=== PATIENT | female | born 1950 | race Caucasian/White ===

== ENCOUNTER 2017-11-05 09:00 | Outpatient (RCR) | payer OTHER, SELFPAY ==
--- NOTE | 2017-09-23 14:30 | PT.OIE ---
Current Diagnoses Patellofemoral disorders, right knee (09/23/17) Effusion, right knee (09/23/17) Provider Visit Care Team Role Provider Type Brent Blackwell MD Attending Provider Non-Staff Specialty: [facility] Address: [address] [place] [address], [facility] Email: Physical Therapy Initial Evaluation PT-OP-A Visit Information Start: 09/23/17 14:37 Freq: Status: Active Protocol: Document 09/23/17 14:37 MDD (Rec: 09/23/17 14:58 MDD [email or web address]) Out-Patient Physical Therapy Visit Information Visit Information Visit Type Initial Evaluation Visit Start Time 13:45 Visit Stop Time 14:30 Total Visit Minutes 45 Visit Number 1 Number of ORACLE ENDE[employer] CONSULTANT Visits 0 Evaluation Information Evaluation Date 09/23/17 PT-OP-B Current Condition Start: 09/23/17 14:37 Freq: Status: Active Protocol: Document 09/23/17 14:37 MDD (Rec: 09/23/17 14:58 MDD [email or web address]) Current Condition History of Current Condition Onset Date 6 months ago Current Complaints R knee swelling/pain History of Current Condition Incidious onset 6 months ago R knee swelling and pain. Has had x-rays reporting mild OA. Has had two cortisone injections which helped reduce swelling and pain. Last one was 6 weeks ago. Denies locking/popping or clicking. Recently retired and thus more active with gardening and outdoor activities. Also currently building a new house , so very physically active. Symptoms will wake her up at night. Prior Treatments and Tests uses alleve and ice, but not regularly Treatment Goals Patient/Caregiver Goals Be able to sleep through the night without pain. Prior Functional Status Baseline Function- ADL's Independent Baseline Function- Mobility Independent Current Functional Impairments (Reported) Functional Limitations- Other difficulty sleeping through the night. PT-OP-C Subjective Start: 09/23/17 14:37 Freq: Status: Active Protocol: Document 09/23/17 14:37 MDD (Rec: 09/23/17 14:58 MDD [email or web address]) OP-PT Pain Assessment Location Knee Pain Location Details R knee pain Intensity 5 Scale Used Numeric (1 - 10) Description Aching Pressure Frequency Intermittent Pain Aggravating Factors Exercise Sitting Stair Climbing Pain Alleviating Factors Cold Other Pain Alleviating Factors laying down and letting the R knee hang off the table PT-OP-J Posture/Palpation/Skin Start: 09/23/17 14:37 Freq: Status: Active Protocol: Document 09/23/17 14:37 MDD (Rec: 09/23/17 14:58 MDD [email or web address]) Posture Evaluation Position Standing Evaluation View Anterior L-Spine Posture Increased Lordosis Shoulder Posture (L) Rounded (R) Rounded Knee Posture (L) Genu Valgus (R) Genu Valgus Patellar Posture (L) Neutral (R) Neutral Ankle/Foot Posture (L) Neutral (R) Neutral Palpation Assessment Location One Palpation Location R medial knee, superior medial femoral condyle Palpation Findings Edema Tenderness PT-OP-K Range of Motion Start: 09/23/17 14:37 Freq: Status: Active Protocol: Document 09/23/17 14:37 MDD (Rec: 09/23/17 14:58 MDD [email or web address]) Knee Goniometric Range of Motion Knee Measured in Degrees Right Knee ROM WFL No Patient Position Supine Flexion Active (degrees) 136 Extension Active (degrees) 0 Left Knee ROM WFL Yes Patient Position Supine Flexion Active (degrees) 140 Extension Active (degrees) 0 PT-OP-L Special Tests Start: 09/23/17 14:37 Freq: Status: Active Protocol: Document 09/23/17 14:37 MDD (Rec: 09/23/17 14:58 MDD [email or web address]) Special Tests Knee Special Tests Sarthak's Test Test Results positive B Anterior Draw Test Results negative Johnnie's Test Results negative Ponce's Test Results negative Other Special Tests Special Tests straight leg raise indicates B hamstring shortness, Shivani's test demonstrates B quadriceps shortness, imani test positive for hip flexor shortness B. Pt also demonstrates limited hip extension ROM B. PT-OP-M Strength Start: 09/23/17 14:37 Freq: Status: Active Protocol: Document 09/23/17 14:37 MDD (Rec: 09/23/17 14:58 MDD [email or web address]) Hip Strength Hip Manual Muscle Testing Right Flexion (L2) 5 Normal Extension (S1) 4 Good Abduction 4+ Good+ External Rotation 5 Normal Internal Rotation 5 Normal Comments demonstrate medial patellar drift with single leg squat R >L Left Flexion (L2) 5 Normal Extension (S1) 4 Good Abduction 5 Normal External Rotation 5 Normal Internal Rotation 5 Normal PT-OP-T Assessment and Plan Start: 09/23/17 14:37 Freq: Status: Active Protocol: Document 09/23/17 14:37 MDD (Rec: 09/23/17 14:58 MDD [email or web address]) Physical Therapy Assessment Rehab Potential Rehabilitation Potential Excellent Evaluation Complexity Number of Personal Factors/Comorbidities 0 Number of Body Systems Impaired 1-2 Clinical Presentation at Evaluation Stable Impairments Impairments Balance Functional Mobility Pain Posture ROM Soft Tissue Mobility Strength Goals Three Impairment pain Short Term Goal (STG) Pt will be able to ascend/ descend 12 steps without R knee pain in 8 weeks. Two Impairment Strength Short Term Goal (STG) Pt will improve LE strength to 5/5 in major muscle groups in 6-8 weeks to decrease pain. One Impairment Pain Short Term Goal (STG) Pt will report no greater than 2/10 R knee pain during the night in 2-3 weeks. Fci Goal (LTG) Pt will report no knee pain at night in 6-8 weeks. Assessment Summary Assessment Pt is complaining of R knee pain that is currently limiting her ability to ascend /descend stairs and sleep without interruption. On examination she demonstrates impaired LE flexibility, impaired R hip strength and impaired posture that is consistent with mechanical knee pain. She should benefit from a PT plan of care to address the above impairments. Physical Therapy Plan Frequency and Duration Frequency of Treatment 1x/Week Duration of Treatment 8 weeks Plan of Care Start Date 09/23/17 Therapeutic Interventions Therapeutic Interventions Gait Training Manual Therapy Soft Tissue Mobilization Taping Therapeutic Activities Therapeutic Exercises Modalities Cold Pack/Ice Massage Electric Stimulation Hot Packs Next Visit Focus/Plan Next Note Type Treatment Note Next Visit Plan start gluteal strengthening, assess stair climbing. Review HEP.
--- NOTE | 2017-09-23 14:59 | PT.OPPOC ---
Current Diagnoses Patellofemoral disorders, right knee (09/23/17) Effusion, right knee (09/23/17) Provider Visit Care Team Role Provider Type Brent Blackwell MD Attending Provider Non-Staff Specialty: [facility] Address: [address] [place] [address], [facility] Email: Plan Of Care PT-OP-T Assessment and Plan Start: 09/23/17 14:37 Freq: Status: Active Protocol: Document 09/23/17 14:37 MDD (Rec: 09/23/17 14:58 MDD [email or web address]) Physical Therapy Assessment Rehab Potential Rehabilitation Potential Excellent Evaluation Complexity Number of Personal Factors/Comorbidities 0 Number of Body Systems Impaired 1-2 Clinical Presentation at Evaluation Stable Impairments Impairments Balance Functional Mobility Pain Posture ROM Soft Tissue Mobility Strength Goals Three Impairment pain Short Term Goal (STG) Pt will be able to ascend/ descend 12 steps without R knee pain in 8 weeks. Two Impairment Strength Short Term Goal (STG) Pt will improve LE strength to 5/5 in major muscle groups in 6-8 weeks to decrease pain. One Impairment Pain Short Term Goal (STG) Pt will report no greater than 2/10 R knee pain during the night in 2-3 weeks. Livestock Laborer Goal (LTG) Pt will report no knee pain at night in 6-8 weeks. Assessment Summary Assessment Pt is complaining of R knee pain that is currently limiting her ability to ascend /descend stairs and sleep without interruption. On examination she demonstrates impaired LE flexibility, impaired R hip strength and impaired posture that is consistent with mechanical knee pain. She should benefit from a PT plan of care to address the above impairments. Physical Therapy Plan Frequency and Duration Frequency of Treatment 1x/Week Duration of Treatment 8 weeks Plan of Care Start Date 09/23/17 Therapeutic Interventions Therapeutic Interventions Gait Training Manual Therapy Soft Tissue Mobilization Taping Therapeutic Activities Therapeutic Exercises Modalities Cold Pack/Ice Massage Electric Stimulation Hot Packs Next Visit Focus/Plan Next Note Type Treatment Note Next Visit Plan start gluteal strengthening, assess stair climbing. Review HEP. Plan of Care Dates Plan of Care Start Date 09/23/17 Please Sign and Return: I have reviewed this Plan of Care and certify that the skilled therapy services above are required to meet the patient?s needs. Physician Signature Date Printed Name and Credentials Clinical Instructor Signature Printed Name and Credentials
--- NOTE | 2017-10-01 10:31 | PT.OTN ---
Current Diagnoses Patellofemoral disorders, right knee (10/01/17) Effusion, right knee (10/01/17) Physical Therapy Treatment Note PT-OP-A Visit Information Start: 09/23/17 14:37 Freq: Status: Active Protocol: Document 10/01/17 10:31 MDD (Rec: 10/01/17 12:40 MDD [id number]) Out-Patient Physical Therapy Visit Information Visit Information Visit Type Treatment Note Visit Start Time 09:51 Visit Stop Time 10:31 Total Visit Minutes 40 Visit Number 2 Number of GOLF CART MAKER Visits 0 Evaluation Information Evaluation Date 09/23/17 PT-OP-B Current Condition Start: 09/23/17 14:37 Freq: Status: Active Protocol: Document 09/23/17 14:37 MDD (Rec: 09/23/17 14:58 MDD [email or web address]) Current Condition History of Current Condition Onset Date 6 months ago Current Complaints R knee swelling/pain History of Current Condition Incidious onset 6 months ago R knee swelling and pain. Has had x-rays reporting mild OA. Has had two cortisone injections which helped reduce swelling and pain. Last one was 6 weeks ago. Denies locking/popping or clicking. Recently retired and thus more active with gardening and outdoor activities. Also currently building a new house , so very physically active. Symptoms will wake her up at night. Prior Treatments and Tests uses alleve and ice, but not regularly Treatment Goals Patient/Caregiver Goals Be able to sleep through the night without pain. Prior Functional Status Baseline Function- ADL's Independent Baseline Function- Mobility Independent Current Functional Impairments (Reported) Functional Limitations- Other difficulty sleeping through the night. PT-OP-C Subjective Start: 09/23/17 14:37 Freq: Status: Active Protocol: Document 10/01/17 10:31 MDD (Rec: 10/01/17 12:40 MDD [id number]) OP-PT Subjective Patient Comments Patient Comments Pt reports her knee has felt less sore in the last day or two. Does note she has started taking one alleve at night and one in the morning to help with soreness. Has been consistent with her stretches so far. OP-PT Pain Assessment Location Knee Pain Location Details R knee pain Intensity 0 Scale Used Numeric (1 - 10) PT-OP-J Posture/Palpation/Skin Start: 09/23/17 14:37 Freq: Status: Active Protocol: Document 09/23/17 14:37 MDD (Rec: 09/23/17 14:58 MDD [email or web address]) Posture Evaluation Position Standing Evaluation View Anterior L-Spine Posture Increased Lordosis Shoulder Posture (L) Rounded (R) Rounded Knee Posture (L) Genu Valgus (R) Genu Valgus Patellar Posture (L) Neutral (R) Neutral Ankle/Foot Posture (L) Neutral (R) Neutral Palpation Assessment Location One Palpation Location R medial knee, superior medial femoral condyle Palpation Findings Edema Tenderness PT-OP-K Range of Motion Start: 09/23/17 14:37 Freq: Status: Active Protocol: Document 09/23/17 14:37 MDD (Rec: 09/23/17 14:58 MDD [email or web address]) Knee Goniometric Range of Motion Knee Measured in Degrees Right Knee ROM WFL No Patient Position Supine Flexion Active (degrees) 136 Extension Active (degrees) 0 Left Knee ROM WFL Yes Patient Position Supine Flexion Active (degrees) 140 Extension Active (degrees) 0 PT-OP-L Special Tests Start: 09/23/17 14:37 Freq: Status: Active Protocol: Document 09/23/17 14:37 MDD (Rec: 09/23/17 14:58 MDD [email or web address]) Special Tests Knee Special Tests Sarthak's Test Test Results positive B Anterior Draw Test Results negative Johnnie's Test Results negative [facility]'s Test Results negative Other Special Tests Special Tests straight leg raise indicates B hamstring shortness, Shivani's test demonstrates B quadriceps shortness, imani test positive for hip flexor shortness B. Pt also demonstrates limited hip extension ROM B. PT-OP-M Strength Start: 09/23/17 14:37 Freq: Status: Active Protocol: Document 09/23/17 14:37 MDD (Rec: 09/23/17 14:58 MDD [email or web address]) Hip Strength Hip Manual Muscle Testing Right Flexion (L2) 5 Normal Extension (S1) 4 Good Abduction 4+ Good+ External Rotation 5 Normal Internal Rotation 5 Normal Comments demonstrate medial patellar drift with single leg squat R >L Left Flexion (L2) 5 Normal Extension (S1) 4 Good Abduction 5 Normal External Rotation 5 Normal Internal Rotation 5 Normal PT-OP-Q Treatments Start: 09/23/17 14:37 Freq: Status: Active Protocol: Document 10/01/17 10:31 MDD (Rec: 10/01/17 12:40 MDD [id number]) Therapeutic Exercises Supine Exercises 5 Supine Exercise Name Bridges Reps/Minutes 15 with 5 second holds Comments mini bridges - focus on activating gluteals and relaxing lumbar paraspinals 4 Supine Exercise Name posterior pelvic tilts Reps/Minutes 10 3 Supine Exercise Name double knee to chest Reps/Minutes 10 2 Supine Exercise Name standing ITB stretch Reps/Minutes 2 x 30s 1 Supine Exercise Name imani stretch Reps/Minutes 2 x 30 seconds Sitting Exercises 2 Sitting Exercise Name seated piriformis stretch Side right Reps/Minutes 2 x 30s 1 Sitting Exercise Name sitting hamstring stretch Reps/Minutes 2 x 30s Standing Exercises 1 Standing Exercise Name wall squats Resistance Level 1 t-band around distal thighs Reps/Minutes 10 Therapeutic Activity Therapeutic Activity 2 Name Training to avoid straining back with activities of daily living Comments Practice with golfers lift, mini lunge etc for avoiding bending forward to lift items. 1 Name Functional squat training Reps/Minutes 25 reps Comments Pt with difficulty getting weight back into proper functional squat. Tends to let knees drift anteriorly over toes. Has difficulty maintaining her balance. Will need continued practice. PT-OP-T Assessment and Plan Start: 09/23/17 14:37 Freq: Status: Active Protocol: Document 10/01/17 10:31 [facility] (Rec: 10/01/17 12:40 [facility] [id number]) Physical Therapy Assessment Rehab Potential Rehabilitation Potential Excellent Impairments Impairments Balance Functional Mobility Pain Posture ROM Soft Tissue Mobility Strength Progress Towards Goals Progress Towards Goals Progressing Toward Goals Physical Therapy Plan Next Visit Focus/Plan Next Note Type Treatment Note Next Visit Plan Review HEP, trial progression of bridges. Review functional squat training.
--- NOTE | 2017-10-08 09:45 | PT.OTN ---
Current Diagnoses Patellofemoral disorders, right knee (10/08/17) Effusion, right knee (10/08/17) Physical Therapy Treatment Note PT-OP-A Visit Information Start: 09/23/17 14:37 Freq: Status: Active Protocol: Document 10/08/17 09:45 MDD (Rec: 10/08/17 09:58 MDD [email or web address]) Out-Patient Physical Therapy Visit Information Visit Information Visit Type Treatment Note Visit Start Time 09:00 Visit Stop Time 09:45 Total Visit Minutes 45 Visit Number 3 Number of PRESS WASHER Visits 0 Evaluation Information Evaluation Date 09/23/17 PT-OP-B Current Condition Start: 09/23/17 14:37 Freq: Status: Active Protocol: Document 09/23/17 14:37 MDD (Rec: 09/23/17 14:58 MDD [email or web address]) Current Condition History of Current Condition Onset Date 6 months ago Current Complaints R knee swelling/pain History of Current Condition Incidious onset 6 months ago R knee swelling and pain. Has had x-rays reporting mild OA. Has had two cortisone injections which helped reduce swelling and pain. Last one was 6 weeks ago. Denies locking/popping or clicking. Recently retired and thus more active with gardening and outdoor activities. Also currently building a new house , so very physically active. Symptoms will wake her up at night. Prior Treatments and Tests uses alleve and ice, but not regularly Treatment Goals Patient/Caregiver Goals Be able to sleep through the night without pain. Prior Functional Status Baseline Function- ADL's Independent Baseline Function- Mobility Independent Current Functional Impairments (Reported) Functional Limitations- Other difficulty sleeping through the night. PT-OP-C Subjective Start: 09/23/17 14:37 Freq: Status: Active Protocol: Document 10/08/17 09:45 MDD (Rec: 10/08/17 09:58 MDD [email or web address]) OP-PT Subjective Patient Comments Patient Comments Pt reports that her knee has done surprisingly well after pouring her foundation bent over most of the day yesterday . Did feel like she overstretched on saturday and flared up swelling in R lateral knee. PT-OP-J Posture/Palpation/Skin Start: 09/23/17 14:37 Freq: Status: Active Protocol: Document 09/23/17 14:37 MDD (Rec: 09/23/17 14:58 MDD [email or web address]) Posture Evaluation Position Standing Evaluation View Anterior L-Spine Posture Increased Lordosis Shoulder Posture (L) Rounded (R) Rounded Knee Posture (L) Genu Valgus (R) Genu Valgus Patellar Posture (L) Neutral (R) Neutral Ankle/Foot Posture (L) Neutral (R) Neutral Palpation Assessment Location One Palpation Location R medial knee, superior medial femoral condyle Palpation Findings Edema Tenderness PT-OP-K Range of Motion Start: 09/23/17 14:37 Freq: Status: Active Protocol: Document 09/23/17 14:37 MDD (Rec: 09/23/17 14:58 MDD [email or web address]) Knee Goniometric Range of Motion Knee Measured in Degrees Right Knee ROM WFL No Patient Position Supine Flexion Active (degrees) 136 Extension Active (degrees) 0 Left Knee ROM WFL Yes Patient Position Supine Flexion Active (degrees) 140 Extension Active (degrees) 0 PT-OP-L Special Tests Start: 09/23/17 14:37 Freq: Status: Active Protocol: Document 09/23/17 14:37 MDD (Rec: 09/23/17 14:58 [place] [id number]) Special Tests Knee Special Tests Sarthak's Test Test Results positive B Anterior Draw Test Results negative Johnnie's Test Results negative [facility]'s Test Results negative Other Special Tests Special Tests straight leg raise indicates B hamstring shortness, Shivani's test demonstrates B quadriceps shortness, imani test positive for hip flexor shortness B. Pt also demonstrates limited hip extension ROM B. PT-OP-M Strength Start: 09/23/17 14:37 Freq: Status: Active Protocol: Document 09/23/17 14:37 MDD (Rec: 09/23/17 14:58 MDD [email or web address]) Hip Strength Hip Manual Muscle Testing Right Flexion (L2) 5 Normal Extension (S1) 4 Good Abduction 4+ Good+ External Rotation 5 Normal Internal Rotation 5 Normal Comments demonstrate medial patellar drift with single leg squat R >L Left Flexion (L2) 5 Normal Extension (S1) 4 Good Abduction 5 Normal External Rotation 5 Normal Internal Rotation 5 Normal PT-OP-Q Treatments Start: 09/23/17 14:37 Freq: Status: Active Protocol: Document 10/08/17 09:45 MDD (Rec: 10/08/17 09:58 [place] [id number]) Therapeutic Exercises Supine Exercises 5 Supine Exercise Name Bridges Reps/Minutes 15 with 5 second holds Comments mini bridges - focus on activating gluteals and relaxing lumbar paraspinals 4 Supine Exercise Name posterior pelvic tilts Reps/Minutes 10 Comments focus on avoiding activating RA 1 Supine Exercise Name imani stretch Reps/Minutes 2 x 30 seconds Comments modified today to single knee to chest without leg hanging off the table Sidelying Exercises 1 Sidelying Exercise Name clamshell Side bilateral Resistance none Reps/Minutes 10 reps Standing Exercises 1 Standing Exercise Name functional squats Resistance L1 t-band around distal thighs Reps/Minutes 25 reps Comments focus on proper form Other Exercises 1 Other Exercise Name cat and camel - focus on pelvic movement Side bilateral Reps/Minutes 15 Manual Therapy Treatment Soft Tissue Mobilization 2 Body Location hip flexor - right Mobilization Type Sustained Pressure Intensity/Depth Deep Body Position Supine Comments 7 minutes 1 Body Location supine hamstring stretch Mobilization Type Other Intensity/Depth contract-relax Body Position Supine Comments contract 10 seconds, relax 20 seconds x 5 reps B PT-OP-T Assessment and Plan Start: 09/23/17 14:37 Freq: Status: Active Protocol: Document 10/08/17 09:45 MDD (Rec: 10/08/17 09:58 MDD [email or web address]) Physical Therapy Assessment Rehab Potential Rehabilitation Potential Excellent Progress Towards Goals Progress Towards Goals Progressing Toward Goals Assessment Summary Assessment Demonstrates good participation and is compliant with HEP. However, is doing a lot of work building a home and re-flaring symptoms/ creating new ones. Physical Therapy Plan Frequency and Duration Frequency of Treatment 1x/Week Duration of Treatment 8 weeks Plan of Care Start Date 09/23/17 Next Visit Focus/Plan Next Note Type Treatment Note Next Visit Plan review squats, assess response to hip flexor release etc.
--- NOTE | 2017-10-22 09:50 | PT.OTN ---
Current Diagnoses Patellofemoral disorders, right knee (10/22/17) Effusion, right knee (10/22/17) Physical Therapy Treatment Note PT-OP-A Visit Information Start: 09/23/17 14:37 Freq: Status: Active Protocol: Document 10/22/17 09:50 MDD (Rec: 10/22/17 10:18 MDD [email or web address]) Out-Patient Physical Therapy Visit Information Visit Information Visit Type Treatment Note Visit Note mild swelling R knee noted. R joint line: 36.5 cm, L joint line 35 cm Visit Start Time 09:02 Visit Stop Time 09:50 Total Visit Minutes 48 Visit Number 4 Number of OUTSIDE SALES REPRESENTATIVE Visits 0 PT-OP-B Current Condition Start: 09/23/17 14:37 Freq: Status: Active Protocol: Document 09/23/17 14:37 MDD (Rec: 09/23/17 14:58 MDD [email or web address]) Current Condition History of Current Condition Onset Date 6 months ago Current Complaints R knee swelling/pain History of Current Condition Incidious onset 6 months ago R knee swelling and pain. Has had x-rays reporting mild OA. Has had two cortisone injections which helped reduce swelling and pain. Last one was 6 weeks ago. Denies locking/popping or clicking. Recently retired and thus more active with gardening and outdoor activities. Also currently building a new house , so very physically active. Symptoms will wake her up at night. Prior Treatments and Tests uses alleve and ice, but not regularly Treatment Goals Patient/Caregiver Goals Be able to sleep through the night without pain. Prior Functional Status Baseline Function- ADL's Independent Baseline Function- Mobility Independent Current Functional Impairments (Reported) Functional Limitations- Other difficulty sleeping through the night. PT-OP-C Subjective Start: 09/23/17 14:37 Freq: Status: Active Protocol: Document 10/22/17 09:50 MDD (Rec: 10/22/17 10:18 MDD [email or web address]) OP-PT Subjective Patient Comments Patient Comments Pt reports she has had a very busy few weeks with people over for a family reunion. Thus has not been consistent with her exercises. However, she has also not been having much pain in her knee or back because she hasn't been as active with the house remodel. PT-OP-J Posture/Palpation/Skin Start: 09/23/17 14:37 Freq: Status: Active Protocol: Document 09/23/17 14:37 MDD (Rec: 09/23/17 14:58 MDD [email or web address]) Posture Evaluation Position Standing Evaluation View Anterior L-Spine Posture Increased Lordosis Shoulder Posture (L) Rounded (R) Rounded Knee Posture (L) Genu Valgus (R) Genu Valgus Patellar Posture (L) Neutral (R) Neutral Ankle/Foot Posture (L) Neutral (R) Neutral Palpation Assessment Location One Palpation Location R medial knee, superior medial femoral condyle Palpation Findings Edema Tenderness PT-OP-K Range of Motion Start: 09/23/17 14:37 Freq: Status: Active Protocol: Document 09/23/17 14:37 MDD (Rec: 09/23/17 14:58 MDD [email or web address]) Knee Goniometric Range of Motion Knee Measured in Degrees Right Knee ROM WFL No Patient Position Supine Flexion Active (degrees) 136 Extension Active (degrees) 0 Left Knee ROM WFL Yes Patient Position Supine Flexion Active (degrees) 140 Extension Active (degrees) 0 PT-OP-L Special Tests Start: 09/23/17 14:37 Freq: Status: Active Protocol: Document 09/23/17 14:37 MDD (Rec: 09/23/17 14:58 MDD [email or web address]) Special Tests Knee Special Tests Sarthak's Test Test Results positive B Anterior Draw Test Results negative Johnnie's Test Results negative [facility]'s Test Results negative Other Special Tests Special Tests straight leg raise indicates B hamstring shortness, Shivani's test demonstrates B quadriceps shortness, imani test positive for hip flexor shortness B. Pt also demonstrates limited hip extension ROM B. PT-OP-M Strength Start: 09/23/17 14:37 Freq: Status: Active Protocol: Document 09/23/17 14:37 MDD (Rec: 09/23/17 14:58 MDD [email or web address]) Hip Strength Hip Manual Muscle Testing Right Flexion (L2) 5 Normal Extension (S1) 4 Good Abduction 4+ Good+ External Rotation 5 Normal Internal Rotation 5 Normal Comments demonstrate medial patellar drift with single leg squat R >L Left Flexion (L2) 5 Normal Extension (S1) 4 Good Abduction 5 Normal External Rotation 5 Normal Internal Rotation 5 Normal PT-OP-Q Treatments Start: 09/23/17 14:37 Freq: Status: Active Protocol: Document 10/22/17 09:50 MDD (Rec: 10/22/17 10:18 MDD [email or web address]) Cardio Equipment Recumbent Stepper (Sci-Fit) Duration (Minutes) 5 Resistance L4 Seat Position 3 Therapeutic Exercises Supine Exercises 5 Supine Exercise Name Bridges Reps/Minutes 15 with 5 second holds Comments mini bridges - focus on activating gluteals and relaxing lumbar paraspinals 4 Supine Exercise Name posterior pelvic tilts Reps/Minutes 10 Comments focus on avoiding activating RA 1 Supine Exercise Name imani stretch Reps/Minutes 2 x 30 seconds Comments modified today to single knee to chest without leg hanging off the table Sidelying Exercises 1 Sidelying Exercise Name clamshell Side bilateral Resistance added L-1 resistence band Reps/Minutes 15 reps Standing Exercises 1 Standing Exercise Name functional squats Resistance L1 t-band around distal thighs Reps/Minutes 25 reps Comments focus on proper form Manual Therapy Treatment Soft Tissue Mobilization 3 Body Location Manual ITB stretch Mobilization Type Other Intensity/Depth Superficial Body Position Hooklying Comments imani stretch position, therapist providing pressure for ITB stretch 3 x 30 s holds 1 Body Location supine hamstring stretch Mobilization Type Other Intensity/Depth contract-relax Body Position Supine Comments contract 10 seconds, relax 20 seconds x 5 reps B PT-OP-R Modalities Start: 09/23/17 14:37 Freq: Status: Active Protocol: Document 10/22/17 09:50 MDD (Rec: 10/22/17 10:18 MDD [email or web address]) Hot Pack/Cold Pack Treatment Cold Pack Location R knee Patient Position Hooklying Treatment Duration (minutes) 10 Patient Tolerance Good Comments mild decrease in swelling R knee from 36.5 cm to 36 cm following ice today. PT-OP-T Assessment and Plan Start: 09/23/17 14:37 Freq: Status: Active Protocol: Document 10/22/17 09:50 MDD (Rec: 10/22/17 10:18 MDD [email or web address]) Physical Therapy Assessment Progress Towards Goals Progress Towards Goals Progressing Toward Goals Slow Progress due to Noncompliance Progress Comments Pt reports very little pain but has not been consistent with her HEP due to busy schedule. Assessment Summary Assessment Demonstrates improved ability to perform functional squats with very little pain. Physical Therapy Plan Frequency and Duration Frequency of Treatment 1x/Week Duration of Treatment 8 weeks Plan of Care Start Date 09/23/17 Next Visit Focus/Plan Next Note Type Treatment Note Next Visit Plan If still swollen, trial hi- volt therapy. Progress HEP to improved functional positions including standing or kneeling exercises.
--- NOTE | 2017-10-29 13:47 | PT.OTN ---
Current Diagnoses Patellofemoral disorders, right knee (10/29/17) Effusion, right knee (10/29/17) Physical Therapy Treatment Note PT-OP-A Visit Information Start: 09/23/17 14:37 Freq: Status: Active Protocol: Document 10/29/17 13:47 MDD (Rec: 10/29/17 16:34 MDD [email or web address]) Out-Patient Physical Therapy Visit Information Visit Information Visit Type Treatment Note Visit Note moderate R knee swelling noted . R joint line 37 cm, L 35. Visit Start Time 13:02 Visit Stop Time 13:47 Total Visit Minutes 15 Visit Number 5 Number of CARD DECORATOR Visits 0 Evaluation Information Evaluation Date 09/23/17 PT-OP-B Current Condition Start: 09/23/17 14:37 Freq: Status: Active Protocol: Document 09/23/17 14:37 MDD (Rec: 09/23/17 14:58 MDD [email or web address]) Current Condition History of Current Condition Onset Date 6 months ago Current Complaints R knee swelling/pain History of Current Condition Incidious onset 6 months ago R knee swelling and pain. Has had x-rays reporting mild OA. Has had two cortisone injections which helped reduce swelling and pain. Last one was 6 weeks ago. Denies locking/popping or clicking. Recently retired and thus more active with gardening and outdoor activities. Also currently building a new house , so very physically active. Symptoms will wake her up at night. Prior Treatments and Tests uses alleve and ice, but not regularly Treatment Goals Patient/Caregiver Goals Be able to sleep through the night without pain. Prior Functional Status Baseline Function- ADL's Independent Baseline Function- Mobility Independent Current Functional Impairments (Reported) Functional Limitations- Other difficulty sleeping through the night. PT-OP-C Subjective Start: 09/23/17 14:37 Freq: Status: Active Protocol: Document 10/29/17 13:47 MDD (Rec: 10/29/17 16:34 MDD [email or web address]) OP-PT Subjective Patient Comments Patient Comments Pt reports she has felt very little pain during the day. Only feels it now at night when she wakes up with her knee bent. Continues to be concerned about swelling. PT-OP-J Posture/Palpation/Skin Start: 09/23/17 14:37 Freq: Status: Active Protocol: Document 09/23/17 14:37 MDD (Rec: 09/23/17 14:58 MDD [email or web address]) Posture Evaluation Position Standing Evaluation View Anterior L-Spine Posture Increased Lordosis Shoulder Posture (L) Rounded (R) Rounded Knee Posture (L) Genu Valgus (R) Genu Valgus Patellar Posture (L) Neutral (R) Neutral Ankle/Foot Posture (L) Neutral (R) Neutral Palpation Assessment Location One Palpation Location R medial knee, superior medial femoral condyle Palpation Findings Edema Tenderness PT-OP-K Range of Motion Start: 09/23/17 14:37 Freq: Status: Active Protocol: Document 09/23/17 14:37 MDD (Rec: 09/23/17 14:58 MDD [email or web address]) Knee Goniometric Range of Motion Knee Measured in Degrees Right Knee ROM WFL No Patient Position Supine Flexion Active (degrees) 136 Extension Active (degrees) 0 Left Knee ROM WFL Yes Patient Position Supine Flexion Active (degrees) 140 Extension Active (degrees) 0 PT-OP-L Special Tests Start: 09/23/17 14:37 Freq: Status: Active Protocol: Document 09/23/17 14:37 MDD (Rec: 09/23/17 14:58 MDD [email or web address]) Special Tests Knee Special Tests Sarthak's Test Test Results positive B Anterior Draw Test Results negative Johnnie's Test Results negative [facility]'s Test Results negative Other Special Tests Special Tests straight leg raise indicates B hamstring shortness, Shivani's test demonstrates B quadriceps shortness, imani test positive for hip flexor shortness B. Pt also demonstrates limited hip extension ROM B. PT-OP-M Strength Start: 09/23/17 14:37 Freq: Status: Active Protocol: Document 09/23/17 14:37 MDD (Rec: 09/23/17 14:58 MDD [email or web address]) Hip Strength Hip Manual Muscle Testing Right Flexion (L2) 5 Normal Extension (S1) 4 Good Abduction 4+ Good+ External Rotation 5 Normal Internal Rotation 5 Normal Comments demonstrate medial patellar drift with single leg squat R >L Left Flexion (L2) 5 Normal Extension (S1) 4 Good Abduction 5 Normal External Rotation 5 Normal Internal Rotation 5 Normal PT-OP-Q Treatments Start: 09/23/17 14:37 Freq: Status: Active Protocol: Document 10/29/17 13:47 MDD (Rec: 10/29/17 16:34 MDD [email or web address]) Cardio Equipment Recumbent Stepper (Sci-Fit) Duration (Minutes) 5 Resistance L4 Seat Position 3 Therapeutic Exercises Supine Exercises 2 Supine Exercise Name standing ITB stretch Reps/Minutes 2 x 30s 1 Supine Exercise Name imani stretch Reps/Minutes 2 x 30 seconds Comments modified today to single knee to chest without leg hanging off the table Sidelying Exercises 2 Sidelying Exercise Name sidelying quadriceps stretch Side bilateral Reps/Minutes 2 x 30 seconds Sitting Exercises 1 Sitting Exercise Name sitting hamstring stretch Reps/Minutes 2 x 30s Standing Exercises 3 Standing Exercise Name mini lunges Side right Reps/Minutes 10 reps Comments L leg forward irritated R knee . 2 Standing Exercise Name Hip hikes Side bilateral Reps/Minutes 2 x 10 1 Standing Exercise Name functional squats Resistance L1 t-band around distal thighs Reps/Minutes 25 reps Comments focus on proper form Manual Therapy Treatment Soft Tissue Mobilization 3 Body Location Manual ITB stretch Mobilization Type Other Intensity/Depth Superficial Body Position Hooklying Comments imani stretch position, therapist providing pressure for ITB stretch 3 x 30 s holds 1 Body Location supine hamstring stretch Mobilization Type Other Intensity/Depth contract-relax Body Position Supine Comments contract 10 seconds, relax 20 seconds x 5 reps B PT-OP-R Modalities Start: 09/23/17 14:37 Freq: Status: Active Protocol: Document 10/29/17 13:47 MDD (Rec: 10/29/17 16:34 MDD [email or web address]) Electric Stimulation Electric Stimulation Hi-Volt Body Location R knee Duration (Minutes) 10 Intensity 45mV Ramp 0.5 Patient Position Hooklying Combined With Heat/Cold Cold Pack Comments Mild decreased swelling 36.5 cm following e-stim today. PT-OP-T Assessment and Plan Start: 09/23/17 14:37 Freq: Status: Active Protocol: Document 10/29/17 13:47 MDD (Rec: 10/29/17 16:34 MDD [email or web address]) Physical Therapy Assessment Progress Towards Goals Progress Towards Goals Progressing Toward Goals Progress Comments Pt progressing well, no longer feeling pain during her daily activities. Assessment Summary Assessment Demonstrates improved squat position. Physical Therapy Plan Frequency and Duration Frequency of Treatment 1x/Week Duration of Treatment 8 weeks Plan of Care Start Date 09/23/17 Next Visit Focus/Plan Next Note Type Treatment Note Next Visit Plan Continue with functional progression
--- NOTE | 2017-11-05 09:46 | PT.OTN ---
Current Diagnoses Patellofemoral disorders, right knee (11/05/17) Effusion, right knee (11/05/17) Physical Therapy Treatment Note PT-OP-A Visit Information Start: 09/23/17 14:37 Freq: Status: Active Protocol: Document 11/05/17 09:46 MDD (Rec: 11/05/17 14:15 MDD [email or web address]) Out-Patient Physical Therapy Visit Information Visit Information Visit Type Progress Note Visit Note R joint line: 36 cm, L joint line: 35 cm R thigh (6 cm above patella) 39 cm L thigh 36.5 cm Visit Start Time 09:03 Visit Stop Time 09:46 Total Visit Minutes 43 Visit Number 6 Number of STEELWORKER Visits 0 Evaluation Information Evaluation Date 09/23/17 PT-OP-B Current Condition Start: 09/23/17 14:37 Freq: Status: Active Protocol: Document 09/23/17 14:37 MDD (Rec: 09/23/17 14:58 MDD [email or web address]) Current Condition History of Current Condition Onset Date 6 months ago Current Complaints R knee swelling/pain History of Current Condition Incidious onset 6 months ago R knee swelling and pain. Has had x-rays reporting mild OA. Has had two cortisone injections which helped reduce swelling and pain. Last one was 6 weeks ago. Denies locking/popping or clicking. Recently retired and thus more active with gardening and outdoor activities. Also currently building a new house , so very physically active. Symptoms will wake her up at night. Prior Treatments and Tests uses alleve and ice, but not regularly Treatment Goals Patient/Caregiver Goals Be able to sleep through the night without pain. Prior Functional Status Baseline Function- ADL's Independent Baseline Function- Mobility Independent Current Functional Impairments (Reported) Functional Limitations- Other difficulty sleeping through the night. PT-OP-C Subjective Start: 09/23/17 14:37 Freq: Status: Active Protocol: Document 11/05/17 09:46 MDD (Rec: 11/05/17 14:15 MDD [email or web address]) OP-PT Subjective Patient Comments Patient Comments Pt reports continued/worsening swelling in R knee. She no longer feels sharp pain in her knee, but continues to have discomfort and decreased range of motion d/t swelling. Reports she may have twisted it the other day when stepping down her stairs. Patient Reported Progress Same PT-OP-J Posture/Palpation/Skin Start: 09/23/17 14:37 Freq: Status: Active Protocol: Document 09/23/17 14:37 MDD (Rec: 09/23/17 14:58 MDD [email or web address]) Posture Evaluation Position Standing Evaluation View Anterior L-Spine Posture Increased Lordosis Shoulder Posture (L) Rounded (R) Rounded Knee Posture (L) Genu Valgus (R) Genu Valgus Patellar Posture (L) Neutral (R) Neutral Ankle/Foot Posture (L) Neutral (R) Neutral Palpation Assessment Location One Palpation Location R medial knee, superior medial femoral condyle Palpation Findings Edema Tenderness PT-OP-K Range of Motion Start: 09/23/17 14:37 Freq: Status: Active Protocol: Document 09/23/17 14:37 MDD (Rec: 09/23/17 14:58 MDD [email or web address]) Knee Goniometric Range of Motion Knee Measured in Degrees Right Knee ROM WFL No Patient Position Supine Flexion Active (degrees) 136 Extension Active (degrees) 0 Left Knee ROM WFL Yes Patient Position Supine Flexion Active (degrees) 140 Extension Active (degrees) 0 PT-OP-L Special Tests Start: 09/23/17 14:37 Freq: Status: Active Protocol: Document 09/23/17 14:37 MDD (Rec: 09/23/17 14:58 MDD [email or web address]) Special Tests Knee Special Tests Sarthak's Test Test Results positive B Anterior Draw Test Results negative Johnnie's Test Results negative [facility]'s Test Results negative Other Special Tests Special Tests straight leg raise indicates B hamstring shortness, Shivani's test demonstrates B quadriceps shortness, imani test positive for hip flexor shortness B. Pt also demonstrates limited hip extension ROM B. PT-OP-M Strength Start: 09/23/17 14:37 Freq: Status: Active Protocol: Document 09/23/17 14:37 MDD (Rec: 09/23/17 14:58 MDD [email or web address]) Hip Strength Hip Manual Muscle Testing Right Flexion (L2) 5 Normal Extension (S1) 4 Good Abduction 4+ Good+ External Rotation 5 Normal Internal Rotation 5 Normal Comments demonstrate medial patellar drift with single leg squat R >L Left Flexion (L2) 5 Normal Extension (S1) 4 Good Abduction 5 Normal External Rotation 5 Normal Internal Rotation 5 Normal PT-OP-Q Treatments Start: 09/23/17 14:37 Freq: Status: Active Protocol: Document 11/05/17 09:46 MDD (Rec: 11/05/17 14:15 MDD [email or web address]) Cardio Equipment Recumbent Stepper (Sci-Fit) Duration (Minutes) 5 Resistance L5 Seat Position 3 Therapeutic Exercises Supine Exercises 5 Supine Exercise Name Bridges Reps/Minutes 15 with 5 second holds Comments increased range of motion with bridges today Standing Exercises 3 Standing Exercise Name mini lunges Side bilateral Reps/Minutes 10 reps Comments decreased pain in R knee when performing smaller motion 2 Standing Exercise Name Hip hikes Side bilateral Reps/Minutes 2 x 10 Comments focus on ER of R LE during stance 1 Standing Exercise Name functional squats Reps/Minutes 25 reps Comments focus on proper form Manual Therapy Treatment Soft Tissue Mobilization 4 Body Location R knee/thigh Mobilization Type Manual Lymphatic Drainage Intensity/Depth Moderate Body Position Supine Comments gentle milk massage R distal thigh Joint Mobilizations 1 Joint tibiofemoral joint Direction posterior glide - tibia Grade IV Body Position Hooklying Reps/Duration 45-60 second bouts Comments started in open packed position with foam roll under thigh (x 5 reps) progressed to increased knee flexion ~70 degrees ( x 4reps) R knee flexion ROM improved from 125 degrees flexion to 135 degrees flexion following manual therapy today. PT-OP-R Modalities Start: 09/23/17 14:37 Freq: Status: Active Protocol: Document 10/29/17 13:47 MDD (Rec: 10/29/17 16:34 MDD [email or web address]) Electric Stimulation Electric Stimulation Hi-Volt Body Location R knee Duration (Minutes) 10 Intensity 45mV Ramp 0.5 Patient Position Hooklying Combined With Heat/Cold Cold Pack Comments Mild decreased swelling 36.5 cm following e-stim today. PT-OP-T Assessment and Plan Start: 09/23/17 14:37 Freq: Status: Active Protocol: Document 11/05/17 09:46 MDD (Rec: 11/05/17 14:15 MDD [email or web address]) Physical Therapy Assessment Rehab Potential Rehabilitation Potential Fair Goals Three Impairment pain Short Term Goal (STG) Pt will be able to ascend/ descend 12 steps without R knee pain in 8 weeks. [ End ] STG Duration 8 weeks Two Impairment strength Short Term Goal (STG) Pt will improve LE strength to 5/5 in major muscle groups in 6-8 weeks to decrease pain. [ End ] STG Duration 8 weeks One Impairment Pain Short Term Goal (STG) Pt will report no greater than 2/10 R knee pain during the night in 2-3 weeks. [ End ] Progress Towards Goals Progress Towards Goals Slow Progress - Other Progress Comments Pt reports meeting goals of stair climibing without pain and demonstrates improved LE strength, but persistent swelling causes increased pain , especially at night and with end range activities. Assessment Summary Assessment Pt demonstrates improved LE strength and improved posture with functional activities, but continues to have persistent swelling and pain/ discomfort. Physical Therapy Plan Frequency and Duration Duration of Treatment 8 weeks Plan of Care Start Date 09/23/17 Plan of Care End Date 11/18/17 Hold Physical Therapy Reason For Hold Pt demonstrating plateau in progress with worsening persistent swelling. May benefit from f/u with physician and additional imaging to rule out meniscal tear or internal derangement.
--- NOTE | 2017-11-05 09:46 | PT.OPPOC ---
Current Diagnoses Patellofemoral disorders, right knee (11/05/17) Effusion, right knee (11/05/17) Provider Visit Care Team Role Provider Type Brent Blackwell MD Attending Provider Non-Staff Specialty: [facility] Address: [address] [place] [address], [id number] Email: Plan Of Care PT-OP-T Assessment and Plan Start: 09/23/17 14:37 Freq: Status: Active Protocol: Document 11/05/17 09:46 MDD (Rec: 11/05/17 14:15 MDD [email or web address]) Physical Therapy Assessment Rehab Potential Rehabilitation Potential Fair Goals Three Impairment pain Short Term Goal (STG) Pt will be able to ascend/ descend 12 steps without R knee pain in 8 weeks. [ End ] STG Duration 8 weeks Two Impairment strength Short Term Goal (STG) Pt will improve LE strength to 5/5 in major muscle groups in 6-8 weeks to decrease pain. [ End ] STG Duration 8 weeks One Impairment Pain Short Term Goal (STG) Pt will report no greater than 2/10 R knee pain during the night in 2-3 weeks. [ End ] Progress Towards Goals Progress Towards Goals Slow Progress - Other Progress Comments Pt reports meeting goals of stair climibing without pain and demonstrates improved LE strength, but persistent swelling causes increased pain , especially at night and with end range activities. Assessment Summary Assessment Pt demonstrates improved LE strength and improved posture with functional activities, but continues to have persistent swelling and pain/ discomfort. Physical Therapy Plan Frequency and Duration Duration of Treatment 8 weeks Plan of Care Start Date 09/23/17 Plan of Care End Date 11/18/17 Hold Physical Therapy Reason For Hold Pt demonstrating plateau in progress with worsening persistent swelling. May benefit from f/u with physician and additional imaging to rule out meniscal tear or internal derangement. Plan of Care Dates Plan of Care Start Date 09/23/17 Plan of Care End Date 11/18/17 Please Sign and Return: I have reviewed this Plan of Care and certify that the skilled therapy services above are required to meet the patient?s needs. Physician Signature Date Printed Name and Credentials Clinical Instructor Signature Printed Name and Credentials
--- NOTE | 2017-12-18 14:37 | PT.OPDS ---
Current Diagnoses Patellofemoral disorders, right knee (11/05/17) Effusion, right knee (11/05/17) Provider Visit Care Team Role Provider Type Brent Blackwell MD Attending Provider Non-Staff Specialty: [facility] Address: [address] [place] [address], [facility] Email: Visit Number Visit Number 6 Discharge Summary PT-OP-B Current Condition Start: 09/23/17 14:37 Freq: Status: Active Protocol: Document 09/23/17 14:37 MDD (Rec: 09/23/17 14:58 MDD [email or web address]) Current Condition History of Current Condition Onset Date 6 months ago Current Complaints R knee swelling/pain History of Current Condition Incidious onset 6 months ago R knee swelling and pain. Has had x-rays reporting mild OA. Has had two cortisone injections which helped reduce swelling and pain. Last one was 6 weeks ago. Denies locking/popping or clicking. Recently retired and thus more active with gardening and outdoor activities. Also currently building a new house , so very physically active. Symptoms will wake her up at night. Prior Treatments and Tests uses alleve and ice, but not regularly Treatment Goals Patient/Caregiver Goals Be able to sleep through the night without pain. Prior Functional Status Baseline Function- ADL's Independent Baseline Function- Mobility Independent Current Functional Impairments (Reported) Functional Limitations- Other difficulty sleeping through the night. PT-OP-C Subjective Start: 09/23/17 14:37 Freq: Status: Active Protocol: Document 12/18/17 14:35 IJS (Rec: 12/18/17 14:37 IJS [email or web address]) OP-PT Subjective Patient Comments Patient Comments This patient was seen for 6 visits. On her last visit she complained of worsening pain and swelling thinking she may have twisted it on the stairs. Per her therapist last visit note on 11-05-17 it was suggested that she return to her MD for further testing. She has not scheduled any further visits and will be discharged at this time. Patient Reported Progress Worse PT-OP-J Posture/Palpation/Skin Start: 09/23/17 14:37 Freq: Status: Active Protocol: Document 09/23/17 14:37 MDD (Rec: 09/23/17 14:58 MDD [email or web address]) Posture Evaluation Position Standing Evaluation View Anterior L-Spine Posture Increased Lordosis Shoulder Posture (L) Rounded (R) Rounded Knee Posture (L) Genu Valgus (R) Genu Valgus Patellar Posture (L) Neutral (R) Neutral Ankle/Foot Posture (L) Neutral (R) Neutral Palpation Assessment Location One Palpation Location R medial knee, superior medial femoral condyle Palpation Findings Edema Tenderness PT-OP-K Range of Motion Start: 09/23/17 14:37 Freq: Status: Active Protocol: Document 09/23/17 14:37 MDD (Rec: 09/23/17 14:58 MDD [email or web address]) Knee Goniometric Range of Motion Knee Measured in Degrees Right Knee ROM WFL No Patient Position Supine Flexion Active (degrees) 136 Extension Active (degrees) 0 Left Knee ROM WFL Yes Patient Position Supine Flexion Active (degrees) 140 Extension Active (degrees) 0 PT-OP-L Special Tests Start: 09/23/17 14:37 Freq: Status: Active Protocol: Document 09/23/17 14:37 MDD (Rec: 09/23/17 14:58 MDD [email or web address]) Special Tests Knee Special Tests Sarthak's Test Test Results positive B Anterior Draw Test Results negative Johnnie's Test Results negative Ponce's Test Results negative Other Special Tests Special Tests straight leg raise indicates B hamstring shortness, Shivani's test demonstrates B quadriceps shortness, imani test positive for hip flexor shortness B. Pt also demonstrates limited hip extension ROM B. PT-OP-M Strength Start: 09/23/17 14:37 Freq: Status: Active Protocol: Document 09/23/17 14:37 MDD (Rec: 09/23/17 14:58 MDD [email or web address]) Hip Strength Hip Manual Muscle Testing Right Flexion (L2) 5 Normal Extension (S1) 4 Good Abduction 4+ Good+ External Rotation 5 Normal Internal Rotation 5 Normal Comments demonstrate medial patellar drift with single leg squat R >L Left Flexion (L2) 5 Normal Extension (S1) 4 Good Abduction 5 Normal External Rotation 5 Normal Internal Rotation 5 Normal PT-OP-T Assessment and Plan Start: 09/23/17 14:37 Freq: Status: Active Protocol: Document 11/05/17 09:46 MDD (Rec: 11/05/17 14:15 MDD [email or web address]) Physical Therapy Assessment Rehab Potential Rehabilitation Potential Fair Goals Three Impairment pain Short Term Goal (STG) Pt will be able to ascend/ descend 12 steps without R knee pain in 8 weeks. [ End ] STG Duration 8 weeks Two Impairment strength Short Term Goal (STG) Pt will improve LE strength to 5/5 in major muscle groups in 6-8 weeks to decrease pain. [ End ] STG Duration 8 weeks One Impairment Pain Short Term Goal (STG) Pt will report no greater than 2/10 R knee pain during the night in 2-3 weeks. [ End ] Progress Towards Goals Progress Towards Goals Slow Progress - Other Progress Comments Pt reports meeting goals of stair climibing without pain and demonstrates improved LE strength, but persistent swelling causes increased pain , especially at night and with end range activities. Assessment Summary Assessment Pt demonstrates improved LE strength and improved posture with functional activities, but continues to have persistent swelling and pain/ discomfort. Physical Therapy Plan Frequency and Duration Duration of Treatment 8 weeks Plan of Care Start Date 09/23/17 Plan of Care End Date 11/18/17 Hold Physical Therapy Reason For Hold Pt demonstrating plateau in progress with worsening persistent swelling. May benefit from f/u with physician and additional imaging to rule out meniscal tear or internal derangement.
== END 2017-12-31 12:39 ==
LOC: PHYS 09:00
PROVIDERS: Visit Provider Family Medicine
DX: M22.2X1 Patellofemoral disorders, right knee (principal); M25.461 Effusion, right knee
CPT/HCPCS: 97014; 97110; 97140; 97161; 97530; G0283

== ENCOUNTER → 2017-12-19 07:56 | Outpatient (CLI) | payer OTHER, SELFPAY ==
--- NOTE | 2017-12-19 | DI.MRI.S_ITS ---
PROCEDURE: MR KNEE RT WO CON INDICATIONS: EFFUSION OF RIGHT KNEE JOINT TECHNIQUE: Noncontrast sagittal PD fast spin echo and T2 fast spin echo with fat saturation, sagittal 3-D FLASH with fat saturation; coronal T1 spin echo and PD fast spin echo with fat saturation, and axial PD fast spin echo with fat saturation through the knee. COMPARISON: None. FINDINGS: Image quality: Excellent. Menisci: Medial meniscus appears grossly intact. There is some blunting and truncation of the free margin of the body of the lateral meniscus. Cruciate ligaments: The anterior and posterior cruciate ligaments appear intact. Medial structures: The medial collateral ligament appears intact. The posterior oblique ligament, semimembranosus tendon insertions, oblique popliteal ligament, and meniscocapsular junction appear intact. Visualized portions of the pes anserinus tendons appear normal. No abnormal bursal fluid. Lateral structures: The lateral collateral ligament, long and short heads of the biceps femoris tendon appear intact. The popliteus tendon appears normal; the popliteofibular ligament appears intact. The posterosuperior and anteroinferior popliteomeniscal fascicles appear intact. The arcuate and fabellofibular ligaments appear intact, on either side of the lateral inferior geniculate artery. Iliotibial band appears normal. Anterior structures: Superficial infrapatellar subcutaneous edema. The quadriceps and patellar tendons appear intact. Patellar alignment is normal. No femoral trochlear dysplasia or ventral trochlear prominence. No edema in the infrapatellar fat pad. Bones and cartilage: No bone marrow contusions or fractures. Within the medial compartment articular cartilage appears grossly intact. Within the lateral compartment, intrasubstance signal change of the central weightbearing tibial cartilage with mild surface fraying. There is no focal femoral cartilage defect. Within the patellofemoral compartment, mild partial-thickness loss and fissuring of the cartilage overlying the lateral patellar facet. There is prominent subchondral marrow edema. Femoral trochlear cartilage appears grossly intact Joint space: Large joint effusion is present. There is prominence and nodularity of the synovium which could be reactive in nature although please correlate clinically. Differential includes small loose bodies and/or debris. The appearance could reflect rice bodies which are seen in statistically rare tuberculosis infections, or rheumatoid arthritis. Early pigmented villonodular synovitis, or synovial chondromatosis is technically in the differential although statistically much less likely. No Benz's cyst is seen. 6 mm loose body in the posterior joint space IMPRESSION: Large joint effusion. Markedly prominent and diffuse micronodular appearance of the synovium which could be reactive in nature although please correlate clinically, and see discussion above. Consider correlation with knee radiographs. 6 mm loose body in the posterior joint space Lateral meniscal tear involving the free margin of the body Infrapatellar superficial subcutaneous edema. Mild patellofemoral chondromalacia. Prominent marrow edema within the patella which could be reactive in nature although somewhat disproportionate to the cartilage loss and recommend clinical correlation. Acute marrow contusion in the differential. Dictated by: Fredy Harrison M.D. on 12/19/2017 at 11:31 Approved by: Fredy Harrison M.D. on 12/19/2017 at 11:45
== END ==
PROVIDERS: Visit Provider Family Medicine
DX: M25.461 Effusion, right knee (principal)
CPT/HCPCS: 73721

== ENCOUNTER 2018-07-20 14:58 | Emergency (ER) | payer OTHER, SELFPAY ==
[2018-07-20] VITALS (9 sets, daily range): BP systolic 118–144; BP diastolic 65–80; PULSE 94–110; RESP 16–20; TEMP 37.3–37.5; O2SAT 95–98
--- NOTE | 2018-07-20 15:52 | ED.NAVMDI ---
HPI - Nausea/Vomiting/Diarrhea <SANJAY Tamayo - Last Filed: 07/20/18 19:39> General Chief complaint: Nausea/Vomiting/Diarrhea Stated complaint: vomiting since last night Time Seen by Provider: 07/20/18 15:27 Source: patient and family Mode of arrival: ambulatory Limitations: no limitations History of Present Illness HPI Narrative: The patient is a 68-year-old female who presents with a chief complaint of sudden onset of vomiting and watery diarrhea last night. She states she has been vomiting at least once an hour, is unable to keep down fluids. She states she is having very watery diarrhea that started this morning. She denies any abnormal foods yesterday. She denies any overt temperatures or abdominal pain other than cramping. She denies any chest pain or shortness of breath. She denies any blood in her vomit or stool. She states she is mostly concerned about dehydration Related Data Previous Rx's Medication Instructions Recorded ondansetron 4 mg PO TID-QID PRN #30 tab 07/20/18 Allergies Allergy/AdvReac Type Severity Reaction Status Date / Time No Known Drug Allergies Allergy Verified 07/20/18 15:03 Review of Systems <SANJAY Tamayo - Last Filed: 07/20/18 19:39> Review of Systems GENERAL: Denies chills, fatigue, malaise, fever, sweats. HEENT: Denies sinus pain, ear pain, sore throat, difficulty swallowing, dizziness. RESPIRATORY: Denies dyspnea, cough, wheezing, hemoptysis, sputum. CARDIOVASCULAR: Denies chest pain, palpitations, orthopnea, edema, GASTROINTESTINAL: See HPI : Denies dysuria, frequency, incontinence, hematuria, urinary retention. MUSCULOSKELETAL: denies weakness, joint pain, or bony pain SKIN: Denies rash, skin lesions, or other NEUROLOGIC: Denies weakness, headache, numbness, change in speech, confusion, seizures, incoordination. PSYCHIATRIC: No concerning psychosocial issues. 12 point review of systems is negative except for those stated above PFSH <SANJAY Tamayo - Last Filed: 07/20/18 19:39> Social History Smoking Status: Never smoker Social History Smoking Status: Never smoker Exam <SANJAY Tamayo - Last Filed: 07/20/18 19:39> Narrative Exam Narrative: GENERAL: This is a well-nourished, well-developed patient, lying on stretcher in no acute distress HEAD: Atraumatic. Normocephalic. No temporal or scalp tenderness. EYES: Pupils equal round and reactive. Extraocular motions intact. No scleral icterus. No injection or drainage. ENT: Nose without bleeding, purulent drainage or septal hematoma. Throat without erythema, tonsillar hypertrophy or exudate. Uvula midline. Airway patent. NECK: Trachea midline. No JVD or lymphadenopathy. Supple, nontender, no meningeal signs. CARDIOVASCULAR: Regular rate and rhythm without murmurs, gallops, or rubs. RESPIRATORY: Clear to auscultation. Breath sounds equal bilaterally. No wheezes, rales, or rhonchi. No cough. No increased respiratory effort. No accessory muscle use. GASTROINTESTINAL: Abdomen soft, non-tender, nondistended. No hepato-splenomegaly, or palpable masses. No guarding. Active bowel sounds all 4 quadrants. EXTREMITIES: No clubbing, cyanosis, or edema. No joint tenderness, effusion, or edema noted. BACK: Nontender without deformity or crepitance. No flank tenderness. NEURO: AOx3. SKIN: No rash or erythema. Initial Vital Signs Initial Vital Signs: Vital Signs Temperature 99.5 F 07/20/18 15:01 Pulse Rate 110 H 07/20/18 15:01 Respiratory Rate 20 07/20/18 15:01 Blood Pressure 131/80 07/20/18 15:01 Pulse Oximetry 96 07/20/18 15:01 <Rickie Young DO - Last Filed: 07/20/18 20:43> Initial Vital Signs Initial Vital Signs: Vital Signs Temperature 99.5 F 07/20/18 15:01 Pulse Rate 110 H 07/20/18 15:01 Respiratory Rate 20 07/20/18 15:01 Blood Pressure 131/80 07/20/18 15:01 Pulse Oximetry 96 07/20/18 15:01 Course <SANJAY Tamayo - Last Filed: 07/20/18 19:39> Orders Ordered: ED Orders 07/20/18 15:45 UA Complete [Urinalysis and Microscopic] Stat Urine Culture Stat 07/20/18 15:51 Clostridium Difficile Tox PCR Stat 07/20/18 16:03 Amylase Stat Complete Blood Count AUTO DIFF Stat Comprehensive Metabolic Panel Stat Lipase Stat Discontinued Medications Al Hydrox/Mg Hydrox/Simethicone 20 ml/ Lidocaine HCl 15 ml 0 ml PO NOW ONE Stop: 07/20/18 16:43 Last Admin: 07/20/18 17:16 Dose: 35 ml Sodium Chloride (Normal Saline 0.9%) 1,000 mls @ 1,000 mls/hr IV BOLUS ONE Stop: 07/20/18 16:25 Last Infusion: 07/20/18 17:16 Dose: 0 mls/hr Admin: 07/20/18 16:15 Dose: 1,000 mls/hr Sodium Chloride (Normal Saline 0.9%) 1,000 mls @ 1,000 mls/hr IV BOLUS ONE Stop: 07/20/18 16:46 Last Infusion: 07/20/18 19:26 Dose: 0 mls/hr Admin: 07/20/18 18:08 Dose: 1,000 mls/hr Ondansetron HCl (Zofran) 4 mg IV NOW ONE Stop: 07/20/18 15:48 Last Admin: 07/20/18 16:15 Dose: 4 mg Ondansetron HCl (Zofran Odt Prepack) 1 bottle MISC SEEINSTR ONE Stop: 07/20/18 19:19 Last Admin: 07/20/18 19:26 Dose: 1 bottle Pantoprazole Sodium (Protonix) 40 mg IV NOW ONE Stop: 07/20/18 16:43 Last Admin: 07/20/18 17:16 Dose: 40 mg Vital Signs - 8 hr 07/20/18 15:01 07/20/18 15:45 07/20/18 16:00 Temperature 99.5 F 99.1 F Pulse Rate 110 H 104 H 96 H Respiratory Rate 20 16 Blood Pressure 131/80 Blood Pressure [Left Arm] 144/75 H 118/70 Pulse Oximetry 96 95 96 07/20/18 16:30 07/20/18 17:08 07/20/18 17:58 Temperature Pulse Rate 95 H 97 H 98 H Respiratory Rate 16 18 Blood Pressure Blood Pressure [Left Arm] 119/68 129/70 129/76 Pulse Oximetry 97 97 97 07/20/18 18:15 07/20/18 18:30 07/20/18 19:00 Temperature Pulse Rate 94 H 97 H 99 H Respiratory Rate Blood Pressure Blood Pressure [Left Arm] 137/65 138/77 125/71 Pulse Oximetry 95 98 97 <Rickie Young DO - Last Filed: 07/20/18 20:43> Orders Ordered: ED Orders 07/20/18 15:45 UA Complete [Urinalysis and Microscopic] Stat Urine Culture Stat 07/20/18 15:51 Clostridium Difficile Tox PCR Stat 07/20/18 16:03 Amylase Stat Complete Blood Count AUTO DIFF Stat Comprehensive Metabolic Panel Stat Lipase Stat Discontinued Medications Al Hydrox/Mg Hydrox/Simethicone 20 ml/ Lidocaine HCl 15 ml 0 ml PO NOW ONE Stop: 07/20/18 16:43 Last Admin: 07/20/18 17:16 Dose: 35 ml Sodium Chloride (Normal Saline 0.9%) 1,000 mls @ 1,000 mls/hr IV BOLUS ONE Stop: 07/20/18 16:25 Last Infusion: 07/20/18 17:16 Dose: 0 mls/hr Admin: 07/20/18 16:15 Dose: 1,000 mls/hr Sodium Chloride (Normal Saline 0.9%) 1,000 mls @ 1,000 mls/hr IV BOLUS ONE Stop: 07/20/18 16:46 Last Infusion: 07/20/18 19:26 Dose: 0 mls/hr Admin: 07/20/18 18:08 Dose: 1,000 mls/hr Ondansetron HCl (Zofran) 4 mg IV NOW ONE Stop: 07/20/18 15:48 Last Admin: 07/20/18 16:15 Dose: 4 mg Ondansetron HCl (Zofran Odt Prepack) 1 bottle MISC SEEINSTR ONE Stop: 07/20/18 19:19 Last Admin: 07/20/18 19:26 Dose: 1 bottle Pantoprazole Sodium (Protonix) 40 mg IV NOW ONE Stop: 07/20/18 16:43 Last Admin: 07/20/18 17:16 Dose: 40 mg Vital Signs - 8 hr 07/20/18 15:01 07/20/18 15:45 07/20/18 16:00 Temperature 99.5 F 99.1 F Pulse Rate 110 H 104 H 96 H Respiratory Rate 20 16 Blood Pressure 131/80 Blood Pressure [Left Arm] 144/75 H 118/70 Pulse Oximetry 96 95 96 07/20/18 16:30 07/20/18 17:08 07/20/18 17:58 Temperature Pulse Rate 95 H 97 H 98 H Respiratory Rate 16 18 Blood Pressure Blood Pressure [Left Arm] 119/68 129/70 129/76 Pulse Oximetry 97 97 97 07/20/18 18:15 07/20/18 18:30 07/20/18 19:00 Temperature Pulse Rate 94 H 97 H 99 H Respiratory Rate Blood Pressure Blood Pressure [Left Arm] 137/65 138/77 125/71 Pulse Oximetry 95 98 97 MDM - Nausea/Vomiting/Diarrhea <GOVIND Tamayo-BC - Last Filed: 07/20/18 19:39> Lab Data Result diagrams: 07/20/18 16:03 07/20/18 16:03 Lab Results 07/20/18 07/20/18 07/20/18 Range/Units 15:45 16:03 16:03 WBC 8.5 (4.5-11.0) X10^3/uL RBC 4.91 (4.0-5.2) X10^6/uL Hgb 15.1 (12.0-16.0) g/dL Hct 43.4 (36-46) % MCV 88.5 (80-100) fL MCH 30.7 (26-34) PG MCHC 34.7 (30-36) % RDW 13.3 (11.6-14.8) % Plt Count 192 (150-400) X10^3/uL Neut % (Auto) 93.3 H (50-75) % Lymph % (Auto) 1.5 L (25-40) % [place] % (Auto) 5.0 (3-14) % Eos % (Auto) 0.0 L (2-4) % Baso % (Auto) 0.2 (0-2) % Neut # (Auto) 7900 H (7016-0246) /uL Lymph # (Auto) 100 L (0017-2354) /uL [place] # (Auto) 400 (0-900) /uL Eos # (Auto) 0 (0-450) /uL Baso # (Auto) 0 (0-100) /uL Sodium 141 (137-145) mmol/L Potassium 3.7 (3.4-5.1) mmol/L Chloride 102 (98-107) mmol/L Carbon Dioxide 29 (22-32) mmol/L BUN 33 H (7-17) mg/dL Creatinine 0.70 (0.52-1.04) mg/dL Estimated GFR > 60.0 (>60) mL/min BUN/Creatinine Ratio 47.1 H (6-22) Glucose 150 H (80-110) mg/dL Calcium 9.1 (8.4-10.2) mg/dL Total Bilirubin 0.8 (0.2-1.3) mg/dL AST 30 (14-36) IU/L ALT 38 (9-52) IU/L Alkaline Phosphatase 106 (38-126) U/L Total Protein 7.5 (6.3-8.2) g/dL Albumin 4.4 (3.5-5.0) g/dL Globulin 3.1 (1.7-4.1) g/dL Albumin/Globulin Ratio 1.4 (1.0-2.8) Amylase (30-110) U/L Lipase (23-300) U/L Urine Color Yellow Urine Appearance Clear Urine pH 5.5 (4.5-8.0) Ur Specific Steward[place] >=1.030 H (1.000-1.035) Urine Protein 1+ H (Negative) Urine Glucose (UA) Negative (Negative) g/dL Urine Ketones Trace H (NEGATIVE) Urine Occult Blood Negative (Negative) Urine Nitrate Negative (Negative) Urine Bilirubin Negative (NEGATIVE) Urine Urobilinogen 0.2 (0.2) E.U./dL Ur Leukocyte Esterase Negative (NEGATIVE) Urine RBC 0-1/hpf (0-5/HPF) Urine WBC 1-5/hpf (0-5/HPF) Ur Squamous Epith Cells 5-10 /hpf H (0-5/HPF) Urine Bacteria Many (>30) H (None) Urine Mucus 1+ H (Negative) Ur Culture Indicated? Cult not indicated 07/20/18 Range/Units 16:03 WBC (4.5-11.0) X10^3/uL RBC (4.0-5.2) X10^6/uL Hgb (12.0-16.0) g/dL Hct (36-46) % MCV (80-100) fL MCH (26-34) PG MCHC (30-36) % RDW (11.6-14.8) % Plt Count (150-400) X10^3/uL Neut % (Auto) (50-75) % Lymph % (Auto) (25-40) % Dod[place]idge % (Auto) (3-14) % Eos % (Auto) (2-4) % Baso % (Auto) (0-2) % Neut # (Auto) (2907-8165) /uL Lymph # (Auto) (6030-9938) /uL [place]idge # (Auto) (0-900) /uL Eos # (Auto) (0-450) /uL Baso # (Auto) (0-100) /uL Sodium (137-145) mmol/L Potassium (3.4-5.1) mmol/L Chloride (98-107) mmol/L Carbon Dioxide (22-32) mmol/L BUN (7-17) mg/dL Creatinine (0.52-1.04) mg/dL Estimated GFR (>60) mL/min BUN/Creatinine Ratio (6-22) Glucose (80-110) mg/dL Calcium (8.4-10.2) mg/dL Total Bilirubin (0.2-1.3) mg/dL AST (14-36) IU/L ALT (9-52) IU/L Alkaline Phosphatase (38-126) U/L Total Protein (6.3-8.2) g/dL Albumin (3.5-5.0) g/dL Globulin (1.7-4.1) g/dL Albumin/Globulin Ratio (1.0-2.8) Amylase 41 (30-110) U/L Lipase 12 L (23-300) U/L Urine Color Urine Appearance Urine pH (4.5-8.0) Ur Specific Steward[place] (1.000-1.035) Urine Protein (Negative) Urine Glucose (UA) (Negative) g/dL Urine Ketones (NEGATIVE) Urine Occult Blood (Negative) Urine Nitrate (Negative) Urine Bilirubin (NEGATIVE) Urine Urobilinogen (0.2) E.U./dL Ur Leukocyte Esterase (NEGATIVE) Urine RBC (0-5/HPF) Urine WBC (0-5/HPF) Ur Squamous Epith Cells (0-5/HPF) Urine Bacteria (None) Urine Mucus (Negative) Ur Culture Indicated? MDM Narrative Medical decision making narrative: The patient is a 5-year-old female who presents with sudden onset nausea vomiting diarrhea. She did not have any diarrhea during her stay in the emergency department. She also did not vomit during her stay in the emergency department. She was given 2 L of IV fluids and basic labs were drawn. She does not have an elevated white blood cell count and does not have any tenderness to abdominal palpation. Thus we elected to defer imaging at this point time. I discussed at length return precautions including abdominal pain, abdominal pain with fever etc and the patient states she will come back to be re-evaluated if she worsened. She felt much improved after a single dose of Zofran in the emergency department. I did discharge her with Zofran prescription. Discussed at length return precautions of abdominal pain syncope chest pain shortness of breath etc. She did not have an acute abdomen throughout her stay in the emergency department. Patient had no questions or concerns upon discharge. Encouraged her to follow up with her primary care provider. <Rickie Young, DO - Last Filed: 07/20/18 20:43> Lab Data Lab Results 07/20/18 07/20/18 07/20/18 Range/Units 15:45 16:03 16:03 WBC 8.5 (4.5-11.0) X10^3/uL RBC 4.91 (4.0-5.2) X10^6/uL Hgb 15.1 (12.0-16.0) g/dL Hct 43.4 (36-46) % MCV 88.5 (80-100) fL MCH 30.7 (26-34) PG MCHC 34.7 (30-36) % RDW 13.3 (11.6-14.8) % Plt Count 192 (150-400) X10^3/uL Neut % (Auto) 93.3 H (50-75) % Lymph % (Auto) 1.5 L (25-40) % [place] % (Auto) 5.0 (3-14) % Eos % (Auto) 0.0 L (2-4) % Baso % (Auto) 0.2 (0-2) % Neut # (Auto) 7900 H (4273-5958) /uL Lymph # (Auto) 100 L (6004-7606) /uL [place] # (Auto) 400 (0-900) /uL Eos # (Auto) 0 (0-450) /uL Baso # (Auto) 0 (0-100) /uL Sodium 141 (137-145) mmol/L Potassium 3.7 (3.4-5.1) mmol/L Chloride 102 (98-107) mmol/L Carbon Dioxide 29 (22-32) mmol/L BUN 33 H (7-17) mg/dL Creatinine 0.70 (0.52-1.04) mg/dL Estimated GFR > 60.0 (>60) mL/min BUN/Creatinine Ratio 47.1 H (6-22) Glucose 150 H (80-110) mg/dL Calcium 9.1 (8.4-10.2) mg/dL Total Bilirubin 0.8 (0.2-1.3) mg/dL AST 30 (14-36) IU/L ALT 38 (9-52) IU/L Alkaline Phosphatase 106 (38-126) U/L Total Protein 7.5 (6.3-8.2) g/dL Albumin 4.4 (3.5-5.0) g/dL Globulin 3.1 (1.7-4.1) g/dL Albumin/Globulin Ratio 1.4 (1.0-2.8) Amylase (30-110) U/L Lipase (23-300) U/L Urine Color Yellow Urine Appearance Clear Urine pH 5.5 (4.5-8.0) Ur Specific [place]ward[place] >=1.030 H (1.000-1.035) Urine Protein 1+ H (Negative) Urine Glucose (UA) Negative (Negative) g/dL Urine Ketones Trace H (NEGATIVE) Urine Occult Blood Negative (Negative) Urine Nitrate Negative (Negative) Urine Bilirubin Negative (NEGATIVE) Urine Urobilinogen 0.2 (0.2) E.U./dL Ur Leukocyte Esterase Negative (NEGATIVE) Urine RBC 0-1/hpf (0-5/HPF) Urine WBC 1-5/hpf (0-5/HPF) Ur Squamous Epith Cells 5-10 /hpf H (0-5/HPF) Urine Bacteria Many (>30) H (None) Urine Mucus 1+ H (Negative) Ur Culture Indicated? Cult not indicated 07/20/18 Range/Units 16:03 WBC (4.5-11.0) X10^3/uL RBC (4.0-5.2) X10^6/uL Hgb (12.0-16.0) g/dL Hct (36-46) % MCV (80-100) fL MCH (26-34) PG MCHC (30-36) % RDW (11.6-14.8) % Plt Count (150-400) X10^3/uL Neut % (Auto) (50-75) % Lymph % (Auto) (25-40) % [place] % (Auto) (3-14) % Eos % (Auto) (2-4) % Baso % (Auto) (0-2) % Neut # (Auto) (1269-3226) /uL Lymph # (Auto) (2705-0754) /uL [place] # (Auto) (0-900) /uL Eos # (Auto) (0-450) /uL Baso # (Auto) (0-100) /uL Sodium (137-145) mmol/L Potassium (3.4-5.1) mmol/L Chloride (98-107) mmol/L Carbon Dioxide (22-32) mmol/L BUN (7-17) mg/dL Creatinine (0.52-1.04) mg/dL Estimated GFR (>60) mL/min BUN/Creatinine Ratio (6-22) Glucose (80-110) mg/dL Calcium (8.4-10.2) mg/dL Total Bilirubin (0.2-1.3) mg/dL AST (14-36) IU/L ALT (9-52) IU/L Alkaline Phosphatase (38-126) U/L Total Protein (6.3-8.2) g/dL Albumin (3.5-5.0) g/dL Globulin (1.7-4.1) g/dL Albumin/Globulin Ratio (1.0-2.8) Amylase 41 (30-110) U/L Lipase 12 L (23-300) U/L Urine Color Urine Appearance Urine pH (4.5-8.0) Ur Specific [place]ward[place] (1.000-1.035) Urine Protein (Negative) Urine Glucose (UA) (Negative) g/dL Urine Ketones (NEGATIVE) Urine Occult Blood (Negative) Urine Nitrate (Negative) Urine Bilirubin (NEGATIVE) Urine Urobilinogen (0.2) E.U./dL Ur Leukocyte Esterase (NEGATIVE) Urine RBC (0-5/HPF) Urine WBC (0-5/HPF) Ur Squamous Epith Cells (0-5/HPF) Urine Bacteria (None) Urine Mucus (Negative) Ur Culture Indicated? Discharge Plan Departure Patient Disposition: Home Clinical Impression: Nausea & vomiting Qualifiers: Vomiting type: unspecified Vomiting Intractability: non-intractable Qualified Code(s): R11.2 - Nausea with vomiting, unspecified Discharge Date/Time: 07/20/18 19:35 Interventions: ED Discharge Assessment Last Done: 07/20/18 19:33 Instructions: DI for Nausea -- Adult, DI for Vomiting -- Adult Activity Restrictions/Additional Instructions: Thank you for trusting us with your care. We gave you several fluids and checked her electrolytes today. I have given her prescription of nausea medication to use at home. Please take small amounts of fluids frequently. Please come back to emergency department for any acute concerns such as severe abdominal pain, abdominal pain with fever etc. Please see the simple diet without spices, acid caffeine etc. Please come back to the emergency department if you have any acute concerns. Please follow up with primary care provider. Prescriptions: New ondansetron 4 mg tablet,disintegrating 4 mg PO TID-QID PRN (Reason: nausea and vomiting) Qty: 30 RF: 0 Referrals: Brent Blackwell MD [Primary Care Provider] - <Rickie Young DO - Last Filed: 07/20/18 20:43> [facility] Att[facility]: I was available for consultation during this patient's emergency department encounter
[2018-07-20 16:04] LABS: Appearance Urine UA CLEAR; Bilirubin Urine UA NEGATIVE (NEGATIVE); Color Urine UA YELLOW; Glucose Urine UA NEGATIVE (Negative); Ketones Urine UA TRACE (NEGATIVE); Leukocyte Esterase Urine UA NEGATIVE (NEGATIVE); Nitrite Urine UA NEGATIVE (Negative); Occult Blood Urine UA NEGATIVE (Negative); Protein Urine UA 1+ (Negative); Specific Gravity Urine UA >=1.030 (1.000-1.035); Urobilinogen Urine UA 0.2 E.U./dL (0.2); pH Urine UA 5.5 (4.5-8.0)
[2018-07-20 16:09] LABS: Add Manual Diff / Slide Review NO; Basophils Absolute Auto 0 /uL (0-100); Basophils Percent Auto 0.2 % (0-2); Eosinophils Absolute Auto 0 /uL (0-450); Hematocrit 43.4 % (36-46); Hemoglobin 15.1 g/dL (12.0-16.0); Lymphocytes Absolute Auto 100 /uL (1100-4500); Lymphocytes Percent Auto 1.5 % (25-40); Mean Corpuscular HGB Conc 34.7 % (30-36); Mean Corpuscular Hemoglobin 30.7 PG (26-34); Mean Corpuscular Volume 88.5 fL (80-100); Monocytes Absolute Auto 400 /uL (0-900); Neutrophils Absolute Auto 7900 /uL (1500-7000); Neutrophils Percent Auto 93.3 % (50-75); Platelet Count 192 X10^3/uL (150-400); Red Blood Cell Count 4.91 X10^6/uL (4.0-5.2); Red Cell Distribution Width 13.3 % (11.6-14.8); White Blood Cell Count 8.5 X10^3/uL (4.5-11.0)
[2018-07-20 16:15] LABS: Bacteria Urine Many (>30); RBC Urine 0-1/HPF (0-5/HPF); Squamous Epithelial Cell Urine 5-10 /HPF (0-5/HPF); WBC Urine 1-5/HPF (0-5/HPF)
[2018-07-20] MEDS: ONDANSETRON 4 MG/2 ML INJ IV (16:15)
[2018-07-20] MEDS: SODIUM CHLORIDE 0.9% 1,000 ML 1000 ML IV ×2 (16:15→18:08)
[2018-07-20 16:16] LABS: Culture Indicated Urine Cult Not Indicated; Mucus Urine 1+ (Negative)
[2018-07-20 16:21] LABS: Alanine Aminotransferase 38 IU/L (9-52); Albumin 4.4 g/dL (3.5-5.0); Albumin Globulin Ratio 1.4 (1.0-2.8); Alkaline Phosphatase 106 U/L (38-126); Aspartate Aminotransferase 30 IU/L (14-36); BUN Creatinine Ratio 47.1 (6-22); Bilirubin Total 0.8 mg/dL (0.2-1.3); Blood Urea Nitrogen 33 mg/dL (7-17); Calcium 9.1 mg/dL (8.4-10.2); Carbon Dioxide 29 mmol/L (22-32); Chloride 102 mmol/L (98-107); Estimated Glomerular Filt Rate > 60.0 mL/min (>60); Globulin 3.1 g/dL (1.7-4.1); Glucose 150 mg/dL (80-110); HEMOLYSIS < 15 (0-50); Potassium 3.7 mmol/L (3.4-5.1); Sodium 141 mmol/L (137-145); Total Protein 7.5 g/dL (6.3-8.2)
[2018-07-20 16:22] LABS: Amylase 41 U/L (30-110); Lipase 12 U/L (23-300)
--- NOTE | 2018-07-20 16:33 | PC.NURSE ---
Pt presents with nausea, vomiting, diarrhea. pt describes eating shrimp tacos for dinner last night around 1900 made at home with who ate the same and reports no symptoms, about two hours later pt had abrupt onset of symptoms, has not been able to keep anything down and is having bouts of diarrhea about every 30 minutes. Patient denies abdominal pain, has active bowel tones in all four quadrants. currently resting in bed with fluids and zofran. left to let dog out.
[2018-07-20] MEDS: PANTOPRAZOLE 40 MG VIAL IV (17:16)
[2018-07-20] MEDS: MAG HYDROX/ALUMINUM/SIMETH SUS 20 ML, LIDOCAINE VISCOUS 2% 15 ML PO (17:16)
[2018-07-20] MEDS: ONDANSETRON 4 MG ODT PREPACK 1 BOTTLE MISC (19:26)
== END 2018-07-20 19:35 | disposition home or self-care (01) ==
PROVIDERS: Emergency Provider Nurse Practitioner Family; PCP Family Medicine
DX: R11.2 Nausea with vomiting, unspecified (principal); R19.7 Diarrhea, unspecified
CPT/HCPCS: 36591; 80053; 81001; 82150; 83690; 85025; 87077; 87086; 87186; 96361; 96374; 96375; 99284; C9113; J2405

== ENCOUNTER 2018-09-15 10:19 | Emergency (ER) | payer OTHER, SELFPAY ==
[2018-09-15 10:20] VITALS: BP 140/80; PULSE 70; RESP 12; TEMP 36.2; O2SAT 98
--- NOTE | 2018-09-15 10:41 | DI.RAD.S_ITS ---
PROCEDURE: XR HIP W PEL IF DONE RT 2V INDICATIONS: fall 4 weeks ago TECHNIQUE: AP pelvis with lateral view(s) of the right hip. COMPARISON: None. FINDINGS: Bones: No fractures or dislocations. Pelvic ring appears intact. No suspicious bony lesions. Mild bilateral hip degenerative change. Soft tissues: The visualized bowel gas pattern is normal. No suspicious soft tissue calcifications. IMPRESSION: No evidence acute bony abnormality of the pelvis and right hip. Mild bilateral hip degenerative change. Dictated by: Ilya Griffin M.D. on 09/15/2018 at 11:17 Approved by: Ilya Griffin M.D. on 09/15/2018 at 11:18
[2018-09-15 11:10] VITALS: PULSE 77
--- NOTE | 2018-09-15 11:11 | PC.NURSE ---
sensation, mobility fully intact.
--- NOTE | 2018-09-15 11:25 | ED.LOWEXIN ---
HPI - Extremity Injury (Lower) <LORE White - Last Filed: 09/15/18 14:10> General Chief Complaint: Extremity Injury, Lower Stated Complaint: Fell 4 wks ago rt hip pain Time Seen by Provider: 09/15/18 10:58 Source: patient Mode of arrival: ambulatory Limitations: no limitations History of Present Illness HPI Narrative: 68-year-old female with reported history of IT band pain and tightness, presents emergency department complaining of external right hip pain [place]. She states when she fell her hip was externally rotated. She reported a slight pain after the injury but was able to walk for the past 3 weeks. She has been taking Aleve 1 to 2 times a day for the pain, states the pain is a dull ache 2/10 that gets worse at the end of the day after she has been grocery shopping. Pain is also made worse by leg abduction like when she is getting onto the car. Denies difficulty walking, groin pain, knee pain, ankle pain, hitting her head, abdominal pain, or any lacerations. She also denies trauma to any other areas. MD complaint: hip injury Place: home Severity: mild Severity scale (1-10): 2 Relieving factors: NSAID Exacerbating factors: other Context: fall Associated symptoms: ambulatory Other symptoms: none Related Data Previous Rx's Medication Instructions Recorded ondansetron 4 mg PO TID-QID PRN #30 tab 07/20/18 Allergies Allergy/AdvReac Type Severity Reaction Status Date / Time No Known Drug Allergies Allergy Verified 07/20/18 15:03 Review of Systems <LORE White - Last Filed: 09/15/18 14:10> Review of Systems REVIEW OF SYSTEMS: GENERAL: Denies fever or chills. HENT: No head trauma. EYES: No double vision or vision loss. CARDIOVASCULAR: No chest pain or syncope. RESPIRATORY: No shortness of breath or cough. GASTROINTESTINAL: No nausea, vomiting, diarrhea, or constipation. GENITOURINARY: No flank pain or dysuria. MUSCULOSKELETAL: Complains of hip pain, see HPI. INTEGUMENTARY: No rash, lesions, or pruritus. NEURO: No numbness, tingling. PSYCH: No behavior or mood changes. PFSH <LORE White - Last Filed: 09/15/18 14:10> Medical History No significant medical problems (Chronic) Social History Smoking Status: Never smoker Social History Smoking Status: Never smoker Exam <LORE White - Last Filed: 09/15/18 14:10> Initial Vital Signs Initial Vital Signs: Vital Signs Temperature 97.2 F L 09/15/18 10:20 Pulse Rate 70 09/15/18 10:20 Respiratory Rate 12 09/15/18 10:20 Blood Pressure 140/80 09/15/18 10:20 Pulse Oximetry 98 09/15/18 10:20 PHYSICAL EXAMINATION: GENERAL: Well groomed, alert, and cooperative. Answers questions promptly and appropriately. Vital signs noted. HENT: Normocephalic, atraumatic. EYES: Symmetrical, sclera white, no periorbital swelling. CARDIOVASCULAR: S1 and S2 sounds normal. Regular rate and rhythm, no murmurs, clicks, or bruits. No pedal edema. RESPIRATORY: Normal respiratory rate, trachea midline, airway patent. No stridor, nasal flaring or accessory muscle use. Lungs are clear in all [place]. MUSCULOSKELETAL: Normal gait and coordination. Equal tone and mass bilaterally. No spinal tenderness or deformities. No bony tenderness to hip joints. Pain was reproduced with external rotation of right hip and internal rotation of right hip. Slight tenderness along that right IT band with deep palpation. Full symmetrical strength to lower extremities bilaterally. No bruising, increased warmth, swelling or erythema to area. EXTREMITIES: CMS intact. No pedal edema. Pedal pulses intact. SKIN: Warm, dry, soft, appropriate color for ethnicity. No lesions, rashes, or wounds. NEURO: Alert and Oriented X 3. No sensory deficits. PSYCH: Appropriate affect and mood. <Rickie Young DO - Last Filed: 09/15/18 14:36> Initial Vital Signs Initial Vital Signs: Vital Signs Temperature 97.2 F L 09/15/18 10:20 Pulse Rate 70 09/15/18 10:20 Respiratory Rate 12 09/15/18 10:20 Blood Pressure 140/80 09/15/18 10:20 Pulse Oximetry 98 09/15/18 10:20 Course <LORE White - Last Filed: 09/15/18 14:10> Course Narrative: Patient was offered Toradol for pain management, patient states she feels fine with Aleve and would rather not have a shot. She also explains that she has a primary care provider through [facility] who is currently in [place]. Patient was given a printout report of her x-ray that she has a follow-up with her primary care provider in the next few days so she can diffuse records to the provider. Orders Ordered: ED Orders 09/15/18 10:41 XR hip w pel if done RT 2V Stat Consultations Consultation #1: Patient staffed with Dr. Young Vital Signs - 8 hr 09/15/18 10:20 09/15/18 11:10 09/15/18 11:41 Temperature 97.2 F L Pulse Rate 70 86 Pulse Rate [Right Dorsalis Pedis] 77 Respiratory Rate 12 16 Blood Pressure 140/80 Blood Pressure [Left Arm] 156/72 H Pulse Oximetry 98 98 <Rickie Young DO - Last Filed: 09/15/18 14:36> Orders Ordered: ED Orders 09/15/18 10:41 XR hip w pel if done RT 2V Stat Vital Signs - 8 hr 09/15/18 10:20 09/15/18 11:10 09/15/18 11:41 Temperature 97.2 F L Pulse Rate 70 86 Pulse Rate [Right Dorsalis Pedis] 77 Respiratory Rate 12 16 Blood Pressure 140/80 Blood Pressure [Left Arm] 156/72 H Pulse Oximetry 98 98 MDM - Extremity Injury (Lower) <LORE White - Last Filed: 09/15/18 14:10> Medical Records Attestation: I reviewed the patient's medical records. Lab Data Attestation: I reviewed the patient's lab results. Imaging Data R HIp: Radiologist's impression: [address] [place] [id number] XRay Report Signed Patient: NICK JORDAN CMR#: [id number] : 8Acct:[id number] Age/Sex: 68 / FDate of Service: 09/15/18 Loc: ED Accession Number: [id number] Procedure: XR hip w pel if done RT 2V Ordering Provider: Lanker,Rickie D.O. PROCEDURE: XR HIP W PEL IF DONE RT 2V INDICATIONS: fall 4 weeks ago TECHNIQUE: AP pelvis with lateral view(s) of the right hip. COMPARISON: None. FINDINGS: Bones: No fractures or dislocations. Pelvic ring appears intact. No suspicious bony lesions. Mild bilateral hip degenerative change. Soft tissues: The visualized bowel gas pattern is normal. No suspicious soft tissue calcifications. IMPRESSION: No evidence acute bony abnormality of the pelvis and right hip. Mild bilateral hip degenerative change. Dictated by: Ilya Griffin M.D. on 09/15/2018 at 11:17 Approved by: Ilya Griffin M.D. on 09/15/2018 at 11:18 [facility] Narrative Medical decision making narrative: Very low suspicion for fracture due to negative x-rays, exam, and the fact that patient has been walking for the past 3 weeks without significant pain. I suspect a tendon or ligament injury tear, as patient's pain is located on the exterior part of her hip versus the groin, pain is replicated with external rotation of the hip, mechanism of injury reveals a fall with hip externally rotated, pain is worse after extensive use at the end of the day, and patient is able to ambulate without extensive pain. Discussed follow-up for further testing if symptoms continue, strict return precautions given. Discharge Plan Departure Patient Disposition: Home Clinical Impression: Acute hip pain Qualifiers: Laterality: right Qualified Code(s): M25.551 - Pain in right hip Discharge Date/Time: 09/15/18 12:00 Interventions: ED Discharge Assessment Last Done: 09/15/18 12:00 Instructions: DI for Hip Pain Activity Restrictions/Additional Instructions: Thank you for entrusting me with your care today. As discussed, your x-rays are negative for any fractures. Your pain may be caused by soft tissue injury which could be tendons, ligaments, or the cartilage in your hip. I recommend following up with your primary care provider for further testing if needed and or a referral to physical therapy. Please return to the emergency department if the pain increases to the point we cannot walk, he developed fevers or chills, chest pain, or shortness of breath. Prescriptions: No Action ondansetron 4 mg tablet,disintegrating 4 mg PO TID-QID PRN (Reason: nausea and vomiting) Qty: 30 RF: 0 Referrals: Brent Blackwell MD [Primary Care Provider] -
[2018-09-15 11:41] VITALS: BP 156/72; PULSE 86; RESP 16; O2SAT 98
== END 2018-09-15 12:00 | disposition home or self-care (01) ==
PROVIDERS: Emergency Provider Nurse Practitioner; PCP Family Medicine
DX: M25.551 Pain in right hip (principal); W01.0XXA Fall on same level from slipping, tripping and stumbling without subsequent striking against object, initial encounter
CPT/HCPCS: 73502; 99282; 99283

== ENCOUNTER → 2019-01-07 10:55 | Outpatient (CLI) | payer OTHER, SELFPAY ==
--- NOTE | 2019-01-07 | DI.MG.S_ITS ---
BILATERAL DIGITAL SCREENING MAMMOGRAM 3D/2D WITH CAD: 01/07/2019 CLINICAL: Routine screening. Family history of breast cancer. Comparison is made to exams dated: 02/06/2017 mammogram, 02/02/2016 mammogram, and 02/01/2015 mammogram - [facility]- Radiology Consultations. The tissue of both breasts is heterogeneously dense. This may lower the sensitivity of mammography. Current study was also evaluated with a Computer Aided Detection (CAD) system. No significant masses, calcifications, or other findings are seen in either breast. There has been no significant interval change. IMPRESSION: NEGATIVE There is no mammographic evidence of malignancy. A 1 year screening mammogram is recommended. This exam was interpreted at Station ID: [id number]. NOTE: For mammograms, a report in lay terms will be sent to the patient. Approximately 15% of breast malignancies will not be visualized mammographically. In the management of a palpable breast mass, a negative mammogram must not discourage biopsy of a clinically suspicious lesion. Electronically Signed By: Jah sabillon/michael:01/07/2019 14:14:00 letter sent: Normal Exam ACR BI-RADS Category 1: Negative [id number]
== END ==
PROVIDERS: PCP Family Medicine; Visit Provider Family Medicine
DX: Z12.31 Encounter for screening mammogram for malignant neoplasm of breast (principal); Z80.3 Family history of malignant neoplasm of breast
CPT/HCPCS: 77063; 77067

== ENCOUNTER → 2019-01-13 11:24 | Outpatient (CLI) | payer OTHER, SELFPAY ==
--- NOTE | 2019-01-13 | DI.MRI.S_ITS ---
PROCEDURE: MR HIP RT WO CON INDICATIONS: Pain in right hip TECHNIQUE: Noncontrast coronal T1 spin echo and STIR through the bony pelvis. Coronal and axial T2 fast spin echo with fat saturation, sagittal T1 spin echo, and oblique axial T2 fast spin echo with fat saturation through the hip. COMPARISON: None. FINDINGS: Image quality: Diagnostic. Bones and joints: No acute fracture, dislocation, or suspicious osseous lesion is identified involving the right hip. No evidence to suggest avascular necrosis is present. There moderate to severe degenerative changes of the right hip joint with prominent joint space narrowing, and extensive chondromalacia, and areas of degenerative/reactive marrow change involving the acetabulum and the femoral head. There are small developing marginal osteophytes. There is a moderate to large right hip effusion, which demonstrates associated synovial hypertrophy and possible small intra-articular joint bodies. The alpha angle of the right femoral head measures approximately 60?. The other imaged osseous structures of the pelvis are intact without acute fractures or suspicious osseous lesions evident. There are at least moderate degenerative changes of the included lower lumbar spine. Mild degenerative changes of the other pelvic joints appear present. Labrum: Evaluation of the right acetabular labrum is suboptimal without intra-articular contrast. However, there is irregular tearing along the anterosuperior margin of the labrum that extends from at least the 1 o'clock position (postero-superior) through the 12 o'clock position (superior) into approximately the 10 o'clock position (anterosuperior). No large paralabral cysts are evident. Tendons and ligaments: The ligamentum teres appears intact where visualized. The distal right gluteus medius and gluteus minimus tendons demonstrate slight increased signal without significant tearing. There is thickening of the greater trochanteric bursa with increased signal present. No definite fluid is contained within the bursa. The distal iliopsoas tendons on the right and the proximal hamstrings tendons on the right appear to be intact and otherwise unremarkable. Soft tissues: Visualized muscles demonstrate normal bulk and internal signal. Quadratus femoris muscle demonstrates no internal edema to suggest ischiofemoral impingement. The proximal sciatic neurovascular bundle appears normal adjacent to the hamstring tendons. No free pelvic fluid. Bladder wall thickness is normal. No significant thickening of the urinary bladder wall is identified. There is a heterogeneous mass identified within the left adnexa, measuring approximately 4.9 x 4.3 cm, which is not completely evaluated on this examination. This probably is contiguous with the uterus and probably represents a large fibroid. Imaged bowel loops are nondilated. IMPRESSION: 1. Moderate to severe degenerative changes of the right hip. No fractures. 2. Small anterosuperior right acetabular labral tear. 3. Moderate-sized right hip effusion demonstrating synovial hypertrophy. This may be on the basis of degenerative change. However, a superimposed infectious or inflammatory process of the right hip is difficult to exclude and clinical correlation is recommended. 4. Mild distal right gluteus medius and gluteus minimus tendinopathy. 5. Left adnexal mass probably represents a prominent uterine fibroid. Pelvic ultrasound is recommended for further evaluation. Dictated by: Mayank Oconnor M.D. on 01/13/2019 at 13:52 Approved by: Mayank Oconnor M.D. on 01/13/2019 at 13:57
== END ==
PROVIDERS: PCP Family Medicine; Visit Provider Physician Assistant
DX: M25.551 Pain in right hip (principal); S73.191A Other sprain of right hip, initial encounter; M25.451 Effusion, right hip; M67.98 Unspecified disorder of synovium and tendon, other site; R19.09 Other intra-abdominal and pelvic swelling, mass and lump
CPT/HCPCS: 73721

== ENCOUNTER 2019-01-20 16:00 | Outpatient (RCR) | payer OTHER, SELFPAY ==
--- NOTE | 2018-10-21 13:43 | PT.OIE ---
Current Diagnoses Bilateral primary osteoarthritis of hip (10/21/18) Past Medical History (Last Reviewed 09/15/18 @ 13:49 by LORE White) No significant medical problems (Chronic) Provider Visit Care Team Role Provider Type Brent Blackwell MD Attending Provider Non-Staff Primary Care Provider Specialty: Family Practice Address: [address] [place] [address], [id number] Email: Physical Therapy Initial Evaluation PT-OP-A Visit Information Start: 10/21/18 08:10 Freq: Status: Active Protocol: Document 10/21/18 09:50 HH (Rec: 10/21/18 13:41 [email or web address]) Out-Patient Physical Therapy Visit Information Visit Information Visit Type Initial Evaluation Visit Start Time 09:50 Visit Stop Time 10:42 Total Visit Minutes 47 Visit Number / Number of FILTRATION SUPERVISOR Visits 0 PT-OP-B Current Condition Start: 10/21/18 08:10 Freq: Status: Active Protocol: Document 10/21/18 09:50 HH (Rec: 10/21/18 10:05 [id number]) Current Condition History of Current Condition Onset Date 2 months ago Current Complaints R hip pain, Difficulty in walking, decreased muscle strength at R LE History of Current Condition Pt presents to PT with R hip pain. Pt twisted her R hip into external rotation [place] 8 [place] . She is currently experiencing R hip pain with any hip ER movements. Walking straight is fine. Turning out her foot out tends to hurt a lot. Performing Sit to stand after prolonged sitting also aggravates her symptoms. Her hip pain currently affects her sleep that changing position is not that helpful. Climbing stairs and getting in and out of the car are also very painful especially during push off through RLE. She uses step to pattern if it hurts. Keeping her foot straight tends to make it better. sleeping bothers her. Changing position does not help. sit to stand after prolonged sitting aggravates Climbing stairs hurt especially push off through RLE. She uses step to if it hurts. Keeping her foot straight makes it better. She went to ER 3 weeks ago and X-ray was negative for fx, but OA at lumbar and B hip joint. Had PT 10 months ago for R knee pain due to torn meniscus. PT didnt help and she had surgical removal for part of her meniscus. Prior Treatments and Tests X-ray was negative for fx, but OA at lumbar and B hip joint. ad PT 10 months ago for R knee pain due to torn meniscus. PT didnt help and she had surgical removal for part of her meniscus. Treatment Goals Patient/Caregiver Goals 1. To be able to turn her hip while making turns 2. To be pain free during car transfer, long walk and stair climbing. Prior Functional Status Baseline Function- ADL's Independent Baseline Function- Mobility Independent Current Functional Impairments (Reported) Functional Limitations- ADL's increased time for making turns/ bending activities. Functional Limitations- Mobility/Gait pain during car transfer, stair climbing and prolonged walking PT-OP-C Subjective Start: 10/21/18 08:10 Freq: Status: Active Protocol: Document 10/21/18 09:50 HH (Rec: 10/21/18 13:06 [email or web address]) OP-PT Subjective Patient Comments Patient Comments i want to get my hip pain away and walk better. Patient Reported Progress Same Patient Questionnaires Lower Extremity Functional Scale LEFS Score 30 LEFS Impairment 60 to 79% Impaired (Score 17- 31) OP-PT Pain Assessment Location R hip Pain Location Details R hip Intensity 4 Description Aching Pressure Description- Other deep joint pain Frequency Frequent Pain Aggravating Factors Position Activity Exercise Bending Pain Alleviating Factors Inactivity Lying Supine PT-OP-D Balance Start: 10/21/18 08:10 Freq: Status: Active Protocol: Document 10/21/18 09:50 HH (Rec: 10/21/18 13:06 [email or web address]) Balance Tests Single Limb Standing Single Limb- Right 15s Single Limb- Left >1 mins PT-OP-G Mobility & Gait Start: 10/21/18 08:10 Freq: Status: Active Protocol: Document 10/21/18 09:50 HH (Rec: 10/21/18 13:06 [email or web address]) OP Gait Assessment Gait Deviations General Gait Pattern Antalgic Factors Limiting Gait Function Factors Limiting Gait Function Decreased Activity Tolerance Decreased Strength Limited Range of Motion Pain Poor Balance Comments Gait Comments During R stance phase, noticeable R knee valgus thrust with slight L hip drop. Decreased L step length Stair Climbing Evaluation Devices Stair Climbing Assistive Devices Left Railing Right Railing Technique/Endurance Stair Climbing Technique Step Over Step Step to Step Comments Stair Climbing Comments R knee valgust thrust noted during push off and eccentric lowering. PT-OP-J Posture/Palpation/Skin Start: 10/21/18 08:10 Freq: Status: Active Protocol: Document 10/21/18 09:50 HH (Rec: 10/21/18 13:41 [email or web address]) Posture Evaluation Position Standing Evaluation View Lateral Pelvis Posture (R) Rotated Anterior Weight Distribution Weight Shifted Left Decreased Wt.Bear on (R) Hip Posture (R) Internally Rotated Knee Posture (R) Excess Flexion PT-OP-K Range of Motion Start: 10/21/18 08:10 Freq: Status: Active Protocol: Document 10/21/18 09:50 HH (Rec: 10/21/18 13:41 [email or web address]) Hip Goniometric Range of Motion Hip Left Active Hip ROM WFL Yes Testing Position Supine Flexion w/Knee Flexed 120 Extension 5 Abduction 25 Internal Rotation 35 External Rotation 20 Right Active Hip ROM WFL No Testing Position Supine Flexion w/Knee Flexed 105 Extension 0 Abduction 15 Internal Rotation 30 External Rotation 0 Hip ROM Limitations Hip ROM Limitations Soft Tissue Tightness Muscle Tone Pain Comments Pain with R hip ER>IR> flexion Significant muscle guadring from R hip adductors noted during passive R hip ER. PT-OP-L Special Tests Start: 10/21/18 08:10 Freq: Status: Active Protocol: Document 10/21/18 09:50 HH (Rec: 10/21/18 13:41 [email or web address]) Special Tests Hip Special Tests hip distraction Test Results +ve R Comments pain relief with R hip distraction Scour Test Test Results +ve R Comments anterior hip pain at end range KAE Test Results +ve R Comments pain with PROM and over pressure Brandon Test Results +Ve B Comments R hip is higher than L PT-OP-M Strength Start: 10/21/18 08:10 Freq: Status: Active Protocol: Document 10/21/18 09:50 HH (Rec: 10/21/18 13:41 [email or web address]) Hip Strength Hip Manual Muscle Testing Left Flexion (L2) 4+ Good+ Extension (S1) 4+ Good+ Abduction 4+ Good+ Adduction 4+ Good+ External Rotation 4+ Good+ Internal Rotation 4+ Good+ Right Flexion (L2) 4+ Good+ Extension (S1) 4- Good- Abduction 4- Good- Adduction 4+ Good+ External Rotation 3+ Fair+ Internal Rotation 4- Good- Reason Not Measured Muscle Tone Pain PT-OP-Q Treatments Start: 10/21/18 08:10 Freq: Status: Active Protocol: Document 10/21/18 09:50 HH (Rec: 10/21/18 13:41 [email or web address]) Manual Therapy Treatment Joint Mobilizations R hip distraction Joint R hip joint Direction inferior + oscillation Grade II Body Position Supine Reps/Duration 10 mins Comments 30 secs x 10 Manual Techniques contract relax at KAE position Body Position Supine Reps/Duration 10 mins Comments to decrease muscle guarding during PROM of R hip ER PT-OP-T Assessment and Plan Start: 10/21/18 08:10 Freq: Status: Active Protocol: Document 10/21/18 09:50 HH (Rec: 10/21/18 13:41 [email or web address]) Physical Therapy Assessment Rehab Potential Rehabilitation Potential Excellent Evaluation Complexity Number of Personal Factors/Comorbidities 1-2 Number of Body Systems Impaired 1-2 Clinical Presentation at Evaluation Stable Impairments Impairments Balance Functional Activities Functional Mobility Gait Pain Posture ROM Sensation Soft Tissue Mobility Strength Transfers Other Concerns Fall Risk yes Goals HEP Impairment Pt does not have a HEP Proposal Manager Goal (LTG) Pt will comply to HEP independently and safely to improve her overall single leg strength and balance. LTG Duration 8 weeks pain Impairment pain during walking, car transfers and stair climbing Short Term Goal (STG) Pt will have less than 4 in pain scale during walking, car transfers and stair climbing. STG Duration 4 weels Intermediate Goal (LTG) Pt will have less than 2 in pain scale during walking, car transfers and stair climbing. LTG Duration 8 weeks ROM Impairment pt shows significant ROM loss at R hip Short Term Goal (STG) Pt will improve her overall R hip AROM by 5 degrees to optimize her gait efficiency with longer step length. STG Duration 4 weeks Proposal Manager Goal (LTG) Pt will improve her overall R hip AROM by 10 degrees to optimize her gait efficiency with longer step length. LTG Duration 8 weeks LEFS Impairment Pt scores 30 on LEFS (60-79 % impairment) Short Term Goal (STG) Pt will be able to reach lower than 40% impairment to improve her quality of life and functional mobility. STG Duration 4 weeks Proposal Manager Goal (LTG) Pt will be able to reach lower than 20% impairment to improve her quality of life and functional mobility. LTG Duration 8 weeks Assessment Summary Assessment Pt is a mod complexity with her R hip pain s/p fall and previous knee injury. Pt returned to clinic after 10 months with R hip pain, along with significant ROM and strength loss. Upon assessment , her R hip pain reproduced with KAE, FADDIR and scour test which strongly indicate R hip OA pattern. Pt also has significant ROM loss at ER> IR > extension and flexion. Pt's R hip ER can reach neutral position. Her balance is also significantly affected with SLS on R <15s but L> 30s. There is noticeable R knee valgus thrust during walking and stair climbing, along with flexed knee in standing position. Pt also presents a significant anterior pelvic tilt with R>L who c/o back pain at supine position. Hip distraction, R hip flexors stretch and contract relax for R hip ER applied who reports significant pain relief. Pt will benefit from skilled therapy to improve her R hip mobility, strength and R hip stability to improve her functional mobility and strength. Physical Therapy Plan Frequency and Duration Frequency of Treatment 1x/Week Duration of Treatment 8 Plan of Care Start Date 10/21/18 Plan of Care End Date 12/21/18 Therapeutic Interventions Therapeutic Interventions Balance Training Gait Training Home Exercise Program Joint Mobilizations Manual Therapy Neuromuscular Re-education Patient/Caregiver Education Self-Care/Home Management Soft Tissue Mobilization Taping Therapeutic Activities Therapeutic Exercises Modalities Cold Pack/Ice Massage Electric Stimulation Hot Packs Infrared Therapy Traction- Mechanical Next Visit Focus/Plan Next Note Type Treatment Note Next Visit Plan review HEP for hip ER and hip distraction cont manual therapy to improve hip ROM gentle hip strengthening, for HEP as well single leg balance training, for hEP as well and gait training to prevent knee valgus.
--- NOTE | 2018-10-28 11:15 | PT.OTN ---
Current Diagnoses Bilateral primary osteoarthritis of hip (10/28/18) Physical Therapy Treatment Note PT-OP-A Visit Information Start: 10/21/18 08:10 Freq: Status: Active Protocol: Document 10/28/18 09:47 HH (Rec: 10/28/18 11:15 HH [id number]) Out-Patient Physical Therapy Visit Information Visit Information Visit Type Treatment Note Visit Start Time 09:47 Visit Stop Time 10:40 Total Visit Minutes 53 Visit Number 2/6 Number of HARM REDUCTION WORKER Visits 0 PT-OP-B Current Condition Start: 10/21/18 08:10 Freq: Status: Active Protocol: Document 10/21/18 09:50 HH (Rec: 10/21/18 10:05 HH [id number]) Current Condition History of Current Condition Onset Date 2 months ago Current Complaints R hip pain, Difficulty in walking, decreased muscle strength at R LE History of Current Condition Pt presents to PT with R hip pain. Pt twisted her R hip into external rotation [place] . She is currently experiencing R hip pain with any hip ER movements. Walking straight is fine. Turning out her foot out tends to hurt a lot. Performing Sit to stand after prolonged sitting also aggravates her symptoms. Her hip pain currently affects her sleep that changing position is not that helpful. Climbing stairs and getting in and out of the car are also very painful especially during push off through RLE. She uses step to pattern if it hurts. Keeping her foot straight tends to make it better. sleeping bothers her. Changing position does not help. sit to stand after prolonged sitting aggravates Climbing stairs hurt especially push off through RLE. She uses step to if it hurts. Keeping her foot straight makes it better. She went to ER 3 weeks ago and X-ray was negative for fx, but OA at lumbar and B hip joint. Had PT 10 months ago for R knee pain due to torn meniscus. PT didnt help and she had surgical removal for part of her meniscus. Prior Treatments and Tests X-ray was negative for fx, but OA at lumbar and B hip joint. ad PT 10 months ago for R knee pain due to torn meniscus. PT didnt help and she had surgical removal for part of her meniscus. Treatment Goals Patient/Caregiver Goals 1. To be able to turn her hip while making turns 2. To be pain free during car transfer, long walk and stair climbing. Prior Functional Status Baseline Function- ADL's Independent Baseline Function- Mobility Independent Current Functional Impairments (Reported) Functional Limitations- ADL's increased time for making turns/ bending activities. Functional Limitations- Mobility/Gait pain during car transfer, stair climbing and prolonged walking PT-OP-C Subjective Start: 10/21/18 08:10 Freq: Status: Active Protocol: Document 10/28/18 09:47 HH (Rec: 10/28/18 11:15 HH [email or web address]) OP-PT Subjective Patient Comments Patient Comments I already felt better after last visit, distraction and hip ER helped. But i did get sore after last visit. Patient Reported Progress Improving PT-OP-D Balance Start: 10/21/18 08:10 Freq: Status: Active Protocol: Document 10/21/18 09:50 HH (Rec: 10/21/18 13:06 HH [email or web address]) Balance Tests Single Limb Standing Single Limb- Right 15s Single Limb- Left >1 mins PT-OP-G Mobility & Gait Start: 10/21/18 08:10 Freq: Status: Active Protocol: Document 10/21/18 09:50 HH (Rec: 10/21/18 13:06 HH [email or web address]) OP Gait Assessment Gait Deviations General Gait Pattern Antalgic Factors Limiting Gait Function Factors Limiting Gait Function Decreased Activity Tolerance Decreased Strength Limited Range of Motion Pain Poor Balance Comments Gait Comments During R stance phase, noticeable R knee valgus thrust with slight L hip drop. Decreased L step length Stair Climbing Evaluation Devices Stair Climbing Assistive Devices Left Railing Right Railing Technique/Endurance Stair Climbing Technique Step Over Step Step to Step Comments Stair Climbing Comments R knee valgust thrust noted during push off and eccentric lowering. PT-OP-J Posture/Palpation/Skin Start: 10/21/18 08:10 Freq: Status: Active Protocol: Document 10/21/18 09:50 HH (Rec: 10/21/18 13:41 HH [email or web address]) Posture Evaluation Position Standing Evaluation View Lateral Pelvis Posture (R) Rotated Anterior Weight Distribution Weight Shifted Left Decreased Wt.Bear on (R) Hip Posture (R) Internally Rotated Knee Posture (R) Excess Flexion PT-OP-K Range of Motion Start: 10/21/18 08:10 Freq: Status: Active Protocol: Document 10/21/18 09:50 HH (Rec: 10/21/18 13:41 [email or web address]) Hip Goniometric Range of Motion Hip Left Active Hip ROM WFL Yes Testing Position Supine Flexion w/Knee Flexed 120 Extension 5 Abduction 25 Internal Rotation 35 External Rotation 20 Right Active Hip ROM WFL No Testing Position Supine Flexion w/Knee Flexed 105 Extension 0 Abduction 15 Internal Rotation 30 External Rotation 0 Hip ROM Limitations Hip ROM Limitations Soft Tissue Tightness Muscle Tone Pain Comments Pain with R hip ER>IR> flexion Significant muscle guadring from R hip adductors noted during passive R hip ER. PT-OP-L Special Tests Start: 10/21/18 08:10 Freq: Status: Active Protocol: Document 10/21/18 09:50 HH (Rec: 10/21/18 13:41 [email or web address]) Special Tests Hip Special Tests hip distraction Test Results +ve R Comments pain relief with R hip distraction Scour Test Test Results +ve R Comments anterior hip pain at end range KAE Test Results +ve R Comments pain with PROM and over pressure Brandon Test Results +Ve B Comments R hip is higher than L PT-OP-M Strength Start: 10/21/18 08:10 Freq: Status: Active Protocol: Document 10/21/18 09:50 (Rec: 10/21/18 13:41 [email or web address]) Hip Strength Hip Manual Muscle Testing Left Flexion (L2) 4+ Good+ Extension (S1) 4+ Good+ Abduction 4+ Good+ Adduction 4+ Good+ External Rotation 4+ Good+ Internal Rotation 4+ Good+ Right Flexion (L2) 4+ Good+ Extension (S1) 4- Good- Abduction 4- Good- Adduction 4+ Good+ External Rotation 3+ Fair+ Internal Rotation 4- Good- Reason Not Measured Muscle Tone Pain PT-OP-Q Treatments Start: 10/21/18 08:10 Freq: Status: Active Protocol: Document 10/28/18 09:47 (Rec: 10/28/18 11:15 [id number]) Cardio Equipment Recumbent Stepper (Sci-Fit) Duration (Minutes) 5 Resistance 5 Therapeutic Exercises Supine Exercises iso hip ab Side right Resistance isometric at end range ER Reps/Minutes 10 secs x5 hip ER Side right Reps/Minutes 30 secs hold x 5 Comments cues on PPT hip flexor stretch Side right Reps/Minutes 30 secs hold x 5 Comments brandon test position , cues on PPT Sidelying Exercises clamshell Side right Reps/Minutes 8 x 2 Standing Exercises RDL nose to wall Standing Exercise Name hip hinge Side right Reps/Minutes 8 x2 Comments L foot toe on floor R TKE Side right Equipment Used level 2 band Reps/Minutes 10 x 2 Manual Therapy Treatment Joint Mobilizations lateral distraction Grade II Body Position Supine Reps/Duration 8 mins Comments 30 secs x 10 R hip distraction Joint R hip joint Direction inferior + oscillation Grade II Body Position Supine Reps/Duration 10 mins Comments 30 secs x 10 PT-OP-R Modalities Start: 10/21/18 08:10 Freq: Status: Active Protocol: Document 10/28/18 09:47 (Rec: 10/28/18 11:15 [id number]) Hot Pack/Cold Pack Treatment Hot Pack Patient Position Hooklying Treatment Duration (minutes) 13 Patient Tolerance Good Comments at R hip PT-OP-T Assessment and Plan Start: 10/21/18 08:10 Freq: Status: Active Protocol: Document 10/28/18 09:47 (Rec: 10/28/18 11:15 [email or web address]) Physical Therapy Assessment Goals HEP Impairment Pt does not have a HEP Halfway Goal (LTG) Pt will comply to HEP independently and safely to improve her overall single leg strength and balance. LTG Duration 8 weeks pain Impairment pain during walking, car transfers and stair climbing Short Term Goal (STG) Pt will have less than 4 in pain scale during walking, car transfers and stair climbing. STG Duration 4 weels Metal Wire Technician Goal (LTG) Pt will have less than 2 in pain scale during walking, car transfers and stair climbing. LTG Duration 8 weeks ROM Impairment pt shows significant ROM loss at R hip Short Term Goal (STG) Pt will improve her overall R hip AROM by 5 degrees to optimize her gait efficiency with longer step length. STG Duration 4 weeks Halfway Goal (LTG) Pt will improve her overall R hip AROM by 10 degrees to optimize her gait efficiency with longer step length. LTG Duration 8 weeks LEFS Impairment Pt scores 30 on LEFS (60-79 % impairment) Short Term Goal (STG) Pt will be able to reach lower than 40% impairment to improve her quality of life and functional mobility. STG Duration 4 weeks Halfway Goal (LTG) Pt will be able to reach lower than 20% impairment to improve her quality of life and functional mobility. LTG Duration 8 weeks Assessment Summary Assessment Pt cecille tx well. Cont to feel relieved after hip distraction . Educated pt on new HEP, hip flexor stretch, quad stretch, hip ER stretch in supine, clamshell and RDL. Pt did feel sore at the end of visit. Physical Therapy Plan Next Visit Focus/Plan Next Note Type Treatment Note Next Visit Plan review HEP cont manual therapy to improve hip ROM gentle hip strengthening, for HEP as well single leg balance training, for hEP as well and gait training to prevent knee valgus. [ End ]
--- NOTE | 2018-11-04 12:13 | PT.OTN ---
Current Diagnoses Bilateral primary osteoarthritis of hip (11/04/18) Physical Therapy Treatment Note PT-OP-A Visit Information Start: 10/21/18 08:10 Freq: Status: Active Protocol: Document 11/04/18 09:57 HH (Rec: 11/04/18 12:13 HH [email or web address]) Out-Patient Physical Therapy Visit Information Visit Information Visit Type Treatment Note Visit Start Time 09:57 Visit Stop Time 10:40 Total Visit Minutes 43 Visit Number 3/6 Number of METAL CONTROL COORDINATOR Visits 0 PT-OP-B Current Condition Start: 10/21/18 08:10 Freq: Status: Active Protocol: Document 10/21/18 09:50 HH (Rec: 10/21/18 10:05 HH [id number]) Current Condition History of Current Condition Onset Date 2 months ago Current Complaints R hip pain, Difficulty in walking, decreased muscle strength at R LE History of Current Condition Pt presents to PT with R hip pain. Pt twisted her R hip into external rotation [place] . She is currently experiencing R hip pain with any hip ER movements. Walking straight is fine. Turning out her foot out tends to hurt a lot. Performing Sit to stand after prolonged sitting also aggravates her symptoms. Her hip pain currently affects her sleep that changing position is not that helpful. Climbing stairs and getting in and out of the car are also very painful especially during push off through RLE. She uses step to pattern if it hurts. Keeping her foot straight tends to make it better. sleeping bothers her. Changing position does not help. sit to stand after prolonged sitting aggravates Climbing stairs hurt especially push off through RLE. She uses step to if it hurts. Keeping her foot straight makes it better. She went to ER 3 weeks ago and X-ray was negative for fx, but OA at lumbar and B hip joint. Had PT 10 months ago for R knee pain due to torn meniscus. PT didnt help and she had surgical removal for part of her meniscus. Prior Treatments and Tests X-ray was negative for fx, but OA at lumbar and B hip joint. ad PT 10 months ago for R knee pain due to torn meniscus. PT didnt help and she had surgical removal for part of her meniscus. Treatment Goals Patient/Caregiver Goals 1. To be able to turn her hip while making turns 2. To be pain free during car transfer, long walk and stair climbing. Prior Functional Status Baseline Function- ADL's Independent Baseline Function- Mobility Independent Current Functional Impairments (Reported) Functional Limitations- ADL's increased time for making turns/ bending activities. Functional Limitations- Mobility/Gait pain during car transfer, stair climbing and prolonged walking PT-OP-C Subjective Start: 10/21/18 08:10 Freq: Status: Active Protocol: Document 11/04/18 09:57 HH (Rec: 11/04/18 12:13 HH [email or web address]) OP-PT Subjective Patient Comments Patient Comments i have less hip pain during the day but it;s still bothering during sleep. Patient Reported Progress Improving PT-OP-D Balance Start: 10/21/18 08:10 Freq: Status: Active Protocol: Document 10/21/18 09:50 HH (Rec: 10/21/18 13:06 [email or web address]) Balance Tests Single Limb Standing Single Limb- Right 15s Single Limb- Left >1 mins PT-OP-G Mobility & Gait Start: 10/21/18 08:10 Freq: Status: Active Protocol: Document 10/21/18 09:50 HH (Rec: 10/21/18 13:06 [email or web address]) OP Gait Assessment Gait Deviations General Gait Pattern Antalgic Factors Limiting Gait Function Factors Limiting Gait Function Decreased Activity Tolerance, Decreased Strength,Limited Range of Motion,Pain,Poor Balance Comments Gait Comments During R stance phase, noticeable R knee valgus thrust with slight L hip drop. Decreased L step length Stair Climbing Evaluation Devices Stair Climbing Assistive Devices Left Railing,Right Railing Technique/Endurance Stair Climbing Technique Step Over Step,Step to Step Comments Stair Climbing Comments R knee valgust thrust noted during push off and eccentric lowering. PT-OP-J Posture/Palpation/Skin Start: 10/21/18 08:10 Freq: Status: Active Protocol: Document 10/21/18 09:50 HH (Rec: 10/21/18 13:41 HH [email or web address]) Posture Evaluation Position Standing Evaluation View Lateral Pelvis Posture (R) Rotated Anterior Weight Distribution Weight Shifted Left,Decreased Wt.Bear on (R) Hip Posture (R) Internally Rotated Knee Posture (R) Excess Flexion PT-OP-K Range of Motion Start: 10/21/18 08:10 Freq: Status: Active Protocol: Document 10/21/18 09:50 HH (Rec: 08/20/19 13:41 [email or web address]) Hip Goniometric Range of Motion Hip Left Active Hip ROM WFL Yes Testing Position Supine Flexion w/Knee Flexed 120 Extension 5 Abduction 25 Internal Rotation 35 External Rotation 20 Right Active Hip ROM WFL No Testing Position Supine Flexion w/Knee Flexed 105 Extension 0 Abduction 15 Internal Rotation 30 External Rotation 0 Hip ROM Limitations Hip ROM Limitations Soft Tissue Tightness,Muscle Tone,Pain Comments Pain with R hip ER>IR> flexion Significant muscle guadring from R hip adductors noted during passive R hip ER. PT-OP-L Special Tests Start: 10/21/18 08:10 Freq: Status: Active Protocol: Document 10/21/18 09:50 HH (Rec: 10/21/18 13:41 [email or web address]) Special Tests Hip Special Tests hip distraction Test Results +ve R Comments pain relief with R hip distraction Scour Test Test Results +ve R Comments anterior hip pain at end range KAE Test Results +ve R Comments pain with PROM and over pressure Brandon Test Results +Ve B Comments R hip is higher than L PT-OP-M Strength Start: 10/21/18 08:10 Freq: Status: Active Protocol: Document 10/21/18 09:50 (Rec: 10/21/18 13:41 [email or web address]) Hip Strength Hip Manual Muscle Testing Left Flexion (L2) 4+ Good+ Extension (S1) 4+ Good+ Abduction 4+ Good+ Adduction 4+ Good+ External Rotation 4+ Good+ Internal Rotation 4+ Good+ Right Flexion (L2) 4+ Good+ Extension (S1) 4- Good- Abduction 4- Good- Adduction 4+ Good+ External Rotation 3+ Fair+ Internal Rotation 4- Good- Reason Not Measured Muscle Tone,Pain PT-OP-Q Treatments Start: 10/21/18 08:10 Freq: Status: Active Protocol: Document 11/04/18 09:57 HH (Rec: 11/04/18 12:13 [email or web address]) Therapeutic Exercises Supine Exercises PPT+ bridging Side bilateral Reps/Minutes 12 x 2 Comments cues on PPT supine PPT Side bilateral Reps/Minutes 12 x2 Comments cues on PPT hip ER Side right Reps/Minutes 30 secs hold x 5 Comments cues on PPT hip flexor stretch Supine Exercise Name contract relax Side right Reps/Minutes 30 secs hold x 5 Comments brandon test position , cues on PPT Sidelying Exercises clamshell Side right Reps/Minutes 8 x 2 Standing Exercises standing PpT Side bilateral Reps/Minutes 15 x 2 Comments cues on gluteal engagement R TKE Side right Equipment Used level 3 band Reps/Minutes 4 mins Manual Therapy Treatment Joint Mobilizations lateral distraction Grade II Body Position Supine Reps/Duration 5 mins Comments 30 secs x 5 R hip distraction Joint R hip joint Direction inferior + oscillation Grade II Body Position Supine Reps/Duration 6 mins Comments 30 secs x 6 PT-OP-R Modalities Start: 10/21/18 08:10 Freq: Status: Active Protocol: Document 10/28/18 09:47 HH (Rec: 10/28/18 11:15 [id number]) Hot Pack/Cold Pack Treatment Hot Pack Patient Position Hooklying Treatment Duration (minutes) 13 Patient Tolerance Good Comments at R hip PT-OP-T Assessment and Plan Start: 10/21/18 08:10 Freq: Status: Active Protocol: Document 11/04/18 09:57 HH (Rec: 11/04/18 12:13 [email or web address]) Physical Therapy Assessment Goals HEP Impairment Pt does not have a HEP Chcf Goal (LTG) Pt will comply to HEP independently and safely to improve her overall single leg strength and balance. LTG Duration 8 weeks pain Impairment pain during walking, car transfers and stair climbing Short Term Goal (STG) Pt will have less than 4 in pain scale during walking, car transfers and stair climbing. STG Duration 4 weels Rocket Scientist Goal (LTG) Pt will have less than 2 in pain scale during walking, car transfers and stair climbing. LTG Duration 8 weeks ROM Impairment pt shows significant ROM loss at R hip Short Term Goal (STG) Pt will improve her overall R hip AROM by 5 degrees to optimize her gait efficiency with longer step length. STG Duration 4 weeks Rocket Scientist Goal (LTG) Pt will improve her overall R hip AROM by 10 degrees to optimize her gait efficiency with longer step length. LTG Duration 8 weeks LEFS Impairment Pt scores 30 on LEFS (60-79 % impairment) Short Term Goal (STG) Pt will be able to reach lower than 40% impairment to improve her quality of life and functional mobility. STG Duration 4 weeks Rocket Scientist Goal (LTG) Pt will be able to reach lower than 20% impairment to improve her quality of life and functional mobility. LTG Duration 8 weeks Assessment Summary Assessment Pt progressed well with improved postural awareness and hip positioning. Educated pt on posterior pelvic tilt today. She has decreased R pelvic control and gluteal engagement in general but improved in supine position. Cont focused on hip flexor mobility, knee ext strength, and R hip ext. Physical Therapy Plan Next Visit Focus/Plan Next Note Type Treatment Note Next Visit Plan review HEP, PPT, briding cont manual therapy to improve hip ROM gentle hip strengthening, for HEP as well single leg balance training, for hEP as well and gait training to prevent knee valgus. leg press [ End ]
--- NOTE | 2018-11-27 12:10 | PT.OTN ---
Current Diagnoses Bilateral primary osteoarthritis of hip (11/27/18) Physical Therapy Treatment Note PT-OP-A Visit Information Start: 10/21/18 08:10 Freq: Status: Active Protocol: Document 11/27/18 09:04 HH (Rec: 11/27/18 12:10 [email or web address]) Out-Patient Physical Therapy Visit Information Visit Information Visit Type Treatment Note Visit Note Last visit 11/04 Visit Start Time 09:04 Visit Stop Time 09:49 Total Visit Minutes 45 Visit Number 4/6 Number of LOSS CONTROL MANAGER Visits 0 PT-OP-B Current Condition Start: 10/21/18 08:10 Freq: Status: Active Protocol: Document 10/21/18 09:50 HH (Rec: 10/21/18 10:05 [id number]) Current Condition History of Current Condition Onset Date 2 months ago Current Complaints R hip pain, Difficulty in walking, decreased muscle strength at R LE History of Current Condition Pt presents to PT with R hip pain. Pt twisted her R hip into external [place] . She is currently experiencing R hip pain with any hip ER movements. Walking straight is fine. Turning out her foot out tends to hurt a lot. Performing Sit to stand after prolonged sitting also aggravates her symptoms. Her hip pain currently affects her sleep that changing position is not that helpful. Climbing stairs and getting in and out of the car are also very painful especially during push off through RLE. She uses step to pattern if it hurts. Keeping her foot straight tends to make it better. sleeping bothers her. Changing position does not help. sit to stand after prolonged sitting aggravates Climbing stairs hurt especially push off through RLE. She uses step to if it hurts. Keeping her foot straight makes it better. She went to ER 3 weeks ago and X-ray was negative for fx, but OA at lumbar and B hip joint. Had PT 10 months ago for R knee pain due to torn meniscus. PT didnt help and she had surgical removal for part of her meniscus. Prior Treatments and Tests X-ray was negative for fx, but OA at lumbar and B hip joint. ad PT 10 months ago for R knee pain due to torn meniscus. PT didnt help and she had surgical removal for part of her meniscus. Treatment Goals Patient/Caregiver Goals 1. To be able to turn her hip while making turns 2. To be pain free during car transfer, long walk and stair climbing. Prior Functional Status Baseline Function- ADL's Independent Baseline Function- Mobility Independent Current Functional Impairments (Reported) Functional Limitations- ADL's increased time for making turns/ bending activities. Functional Limitations- Mobility/Gait pain during car transfer, stair climbing and prolonged walking PT-OP-C Subjective Start: 10/21/18 08:10 Freq: Status: Active Protocol: Document 11/27/18 09:04 HH (Rec: 11/27/18 12:10 [email or web address]) OP-PT Subjective Patient Comments Patient Comments Teresa been getting better now. Able to climb stairs with step over pattern and limb less during walking. Sleeping is still difficult especially laying on my L hip Patient Reported Progress Improving PT-OP-D Balance Start: 10/21/18 08:10 Freq: Status: Active Protocol: Document 10/21/18 09:50 HH (Rec: 10/21/18 13:06 [email or web address]) Balance Tests Single Limb Standing Single Limb- Right 15s Single Limb- Left >1 mins PT-OP-G Mobility & Gait Start: 10/21/18 08:10 Freq: Status: Active Protocol: Document 10/21/18 09:50 HH (Rec: 10/21/18 13:06 [email or web address]) OP Gait Assessment Gait Deviations General Gait Pattern Antalgic Factors Limiting Gait Function Factors Limiting Gait Function Decreased Activity Tolerance, Decreased Strength,Limited Range of Motion,Pain,Poor Balance Comments Gait Comments During R stance phase, noticeable R knee valgus thrust with slight L hip drop. Decreased L step length Stair Climbing Evaluation Devices Stair Climbing Assistive Devices Left Railing,Right Railing Technique/Endurance Stair Climbing Technique Step Over Step,Step to Step Comments Stair Climbing Comments R knee valgust thrust noted during push off and eccentric lowering. PT-OP-J Posture/Palpation/Skin Start: 10/21/18 08:10 Freq: Status: Active Protocol: Document 10/21/18 09:50 HH (Rec: 10/21/18 13:41 [email or web address]) Posture Evaluation Position Standing Evaluation View Lateral Pelvis Posture (R) Rotated Anterior Weight Distribution Weight Shifted Left,Decreased Wt.Bear on (R) Hip Posture (R) Internally Rotated Knee Posture (R) Excess Flexion PT-OP-K Range of Motion Start: 10/21/18 08:10 Freq: Status: Active Protocol: Document 10/21/18 09:50 HH (Rec: 10/21/18 13:41 [email or web address]) Hip Goniometric Range of Motion Hip Left Active Hip ROM WFL Yes Testing Position Supine Flexion w/Knee Flexed 120 Extension 5 Abduction 25 Internal Rotation 35 External Rotation 20 Right Active Hip ROM WFL No Testing Position Supine Flexion w/Knee Flexed 105 Extension 0 Abduction 15 Internal Rotation 30 External Rotation 0 Hip ROM Limitations Hip ROM Limitations Soft Tissue Tightness,Muscle Tone,Pain Comments Pain with R hip ER>IR> flexion Significant muscle guadring from R hip adductors noted during passive R hip ER. PT-OP-L Special Tests Start: 10/21/18 08:10 Freq: Status: Active Protocol: Document 10/21/18 09:50 HH (Rec: 10/21/18 13:41 HH [email or web address]) Special Tests Hip Special Tests hip distraction Test Results +ve R Comments pain relief with R hip distraction Scour Test Test Results +ve R Comments anterior hip pain at end range KAE Test Results +ve R Comments pain with PROM and over pressure Brandon Test Results +Ve B Comments R hip is higher than L PT-OP-M Strength Start: 10/21/18 08:10 Freq: Status: Active Protocol: Document 10/21/18 09:50 HH (Rec: 10/21/18 13:41 [email or web address]) Hip Strength Hip Manual Muscle Testing Left Flexion (L2) 4+ Good+ Extension (S1) 4+ Good+ Abduction 4+ Good+ Adduction 4+ Good+ External Rotation 4+ Good+ Internal Rotation 4+ Good+ Right Flexion (L2) 4+ Good+ Extension (S1) 4- Good- Abduction 4- Good- Adduction 4+ Good+ External Rotation 3+ Fair+ Internal Rotation 4- Good- Reason Not Measured Muscle Tone,Pain PT-OP-Q Treatments Start: 10/21/18 08:10 Freq: Status: Active Protocol: Document 11/27/18 09:04 HH (Rec: 11/27/18 12:10 [email or web address]) Cardio Equipment Recumbent Bicycle Duration (Minutes) 6 Resistance 3 Therapeutic Exercises Supine Exercises hip flexor stretch Supine Exercise Name contract relax Side right Reps/Minutes 30 secs hold x 5 Comments brandon test position , cues on PPT Gait Training Gait Activity pre-swing Description RLE Device Used richard Level of Assistance manual Surface ground level Comments with R knee extension and heel off. stance phase Description RLE Device Used richard Level of Assistance manual Surface ground level Comments RLE stance phase with LLE climb over richard. manual cues on facilitate R hip engagement and R foot push off . Manual Therapy Treatment Soft Tissue Mobilization R hip flexor Mobilization Type Myofascial Release,Trigger Point Release Intensity/Depth Moderate Body Position Supine Joint Mobilizations lateral distraction Grade II Body Position Supine Reps/Duration 5 mins Comments 30 secs x 5 R hip distraction Joint R hip joint Direction inferior + oscillation Grade II Body Position Supine Reps/Duration 6 mins Comments 30 secs x 6 Manual Techniques contract relax at KAE position Body Position Supine Reps/Duration 5 secs hold PT-OP-R Modalities Start: 10/21/18 08:10 Freq: Status: Active Protocol: Document 10/28/18 09:47 HH (Rec: 10/28/18 11:15 [id number]) Hot Pack/Cold Pack Treatment Hot Pack Patient Position Hooklying Treatment Duration (minutes) 13 Patient Tolerance Good Comments at R hip PT-OP-T Assessment and Plan Start: 10/21/18 08:10 Freq: Status: Active Protocol: Document 11/27/18 09:04 HH (Rec: 11/27/18 12:10 [email or web address]) Physical Therapy Assessment Goals HEP Impairment Pt does not have a HEP Retirement Goal (LTG) Pt will comply to HEP independently and safely to improve her overall single leg strength and balance. LTG Duration 8 weeks pain Impairment pain during walking, car transfers and stair climbing Short Term Goal (STG) Pt will have less than 4 in pain scale during walking, car transfers and stair climbing. STG Duration 4 weels Timber Rider Goal (LTG) Pt will have less than 2 in pain scale during walking, car transfers and stair climbing. LTG Duration 8 weeks ROM Impairment pt shows significant ROM loss at R hip Short Term Goal (STG) Pt will improve her overall R hip AROM by 5 degrees to optimize her gait efficiency with longer step length. STG Duration 4 weeks Timber Rider Goal (LTG) Pt will improve her overall R hip AROM by 10 degrees to optimize her gait efficiency with longer step length. LTG Duration 8 weeks LEFS Impairment Pt scores 30 on LEFS (60-79 % impairment) Short Term Goal (STG) Pt will be able to reach lower than 40% impairment to improve her quality of life and functional mobility. STG Duration 4 weeks Retirement Goal (LTG) Pt will be able to reach lower than 20% impairment to improve her quality of life and functional mobility. LTG Duration 8 weeks Assessment Summary Assessment Pt hasnt seen PT since 11/04 but she has been progressing. Pt has reduced antalgic gait and muscle guarding during R hip ER/ ext stretch. Tx focused on gait training at mid stance and preswing to facilitate hip flexor stretch and hip extensor contraction. Physical Therapy Plan Next Visit Focus/Plan Next Note Type Treatment Note Next Visit Plan review HEP, PPT, briding cont manual therapy to improve hip ROM gait training at preswing, mid stance leg press gentle hip strengthening, for HEP as well single leg balance training, for hEP as well and gait training to prevent knee valgus. [ End ]
--- NOTE | 2018-12-02 12:13 | PT.OTN ---
Current Diagnoses Bilateral primary osteoarthritis of hip (12/02/18) Physical Therapy Treatment Note PT-OP-A Visit Information Start: 10/21/18 08:10 Freq: Status: Active Protocol: Document 12/02/18 11:20 HH (Rec: 12/02/18 12:13 HH [email or web address]) Out-Patient Physical Therapy Visit Information Visit Information Visit Type Treatment Note Visit Start Time 11:20 Visit Stop Time 12:06 Total Visit Minutes 46 Visit Number 07/21 Number of WOOD SASH AND FRAME CARPENTER Visits 0 PT-OP-B Current Condition Start: 10/21/18 08:10 Freq: Status: Active Protocol: Document 10/21/18 09:50 HH (Rec: 10/21/18 10:05 HH [id number]) Current Condition History of Current Condition Onset Date 2 months ago Current Complaints R hip pain, Difficulty in walking, decreased muscle strength at R LE History of Current Condition Pt presents to PT with R hip pain. Pt twisted her R hip into external rotation [place] . She is currently experiencing R hip pain with any hip ER movements. Walking straight is fine. Turning out her foot out tends to hurt a lot. Performing Sit to stand after prolonged sitting also aggravates her symptoms. Her hip pain currently affects her sleep that changing position is not that helpful. Climbing stairs and getting in and out of the car are also very painful especially during push off through RLE. She uses step to pattern if it hurts. Keeping her foot straight tends to make it better. sleeping bothers her. Changing position does not help. sit to stand after prolonged sitting aggravates Climbing stairs hurt especially push off through RLE. She uses step to if it hurts. Keeping her foot straight makes it better. She went to ER 3 weeks ago and X-ray was negative for fx, but OA at lumbar and B hip joint. Had PT 10 months ago for R knee pain due to torn meniscus. PT didnt help and she had surgical removal for part of her meniscus. Prior Treatments and Tests X-ray was negative for fx, but OA at lumbar and B hip joint. ad PT 10 months ago for R knee pain due to torn meniscus. PT didnt help and she had surgical removal for part of her meniscus. Treatment Goals Patient/Caregiver Goals 1. To be able to turn her hip while making turns 2. To be pain free during car transfer, long walk and stair climbing. Prior Functional Status Baseline Function- ADL's Independent Baseline Function- Mobility Independent Current Functional Impairments (Reported) Functional Limitations- ADL's increased time for making turns/ bending activities. Functional Limitations- Mobility/Gait pain during car transfer, stair climbing and prolonged walking PT-OP-C Subjective Start: 10/21/18 08:10 Freq: Status: Active Protocol: Document 12/02/18 11:20 HH (Rec: 12/02/18 12:13 HH [email or web address]) OP-PT Subjective Patient Comments Patient Comments I got sore from last time for 2/3 days but it got better. I was able to lawn my yard for 90 minutes yesterday and i was surprised. Patient Reported Progress Improving PT-OP-D Balance Start: 10/21/18 08:10 Freq: Status: Active Protocol: Document 10/21/18 09:50 HH (Rec: 10/21/18 13:06 [email or web address]) Balance Tests Single Limb Standing Single Limb- Right 15s Single Limb- Left >1 mins PT-OP-G Mobility & Gait Start: 10/21/18 08:10 Freq: Status: Active Protocol: Document 10/21/18 09:50 HH (Rec: 10/21/18 13:06 [email or web address]) OP Gait Assessment Gait Deviations General Gait Pattern Antalgic Factors Limiting Gait Function Factors Limiting Gait Function Decreased Activity Tolerance, Decreased Strength,Limited Range of Motion,Pain,Poor Balance Comments Gait Comments During R stance phase, noticeable R knee valgus thrust with slight L hip drop. Decreased L step length Stair Climbing Evaluation Devices Stair Climbing Assistive Devices Left Railing,Right Railing Technique/Endurance Stair Climbing Technique Step Over Step,Step to Step Comments Stair Climbing Comments R knee valgust thrust noted during push off and eccentric lowering. PT-OP-J Posture/Palpation/Skin Start: 10/21/18 08:10 Freq: Status: Active Protocol: Document 10/21/18 09:50 HH (Rec: 10/21/18 13:41 HH [email or web address]) Posture Evaluation Position Standing Evaluation View Lateral Pelvis Posture (R) Rotated Anterior Weight Distribution Weight Shifted Left,Decreased Wt.Bear on (R) Hip Posture (R) Internally Rotated Knee Posture (R) Excess Flexion PT-OP-K Range of Motion Start: 10/21/18 08:10 Freq: Status: Active Protocol: Document 10/21/18 09:50 HH (Rec: 10/21/18 13:41 [email or web address]) Hip Goniometric Range of Motion Hip Left Active Hip ROM WFL Yes Testing Position Supine Flexion w/Knee Flexed 120 Extension 5 Abduction 25 Internal Rotation 35 External Rotation 20 Right Active Hip ROM WFL No Testing Position Supine Flexion w/Knee Flexed 105 Extension 0 Abduction 15 Internal Rotation 30 External Rotation 0 Hip ROM Limitations Hip ROM Limitations Soft Tissue Tightness,Muscle Tone,Pain Comments Pain with R hip ER>IR> flexion Significant muscle guadring from R hip adductors noted during passive R hip ER. PT-OP-L Special Tests Start: 10/21/18 08:10 Freq: Status: Active Protocol: Document 10/21/18 09:50 HH (Rec: 10/21/18 13:41 [email or web address]) Special Tests Hip Special Tests hip distraction Test Results +ve R Comments pain relief with R hip distraction Scour Test Test Results +ve R Comments anterior hip pain at end range KAE Test Results +ve R Comments pain with PROM and over pressure Brandon Test Results +Ve B Comments R hip is higher than L PT-OP-M Strength Start: 10/21/18 08:10 Freq: Status: Active Protocol: Document 10/21/18 09:50 HH (Rec: 10/21/18 13:41 [email or web address]) Hip Strength Hip Manual Muscle Testing Left Flexion (L2) 4+ Good+ Extension (S1) 4+ Good+ Abduction 4+ Good+ Adduction 4+ Good+ External Rotation 4+ Good+ Internal Rotation 4+ Good+ Right Flexion (L2) 4+ Good+ Extension (S1) 4- Good- Abduction 4- Good- Adduction 4+ Good+ External Rotation 3+ Fair+ Internal Rotation 4- Good- Reason Not Measured Muscle Tone,Pain PT-OP-Q Treatments Start: 10/21/18 08:10 Freq: Status: Active Protocol: Document 12/02/18 11:20 HH (Rec: 12/02/18 12:13 HH [email or web address]) Therapeutic Exercises Supine Exercises supine unilateral PPT Side right Reps/Minutes 5 x3 Comments L knee to chest, R side PPT hip ER Side right Equipment Used level 2 band Reps/Minutes 5 secs hold hip flexor stretch Supine Exercise Name contract relax Side right Reps/Minutes 30 secs hold x 5 Comments brandon test position , cues on PPT Gait Training Gait Activity pre-swing Description RLE Device Used richard Level of Assistance manual Surface ground level Comments with R knee extension and heel off. stance phase Description RLE Device Used richard Level of Assistance manual Surface ground level Comments RLE stance phase with LLE climb over richard. manual cues on facilitate R hip engagement and R foot push off . PT-OP-R Modalities Start: 10/21/18 08:10 Freq: Status: Active Protocol: Document 12/02/18 11:20 HH (Rec: 12/02/18 12:13 HH [email or web address]) Hot Pack/Cold Pack Treatment Hot Pack Location R hip Patient Position Hooklying Treatment Duration (minutes) 9 Patient Tolerance Good PT-OP-T Assessment and Plan Start: 10/21/18 08:10 Freq: Status: Active Protocol: Document 12/02/18 11:20 HH (Rec: 12/02/18 12:13 HH [email or web address]) Physical Therapy Assessment Goals HEP Impairment Pt does not have a HEP Mcfp Goal (LTG) Pt will comply to HEP independently and safely to improve her overall single leg strength and balance. LTG Duration 8 weeks pain Impairment pain during walking, car transfers and stair climbing Short Term Goal (STG) Pt will have less than 4 in pain scale during walking, car transfers and stair climbing. STG Duration 4 weels Mcfp Goal (LTG) Pt will have less than 2 in pain scale during walking, car transfers and stair climbing. LTG Duration 8 weeks ROM Impairment pt shows significant ROM loss at R hip Short Term Goal (STG) Pt will improve her overall R hip AROM by 5 degrees to optimize her gait efficiency with longer step length. STG Duration 4 weeks Floor Installation Mechanic Goal (LTG) Pt will improve her overall R hip AROM by 10 degrees to optimize her gait efficiency with longer step length. LTG Duration 8 weeks LEFS Impairment Pt scores 30 on LEFS (60-79 % impairment) Short Term Goal (STG) Pt will be able to reach lower than 40% impairment to improve her quality of life and functional mobility. STG Duration 4 weeks Mcfp Goal (LTG) Pt will be able to reach lower than 20% impairment to improve her quality of life and functional mobility. LTG Duration 8 weeks Assessment Summary Assessment Pt showed improved gait mechanics at preswing with knee extension and hip extension. She also has improved unilateral pelvic control. Pt did c/o soreness at R hip today. Added unilateral hip PPT today. Physical Therapy Plan Next Visit Focus/Plan Next Note Type Treatment Note Next Visit Plan review HEP, PPT, briding cont manual therapy to improve hip ROM gait training at preswing, mid stance leg press gentle hip strengthening, for HEP as well single leg balance training, for hEP as well and gait training to prevent knee valgus. [ End ]
--- NOTE | 2018-12-11 15:17 | PT.OTN ---
Current Diagnoses Bilateral primary osteoarthritis of hip (12/11/18) Physical Therapy Treatment Note PT-OP-A Visit Information Start: 10/21/18 08:10 Freq: Status: Active Protocol: Document 12/11/18 13:50 HH (Rec: 12/11/18 15:17 HH [email or web address]) Out-Patient Physical Therapy Visit Information Visit Information Visit Type Treatment Note Visit Start Time 13:50 Visit Stop Time 14:36 Total Visit Minutes 46 Visit Number 08/21 Number of DISC RECORDIST Visits 0 PT-OP-B Current Condition Start: 10/21/18 08:10 Freq: Status: Active Protocol: Document 10/21/18 09:50 HH (Rec: 10/21/18 10:05 HH [id number]) Current Condition History of Current Condition Onset Date 2 months ago Current Complaints R hip pain, Difficulty in walking, decreased muscle strength at R LE History of Current Condition Pt presents to PT with R hip pain. Pt twisted her R hip into external rotation after [place] the [place] 8 [place] ago . She is currently experiencing R hip pain with any hip ER movements. Walking straight is fine. Turning out her foot out tends to hurt a lot. Performing Sit to stand after prolonged sitting also aggravates her symptoms. Her hip pain currently affects her sleep that changing position is not that helpful. Climbing stairs and getting in and out of the car are also very painful especially during push off through RLE. She uses step to pattern if it hurts. Keeping her foot straight tends to make it better. sleeping bothers her. Changing position does not help. sit to stand after prolonged sitting aggravates Climbing stairs hurt especially push off through RLE. She uses step to if it hurts. Keeping her foot straight makes it better. She went to ER 3 weeks ago and X-ray was negative for fx, but OA at lumbar and B hip joint. Had PT 10 months ago for R knee pain due to torn meniscus. PT didnt help and she had surgical removal for part of her meniscus. Prior Treatments and Tests X-ray was negative for fx, but OA at lumbar and B hip joint. ad PT 10 months ago for R knee pain due to torn meniscus. PT didnt help and she had surgical removal for part of her meniscus. Treatment Goals Patient/Caregiver Goals 1. To be able to turn her hip while making turns 2. To be pain free during car transfer, long walk and stair climbing. Prior Functional Status Baseline Function- ADL's Independent Baseline Function- Mobility Independent Current Functional Impairments (Reported) Functional Limitations- ADL's increased time for making turns/ bending activities. Functional Limitations- Mobility/Gait pain during car transfer, stair climbing and prolonged walking PT-OP-C Subjective Start: 10/21/18 08:10 Freq: Status: Active Protocol: Document 12/11/18 13:50 HH (Rec: 12/11/18 15:17 HH [email or web address]) OP-PT Subjective Patient Comments Patient Comments Teresa sitting in the car for the road trip and my hip gets very sore. Overall, my hip has been feeling better and able to more. I could finally bring my L ankle up to my L knee yesterday Patient Reported Progress Improving PT-OP-D Balance Start: 10/21/18 08:10 Freq: Status: Active Protocol: Document 10/21/18 09:50 HH (Rec: 10/21/18 13:06 [email or web address]) Balance Tests Single Limb Standing Single Limb- Right 15s Single Limb- Left >1 mins PT-OP-G Mobility & Gait Start: 10/21/18 08:10 Freq: Status: Active Protocol: Document 10/21/18 09:50 HH (Rec: 10/21/18 13:06 [email or web address]) OP Gait Assessment Gait Deviations General Gait Pattern Antalgic Factors Limiting Gait Function Factors Limiting Gait Function Decreased Activity Tolerance, Decreased Strength,Limited Range of Motion,Pain,Poor Balance Comments Gait Comments During R stance phase, noticeable R knee valgus thrust with slight L hip drop. Decreased L step length Stair Climbing Evaluation Devices Stair Climbing Assistive Devices Left Railing,Right Railing Technique/Endurance Stair Climbing Technique Step Over Step,Step to Step Comments Stair Climbing Comments R knee valgust thrust noted during push off and eccentric lowering. PT-OP-J Posture/Palpation/Skin Start: 10/21/18 08:10 Freq: Status: Active Protocol: Document 10/21/18 09:50 HH (Rec: 10/21/18 13:41 [email or web address]) Posture Evaluation Position Standing Evaluation View Lateral Pelvis Posture (R) Rotated Anterior Weight Distribution Weight Shifted Left,Decreased Wt.Bear on (R) Hip Posture (R) Internally Rotated Knee Posture (R) Excess Flexion PT-OP-K Range of Motion Start: 10/21/18 08:10 Freq: Status: Active Protocol: Document 10/21/18 09:50 HH (Rec: 10/21/18 13:41 [email or web address]) Hip Goniometric Range of Motion Hip Left Active Hip ROM WFL Yes Testing Position Supine Flexion w/Knee Flexed 120 Extension 5 Abduction 25 Internal Rotation 35 External Rotation 20 Right Active Hip ROM WFL No Testing Position Supine Flexion w/Knee Flexed 105 Extension 0 Abduction 15 Internal Rotation 30 External Rotation 0 Hip ROM Limitations Hip ROM Limitations Soft Tissue Tightness,Muscle Tone,Pain Comments Pain with R hip ER>IR> flexion Significant muscle guadring from R hip adductors noted during passive R hip ER. PT-OP-L Special Tests Start: 10/21/18 08:10 Freq: Status: Active Protocol: Document 10/21/18 09:50 HH (Rec: 10/21/18 13:41 [email or web address]) Special Tests Hip Special Tests hip distraction Test Results +ve R Comments pain relief with R hip distraction Scour Test Test Results +ve R Comments anterior hip pain at end range KAE Test Results +ve R Comments pain with PROM and over pressure Brandon Test Results +Ve B Comments R hip is higher than L PT-OP-M Strength Start: 10/21/18 08:10 Freq: Status: Active Protocol: Document 10/21/18 09:50 HH (Rec: 10/21/18 13:41 [email or web address]) Hip Strength Hip Manual Muscle Testing Left Flexion (L2) 4+ Good+ Extension (S1) 4+ Good+ Abduction 4+ Good+ Adduction 4+ Good+ External Rotation 4+ Good+ Internal Rotation 4+ Good+ Right Flexion (L2) 4+ Good+ Extension (S1) 4- Good- Abduction 4- Good- Adduction 4+ Good+ External Rotation 3+ Fair+ Internal Rotation 4- Good- Reason Not Measured Muscle Tone,Pain PT-OP-Q Treatments Start: 10/21/18 08:10 Freq: Status: Active Protocol: Document 12/11/18 13:50 HH (Rec: 12/11/18 15:17 HH [email or web address]) Therapeutic Exercises Supine Exercises supine unilateral PPT Side right Reps/Minutes 5 x3 Comments L knee to chest, R side PPT hip flexor stretch Supine Exercise Name contract relax Side right Reps/Minutes 30 secs hold x 5 Comments brandon test position , cues on PPT Prone Exercises prone hip ER Side right Equipment Used manual Reps/Minutes 10 secsx 5 Standing Exercises standing hip flexor stretch Side bilateral Equipment Used manual assistance Reps/Minutes 10 secs x8 Manual Therapy Treatment Soft Tissue Mobilization R hip flexor Mobilization Type Myofascial Release,Trigger Point Release Intensity/Depth Moderate Body Position Supine Joint Mobilizations lateral distraction Grade II Body Position Supine Reps/Duration 5 mins Comments 30 secs x 5 R hip distraction Joint R hip joint Direction inferior + oscillation Grade II Body Position Supine Reps/Duration 6 mins Comments 30 secs x 6 PT-OP-R Modalities Start: 10/21/18 08:10 Freq: Status: Active Protocol: Document 12/11/18 13:50 HH (Rec: 12/11/18 15:17 [email or web address]) Hot Pack/Cold Pack Treatment Hot Pack Location R hip Patient Position Hooklying Treatment Duration (minutes) 9 Patient Tolerance Good PT-OP-T Assessment and Plan Start: 10/21/18 08:10 Freq: Status: Active Protocol: Document 12/11/18 13:50 HH (Rec: 12/11/18 15:17 [email or web address]) Physical Therapy Assessment Goals HEP Impairment Pt does not have a HEP [facility] Goal (LTG) Pt will comply to HEP independently and safely to improve her overall single leg strength and balance. LTG Duration 8 weeks pain Impairment pain during walking, car transfers and stair climbing Short Term Goal (STG) Pt will have less than 4 in pain scale during walking, car transfers and stair climbing. STG Duration 4 weels [facility] Goal (LTG) Pt will have less than 2 in pain scale during walking, car transfers and stair climbing. LTG Duration 8 weeks ROM Impairment pt shows significant ROM loss at R hip Short Term Goal (STG) Pt will improve her overall R hip AROM by 5 degrees to optimize her gait efficiency with longer step length. STG Duration 4 weeks [facility] Goal (LTG) Pt will improve her overall R hip AROM by 10 degrees to optimize her gait efficiency with longer step length. LTG Duration 8 weeks LEFS Impairment Pt scores 30 on LEFS (60-79 % impairment) Short Term Goal (STG) Pt will be able to reach lower than 40% impairment to improve her quality of life and functional mobility. STG Duration 4 weeks Steel Pourer Goal (LTG) Pt will be able to reach lower than 20% impairment to improve her quality of life and functional mobility. LTG Duration 8 weeks Assessment Summary Assessment Pt R hip is stiffer today after her road trip. Pt has improved tolerance for R hip flexor stretch but cont have muscle guarding with hip ER. Educated pt to increase stretching frequency up to 2-3 times per day. Physical Therapy Plan Next Visit Focus/Plan Next Note Type Treatment Note Next Visit Plan check tolerance for this visit cont manual therapy to improve hip ROM gait training at preswing, mid stance leg press gentle hip strengthening, for HEP as well single leg balance training, for hEP as well and gait training to prevent knee valgus.
--- NOTE | 2018-12-16 17:43 | PT.OTN ---
Current Diagnoses Bilateral primary osteoarthritis of hip (12/16/18) Physical Therapy Treatment Note PT-OP-A Visit Information Start: 10/21/18 08:10 Freq: Status: Active Protocol: Document 12/16/18 13:02 HH (Rec: 12/16/18 17:43 HH [email or web address]) Out-Patient Physical Therapy Visit Information Visit Information Visit Type Treatment Note Visit Start Time 13:05 Visit Stop Time 13:50 Total Visit Minutes 48 Visit Number 09/20 Number of FRUIT PRESS OPERATOR Visits 0 PT-OP-B Current Condition Start: 10/21/18 08:10 Freq: Status: Active Protocol: Document 10/21/18 09:50 HH (Rec: 10/21/18 10:05 HH [email or web address]) Current Condition History of Current Condition Onset Date 2 months ago Current Complaints R hip pain, Difficulty in walking, decreased muscle strength at R LE History of Current Condition Pt presents to PT with R hip pain. Pt twisted her R hip into external rotation after a fall [place] the [place] 8 [place] . She is currently experiencing R hip pain with any hip ER movements. Walking straight is fine. Turning out her foot out tends to hurt a lot. Performing Sit to stand after prolonged sitting also aggravates her symptoms. Her hip pain currently affects her sleep that changing position is not that helpful. Climbing stairs and getting in and out of the car are also very painful especially during push off through RLE. She uses step to pattern if it hurts. Keeping her foot straight tends to make it better. sleeping bothers her. Changing position does not help. sit to stand after prolonged sitting aggravates Climbing stairs hurt especially push off through RLE. She uses step to if it hurts. Keeping her foot straight makes it better. She went to ER 3 weeks ago and X-ray was negative for fx, but OA at lumbar and B hip joint. Had PT 10 months ago for R knee pain due to torn meniscus. PT didnt help and she had surgical removal for part of her meniscus. Prior Treatments and Tests X-ray was negative for fx, but OA at lumbar and B hip joint. ad PT 10 months ago for R knee pain due to torn meniscus. PT didnt help and she had surgical removal for part of her meniscus. Treatment Goals Patient/Caregiver Goals 1. To be able to turn her hip while making turns 2. To be pain free during car transfer, long walk and stair climbing. Prior Functional Status Baseline Function- ADL's Independent Baseline Function- Mobility Independent Current Functional Impairments (Reported) Functional Limitations- ADL's increased time for making turns/ bending activities. Functional Limitations- Mobility/Gait pain during car transfer, stair climbing and prolonged walking PT-OP-C Subjective Start: 10/21/18 08:10 Freq: Status: Active Protocol: Document 12/16/18 13:02 HH (Rec: 12/16/18 17:43 HH [email or web address]) OP-PT Subjective Patient Comments Patient Comments Teresa been doing more stretches now. But the past week has been quite sore. PT-OP-D Balance Start: 10/21/18 08:10 Freq: Status: Active Protocol: Document 10/21/18 09:50 HH (Rec: 10/21/18 13:06 HH [email or web address]) Balance Tests Single Limb Standing Single Limb- Right 15s Single Limb- Left >1 mins PT-OP-G Mobility & Gait Start: 10/21/18 08:10 Freq: Status: Active Protocol: Document 10/21/18 09:50 HH (Rec: 10/21/18 13:06 HH [email or web address]) OP Gait Assessment Gait Deviations General Gait Pattern Antalgic Factors Limiting Gait Function Factors Limiting Gait Function Decreased Activity Tolerance, Decreased Strength,Limited Range of Motion,Pain,Poor Balance Comments Gait Comments During R stance phase, noticeable R knee valgus thrust with slight L hip drop. Decreased L step length Stair Climbing Evaluation Devices Stair Climbing Assistive Devices Left Railing,Right Railing Technique/Endurance Stair Climbing Technique Step Over Step,Step to Step Comments Stair Climbing Comments R knee valgust thrust noted during push off and eccentric lowering. PT-OP-J Posture/Palpation/Skin Start: 10/21/18 08:10 Freq: Status: Active Protocol: Document 10/21/18 09:50 HH (Rec: 10/21/18 13:41 HH [email or web address]) Posture Evaluation Position Standing Evaluation View Lateral Pelvis Posture (R) Rotated Anterior Weight Distribution Weight Shifted Left,Decreased Wt.Bear on (R) Hip Posture (R) Internally Rotated Knee Posture (R) Excess Flexion PT-OP-K Range of Motion Start: 10/21/18 08:10 Freq: Status: Active Protocol: Document 10/21/18 09:50 HH (Rec: 10/21/18 13:41 [email or web address]) Hip Goniometric Range of Motion Hip Left Active Hip ROM WFL Yes Testing Position Supine Flexion w/Knee Flexed 120 Extension 5 Abduction 25 Internal Rotation 35 External Rotation 20 Right Active Hip ROM WFL No Testing Position Supine Flexion w/Knee Flexed 105 Extension 0 Abduction 15 Internal Rotation 30 External Rotation 0 Hip ROM Limitations Hip ROM Limitations Soft Tissue Tightness,Muscle Tone,Pain Comments Pain with R hip ER>IR> flexion Significant muscle guadring from R hip adductors noted during passive R hip ER. PT-OP-L Special Tests Start: 10/21/18 08:10 Freq: Status: Active Protocol: Document 10/21/18 09:50 HH (Rec: 10/21/18 13:41 [email or web address]) Special Tests Hip Special Tests hip distraction Test Results +ve R Comments pain relief with R hip distraction Scour Test Test Results +ve R Comments anterior hip pain at end range KAE Test Results +ve R Comments pain with PROM and over pressure Brandon Test Results +Ve B Comments R hip is higher than L PT-OP-M Strength Start: 10/21/18 08:10 Freq: Status: Active Protocol: Document 10/21/18 09:50 (Rec: 10/21/18 13:41 [email or web address]) Hip Strength Hip Manual Muscle Testing Left Flexion (L2) 4+ Good+ Extension (S1) 4+ Good+ Abduction 4+ Good+ Adduction 4+ Good+ External Rotation 4+ Good+ Internal Rotation 4+ Good+ Right Flexion (L2) 4+ Good+ Extension (S1) 4- Good- Abduction 4- Good- Adduction 4+ Good+ External Rotation 3+ Fair+ Internal Rotation 4- Good- Reason Not Measured Muscle Tone,Pain PT-OP-Q Treatments Start: 10/21/18 08:10 Freq: Status: Active Protocol: Document 12/16/18 13:02 HH (Rec: 12/16/18 17:43 [email or web address]) Therapeutic Exercises Supine Exercises supine hip ER Supine Exercise Name hip ER, feet against wall Side bilateral Equipment Used yellow band Reps/Minutes 8 x 3 hip ER Side right Equipment Used level 2 band Reps/Minutes 5 secs hold hip flexor stretch Supine Exercise Name contract relax Side right Reps/Minutes 30 secs hold x 5 Comments brandon test position , cues on PPT Prone Exercises prone hip ER Side right Equipment Used manual Reps/Minutes 10 secsx 5 Standing Exercises standing hip flexor stretch Side bilateral Equipment Used manual assistance Reps/Minutes 10 secs x8 Manual Therapy Treatment Soft Tissue Mobilization R hip flexor Mobilization Type Myofascial Release,Trigger Point Release Intensity/Depth Moderate Body Position Supine Joint Mobilizations anterior glide Grade II Body Position Prone Reps/Duration 10 secs hold x8 lateral distraction Grade II Body Position Supine Reps/Duration 5 mins Comments 30 secs x 5 R hip distraction Joint R hip joint Direction inferior + oscillation Grade II Body Position Supine Reps/Duration 6 mins Comments 30 secs x 6 PT-OP-R Modalities Start: 10/21/18 08:10 Freq: Status: Active Protocol: Document 12/11/18 13:50 HH (Rec: 12/11/18 15:17 [email or web address]) Hot Pack/Cold Pack Treatment Hot Pack Location R hip Patient Position Hooklying Treatment Duration (minutes) 9 Patient Tolerance Good PT-OP-T Assessment and Plan Start: 10/21/18 08:10 Freq: Status: Active Protocol: Document 12/16/18 13:02 HH (Rec: 12/16/18 17:43 [email or web address]) Physical Therapy Assessment Goals HEP Impairment Pt does not have a HEP Natural Gas Inspector Goal (LTG) Pt will comply to HEP independently and safely to improve her overall single leg strength and balance. LTG Duration 8 weeks pain Impairment pain during walking, car transfers and stair climbing Short Term Goal (STG) Pt will have less than 4 in pain scale during walking, car transfers and stair climbing. STG Duration 4 weels Natural Gas Inspector Goal (LTG) Pt will have less than 2 in pain scale during walking, car transfers and stair climbing. LTG Duration 8 weeks ROM Impairment pt shows significant ROM loss at R hip Short Term Goal (STG) Pt will improve her overall R hip AROM by 5 degrees to optimize her gait efficiency with longer step length. STG Duration 4 weeks Natural Gas Inspector Goal (LTG) Pt will improve her overall R hip AROM by 10 degrees to optimize her gait efficiency with longer step length. LTG Duration 8 weeks LEFS Impairment Pt scores 30 on LEFS (60-79 % impairment) Short Term Goal (STG) Pt will be able to reach lower than 40% impairment to improve her quality of life and functional mobility. STG Duration 4 weeks Shelter Goal (LTG) Pt will be able to reach lower than 20% impairment to improve her quality of life and functional mobility. LTG Duration 8 weeks Assessment Summary Assessment Pt's R hip is cont to be stiff today since last week. But does increase tolerance for hip flexor stretch. Pt's end feel for R hip ER cont to be mostly from muscle guarding. She did feel better after manual therapy. Physical Therapy Plan Next Visit Focus/Plan Next Note Type Treatment Note Next Visit Plan check tolerance for this visit check HEP with supine hip ER cont manual therapy to improve hip ROM gait training at preswing, mid stance leg press gentle hip strengthening, for HEP as well single leg balance training, for hEP as well and gait training to prevent knee valgus.
--- NOTE | 2018-12-16 19:16 | PT.OTN ---
Current Diagnoses Bilateral primary osteoarthritis of hip (12/16/18) Physical Therapy Treatment Note PT-OP-A Visit Information Start: 10/21/18 08:10 Freq: Status: Active Protocol: Document 12/16/18 13:02 HH (Rec: 12/16/18 17:43 HH [email or web address]) Out-Patient Physical Therapy Visit Information Visit Information Visit Type Treatment Note Visit Start Time 13:05 Visit Stop Time 13:50 Total Visit Minutes 48 Visit Number 09/20 Number of HEAVY LIFT RIGGER Visits 0 PT-OP-B Current Condition Start: 10/21/18 08:10 Freq: Status: Active Protocol: Document 10/21/18 09:50 HH (Rec: 10/21/18 10:05 HH [id number]) Current Condition History of Current Condition Onset Date 2 months ago Current Complaints R hip pain, Difficulty in walking, decreased muscle strength at R LE History of Current Condition Pt presents to PT with R hip pain. Pt twisted her R hip into external [place] . She is currently experiencing R hip pain with any hip ER movements. Walking straight is fine. Turning out her foot out tends to hurt a lot. Performing Sit to stand after prolonged sitting also aggravates her symptoms. Her hip pain currently affects her sleep that changing position is not that helpful. Climbing stairs and getting in and out of the car are also very painful especially during push off through RLE. She uses step to pattern if it hurts. Keeping her foot straight tends to make it better. sleeping bothers her. Changing position does not help. sit to stand after prolonged sitting aggravates Climbing stairs hurt especially push off through RLE. She uses step to if it hurts. Keeping her foot straight makes it better. She went to ER 3 weeks ago and X-ray was negative for fx, but OA at lumbar and B hip joint. Had PT 10 months ago for R knee pain due to torn meniscus. PT didnt help and she had surgical removal for part of her meniscus. Prior Treatments and Tests X-ray was negative for fx, but OA at lumbar and B hip joint. ad PT 10 months ago for R knee pain due to torn meniscus. PT didnt help and she had surgical removal for part of her meniscus. Treatment Goals Patient/Caregiver Goals 1. To be able to turn her hip while making turns 2. To be pain free during car transfer, long walk and stair climbing. Prior Functional Status Baseline Function- ADL's Independent Baseline Function- Mobility Independent Current Functional Impairments (Reported) Functional Limitations- ADL's increased time for making turns/ bending activities. Functional Limitations- Mobility/Gait pain during car transfer, stair climbing and prolonged walking PT-OP-C Subjective Start: 10/21/18 08:10 Freq: Status: Active Protocol: Document 12/16/18 13:02 HH (Rec: 12/16/18 17:43 HH [email or web address]) OP-PT Subjective Patient Comments Patient Comments Teresa been doing more stretches now. But the past week has been quite sore. PT-OP-D Balance Start: 10/21/18 08:10 Freq: Status: Active Protocol: Document 10/21/18 09:50 HH (Rec: 10/21/18 13:06 HH [email or web address]) Balance Tests Single Limb Standing Single Limb- Right 15s Single Limb- Left >1 mins PT-OP-G Mobility & Gait Start: 10/21/18 08:10 Freq: Status: Active Protocol: Document 10/21/18 09:50 HH (Rec: 10/21/18 13:06 HH [email or web address]) OP Gait Assessment Gait Deviations General Gait Pattern Antalgic Factors Limiting Gait Function Factors Limiting Gait Function Decreased Activity Tolerance, Decreased Strength,Limited Range of Motion,Pain,Poor Balance Comments Gait Comments During R stance phase, noticeable R knee valgus thrust with slight L hip drop. Decreased L step length Stair Climbing Evaluation Devices Stair Climbing Assistive Devices Left Railing,Right Railing Technique/Endurance Stair Climbing Technique Step Over Step,Step to Step Comments Stair Climbing Comments R knee valgust thrust noted during push off and eccentric lowering. PT-OP-J Posture/Palpation/Skin Start: 10/21/18 08:10 Freq: Status: Active Protocol: Document 10/21/18 09:50 HH (Rec: 10/21/18 13:41 HH [email or web address]) Posture Evaluation Position Standing Evaluation View Lateral Pelvis Posture (R) Rotated Anterior Weight Distribution Weight Shifted Left,Decreased Wt.Bear on (R) Hip Posture (R) Internally Rotated Knee Posture (R) Excess Flexion PT-OP-K Range of Motion Start: 10/21/18 08:10 Freq: Status: Active Protocol: Document 10/21/18 09:50 HH (Rec: 10/21/18 13:41 [email or web address]) Hip Goniometric Range of Motion Hip Left Active Hip ROM WFL Yes Testing Position Supine Flexion w/Knee Flexed 120 Extension 5 Abduction 25 Internal Rotation 35 External Rotation 20 Right Active Hip ROM WFL No Testing Position Supine Flexion w/Knee Flexed 105 Extension 0 Abduction 15 Internal Rotation 30 External Rotation 0 Hip ROM Limitations Hip ROM Limitations Soft Tissue Tightness,Muscle Tone,Pain Comments Pain with R hip ER>IR> flexion Significant muscle guadring from R hip adductors noted during passive R hip ER. PT-OP-L Special Tests Start: 10/21/18 08:10 Freq: Status: Active Protocol: Document 10/21/18 09:50 HH (Rec: 10/21/18 13:41 [email or web address]) Special Tests Hip Special Tests hip distraction Test Results +ve R Comments pain relief with R hip distraction Scour Test Test Results +ve R Comments anterior hip pain at end range KAE Test Results +ve R Comments pain with PROM and over pressure Brandon Test Results +Ve B Comments R hip is higher than L PT-OP-M Strength Start: 10/21/18 08:10 Freq: Status: Active Protocol: Document 10/21/18 09:50 (Rec: 10/21/18 13:41 [email or web address]) Hip Strength Hip Manual Muscle Testing Left Flexion (L2) 4+ Good+ Extension (S1) 4+ Good+ Abduction 4+ Good+ Adduction 4+ Good+ External Rotation 4+ Good+ Internal Rotation 4+ Good+ Right Flexion (L2) 4+ Good+ Extension (S1) 4- Good- Abduction 4- Good- Adduction 4+ Good+ External Rotation 3+ Fair+ Internal Rotation 4- Good- Reason Not Measured Muscle Tone,Pain PT-OP-Q Treatments Start: 10/21/18 08:10 Freq: Status: Active Protocol: Document 12/16/18 13:02 HH (Rec: 12/16/18 17:43 [email or web address]) Therapeutic Exercises Supine Exercises supine hip ER Supine Exercise Name hip ER, feet against wall Side bilateral Equipment Used yellow band Reps/Minutes 8 x 3 hip ER Side right Equipment Used level 2 band Reps/Minutes 5 secs hold hip flexor stretch Supine Exercise Name contract relax Side right Reps/Minutes 30 secs hold x 5 Comments brandon test position , cues on PPT Prone Exercises prone hip ER Side right Equipment Used manual Reps/Minutes 10 secsx 5 Standing Exercises standing hip flexor stretch Side bilateral Equipment Used manual assistance Reps/Minutes 10 secs x8 Manual Therapy Treatment Soft Tissue Mobilization R hip flexor Mobilization Type Myofascial Release,Trigger Point Release Intensity/Depth Moderate Body Position Supine Joint Mobilizations anterior glide Grade II Body Position Prone Reps/Duration 10 secs hold x8 lateral distraction Grade II Body Position Supine Reps/Duration 5 mins Comments 30 secs x 5 R hip distraction Joint R hip joint Direction inferior + oscillation Grade II Body Position Supine Reps/Duration 6 mins Comments 30 secs x 6 PT-OP-R Modalities Start: 10/21/18 08:10 Freq: Status: Active Protocol: Document 12/11/18 13:50 HH (Rec: 12/11/18 15:17 [email or web address]) Hot Pack/Cold Pack Treatment Hot Pack Location R hip Patient Position Hooklying Treatment Duration (minutes) 9 Patient Tolerance Good PT-OP-T Assessment and Plan Start: 10/21/18 08:10 Freq: Status: Active Protocol: Document 12/16/18 13:02 HH (Rec: 12/16/18 17:43 [email or web address]) Physical Therapy Assessment Goals HEP Impairment Pt does not have a HEP Supervisor Body Assembly Goal (LTG) Pt will comply to HEP independently and safely to improve her overall single leg strength and balance. LTG Duration 8 weeks pain Impairment pain during walking, car transfers and stair climbing Short Term Goal (STG) Pt will have less than 4 in pain scale during walking, car transfers and stair climbing. STG Duration 4 weels Supervisor Body Assembly Goal (LTG) Pt will have less than 2 in pain scale during walking, car transfers and stair climbing. LTG Duration 8 weeks ROM Impairment pt shows significant ROM loss at R hip Short Term Goal (STG) Pt will improve her overall R hip AROM by 5 degrees to optimize her gait efficiency with longer step length. STG Duration 4 weeks Supervisor Body Assembly Goal (LTG) Pt will improve her overall R hip AROM by 10 degrees to optimize her gait efficiency with longer step length. LTG Duration 8 weeks LEFS Impairment Pt scores 30 on LEFS (60-79 % impairment) Short Term Goal (STG) Pt will be able to reach lower than 40% impairment to improve her quality of life and functional mobility. STG Duration 4 weeks Custodial Goal (LTG) Pt will be able to reach lower than 20% impairment to improve her quality of life and functional mobility. LTG Duration 8 weeks Assessment Summary Assessment Pt's R hip is cont to be stiff today since last week. But does increase tolerance for hip flexor stretch. Pt's end feel for R hip passive ER cont to be very limited with significant muscle guarding. pt often c/o there's sharp pain in the deep inside of her hip which i personally suspect a possible labrum tear , and her pain tends to relieve only with hip distraction. Discussed with pt to consult PCP for a possible MRI screen at her R hip. Physical Therapy Plan Next Visit Focus/Plan Next Note Type Treatment Note Next Visit Plan check tolerance for this visit check HEP with supine hip ER cont manual therapy to improve hip ROM gait training at preswing, mid stance leg press gentle hip strengthening, for HEP as well single leg balance training, for hEP as well and gait training to prevent knee valgus.
--- NOTE | 2018-12-24 15:59 | PT.OPPOC ---
Current Diagnoses Bilateral primary osteoarthritis of hip (12/24/18) Visit Care Team Role Provider Type Brent Blackwell MD Attending Provider Non-Staff Primary Care Provider Specialty: [facility] Address: [address] [place] [address], [facility][note 3] Email: Plan Of Care PT-OP-T Assessment and Plan Start: 10/21/18 08:10 Freq: Status: Active Protocol: Document 12/24/18 13:48 HH (Rec: 12/24/18 14:30 HH [id number]) Physical Therapy Assessment Goals activity tolerance Impairment pt c/o hip tightness / discomfort after physical act >2 hours Art Gilder Goal (LTG) Pt will be able to tolerate physical activities such as gardening, yardwork, house cleaning and walking for >2 hours without increase in hip pain/ discomfort. LTG Duration 8 weeks stair climbing Impairment Pt is unable to climb stairs without rails Correction Goal (LTG) pt will be able to climb stairs without railing support , along with step over pattern. LTG Duration 8 weeks HEP Impairment Pt does not have a HEP Art Gilder Goal (LTG) 12/24 goal met: pt is compliant to HEP Pt will comply to HEP independently and safely to improve her overall single leg strength and balance. LTG Duration 8 weeks pain Impairment pain during walking, car transfers and stair climbing Short Term Goal (STG) Pt will have less than 4 in pain scale during walking, car transfers and stair climbing. STG Duration 4 weels Art Gilder Goal (LTG) 12/24 cont in progress: pt denies pain during walking and stair climbing. She does c/o fear decreased confidence negotiating stairs. She does have little pain during car transfers. Pt will have less than 2 in pain scale during walking, car transfers and stair climbing. LTG Duration 8 weeks ROM Impairment pt shows significant ROM loss at R hip Short Term Goal (STG) Pt will improve her overall R hip AROM by 5 degrees to optimize her gait efficiency with longer step length. STG Duration 4 weeks Art Gilder Goal (LTG) 12/24 cont to progress: PROM ER= 15, AROM ER=5 , AROM hip ext = 0. Pt will improve her overall R hip AROM by 10 degrees to optimize her gait efficiency with longer step length. LTG Duration 8 weeks LEFS Impairment Pt scores 30 on LEFS (60-79 % impairment) Short Term Goal (STG) Pt will be able to reach lower than 40% impairment to improve her quality of life and functional mobility. STG Duration 4 weeks Correction Goal (LTG) 12/24 ;did not assess Pt will be able to reach lower than 20% impairment to improve her quality of life and functional mobility. LTG Duration 8 weeks Assessment Summary Assessment Pt has been progressed very well with her pain and mobility. She stated she is 60 % better since IE. Able to tolerate up to 2hrs of physical activities and improved gait efficiency. However, her R ER is still significantly limited. Pt's R hip flexor stiffness/ discomfort has improved since MT last session. Pt is able to tolerate greater hip ER than last session with less muscle guarding. Cont to demonstrate decreased R stance time during ambulation and stairs but denies pain. She states she has poor confidence with single leg stance activities and hope to climb stairs without UE support in the future. Recommended pt to consult with her referring physician to have MRI screen to rule out possible labrum tear. Left voice message yesterday to Dr. Blackwell regarding pt's progress. Physical Therapy Plan Frequency and Duration Frequency of Treatment 1x/Week Duration of Treatment 8 weeks Plan of Care Start Date 12/24/18 Plan of Care End Date 02/22/19 Therapeutic Interventions Therapeutic Interventions Balance Training,Gait Training ,Home Exercise Program,Joint Mobilizations,Manual Therapy, Neuromuscular Re-education, Patient/Caregiver Education, Self-Care/Home Management,Soft Tissue Mobilization,Taping, Therapeutic Activities, Therapeutic Exercises Modalities Cold Pack/Ice Massage,Electric Stimulation,Hot Packs, Infrared Therapy Other Referrals/Consults Referrals/Consults Recommended Recommended pt to consult with her referring physician to have MRI screen to rule out possible labrum tear. Left voice message yesterday to Dr. Blackwell yesterday. Next Visit Focus/Plan Next Note Type Treatment Note Next Visit Plan check tolerance for this visit check HEP with supine hip ER cont manual therapy to improve hip ROM gait training at preswing, mid stance leg press gentle hip strengthening, for HEP as well single leg balance training, for hEP as well and gait training to prevent knee valgus. stair climbing Plan of Care Dates Plan of Care Start Date 12/24/18 Plan of Care End Date 02/22/19
--- NOTE | 2018-12-24 16:03 | PT.OTRE ---
Current Diagnoses Bilateral primary osteoarthritis of hip (12/24/18) Past Medical History (Last Reviewed 09/15/18 @ 13:49 by LORE White) No significant medical problems (Chronic) Visit Care Team Role Provider Type Brent Blackwell MD Attending Provider Non-Staff Primary Care Provider Specialty: Family Practice Address: [address] [place] [address], [phone] Email: Physical Therapy Re-Evaluation PT-OP-A Visit Information Start: 10/21/18 08:10 Freq: Status: Active Protocol: Document 12/24/18 13:48 HH (Rec: 12/24/18 14:30 HH [id number]) Out-Patient Physical Therapy Visit Information Visit Information Visit Type Re-Evaluation Visit Start Time 13:48 Visit Stop Time 14:31 Total Visit Minutes 43 Visit Number 10/21 Number of FILLER SHREDDER HELPER Visits 0 PT-OP-B Current Condition Start: 10/21/18 08:10 Freq: Status: Active Protocol: Document 10/21/18 09:50 HH (Rec: 10/21/18 10:05 [id number]) Current Condition History of Current Condition Onset Date 2 months ago Current Complaints R hip pain, Difficulty in walking, decreased muscle strength at R LE History of Current Condition Pt presents to PT with R hip pain. Pt twisted her R hip into external [place] . She is currently experiencing R hip pain with any hip ER movements. Walking straight is fine. Turning out her foot out tends to hurt a lot. Performing Sit to stand after prolonged sitting also aggravates her symptoms. Her hip pain currently affects her sleep that changing position is not that helpful. Climbing stairs and getting in and out of the car are also very painful especially during push off through RLE. She uses step to pattern if it hurts. Keeping her foot straight tends to make it better. sleeping bothers her. Changing position does not help. sit to stand after prolonged sitting aggravates Climbing stairs hurt especially push off through RLE. She uses step to if it hurts. Keeping her foot straight makes it better. She went to ER 3 weeks ago and X-ray was negative for fx, but OA at lumbar and B hip joint. Had PT 10 months ago for R knee pain due to torn meniscus. PT didnt help and she had surgical removal for part of her meniscus. Prior Treatments and Tests X-ray was negative for fx, but OA at lumbar and B hip joint. ad PT 10 months ago for R knee pain due to torn meniscus. PT didnt help and she had surgical removal for part of her meniscus. Treatment Goals Patient/Caregiver Goals 1. To be able to turn her hip while making turns 2. To be pain free during car transfer, long walk and stair climbing. Prior Functional Status Baseline Function- ADL's Independent Baseline Function- Mobility Independent Current Functional Impairments (Reported) Functional Limitations- ADL's increased time for making turns/ bending activities. Functional Limitations- Mobility/Gait pain during car transfer, stair climbing and prolonged walking PT-OP-C Subjective Start: 10/21/18 08:10 Freq: Status: Active Protocol: Document 12/24/18 13:48 HH (Rec: 12/24/18 14:30 HH [id number]) OP-PT Subjective Patient Comments Patient Comments I felt great after last session. Slightly tight today because I was sanding yesterday, but otherwise have been feeling much better Patient Reported Progress Improving PT-OP-D Balance Start: 10/21/18 08:10 Freq: Status: Active Protocol: Document 10/21/18 09:50 HH (Rec: 10/21/18 13:06 HH [email or web address]) Balance Tests Single Limb Standing Single Limb- Right 15s Single Limb- Left >1 mins PT-OP-G Mobility & Gait Start: 10/21/18 08:10 Freq: Status: Active Protocol: Document 12/24/18 13:48 HH (Rec: 12/24/18 15:59 HH [email or web address]) OP Gait Assessment Gait Deviations General Gait Pattern Antalgic Factors Limiting Gait Function Factors Limiting Gait Function Limited Range of Motion Comments Gait Comments reduced antalgic and knee valgus on gait analysis today. Stair Climbing Evaluation Technique/Endurance Stair Climbing Direction Ascend and Descend Stair Climbing Technique Step Over Step Number of Steps Climbed 4 Stair Climbing Set # Repetitions (reps) 4 Comments Stair Climbing Comments with 1 UE support , R knee valgus (6inch) PT-OP-J Posture/Palpation/Skin Start: 10/21/18 08:10 Freq: Status: Active Protocol: Document 10/21/18 09:50 HH (Rec: 08/20/19 13:41 [email or web address]) Posture Evaluation Position Standing Evaluation View Lateral Pelvis Posture (R) Rotated Anterior Weight Distribution Weight Shifted Left,Decreased Wt.Bear on (R) Hip Posture (R) Internally Rotated Knee Posture (R) Excess Flexion PT-OP-K Range of Motion Start: 10/21/18 08:10 Freq: Status: Active Protocol: Document 12/24/18 13:48 HH (Rec: 12/24/18 15:59 HH [email or web address]) Hip Goniometric Range of Motion Hip Measured in Degrees Left Active Hip ROM WFL Yes Right Active Hip ROM WFL No Testing Position Supine Extension 0 External Rotation 10 Hip ROM Limitations Hip ROM Limitations Muscle Tone,Pain Comments pain at lateral aspect at trochanteric region or R hip during overpressure of hip ER PT-OP-L Special Tests Start: 10/21/18 08:10 Freq: Status: Active Protocol: Document 10/21/18 09:50 HH (Rec: 10/21/18 13:41 [email or web address]) Special Tests Hip Special Tests hip distraction Test Results +ve R Comments pain relief with R hip distraction Scour Test Test Results +ve R Comments anterior hip pain at end range KAE Test Results +ve R Comments pain with PROM and over pressure Brandon Test Results +Ve B Comments R hip is higher than L PT-OP-M Strength Start: 10/21/18 08:10 Freq: Status: Active Protocol: Document 10/21/18 09:50 HH (Rec: 10/21/18 13:41 [email or web address]) Hip Strength Hip Manual Muscle Testing Left Flexion (L2) 4+ Good+ Extension (S1) 4+ Good+ Abduction 4+ Good+ Adduction 4+ Good+ External Rotation 4+ Good+ Internal Rotation 4+ Good+ Right Flexion (L2) 4+ Good+ Extension (S1) 4- Good- Abduction 4- Good- Adduction 4+ Good+ External Rotation 3+ Fair+ Internal Rotation 4- Good- Reason Not Measured Muscle Tone,Pain PT-OP-Q Treatments Start: 10/21/18 08:10 Freq: Status: Active Protocol: Document 12/24/18 13:48 HH (Rec: 12/24/18 14:30 [id number]) Therapeutic Exercises Supine Exercises supine hip ER Side bilateral hip flexor stretch Supine Exercise Name contract relax Side right Reps/Minutes 30 secs hold x 5 Comments brandon test position , cues on PPT Prone Exercises prone hip ER Side right Equipment Used manual Reps/Minutes 10 secsx 5 Standing Exercises stairs Side bilateral Equipment Used 4 in f/b 6 in Reps/Minutes 10x3 Comments no railing glute sets Side bilateral Reps/Minutes 3x15 Comments cuing for isolated activation standing hip flexor stretch Side bilateral Equipment Used manual assistance Reps/Minutes 10 secs x8 Comments cues on gluteal engagement Manual Therapy Treatment Joint Mobilizations anterior glide Grade II Body Position Prone Reps/Duration 10 secs hold x20 lateral distraction Grade II Body Position Supine Reps/Duration 5 mins Comments 30 secs x 5 R hip distraction Joint R hip joint Direction inferior + oscillation Grade II Body Position Supine Reps/Duration 6 mins Comments 30 secs x 6 Manual Techniques Hip ER Body Location R hip Body Position Supine with R knee bent Reps/Duration 4 mins Comments 10x10 sec PT-OP-R Modalities Start: 10/21/18 08:10 Freq: Status: Active Protocol: Document 12/11/18 13:50 HH (Rec: 12/11/18 15:17 HH [email or web address]) Hot Pack/Cold Pack Treatment Hot Pack Location R hip Patient Position Hooklying Treatment Duration (minutes) 9 Patient Tolerance Good PT-OP-T Assessment and Plan Start: 10/21/18 08:10 Freq: Status: Active Protocol: Document 12/24/18 13:48 HH (Rec: 12/24/18 14:30 HH [id number]) Physical Therapy Assessment Goals activity tolerance Impairment pt c/o hip tightness / discomfort after physical act >2 hours Pharmacy Director Goal (LTG) Pt will be able to tolerate physical activities such as gardening, yardwork, house cleaning and walking for >2 hours without increase in hip pain/ discomfort. LTG Duration 8 weeks stair climbing Impairment Pt is unable to climb stairs without rails [facility] Goal (LTG) pt will be able to climb stairs without railing support , along with step over pattern. LTG Duration 8 weeks HEP Impairment Pt does not have a HEP Pharmacy Director Goal (LTG) 12/24 goal met: pt is compliant to HEP Pt will comply to HEP independently and safely to improve her overall single leg strength and balance. LTG Duration 8 weeks pain Impairment pain during walking, car transfers and stair climbing Short Term Goal (STG) Pt will have less than 4 in pain scale during walking, car transfers and stair climbing. STG Duration 4 weels [facility] Goal (LTG) 12/24 cont in progress: pt denies pain during walking and stair climbing. She does c/o fear decresed confidence negotiating stairs. She does have little pain during car transfers. Pt will have less than 2 in pain scale during walking, car transfers and stair climbing. LTG Duration 8 weeks ROM Impairment pt shows significant ROM loss at R hip Short Term Goal (STG) Pt will improve her overall R hip AROM by 5 degrees to optimize her gait efficiency with longer step length. STG Duration 4 weeks [facility] Goal (LTG) 12/24 cont to progress: PROM ER= 15, AROM ER=5 , AROM hip ext = 0. Pt will improve her overall R hip AROM by 10 degrees to optimize her gait efficiency with longer step length. LTG Duration 8 weeks LEFS Impairment Pt scores 30 on LEFS (60-79 % impairment) Short Term Goal (STG) Pt will be able to reach lower than 40% impairment to improve her quality of life and functional mobility. STG Duration 4 weeks [facility] Goal (LTG) 12/24 ;did not assess Pt will be able to reach lower than 20% impairment to improve her quality of life and functional mobility. LTG Duration 8 weeks Assessment Summary Assessment Pt has been progressed very well with her pain and mobility. She stated she is 60 % better since IE. Able to tolerate up to 2hrs of physical activities and improved gait efficiency. However, her R ER is still significantly limited. Pt's R hip flexor stiffness/ discomfort has improved since MT last session. Pt is able to tolerate greater hip ER than last session with less muscle guarding. Cont to demonstrate decreased R stance time during ambulation and stairs but denies pain. She states she has poor confidence with single leg stance activities and hope to climb stairs without UE support in the future. Recommended pt to consult with her referring physician to have MRI screen to rule out possible labrum tear. Left voice message yesterday to Dr. Blackwell yesterday. Physical Therapy Plan Frequency and Duration Frequency of Treatment 1x/Week Duration of Treatment 8 weeks Plan of Care Start Date 12/24/18 Plan of Care End Date 02/22/19 Therapeutic Interventions Therapeutic Interventions Balance Training,Gait Training ,Home Exercise Program,Joint Mobilizations,Manual Therapy, Neuromuscular Re-education, Patient/Caregiver Education, Self-Care/Home Management,Soft Tissue Mobilization,Taping, Therapeutic Activities, Therapeutic Exercises Modalities Cold Pack/Ice Massage,Electric Stimulation,Hot Packs, Infrared Therapy Other Referrals/Consults Referrals/Consults Recommended Recommended pt to consult with her referring physician to have MRI screen to rule out possible labrum tear. Left voice message yesterday to Dr. Blackwell yesterday. Next Visit Focus/Plan Next Note Type Treatment Note Next Visit Plan check tolerance for this visit check HEP with supine hip ER cont manual therapy to improve hip ROM gait training at preswing, mid stance leg press gentle hip strengthening, for HEP as well single leg balance training, for hEP as well and gait training to prevent knee valgus. stair climbing
--- NOTE | 2018-12-30 11:01 | PT.OTN ---
Current Diagnoses Bilateral primary osteoarthritis of hip (12/30/18) Physical Therapy Treatment Note PT-OP-A Visit Information Start: 10/21/18 08:10 Freq: Status: Active Protocol: Document 12/30/18 09:47 HH (Rec: 12/30/18 10:37 HH [id number]) Out-Patient Physical Therapy Visit Information Visit Information Visit Type Treatment Note Visit Start Time 09:47 Visit Stop Time 10:32 Total Visit Minutes 45 Visit Number 11/21 Number of CUSHION COVER INSPECTOR Visits 0 PT-OP-B Current Condition Start: 10/21/18 08:10 Freq: Status: Active Protocol: Document 10/21/18 09:50 HH (Rec: 10/21/18 10:05 HH [id number]) Current Condition History of Current Condition Onset Date 2 months ago Current Complaints R hip pain, Difficulty in walking, decreased muscle strength at R LE History of Current Condition Pt presents to PT with R hip pain. Pt twisted her R hip into external rotation [place] . She is currently experiencing R hip pain with any hip ER movements. Walking straight is fine. Turning out her foot out tends to hurt a lot. Performing Sit to stand after prolonged sitting also aggravates her symptoms. Her hip pain currently affects her sleep that changing position is not that helpful. Climbing stairs and getting in and out of the car are also very painful especially during push off through RLE. She uses step to pattern if it hurts. Keeping her foot straight tends to make it better. sleeping bothers her. Changing position does not help. sit to stand after prolonged sitting aggravates Climbing stairs hurt especially push off through RLE. She uses step to if it hurts. Keeping her foot straight makes it better. She went to ER 3 weeks ago and X-ray was negative for fx, but OA at lumbar and B hip joint. Had PT 10 months ago for R knee pain due to torn meniscus. PT didnt help and she had surgical removal for part of her meniscus. Prior Treatments and Tests X-ray was negative for fx, but OA at lumbar and B hip joint. ad PT 10 months ago for R knee pain due to torn meniscus. PT didnt help and she had surgical removal for part of her meniscus. Treatment Goals Patient/Caregiver Goals 1. To be able to turn her hip while making turns 2. To be pain free during car transfer, long walk and stair climbing. Prior Functional Status Baseline Function- ADL's Independent Baseline Function- Mobility Independent Current Functional Impairments (Reported) Functional Limitations- ADL's increased time for making turns/ bending activities. Functional Limitations- Mobility/Gait pain during car transfer, stair climbing and prolonged walking PT-OP-C Subjective Start: 10/21/18 08:10 Freq: Status: Active Protocol: Document 12/30/18 09:47 HH (Rec: 12/30/18 10:37 HH [id number]) OP-PT Subjective Patient Comments Patient Comments I was sore after last session but in a difference place, it was more on the inside of my thigh. I think it was a good soreness and it feels like we are getting somewhere. I still have trouble sleeping without aleve. Doctor got back to me and they initiated a referral for the MRI. Patient Reported Progress Improving PT-OP-D Balance Start: 10/21/18 08:10 Freq: Status: Active Protocol: Document 10/21/18 09:50 HH (Rec: 10/21/18 13:06 HH [email or web address]) Balance Tests Single Limb Standing Single Limb- Right 15s Single Limb- Left >1 mins PT-OP-G Mobility & Gait Start: 10/21/18 08:10 Freq: Status: Active Protocol: Document 12/24/18 13:48 HH (Rec: 12/24/18 15:59 HH [email or web address]) OP Gait Assessment Gait Deviations General Gait Pattern Antalgic Factors Limiting Gait Function Factors Limiting Gait Function Limited Range of Motion Comments Gait Comments reduced antalgic and knee valgus on gait analysis today. Stair Climbing Evaluation Technique/Endurance Stair Climbing Direction Ascend and Descend Stair Climbing Technique Step Over Step Number of Steps Climbed 4 Stair Climbing Set # Repetitions (reps) 4 Comments Stair Climbing Comments with 1 UE support , R knee valgus (6inch) PT-OP-J Posture/Palpation/Skin Start: 10/21/18 08:10 Freq: Status: Active Protocol: Document 10/21/18 09:50 HH (Rec: 10/21/18 13:41 HH [email or web address]) Posture Evaluation Position Standing Evaluation View Lateral Pelvis Posture (R) Rotated Anterior Weight Distribution Weight Shifted Left,Decreased Wt.Bear on (R) Hip Posture (R) Internally Rotated Knee Posture (R) Excess Flexion PT-OP-K Range of Motion Start: 10/21/18 08:10 Freq: Status: Active Protocol: Document 12/24/18 13:48 HH (Rec: 12/24/18 15:59 HH [email or web address]) Hip Goniometric Range of Motion Hip Left Active Hip ROM WFL Yes Right Active Hip ROM WFL No Testing Position Supine Extension 0 External Rotation 10 Hip ROM Limitations Hip ROM Limitations Muscle Tone,Pain Comments pain at lateral aspect at trochanteric region or R hip during overpressure of hip ER PT-OP-L Special Tests Start: 10/21/18 08:10 Freq: Status: Active Protocol: Document 10/21/18 09:50 HH (Rec: 10/21/18 13:41 HH [email or web address]) Special Tests Hip Special Tests hip distraction Test Results +ve R Comments pain relief with R hip distraction Scour Test Test Results +ve R Comments anterior hip pain at end range KAE Test Results +ve R Comments pain with PROM and over pressure Brandon Test Results +Ve B Comments R hip is higher than L PT-OP-M Strength Start: 10/21/18 08:10 Freq: Status: Active Protocol: Document 10/21/18 09:50 HH (Rec: 10/21/18 13:41 [email or web address]) Hip Strength Hip Manual Muscle Testing Left Flexion (L2) 4+ Good+ Extension (S1) 4+ Good+ Abduction 4+ Good+ Adduction 4+ Good+ External Rotation 4+ Good+ Internal Rotation 4+ Good+ Right Flexion (L2) 4+ Good+ Extension (S1) 4- Good- Abduction 4- Good- Adduction 4+ Good+ External Rotation 3+ Fair+ Internal Rotation 4- Good- Reason Not Measured Muscle Tone,Pain PT-OP-Q Treatments Start: 10/21/18 08:10 Freq: Status: Active Protocol: Document 12/30/18 09:47 HH (Rec: 12/30/18 10:37 [id number]) Therapeutic Exercises Supine Exercises hip flexor stretch Supine Exercise Name contract relax Side right Reps/Minutes 30 secs hold x 5 Comments brandon test position , cues on PPT Standing Exercises Step ups Side right Equipment Used 4 step Comments verbal and tactile cuing to prevent knee valgus Slider Standing Exercise Name Slider hip extension Side bilateral Equipment Used slider Reps/Minutes 5 mins Comments cuing for PPT and ADIM Other Exercises Hip flexor stretch lunge Other Exercise Name half kneel lunge Side right Reps/Minutes 10x10 Comments cuing for PPT and upright trunk Manual Therapy Treatment Joint Mobilizations anterior glide Grade II Body Position Prone Reps/Duration 10 secs hold x20 R hip distraction Joint R hip joint Direction inferior + oscillation Grade II Body Position Supine Reps/Duration 6 mins Comments 30 secs x 6 Manual Techniques Hip ER Body Location R hip Body Position Supine with R knee bent Reps/Duration 4 mins Comments 10x10 sec PT-OP-R Modalities Start: 10/21/18 08:10 Freq: Status: Active Protocol: Document 12/11/18 13:50 HH (Rec: 12/11/18 15:17 HH [email or web address]) Hot Pack/Cold Pack Treatment Hot Pack Location R hip Patient Position Hooklying Treatment Duration (minutes) 9 Patient Tolerance Good PT-OP-T Assessment and Plan Start: 10/21/18 08:10 Freq: Status: Active Protocol: Document 12/30/18 09:47 HH (Rec: 12/30/18 10:37 HH [id number]) Physical Therapy Assessment Goals activity tolerance Impairment pt c/o hip tightness / discomfort after physical act >2 hours Internet Marketing Strategist Goal (LTG) Pt will be able to tolerate physical activities such as gardening, yardwork, house cleaning and walking for >2 hours without increase in hip pain/ discomfort. LTG Duration 8 weeks stair climbing Impairment Pt is unable to climb stairs without rails Internet Marketing Strategist Goal (LTG) pt will be able to climb stairs without railing support , along with step over pattern. LTG Duration 8 weeks HEP Impairment Pt does not have a HEP Internet Marketing Strategist Goal (LTG) 12/24 goal met: pt is compliant to HEP Pt will comply to HEP independently and safely to improve her overall single leg strength and balance. LTG Duration 8 weeks pain Impairment pain during walking, car transfers and stair climbing Short Term Goal (STG) Pt will have less than 4 in pain scale during walking, car transfers and stair climbing. STG Duration 4 weels Internet Marketing Strategist Goal (LTG) 12/24 cont in progress: pt denies pain during walking and stair climbing. She does c/o fear decresed confidence negotiating stairs. She does have little pain during car transfers. Pt will have less than 2 in pain scale during walking, car transfers and stair climbing. LTG Duration 8 weeks ROM Impairment pt shows significant ROM loss at R hip Short Term Goal (STG) Pt will improve her overall R hip AROM by 5 degrees to optimize her gait efficiency with longer step length. STG Duration 4 weeks Internet Marketing Strategist Goal (LTG) 12/24 cont to progress: PROM ER= 15, AROM ER=5 , AROM hip ext = 0. Pt will improve her overall R hip AROM by 10 degrees to optimize her gait efficiency with longer step length. LTG Duration 8 weeks LEFS Impairment Pt scores 30 on LEFS (60-79 % impairment) Short Term Goal (STG) Pt will be able to reach lower than 40% impairment to improve her quality of life and functional mobility. STG Duration 4 weeks Senior Care Goal (LTG) 12/24 ;did not assess Pt will be able to reach lower than 20% impairment to improve her quality of life and functional mobility. LTG Duration 8 weeks Assessment Summary Assessment Pt demonstrates improved tolerance for MT and R hip extension/ER. Pt able to bring R ankle onto L knee (sitting KAE) for first time and demonstrates improved R hip extension during gait after MT . Reports improved tolerance for functional activities like housework and car transfers. Improved R LE strength and balance with increased R single leg balance from 15 sec to 50 sec. Pt notes that she has had fair compliance with her HEP but able to tolerate new HEP progression to half kneel hip flexor stretch well. Physical Therapy Plan Next Visit Focus/Plan Next Note Type Treatment Note Next Visit Plan check tolerance for this visit , new HEP cont manual therapy to improve hip ROM gait training at preswing, mid stance gentle hip strengthening, single leg balance training gait training and stair climbing to prevent knee valgus
--- NOTE | 2019-01-07 13:47 | PT.OTN ---
Current Diagnoses Bilateral primary osteoarthritis of hip (01/07/19) Physical Therapy Treatment Note PT-OP-A Visit Information Start: 10/21/18 08:10 Freq: Status: Active Protocol: Document 01/07/19 13:00 HH (Rec: 01/07/19 13:45 HH [id number]) Out-Patient Physical Therapy Visit Information Visit Information Visit Type Treatment Note Visit Start Time 13:00 Visit Stop Time 13:44 Total Visit Minutes 44 Visit Number 12/21 Number of ENVIRONMENTAL SERVICES DIRECTOR Visits 0 PT-OP-B Current Condition Start: 10/21/18 08:10 Freq: Status: Active Protocol: Document 10/21/18 09:50 HH (Rec: 10/21/18 10:05 HH [id number]) Current Condition History of Current Condition Onset Date 2 months ago Current Complaints R hip pain, Difficulty in walking, decreased muscle strength at R LE History of Current Condition Pt presents to PT with R hip pain. Pt twisted her R hip into external [place] . She is currently experiencing R hip pain with any hip ER movements. Walking straight is fine. Turning out her foot out tends to hurt a lot. Performing Sit to stand after prolonged sitting also aggravates her symptoms. Her hip pain currently affects her sleep that changing position is not that helpful. Climbing stairs and getting in and out of the car are also very painful especially during push off through RLE. She uses step to pattern if it hurts. Keeping her foot straight tends to make it better. sleeping bothers her. Changing position does not help. sit to stand after prolonged sitting aggravates Climbing stairs hurt especially push off through RLE. She uses step to if it hurts. Keeping her foot straight makes it better. She went to ER 3 weeks ago and X-ray was negative for fx, but OA at lumbar and B hip joint. Had PT 10 months ago for R knee pain due to torn meniscus. PT didnt help and she had surgical removal for part of her meniscus. Prior Treatments and Tests X-ray was negative for fx, but OA at lumbar and B hip joint. ad PT 10 months ago for R knee pain due to torn meniscus. PT didnt help and she had surgical removal for part of her meniscus. Treatment Goals Patient/Caregiver Goals 1. To be able to turn her hip while making turns 2. To be pain free during car transfer, long walk and stair climbing. Prior Functional Status Baseline Function- ADL's Independent Baseline Function- Mobility Independent Current Functional Impairments (Reported) Functional Limitations- ADL's increased time for making turns/ bending activities. Functional Limitations- Mobility/Gait pain during car transfer, stair climbing and prolonged walking PT-OP-C Subjective Start: 10/21/18 08:10 Freq: Status: Active Protocol: Document 01/07/19 13:00 HH (Rec: 01/07/19 13:45 HH [id number]) OP-PT Subjective Patient Comments Patient Comments This last week I felt decent. Had to paint a lot yesterday and my hip didn't bother me which is great. My MRI is scheduled for 01/13/19. Patient Reported Progress Improving PT-OP-D Balance Start: 10/21/18 08:10 Freq: Status: Active Protocol: Document 10/21/18 09:50 HH (Rec: 10/21/18 13:06 HH [email or web address]) Balance Tests Single Limb Standing Single Limb- Right 15s Single Limb- Left >1 mins PT-OP-G Mobility & Gait Start: 10/21/18 08:10 Freq: Status: Active Protocol: Document 12/24/18 13:48 HH (Rec: 12/24/18 15:59 HH [email or web address]) OP Gait Assessment Gait Deviations General Gait Pattern Antalgic Factors Limiting Gait Function Factors Limiting Gait Function Limited Range of Motion Comments Gait Comments reduced antalgic and knee valgus on gait analysis today. Stair Climbing Evaluation Technique/Endurance Stair Climbing Direction Ascend and Descend Stair Climbing Technique Step Over Step Number of Steps Climbed 4 Stair Climbing Set # Repetitions (reps) 4 Comments Stair Climbing Comments with 1 UE support , R knee valgus (6inch) PT-OP-J Posture/Palpation/Skin Start: 10/21/18 08:10 Freq: Status: Active Protocol: Document 10/21/18 09:50 HH (Rec: 10/21/18 13:41 HH [email or web address]) Posture Evaluation Position Standing Evaluation View Lateral Pelvis Posture (R) Rotated Anterior Weight Distribution Weight Shifted Left,Decreased Wt.Bear on (R) Hip Posture (R) Internally Rotated Knee Posture (R) Excess Flexion PT-OP-K Range of Motion Start: 10/21/18 08:10 Freq: Status: Active Protocol: Document 12/24/18 13:48 HH (Rec: 12/24/18 15:59 [email or web address]) Hip Goniometric Range of Motion Hip Left Active Hip ROM WFL Yes Right Active Hip ROM WFL No Testing Position Supine Extension 0 External Rotation 10 Hip ROM Limitations Hip ROM Limitations Muscle Tone,Pain Comments pain at lateral aspect at trochanteric region or R hip during overpressure of hip ER PT-OP-L Special Tests Start: 10/21/18 08:10 Freq: Status: Active Protocol: Document 10/21/18 09:50 HH (Rec: 10/21/18 13:41 [email or web address]) Special Tests Hip Special Tests hip distraction Test Results +ve R Comments pain relief with R hip distraction Scour Test Test Results +ve R Comments anterior hip pain at end range KAE Test Results +ve R Comments pain with PROM and over pressure Brandon Test Results +Ve B Comments R hip is higher than L PT-OP-M Strength Start: 10/21/18 08:10 Freq: Status: Active Protocol: Document 10/21/18 09:50 HH (Rec: 10/21/18 13:41 [email or web address]) Hip Strength Hip Manual Muscle Testing Left Flexion (L2) 4+ Good+ Extension (S1) 4+ Good+ Abduction 4+ Good+ Adduction 4+ Good+ External Rotation 4+ Good+ Internal Rotation 4+ Good+ Right Flexion (L2) 4+ Good+ Extension (S1) 4- Good- Abduction 4- Good- Adduction 4+ Good+ External Rotation 3+ Fair+ Internal Rotation 4- Good- Reason Not Measured Muscle Tone,Pain PT-OP-Q Treatments Start: 10/21/18 08:10 Freq: Status: Active Protocol: Document 01/07/19 13:00 HH (Rec: 01/07/19 13:45 [id number]) Gym Equipment Shuttle Recovery U squats Details L LE with level 1 band cuing to prevent valgus Resistance 37 lb Shuttle Recovery Platform Stable Reps/Time 3x15 Therapeutic Exercises Standing Exercises Crab walk Side bilateral Resistance Level 1 band Equipment Used // bars High knee walking Side bilateral Equipment Used // bars Reps/Minutes 4x10 Slider Standing Exercise Name Slider 4 way hip Side bilateral Equipment Used slider Reps/Minutes 5 mins Comments cuing for PPT and ADIM Manual Therapy Treatment Soft Tissue Mobilization R piriformis Mobilization Type Cross-Friction,Rolling, Strumming,Sustained Pressure Intensity/Depth Moderate Body Position Prone R hip flexor Body Position Hooklying Comments Brandon test position with manual overpressure Joint Mobilizations anterior glide Grade II Body Position Prone Reps/Duration 10 secs hold x20 R hip distraction Joint R hip joint Direction inferior + oscillation Grade III Body Position Supine Comments 30 secs x 10 Manual Techniques Hip ER Body Location R hip Body Position Prone with knee bent Reps/Duration 4 mins Comments 10x10 sec PT-OP-R Modalities Start: 10/21/18 08:10 Freq: Status: Active Protocol: Document 12/11/18 13:50 HH (Rec: 12/11/18 15:17 HH [email or web address]) Hot Pack/Cold Pack Treatment Hot Pack Location R hip Patient Position Hooklying Treatment Duration (minutes) 9 Patient Tolerance Good PT-OP-T Assessment and Plan Start: 10/21/18 08:10 Freq: Status: Active Protocol: Document 01/07/19 13:00 HH (Rec: 01/07/19 13:45 HH [id number]) Physical Therapy Assessment Assessment Summary Assessment At baseline pt demonstrates improved R hip extension and abduction. Cont limited ER with guarding but improving. Greatly improved tolerance for MT with reduced guarding. Ther ex progression today to improve R LE strength and balance. Physical Therapy Plan Next Visit Focus/Plan Next Note Type Treatment Note Next Visit Plan check tolerance for visit, reassess hip extension cont MT to improve hip ROM LE/SLS strengthening, gait, stair climbing
--- NOTE | 2019-01-13 10:28 | PT.OTN ---
Current Diagnoses Bilateral primary osteoarthritis of hip (01/13/19) Physical Therapy Treatment Note PT-OP-A Visit Information Start: 10/21/18 08:10 Freq: Status: Active Protocol: Document 01/13/19 09:38 MB (Rec: 01/13/19 10:25 MB [id number]) Out-Patient Physical Therapy Visit Information Visit Information Visit Type Treatment Note Visit Start Time 09:38 Visit Stop Time 10:08 Total Visit Minutes 30 Visit Number 01/21 Number of HEELER Visits 0 PT-OP-B Current Condition Start: 10/21/18 08:10 Freq: Status: Active Protocol: Document 10/21/18 09:50 HH (Rec: 10/21/18 10:05 HH [id number]) Current Condition History of Current Condition Onset Date 2 months ago Current Complaints R hip pain, Difficulty in walking, decreased muscle strength at R LE History of Current Condition Pt presents to PT with R hip pain. Pt twisted her R hip into external rotation [place] . She is currently experiencing R hip pain with any hip ER movements. Walking straight is fine. Turning out her foot out tends to hurt a lot. Performing Sit to stand after prolonged sitting also aggravates her symptoms. Her hip pain currently affects her sleep that changing position is not that helpful. Climbing stairs and getting in and out of the car are also very painful especially during push off through RLE. She uses step to pattern if it hurts. Keeping her foot straight tends to make it better. sleeping bothers her. Changing position does not help. sit to stand after prolonged sitting aggravates Climbing stairs hurt especially push off through RLE. She uses step to if it hurts. Keeping her foot straight makes it better. She went to ER 3 weeks ago and X-ray was negative for fx, but OA at lumbar and B hip joint. Had PT 10 months ago for R knee pain due to torn meniscus. PT didnt help and she had surgical removal for part of her meniscus. Prior Treatments and Tests X-ray was negative for fx, but OA at lumbar and B hip joint. ad PT 10 months ago for R knee pain due to torn meniscus. PT didnt help and she had surgical removal for part of her meniscus. Treatment Goals Patient/Caregiver Goals 1. To be able to turn her hip while making turns 2. To be pain free during car transfer, long walk and stair climbing. Prior Functional Status Baseline Function- ADL's Independent Baseline Function- Mobility Independent Current Functional Impairments (Reported) Functional Limitations- ADL's increased time for making turns/ bending activities. Functional Limitations- Mobility/Gait pain during car transfer, stair climbing and prolonged walking PT-OP-C Subjective Start: 10/21/18 08:10 Freq: Status: Active Protocol: Document 01/13/19 09:38 MB (Rec: 01/13/19 10:25 MB [id number]) OP-PT Subjective Patient Comments Patient Comments Pt has not yet had hip MRI. PT-OP-D Balance Start: 10/21/18 08:10 Freq: Status: Active Protocol: Document 10/21/18 09:50 HH (Rec: 10/21/18 13:06 HH [email or web address]) Balance Tests Single Limb Standing Single Limb- Right 15s Single Limb- Left >1 mins PT-OP-G Mobility & Gait Start: 10/21/18 08:10 Freq: Status: Active Protocol: Document 12/24/18 13:48 HH (Rec: 12/24/18 15:59 HH [email or web address]) OP Gait Assessment Gait Deviations General Gait Pattern Antalgic Factors Limiting Gait Function Factors Limiting Gait Function Limited Range of Motion Comments Gait Comments reduced antalgic and knee valgus on gait analysis today. Stair Climbing Evaluation Technique/Endurance Stair Climbing Direction Ascend and Descend Stair Climbing Technique Step Over Step Number of Steps Climbed 4 Stair Climbing Set # Repetitions (reps) 4 Comments Stair Climbing Comments with 1 UE support , R knee valgus (6inch) PT-OP-J Posture/Palpation/Skin Start: 10/21/18 08:10 Freq: Status: Active Protocol: Document 10/21/18 09:50 HH (Rec: 10/21/18 13:41 HH [email or web address]) Posture Evaluation Position Standing Evaluation View Lateral Pelvis Posture (R) Rotated Anterior Weight Distribution Weight Shifted Left,Decreased Wt.Bear on (R) Hip Posture (R) Internally Rotated Knee Posture (R) Excess Flexion PT-OP-K Range of Motion Start: 10/21/18 08:10 Freq: Status: Active Protocol: Document 12/24/18 13:48 HH (Rec: 12/24/18 15:59 HH [email or web address]) Hip Goniometric Range of Motion Hip Left Active Hip ROM WFL Yes Right Active Hip ROM WFL No Testing Position Supine Extension 0 External Rotation 10 Hip ROM Limitations Hip ROM Limitations Muscle Tone,Pain Comments pain at lateral aspect at trochanteric region or R hip during overpressure of hip ER PT-OP-L Special Tests Start: 10/21/18 08:10 Freq: Status: Active Protocol: Document 10/21/18 09:50 HH (Rec: 10/21/18 13:41 HH [email or web address]) Special Tests Hip Special Tests hip distraction Test Results +ve R Comments pain relief with R hip distraction Scour Test Test Results +ve R Comments anterior hip pain at end range KAE Test Results +ve R Comments pain with PROM and over pressure Brandon Test Results +Ve B Comments R hip is higher than L PT-OP-M Strength Start: 10/21/18 08:10 Freq: Status: Active Protocol: Document 10/21/18 09:50 HH (Rec: 10/21/18 13:41 [email or web address]) Hip Strength Hip Manual Muscle Testing Left Flexion (L2) 4+ Good+ Extension (S1) 4+ Good+ Abduction 4+ Good+ Adduction 4+ Good+ External Rotation 4+ Good+ Internal Rotation 4+ Good+ Right Flexion (L2) 4+ Good+ Extension (S1) 4- Good- Abduction 4- Good- Adduction 4+ Good+ External Rotation 3+ Fair+ Internal Rotation 4- Good- Reason Not Measured Muscle Tone,Pain PT-OP-Q Treatments Start: 10/21/18 08:10 Freq: Status: Active Protocol: Document 01/13/19 09:38 MB (Rec: 01/13/19 10:25 MB [id number]) Therapeutic Exercises Supine Exercises Pelvic realignment exercises Comments Added to HEP Jason stretch, modification pelvic tilt Comments Brandon stretch, modification pelvic tilt PT-OP-R Modalities Start: 10/21/18 08:10 Freq: Status: Active Protocol: Document 12/11/18 13:50 HH (Rec: 12/11/18 15:17 HH [email or web address]) Hot Pack/Cold Pack Treatment Hot Pack Location R hip Patient Position Hooklying Treatment Duration (minutes) 9 Patient Tolerance Good PT-OP-T Assessment and Plan Start: 10/21/18 08:10 Freq: Status: Active Protocol: Document 01/13/19 09:38 MB (Rec: 01/13/19 10:25 [id number]) Physical Therapy Assessment Goals activity tolerance Impairment pt c/o hip tightness / discomfort after physical act >2 hours Long-Term Goal (LTG) Pt will be able to tolerate physical activities such as gardening, yardwork, house cleaning and walking for >2 hours without increase in hip pain/ discomfort. LTG Duration 8 weeks stair climbing Impairment Pt is unable to climb stairs without rails Hatchery Supervisor Goal (LTG) pt will be able to climb stairs without railing support , along with step over pattern. LTG Duration 8 weeks HEP Impairment Pt does not have a HEP Hatchery Supervisor Goal (LTG) 12/24 goal met: pt is compliant to HEP Pt will comply to HEP independently and safely to improve her overall single leg strength and balance. LTG Duration 8 weeks pain Impairment pain during walking, car transfers and stair climbing Short Term Goal (STG) Pt will have less than 4 in pain scale during walking, car transfers and stair climbing. STG Duration 4 weels Hatchery Supervisor Goal (LTG) 12/24 cont in progress: pt denies pain during walking and stair climbing. She does c/o fear decresed confidence negotiating stairs. She does have little pain during car transfers. Pt will have less than 2 in pain scale during walking, car transfers and stair climbing. LTG Duration 8 weeks ROM Impairment pt shows significant ROM loss at R hip Short Term Goal (STG) Pt will improve her overall R hip AROM by 5 degrees to optimize her gait efficiency with longer step length. STG Duration 4 weeks Hatchery Supervisor Goal (LTG) 12/24 cont to progress: PROM ER= 15, AROM ER=5 , AROM hip ext = 0. Pt will improve her overall R hip AROM by 10 degrees to optimize her gait efficiency with longer step length. LTG Duration 8 weeks LEFS Impairment Pt scores 30 on LEFS (60-79 % impairment) Short Term Goal (STG) Pt will be able to reach lower than 40% impairment to improve her quality of life and functional mobility. STG Duration 4 weeks Hatchery Supervisor Goal (LTG) 12/24 ;did not assess Pt will be able to reach lower than 20% impairment to improve her quality of life and functional mobility. LTG Duration 8 weeks Assessment Summary Assessment Pt presents with right hip tightness anteriorly. She is going for right hip MRI later this morning. In postural assessment, she does not realize that she stands with her right foot forward, right iliac crest higher and rotated forward. Given this and hip stiffness, initiated gentle pelvic realignment exercises to address pelvic portion of current complaints. Deferred further manual and ther-ex to determine if pelvic realignment gentle isometric exercises are helpful. Physical Therapy Plan Next Visit Focus/Plan Next Note Type Treatment Note Next Visit Plan check tolerance for visit, reassess hip extension cont MT to improve hip ROM LE/SLS strengthening, gait, stair climbing
--- NOTE | 2019-01-20 17:06 | PT.OTN ---
Current Diagnoses Bilateral primary osteoarthritis of hip (01/20/19) Physical Therapy Treatment Note PT-OP-A Visit Information Start: 10/21/18 08:10 Freq: Status: Active Protocol: Document 01/20/19 16:04 HH (Rec: 01/20/19 17:05 HH [id number]) Out-Patient Physical Therapy Visit Information Visit Information Visit Type Discharge Summary Visit Start Time 16:04 Visit Stop Time 16:47 Total Visit Minutes 43 Visit Number 02/20 Number of PECAN SHELLER Visits 0 PT-OP-B Current Condition Start: 10/21/18 08:10 Freq: Status: Active Protocol: Document 10/21/18 09:50 HH (Rec: 10/21/18 10:05 HH [id number]) Current Condition History of Current Condition Onset Date 2 months ago Current Complaints R hip pain, Difficulty in walking, decreased muscle strength at R LE History of Current Condition Pt presents to PT with R hip pain. Pt twisted her R hip into external rotation [place] . She is currently experiencing R hip pain with any hip ER movements. Walking straight is fine. Turning out her foot out tends to hurt a lot. Performing Sit to stand after prolonged sitting also aggravates her symptoms. Her hip pain currently affects her sleep that changing position is not that helpful. Climbing stairs and getting in and out of the car are also very painful especially during push off through RLE. She uses step to pattern if it hurts. Keeping her foot straight tends to make it better. sleeping bothers her. Changing position does not help. sit to stand after prolonged sitting aggravates Climbing stairs hurt especially push off through RLE. She uses step to if it hurts. Keeping her foot straight makes it better. She went to ER 3 weeks ago and X-ray was negative for fx, but OA at lumbar and B hip joint. Had PT 10 months ago for R knee pain due to torn meniscus. PT didnt help and she had surgical removal for part of her meniscus. Prior Treatments and Tests X-ray was negative for fx, but OA at lumbar and B hip joint. ad PT 10 months ago for R knee pain due to torn meniscus. PT didnt help and she had surgical removal for part of her meniscus. Treatment Goals Patient/Caregiver Goals 1. To be able to turn her hip while making turns 2. To be pain free during car transfer, long walk and stair climbing. Prior Functional Status Baseline Function- ADL's Independent Baseline Function- Mobility Independent Current Functional Impairments (Reported) Functional Limitations- ADL's increased time for making turns/ bending activities. Functional Limitations- Mobility/Gait pain during car transfer, stair climbing and prolonged walking PT-OP-C Subjective Start: 10/21/18 08:10 Freq: Status: Active Protocol: Document 01/20/19 16:04 HH (Rec: 01/20/19 17:05 HH [email or web address]) OP-PT Subjective Patient Comments Patient Comments MRI showed labral tear 10-1 o' clock and moderate OA. Still working to schedule appointment with orthopedic surgeon. I feel like I have made progress but it's slow. Patient Reported Progress Improving PT-OP-D Balance Start: 10/21/18 08:10 Freq: Status: Active Protocol: Document 10/21/18 09:50 HH (Rec: 10/21/18 13:06 HH [email or web address]) Balance Tests Single Limb Standing Single Limb- Right 15s Single Limb- Left >1 mins PT-OP-G Mobility & Gait Start: 10/21/18 08:10 Freq: Status: Active Protocol: Document 12/24/18 13:48 HH (Rec: 12/24/18 15:59 HH [email or web address]) OP Gait Assessment Gait Deviations General Gait Pattern Antalgic Factors Limiting Gait Function Factors Limiting Gait Function Limited Range of Motion Comments Gait Comments reduced antalgic and knee valgus on gait analysis today. Stair Climbing Evaluation Technique/Endurance Stair Climbing Direction Ascend and Descend Stair Climbing Technique Step Over Step Number of Steps Climbed 4 Stair Climbing Set # Repetitions (reps) 4 Comments Stair Climbing Comments with 1 UE support , R knee valgus (6inch) PT-OP-J Posture/Palpation/Skin Start: 10/21/18 08:10 Freq: Status: Active Protocol: Document 10/21/18 09:50 HH (Rec: 10/21/18 13:41 HH [email or web address]) Posture Evaluation Position Standing Evaluation View Lateral Pelvis Posture (R) Rotated Anterior Weight Distribution Weight Shifted Left,Decreased Wt.Bear on (R) Hip Posture (R) Internally Rotated Knee Posture (R) Excess Flexion PT-OP-K Range of Motion Start: 10/21/18 08:10 Freq: Status: Active Protocol: Document 12/24/18 13:48 (Rec: 12/24/18 15:59 [email or web address]) Hip Goniometric Range of Motion Hip Left Active Hip ROM WFL Yes Right Active Hip ROM WFL No Testing Position Supine Extension 0 External Rotation 10 Hip ROM Limitations Hip ROM Limitations Muscle Tone,Pain Comments pain at lateral aspect at trochanteric region or R hip during overpressure of hip ER PT-OP-L Special Tests Start: 10/21/18 08:10 Freq: Status: Active Protocol: Document 10/21/18 09:50 (Rec: 10/21/18 13:41 [email or web address]) Special Tests Hip Special Tests hip distraction Test Results +ve R Comments pain relief with R hip distraction Scour Test Test Results +ve R Comments anterior hip pain at end range KAE Test Results +ve R Comments pain with PROM and over pressure Brandon Test Results +Ve B Comments R hip is higher than L PT-OP-M Strength Start: 10/21/18 08:10 Freq: Status: Active Protocol: Document 10/21/18 09:50 (Rec: 10/21/18 13:41 [email or web address]) Hip Strength Hip Manual Muscle Testing Left Flexion (L2) 4+ Good+ Extension (S1) 4+ Good+ Abduction 4+ Good+ Adduction 4+ Good+ External Rotation 4+ Good+ Internal Rotation 4+ Good+ Right Flexion (L2) 4+ Good+ Extension (S1) 4- Good- Abduction 4- Good- Adduction 4+ Good+ External Rotation 3+ Fair+ Internal Rotation 4- Good- Reason Not Measured Muscle Tone,Pain PT-OP-Q Treatments Start: 10/21/18 08:10 Freq: Status: Active Protocol: Document 01/20/19 16:04 (Rec: 01/20/19 17:05 [id number]) Gym Equipment Shuttle Recovery U squats Details bilateral Resistance 50-62 lb Shuttle Recovery Platform Stable Reps/Time 5 x 4 Therapeutic Exercises Standing Exercises Step ups Side right Equipment Used 6 step Manual Therapy Treatment Soft Tissue Mobilization R hip flexor Body Position Hooklying Comments Brandon test position with manual overpressure Joint Mobilizations R hip distraction Joint R hip joint Direction inferior + oscillation Grade III Body Position Supine Comments 30 secs x 10 Manual Techniques Hip extension Body Location R hip Body Position Prone with knee bent Reps/Duration 2 min Comments 10x10 sec Hip ER Body Location R hip Body Position Prone with knee bent Reps/Duration 4 mins Comments 10x10 sec Self-Care/Home Management Treatment Education Other Education Disc MRI findings and answered pt's questions re: MRI findings, anterior vs post approach for hip replacement vs labral repair, expectations for mobility post surgery. PT-OP-R Modalities Start: 10/21/18 08:10 Freq: Status: Active Protocol: Document 12/11/18 13:50 HH (Rec: 12/11/18 15:17 HH [email or web address]) Hot Pack/Cold Pack Treatment Hot Pack Location R hip Patient Position Hooklying Treatment Duration (minutes) 9 Patient Tolerance Good PT-OP-T Assessment and Plan Start: 10/21/18 08:10 Freq: Status: Active Protocol: Document 01/20/19 16:04 HH (Rec: 01/20/19 17:05 HH [id number]) Physical Therapy Assessment Goals activity tolerance Impairment pt c/o hip tightness / discomfort after physical act >2 hours Mounting Inspector Goal (LTG) 01/20 in progress as pt still feels sore after activity: Pt will be able to tolerate physical activities such as gardening, yardwork, house cleaning and walking for >2 hours without increase in hip pain/ discomfort. LTG Duration 8 weeks stair climbing Impairment Pt is unable to climb stairs without rails Fdc Goal (LTG) 01/20 cont in progress as pt uses railingy occasionall: pt will be able to climb stairs without railing support , along with step over pattern. LTG Duration 8 weeks HEP Impairment Pt does not have a HEP Fdc Goal (LTG) 12/24 goal met: pt is compliant to HEP Pt will comply to HEP independently and safely to improve her overall single leg strength and balance. LTG Duration 8 weeks pain Impairment pain during walking, car transfers and stair climbing Short Term Goal (STG) Pt will have less than 4 in pain scale during walking, car transfers and stair climbing. STG Duration 4 weeks Fdc Goal (LTG) 01/20 goal met: pt denies pain during walking and stair climbing. She does c/o fear decresed confidence negotiating stairs. She does have little pain during car transfers. Pt will have less than 2 in pain scale during walking, car transfers and stair climbing. LTG Duration 8 weeks ROM Impairment pt shows significant ROM loss at R hip Short Term Goal (STG) Pt will improve her overall R hip AROM by 5 degrees to optimize her gait efficiency with longer step length. STG Duration 4 weeks Fdc Goal (LTG) 01/20 cont to progress: PROM ER= 15, AROM ER=5 , AROM hip ext = 0. Pt will improve her overall R hip AROM by 10 degrees to optimize her gait efficiency with longer step length. LTG Duration 8 weeks LEFS Impairment Pt scores 30 on LEFS (60-79 % impairment) Short Term Goal (STG) Pt will be able to reach lower than 40% impairment to improve her quality of life and functional mobility. STG Duration 4 weeks Fdc Goal (LTG) 12/24 ;did not assess Pt will be able to reach lower than 20% impairment to improve her quality of life and functional mobility. LTG Duration 8 weeks Assessment Summary Assessment Cont to present with limited hip ER to 0 dg and extension to neutral. Pt notes that she still feels like her R LE is weak but reports no sharp pains. She is able to complete activities around her house like painting for extended time periods with only mild increase in soreness afterwards. Pt is planning to meet with orthopedic surgeon to review MRI findings and plans of care. d/c with HEP with pelvic tilts, lunging hip flexor stretch, seated piriformis stretch, and step ups. Physical Therapy Plan Discharge Physical Therapy Discharge Reasons Plateau in Progress Discharge Comments Rec pt to consult with ortho doctor for possible hip replacement due to her labral tear and mod to severe OA.
== END 2019-01-21 12:40 ==
LOC: PHYS 16:00
PROVIDERS: PCP Family Medicine; Visit Provider Family Medicine
DX: M16.0 Bilateral primary osteoarthritis of hip (principal)
CPT/HCPCS: 97010; 97110; 97116; 97140; 97162; 97535

== ENCOUNTER → 2019-02-03 13:12 | Outpatient (CLI) | payer OTHER, SELFPAY ==
--- NOTE | 2019-02-03 | DI.US.S_ITS ---
PROCEDURE: US PELVIC COMPLETE INDICATIONS: FIBROIDS ON MRI TECHNIQUE: Real-time scanning was performed of the pelvic organs, with image documentation. Additional endovaginal scanning was necessary due to incomplete visualization of the adnexal and endometrial structures by transabdominal scanning. COMPARISON: [facility], MR, MR HIP RT WO CON, 01/13/2019, 11:51. FINDINGS: Transabdominal scanning: Limited scanning through the kidneys shows no hydronephrosis. No pathologic free abdominal or pelvic fluid. Endovaginal scanning: Uterus: Uterus is normal in size at 5.8 x 3.9 x 5.1 cm. The endometrium measures 4.0 mm in combined thickness. Trace amount of complex endometrial fluid. 2 intramural fibroids present, largest measuring 3.3 x 3.5 x 3.7 cm. Ovaries: Not visualized bilaterally. IMPRESSION: 1. 2 intramural fibroids, largest measuring up to 3.7 cm. 2. Trace endometrial complex fluid. 3. Ovaries not identified. Dictated by: Edwin Fuchs A Interpreted: Camelia Santiago MD on 02/03/2019 at 14:10 Approved by: Camelia Santiago MD, PhD on 02/03/2019 at 15:00
== END ==
PROVIDERS: PCP Family Medicine; Visit Provider Family Medicine
DX: N94.89 Other specified conditions associated with female genital organs and menstrual cycle (principal); D25.1 Intramural leiomyoma of uterus
CPT/HCPCS: 76830; 76856

== ENCOUNTER → 2019-07-31 13:20 | Outpatient (CLI) | payer OTHER, SELFPAY ==
--- NOTE | 2019-07-31 | DI.RAD.S_ITS ---
PROCEDURE: FL JOINT INJECTION LARGE RT INDICATIONS: Unilateral primary osteoarthritis, right hip TECHNIQUE: The indications, alternatives, benefits, risks, and complications of the procedure were explained to the patient. Written informed consent was obtained and placed in the chart. The patient was placed in an appropriate position on the fluoroscopy table, and a site was chosen for percutaneous access under fluoroscopic guidance. The site was prepped and draped in a sterile fashion. Local anesthetic was administered using a 1% lidocaine solution. A hypodermic or spinal needle was then used to access the symptomatic joint. Intra-articular location of the needle tip was confirmed by injecting a small amount of contrast, followed by steroid administration. The needle was then withdrawn, and a bandage applied to the puncture site. FINDINGS: Joint injected: Right hip Medications injected: 6 mL of 40 mg/mL Kenalog and 0.5% Ropivacaine mixture. Complications: None. IMPRESSION: Successful fluoroscopically guided administration of steroid and anaesthetic solution into the right hip joint. Dictated by: Dimitry Kumar M.D. on 07/31/2019 at 15:05 Approved by: Dimitry Kumar M.D. on 07/31/2019 at 15:06
== END ==
PROVIDERS: PCP Family Medicine; Referring Provider Orthopaedic Surgery; Visit Provider Orthopaedic Surgery
DX: M16.11 Unilateral primary osteoarthritis, right hip (principal)
CPT/HCPCS: 20610; 77002

== ENCOUNTER → 2019-08-26 09:53 | Outpatient (CLI) | payer OTHER, SELFPAY ==
[2019-08-26 11:35] LABS: Add Manual Diff / Slide Review NO; Basophils Absolute Auto 100 /uL (0-100); Basophils Percent Auto 1.3 % (0-2); Eosinophils Absolute Auto 500 /uL (0-450); Eosinophils Percent Auto 9.8 % (2-4); Hematocrit 41.9 % (36-46); Hemoglobin 14.6 g/dL (12.0-16.0); Lymphocytes Absolute Auto 1000 /uL (1100-4500); Lymphocytes Percent Auto 19.7 % (25-40); Mean Corpuscular HGB Conc 34.8 % (30-36); Mean Corpuscular Hemoglobin 31.1 PG (26-34); Mean Corpuscular Volume 89.3 fL (80-100); Monocytes Absolute Auto 500 /uL (0-900); Monocytes Percent Auto 9.5 % (3-14); Neutrophils Absolute Auto 3000 /uL (1500-7000); Neutrophils Percent Auto 59.7 % (50-75); Platelet Count 213 X10^3/uL (150-400); Red Blood Cell Count 4.69 X10^6/uL (4.0-5.2); Red Cell Distribution Width 12.9 % (11.6-14.8); White Blood Cell Count 4.9 X10^3/uL (4.5-11.0)
[2019-08-26 12:23] LABS: Estimated Glomerular Filt Rate > 60.0 mL/min (>60)
== END ==
PROVIDERS: PCP Family Medicine; Referring Provider Family Medicine; Visit Provider Family Medicine
DX: Z51.81 Encounter for therapeutic drug level monitoring (principal)
CPT/HCPCS: 36415; 82565; 85025

== ENCOUNTER → 2019-11-24 07:25 | Outpatient (CLI) | payer OTHER, SELFPAY ==
[2019-11-24 09:06] LABS: Hematocrit 42.4 % (36-46); Hemoglobin 14.6 g/dL (12.0-16.0); Mean Corpuscular HGB Conc 34.4 % (30-36); Mean Corpuscular Hemoglobin 30.9 PG (26-34); Mean Corpuscular Volume 89.8 fL (80-100); Platelet Count 194 X10^3/uL (150-400); Red Blood Cell Count 4.73 X10^6/uL (4.0-5.2); Red Cell Distribution Width 12.8 % (11.6-14.8); White Blood Cell Count 5.9 X10^3/uL (4.5-11.0)
[2019-11-24 09:13] LABS: Add Manual Diff / Slide Review YES
[2019-11-24 10:16] LABS: Neutrophils Absolute Manual 3422 /uL (3000-5900); RBC Morphology Normal Morphology; Total Cells Counted 100
== END ==
PROVIDERS: PCP Family Medicine; Referring Provider Orthopaedic Surgery; Visit Provider Orthopaedic Surgery
DX: Z01.818 Encounter for other preprocedural examination (principal); Z01.812 Encounter for preprocedural laboratory examination
CPT/HCPCS: 36415; 85025; 93005; 93010

== ENCOUNTER → 2019-12-06 08:45 | Outpatient (CLI) | payer OTHER, SELFPAY ==
[2019-12-07 13:57] LABS: COVID19 Sendout Not Detected (Not Detect)
== END ==
PROVIDERS: PCP Family Medicine; Visit Provider Family Medicine
DX: Z11.59 Encounter for screening for other viral diseases (principal)
CPT/HCPCS: 87635

== ENCOUNTER 2019-12-09 08:58 | Day surgery (SDC) | payer OTHER, SELFPAY ==
[2019-12-02 10:00] VITALS: BMI 24.8
[2019-12-09] VITALS (13 sets, daily range): BP systolic 83–145; BP diastolic 42–84; PULSE 50–91; RESP 7–18; TEMP 35.1–36.5; O2SAT 88–100; BMI 24.5
--- NOTE | 2019-12-09 08:30 | DI.RAD.S_ITS ---
PROCEDURE: XR PELVIS 1-2V INDICATIONS: right SHANELL TECHNIQUE: 1 view of the lower pelvis acquired. COMPARISON: [facility], MR, MR HIP RT WO CON, 01/13/2019, 11:51. FINDINGS: Bones: Patient is status post right hip arthroplasty, with hardware components in expected positions. The hip joint appears congruent. The visualized bony structures appear intact. Soft tissues: Overlying postoperative changes are noted. No suspicious soft tissue densities. IMPRESSION: Normal alignment after right total hip arthroplasty. Dictated by: Dimitry Kumar M.D. on 12/09/2019 at 15:02 Approved by: Dimitry Kumar M.D. on 12/09/2019 at 15:03
[2019-12-09] MEDS: ACETAMINOPHEN 325 MG TABLET 975 MG PO (09:21)
[2019-12-09] MEDS: PREGABALIN 75 MG CAPSULE PO (09:21)
[2019-12-09] MEDS: CELECOXIB 200 MG CAPSULE PO (09:23)
[2019-12-09] MEDS: LACTATED RINGERS 1,000 ML 42 ML IV ×2 (09:30→12:20)
--- NOTE | 2019-12-09 10:22 | PM.PREOP ---
Pre-operative Note COVID-19 COVID-19 status: Positive Result date/Date tested (Pos, Neg/Pending): 12/07/19 Interval Note History & Physical reviewed/Exam performed by Physician: Yes Changes to H&P: No
--- NOTE | 2019-12-09 10:39 | SUR.OPER ---
Lateral on padded OR bed. Gel axillary roll. Arms secured on padded armboard with pillow supporting top arm. Padded hip positioner braces x4 - anterior and posterior chest and pelvis. Additional gel pad used anterior pelvis. Gel pad under bottom leg from knee to foot and secured with tape over sheet.
[2019-12-09] MEDS: CEFAZOLIN 2 GM/100 ML FROZ.PIGGY IV (11:07)
[2019-12-09] MEDS: TRANEXAMIC ACID 1,000 MG VIAL 2000 MG INJ ×2 (11:39→12:17)
[2019-12-09] MEDS: ROPIVACAINE 0.5% PF 5 MG/ML 20ML VIAL 60 ML INJ (11:39)
[2019-12-09] MEDS: MORPHINE 4 MG/ML INJ INJ (11:40)
[2019-12-09] MEDS: KETOROLAC 30 MG/ML VIAL INJ (11:42)
--- NOTE | 2019-12-09 12:40 | P.OP_ITS ---
Operative Date/Time/Diagnoses Date of procedure: 12/09/19 Time of procedure: 12:41 Pre-op diagnosis: Right hip degenerative joint disease Post-op diagnosis: same Procedure & Clinicians Procedure: Right total hip arthroplasty (CPT code 75432 with clinical data assistant) Same procedure as scheduled: Yes Indications: Patient is an 69-year-old female with severe right hip DJD. The patient has pain with activities and at rest, limited ambulation and activity tolerance, difficulties with ADLs, and failure of conservative treatment. We have discussed the nature of condition, treatment options, risks and benefits, and patient elects to proceed with total hip arthroplasty and gives informed consent. Surgeon: Koffi Ellis Supervisor Quality Control: William Fernández Anesthesia Type: General and Spinal Operative Notes Closure Type: primary Specimen(s): none sent Prosthetic devices, grafts, tissues, transplants, or devices: Acetabulum: Koroma and Nephew R3 acetabular component size 50 mm Femoral component: Koroma and Nephew Anthology stem size 6 with high offset Femoral head: 32 mm + 0 Oxinium Estimated Blood Loss (mL): 100 Procedure in detail: After satisfaction induction of anesthetic, and administration of IV antibiotics, the patient was positioned in the lateral decubitus position with all bony prominences well padded and pelvic position secured using a hip machine feeder positioning device. Right hip and lower extremity prepped and draped in the usual sterile fashion, 1st dose of intravenous tranex amic acid was administered, then a longitudinal incision was created centered over the greater trochanter and carried sharply through the skin and subcutaneous tissues down to the fascia eunice which was divided longitudinally and retracted with a Charnley retractor. External rotators visualize, cut, tagged, and retracted posteriorly, then the capsule was cut in a T-type fashion with the corners tagged and retracted. Hip was dislocated and femoral neck cut made according to preoperative templating. Acetabular retractors then placed, and the acetabular labrum and osteophytes were excised. The acetabulum was then sequentially reamed to 49 mm with an excellent circumferential ream and fit with the trial. The trial component was removed and a permanent size 50 mm Koroma and Nephew R3 acetabular component was selected, positioned, and impacted with satisfactory position and fixation achieved. Permanent liner was then inserted with the elevated lip directed posteriorly. Soft tissue then removed off the lateral femoral neck in the lateral neck was entered using a box osteotome. T- handled reamers placed down the canal followed by sequential broaching to 6 with the final broach left in place for trial reduction which demonstrated fair leg length, range of motion, and stability characteristics with a 32 mm +0 trial ball. Another trial reduction was done with a high offset neck and combinations of standard neck with a +4 head and the leg lengths, range of motion, instability were best with the high offset neck and a +0 ball. The trial and broach were removed, and a permanent size 6 high offset Koroma and Nephew Synergy stem was selected and inserted with excellent position and fixation achieved. Another trial reduction yielded the above characteristics so the trial ball was exchanged for a permanent 32 mm +0 Oxinium ball. The hip was irrigated and reduced and excellent leg length range of motion and stability characteristics were achieved and maintained. Periarticular tissues were infiltrated with ropivacaine, morphine, and Toradol l. The hip was copiously irrigated, and the capsule repaired with #2 Ethibond, and the piriformis was repaired back to the greater trochanter with the same. Fascia eunice closed with interrupted #1 Ethibond sutures, and the subcutaneous tissues were closed in 2 layers of 0 Vicryl and 2 0 Vicryl. Skin was closed with ciera and sterile dressings applied. Second dose of tranexamic acid was administered intravenously, and the anesthetic was terminated. Complications: none Post-operative Condition: stable Disposition: PACU Plan for aftercare: Patient will be admitted to the acute care bautista, and anticipate discharge on postop day 1 with follow-up in office in 10-14 days. Outpatient physical therapy will be arranged and patient will continue to observe posterior hip precautions. Patient will continue use of postoperative aspirin for DVT prophylaxis.
--- NOTE | 2019-12-09 13:09 | SUR.PHASEI ---
Report called to floor DEJA Finnegan. Pt stable will hold on to her for 5 to 10 minutes then transfer up. Pt sitting up slightly in bed talking and drinking gingerale without problems.
--- NOTE | 2019-12-09 13:54 | PC.NURSE ---
Assess- Patient denies pain as she had a spinal and partial general anesthesia. VSS, SCDs applied to lower extremities. Patient is A&Ox3. She has a zip bandage on with abd and tape above this, bulky and dry. Patient was tolerating gingerale down in PACU but then had a 75cc bile emesis. She states that she is feeling better now. She will be on LR at 125cc/hr and is not taking anything by mouth now to let her gut rest. Patient just had another 100cc emesis as she took some water po. Explained to patient that she needs to let her stomach rest at this point and we can try some liquids after a bit. Her is in the room visiting. Patient has feeling to about the top of her r.calf.
[2019-12-09] MEDS: LACTATED RINGERS 1,000 ML 125 ML IV (14:04)
[2019-12-09] MEDS: ONDANSETRON 4 MG/2 ML INJ IV (14:04)
--- NOTE | 2019-12-09 15:43 | PT-IP ANOTE ---
checked on pt but pt is nauseated with (+) emesis and is still numb on RLE and is not ready for PT eval at this tie. will f/u tomorrow.
[2019-12-09] MEDS: LORATADINE 10 MG TABLET PO (15:52)
[2019-12-09] MEDS: hydrOXYzine pamoate 25 MG CAPSULE PO (17:40)
[2019-12-09] MEDS: NALOXONE 0.4 MG/ML VIAL 0.2 MG IV (19:15)
[2019-12-09] MEDS: FAMOTIDINE 20 MG TABLET PO (20:27)
[2019-12-09] MEDS: ONDANSETRON 4 MG ODT PO (23:35)
--- NOTE | 2019-12-10 03:28 | PC.NURSE ---
Pt continues to struggle w/nausea and vomiting. Pt states that she only feels intermittently nauseous and after vomiting feels well. 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 No c/o of pain.
[2019-12-10 04:37] VITALS: BP 115/64; PULSE 93; RESP 18; TEMP 36.3; O2SAT 100
[2019-12-10] MEDS: LACTATED RINGERS 1,000 ML 125 ML IV (05:38)
[2019-12-10 06:19] LABS: Hemoglobin 12.2 g/dL (12.0-16.0)
[2019-12-10 08:00] VITALS: BP 103/66; PULSE 77; RESP 15; TEMP 36.9; O2SAT 100
--- NOTE | 2019-12-10 08:51 | CM.DANOTE ---
Addendum entered by Lizy Aguilar LPN 12/10/19 14:16: A check in now shows that pt did work with PT, was cleared for home and is currently getting ready to leave in company of spouse. Original Note: Discharge Planning/Care Management DCP: assessment: case received, EMR reviewed. Will discuss in Team Rounds. Pt is a 69 year old female who admitted yesterday for a scheduled R SHANELL/posterior. Surgeon: Dr. Caleb Ortiz: [facility] Pt has identified her plan to preop team: see template below: as home with spouse support. PT was not able to see pt yesterday as she was not medically stable for same. PT plans to work with her today. Will be following and will check in later with pt after she works with therapy team. CM Discharge Assessment Start: 12/10/19 08:50 Freq: Status: Active Protocol: Document 12/10/19 08:50 ITV (Rec: 12/10/19 08:51 ITV [id number]) Discharge Planning Assessment Advance Directives? Yes Advance Directives on File No History Provided By Medical Record Prior Living Arrangements House Household Members spouse Review Status In Process Pre-Anesthesia Assessment Start: 12/02/19 10:00 Freq: Status: Complete Protocol: Document 12/02/19 10:00 CAB (Rec: 12/02/19 10:27 CAB [id number]) Pre-Anesthesia Assessment Patient Information Reviewed Via Phone Assessment Assessment Completed With Patient Diagnostic Results CBC,EKG Comment Labs/EKG @ [facility] 11/24/19 COVID screen @ [facility] 12/06/19 Primary Care Provider Brent Blackwell Seen Specialist in Last 12 Months Yes Specialist Seen Opthamologist/Decorative Greens Cutter, Orthopedist Primary Language Lithuanian Pan Puller Required No Height 167.64 cm Weight 69.853 kg Body Mass Index (BMI) 24.8 Hearing Ability Normal Visual Assist Glasses Dentition Type Teeth, Natural Present,Teeth, Missing Barriers to Learning None Other Aids Yes: Dental appliance for STEPHANE Hx Anesthesia Reactions No Hx Family Anesthesia Reaction No Hx Malignant Hyperthermia No Hx Blood Transfusions No Anesthesia Review Requested No alcohol intake current alcohol intake frequency 3 or more drinks per day Smoking Status Never smoker Substance Use Type does not use Pain Present Pain Reported Musculoskeletal Symptoms Abnormal Gait,Difficulty Walking,Joint Pain,Myalgias History of Falling (Recent or History of Yes ) Patient is completely paralyzed or No completely immobile Mental Status Oriented to own ability Is patient on oxygen? No Does patient have BYRNE/SOB No Hx Sleep Apnea Yes: Pt using a dental appliance, no CPAP CPAP/BIPAP use not prescribed Currently Taking a Beta Juju No Can You Climb a Flight of Stairs Without Yes SOB Hx Chest Pain No Hx SOB No Hx Syncope or Dizziness No Anti-Coagulant Therapy No Has a Machine Pack Assembler No Cardiac Testing No Hx Pacemaker/ICD No Pacemaker Rep Required? No Cardiac Clearance Received Not Applicable Diet Type At Home Regular dysphagia No Gastrointestinal Symptoms Reflux Bladder Pattern Nocturia Urinary Catheter Present No Hx Urinary Self Catheterization No Diabetes No Patient No Lactating No Hx Drug Resistant Organism No Presence of External or Internal Medical No Devices Have you had any close contact with No someone diagnosed with COVID-19? Marital Status Lives With spouse Prior Living Arrangements House Number of Floors (Floors) One Floor Support System Spouse Does the Patient Have Assistance After Yes Surgery Patient Discharge Plan Description Return Home Comment Pt not advised on length of stay Feels Safe in Current Environment Yes Been Physically Hurt or Threatened By a No Person in Current Environment Do you have thoughts of harming yourself None or others? Are you currently considering suicide? No Do you have a plan to hurt yourself or No Plan others? Do You Have Any Spiritual Beliefs That No May Affect Your HC Choices? Do You Have Any Cultural Practices That No May Affect Your HC Choices? Who Can We Speak to About Patient's Care Family, friends Identifying Code for Release of Patient Declines to issue Information Health Care Proxy/Next of Kin Espinoza () Health Care Proxy Emergency Contact Name Espinoza () Emergency Contact Advance Directives? Yes Advance Directives on File No Requested Patient Bring Advanced Yes Directives DOS Power of Heat Treating Operator Yes Power of Heat Treating Operator Name Espinoza () Power of Heat Treating Operator PAC Instructions Do not shave/clip surgical site,Durable medical equipment ,Medications to take/avoid, Nasal antibiotic,No ETOH/ petroleum product on skin DOS, NPO,Pre-surgical wash,Sturdy shoes/comfortable clothes,Do not bring valuables and remove jewelry
[2019-12-10] MEDS: ASPIRIN EC 81 MG TABLET PO (09:02)
[2019-12-10] MEDS: ONDANSETRON 4 MG ODT PO (09:02)
[2019-12-10] MEDS: FAMOTIDINE 20 MG TABLET PO (09:02)
[2019-12-10] MEDS: DOCUSATE 100 MG CAPSULE PO (09:03)
[2019-12-10] MEDS: NAPROXEN 250 MG TABLET PO (09:03)
[2019-12-10] MEDS: ACETAMINOPHEN 325 MG TABLET 650 MG PO (09:03)
--- NOTE | 2019-12-10 09:35 | PT.IIE ---
Current Diagnoses Unilateral primary osteoarthritis, right hip (12/09/19) Surgery Performed Operation Date: 12/09/19 10:45 Actual Procedures p Total Hip Arthroplasty(Right) - Koffi Ellis MD Surgical History (Last Updated 12/02/19 @ 10:15 by Ching Ruiz RN) History of colonoscopy (Acute) Hx of arthroscopy of right knee (Acute 2018) Hx of LASIK (Acute) Hx of lithotripsy (Acute 2011) Hx of oral surgery (Acute) Medical History (Last Updated 12/02/19 @ 10:15 by Ching Ruiz RN) Elevated cholesterol (Acute) No significant medical problems (Chronic) STEPHANE (obstructive sleep apnea) (Acute) Osteoarthritis (Acute) Seasonal allergies (Acute) Stomach ulcer (Acute) Uterine fibroid (Acute) Physical Therapy Inpatient Evaluation/Re-Eval M1 PT/OT-IP Prior Functional Status Start: 12/10/19 12:09 Freq: NEEDED Status: Active Protocol: Document 12/10/19 09:35 AB (Rec: 12/10/19 12:20 AB [id number]) Medical Review Prior Functional Status Medical History Reviewed Yes Communication able to make needs known Mobility and Gait pt stated that she is independent with all mobilities and ambulation without AD Social History Household Members spouse Living Arrangements House Number of Floors (Floors) One Floor Number of Stairs To Enter/Railing? 2 steps L rail ascending Home Environment High Toilet,Walk in Shower Home Equipment Front Wheel Walker,Shower Seat with Backrest,Hand Held Shower Additional Social History Comment pt has a bidet pt has a tripod cane M2 PT-IP Current Condition Start: 12/10/19 12:09 Freq: NEEDED Status: Active Protocol: Document 12/10/19 09:35 AB (Rec: 12/10/19 12:20 AB [id number]) Physical Therapy Current Condition Current Condition Evaluation Date 12/10/19 Treatment Diagnosis s/p R SHANELL posterior approach; difficulty in walking Onset Date 12/09/19 Precautions Posterior Hip Precautions No Hip Flexion > 90 degrees,No Hip Internal Rotation,No Hip Adduction Weight Bearing Status Weight Bearing Status Weight Bear as Tolerated Allowed Weight Bearing Amount (enter % RLE WBAT or #) (%) M3 PT-IP Subjective Start: 12/10/19 12:09 Freq: NEEDED Status: Active Protocol: Document 12/10/19 09:35 AB (Rec: 12/10/19 12:20 [id number]) Subjective Physical Therapy Visit Type Type Initial Evaluation Visit Start Time 09:35 Visit Stop Time 10:36 Total Visit Minutes 61 Number of SQL SERVER ARCHITECT Visits 0 Physical Therapy Visit Comments Patient Comments pt is agreeable to do PT Therapy Pain Assessment Pain When Pain Assessed At Rest Pain Present Pain Present Pain Reported Location R hip Intensity 3 Scale Used Numeric (0 - 10) Pain Management Techniques Apply Cold,Modification of Treatment,Re-positioning, Timing of Activity with Medications M4 PT-IP Mobility and Gait Start: 12/10/19 12:09 Freq: NEEDED Status: Active Protocol: Document 12/10/19 09:35 (Rec: 12/10/19 12:20 [id number]) PT-Bed Mobility Assessment Supine to Sit Supine to Sit Standby Assistance Sit to Supine Sit to Supine Standby Assistance PT-Transfer Assessment Sit to and From Stand Sit to and from Stand Contact Guard Assistance,Use of Upper Extremities Equipment Transfer Assistive Device Gait Belt,Front Wheeled Walker Orthotic/Prosthetic Devices or Brace: No Transfers Transfer Destination Bed,Chair Transfer Technique ambulated using FWW Comments Mobility Comments pt sitting on chair. educated on hip precautions. pt completed sit to stand CGA and cues and ambulated towards the bed. completed supine<> sit SBA. pt completed sit to stand from EOB CGA and ambulated towards the stairs using FWW ~ 200 ft CGA. pt completed up/down steps using L rail and SPC CGA. Pt has increase genu valgum and tends to internally rotate LE at rest. informed pt to correct position and be aware of RLE positioning due to hip precautions. pt understood. pt assisted back to her room. ambulated to the chair using FWW CGA. positioned pt on chair. call light and table placed within reach. Gait Assessment Gait Gait Assistance Required: Contact Guard Assist Distance (Feet) 200 Able to Maintain Weight Bearing Status Yes During Gait Assistive Devices Assistive Device Gait Belt,Front Wheeled Walker Orthotic/Prosthetic Devices or Brace: No Gait Deviations General Gait Pattern Decreased Stride Length, Decreased Feet Clearance,Step- to Gait Factors Limiting Gait Function Factors Limiting Gait Function Decreased Activity Tolerance, Decreased Strength,Pain,Poor Balance,Poor Safety Awareness Comments Gait Comments pls refer to mobility section for details Stair Climbing Assessment Evaluation Level of Assist On Stairs Contact Guard Assistance,1 Person Assistance Devices Stair Climbing Assistive Devices Straight Cane,Left Railing Technique/Endurance Stair Climbing Direction Ascend and Descend Stair Climbing Technique Step to Step Number of Steps Climbed 3 Query Text: Stair Climbing Set # Repetitions (reps) 1 PT-Balance Assessment Sitting Balance and Reactions Static Sitting Balance Ability Good Dynamic Sitting Balance Ability Good Standing Balance and Reactions Static Standing Balance Ability Fair Dynamic Standing Balance Ability Fair Device Used FWW M5 PT-IP Objective Assessments Start: 12/10/19 12:09 Freq: NEEDED Status: Active Protocol: Document 12/10/19 09:35 AB (Rec: 12/10/19 12:20 AB [id number]) Orientation Orientation/Cognition Level of Alertness Alert Orientation Name,Place,Situation Language Function Ability No Deficits Noted Safety Awareness Understands Safety Issues Gross Range of Motion Lower Extremity ROM Assessment Within Functional Limits Strength Lower Extremity Strength Assessment Right Impaired Hip 3+/5 Knee 4-/5 Coordination Assessment Gross Coordination Gross Coordination WNL Sensation Assessment Sensation Gross Sensation WNL Muscle Tone Muscle Tone WNL Yes M6 PT-IP Treatment Start: 12/10/19 12:09 Freq: NEEDED Status: Active Protocol: Document 12/10/19 09:35 AB (Rec: 12/10/19 12:20 AB [email or web address]) Physical Therapy Treatment Education Education Provided Precautions,Weight Bearing Status,Post-Op Packet,Safety M7 PT-IP Assessment and Plan Start: 12/10/19 12:09 Freq: NEEDED Status: Active Protocol: Document 12/10/19 09:35 AB (Rec: 12/10/19 12:20 AB [id number]) PT Summary Assessment and Plan Potential Rehabilitation Potential Good Status of Condition at Evaluation Stable Summary Impairments Pain,ROM,Strength,Balance,Bed Mobility,Transfers,Gait, Activity Tolerance Assessment Summary pt requiring CGA with mobility using FWW. pt plans to go home with spouse. will conduct caregiver training today with spouse at ~ 130 pm and pt plans to go home afterwards. pt stated that she is set up for outpt PT. Goals Bed Mobility Goal Independent Transfer Goal Independent,Front Wheeled Walker Gait Goal Independent,Front Wheel Walker Gait Distance 250 Other Goals up/down 2 steps L rail & SPC SBA Days to Meet Goals 3 Frequency of Treatment Frequency Of Treatment Twice a Day Treatment Plan Physical Therapy Treatment Plan Bed Mobility Training,Transfer Training,Gait Training, Therapeutic Exercise,Balance Retraining,Post Op Education, Discharge Planning,Hot or Cold Pack,Neuromuscular Re-ed, Coordination Retraining,Manual Therapy Recommendations To Nursing Amount of Assist Needed 1 Person Assist Discharge Recommendations PT Discharge Recommendations Home with Assistance, Outpatient PT Transportation Needs at Discharge Private Vehicle
--- NOTE | 2019-12-10 11:16 | PC.NURSE ---
Patients nausea has resolved, she was given a zofran otc before her medication and she was able to hold them down, also she ate well at breakfast. R.knee dressing is bulky but cdi. She denies numbness or tingling to r.extremity and is getting up with 1PA and walker. She worked with physical therapy and has been cleared, just awaiting for Ortho Doctors to discharge her. Using tylenol and naproxen for discomfort.
--- NOTE | 2019-12-10 14:01 | P.PN_ITS ---
Subjective Subjective Date Patient Seen: 12/10/19 Time Patient Seen: 14:02 Interval history: Patient is POD#1 s/p right SHANELL with Dr. Ellis. Pain has been controlled wtih Tylenol. She has mobilized with PT. Initially had nausea POD#0 but has tolerated breakfast and lunch since. No complaints. Exam Vital Signs (past 8 hours): - 12/10/19 08:00 Temperature 98.5 F Pulse Rate 77 Respiratory Rate 15 Blood Pressure 103/66 Pulse Oximetry 100 Oxygen Delivery Method Nasal Cannula Oxygen Flow Rate 1.5 Narrative Exam Narrative: 69 year old female resting in bed, alert and oriented in no acute distress. Dressing in place is CDI. Able to perform straight leg raise. Calves are soft, nontender. Palpable pedal pulse. Objective Labs Result Diagrams: 12/10/19 05:21 Labs: Laboratory Results - last 24 hr 12/10/19 05:21 Hgb 12.2 Hct 36.0 Assessment & Plan Assessment & Plan narrative: Patient doing well postoperatively. She has been cleared by PT. ASA 81mg BID for DVT prophylaxis. Script for Oxycodone provided as patient lives [facility], available as caregiver. Discharge to home later today.
--- NOTE | 2019-12-10 14:17 | PT.IPTN ---
Current Diagnoses Unilateral primary osteoarthritis, right hip (12/09/19) Surgery Performed Operation Date: 12/09/19 10:45 Actual Procedures p Total Hip Arthroplasty(Right) - Koffi Ellis MD Physical Therapy Treatment Note M2 PT-IP Current Condition Start: 12/10/19 12:09 Freq: NEEDED Status: Discharge Protocol: Document 12/10/19 09:35 AB (Rec: 12/10/19 12:20 AB [email or web address]) Physical Therapy Current Condition Current Condition Evaluation Date 12/10/19 Treatment Diagnosis s/p R SHANELL posterior approach; difficulty in walking Onset Date 12/09/19 Precautions Posterior Hip Precautions No Hip Flexion > 90 degrees,No Hip Internal Rotation,No Hip Adduction Weight Bearing Status Weight Bearing Status Weight Bear as Tolerated Allowed Weight Bearing Amount (enter % RLE WBAT or #) (%) M3 PT-IP Subjective Start: 12/10/19 12:09 Freq: NEEDED Status: Discharge Protocol: Document 12/10/19 14:17 AB (Rec: 12/10/19 15:38 AB [email or web address]) Subjective Physical Therapy Visit Type Type Treatment Note Visit Start Time 14:17 Visit Stop Time 14:35 Total Visit Minutes 18 Number of IT PROJECT COORDINATOR Visits 0 Physical Therapy Visit Comments Patient Comments pt 's spouse in room but pt does not want to do any caregiver training. stated that she is going to be fine Therapy Pain Assessment Pain When Pain Assessed At Rest Pain Present Pain Present Pain Reported Location R hip Intensity 4 Pain Management Techniques Re-positioning,Timing of Activity with Medications M4 PT-IP Mobility and Gait Start: 12/10/19 12:09 Freq: NEEDED Status: Discharge Protocol: Document 12/10/19 14:17 AB (Rec: 12/10/19 15:38 AB [email or web address]) PT-Transfer Assessment Comments Mobility Comments found pt sitting on chair and spouse assisting pt with putting her clothes on. pt does not want to do caregiver training and stair training with spouse. stated that she will be fine at home. pt completed sit to stand from chair SBA and was able to manage pulling pants up. educated spouse regarding pt's precautions and understood. pt refused to do stair training again. spouse educated on how to assist pt. pt requested to use the toilet and completed ambulation to the toilet using FWW SBA and cues. completed sit to stand from the toilet using grab bar SBA. pt ambulated out of the toilet to the sink and completed handwashing sBA. left pt seated on w/c and pt was waiting for d/c. Gait Assessment Gait Gait Assistance Required: Standby Assistance Distance (Feet) 10 Able to Maintain Weight Bearing Status Yes During Gait Assistive Devices Assistive Device Gait Belt,Front Wheeled Walker Orthotic/Prosthetic Devices or Brace: No Gait Deviations General Gait Pattern Antalgic,Decreased Stride Length,Decreased Feet Clearance Factors Limiting Gait Function Factors Limiting Gait Function Decreased Activity Tolerance, Decreased Strength,Limited Range of Motion,Pain,Poor Balance,Poor Safety Awareness M5 PT-IP Objective Assessments Start: 12/10/19 12:09 Freq: NEEDED Status: Discharge Protocol: Document 12/10/19 09:35 AB (Rec: 12/10/19 12:20 AB [facility]) Orientation Orientation/Cognition Level of Alertness Alert Orientation Name,Place,Situation Language Function Ability No Deficits Noted Safety Awareness Understands Safety Issues Gross Range of Motion Lower Extremity ROM Assessment Within Functional Limits Strength Lower Extremity Strength Assessment Right Impaired Hip 3+/5 Knee 4-/5 Coordination Assessment Gross Coordination Gross Coordination WNL Sensation Assessment Sensation Gross Sensation WNL Muscle Tone Muscle Tone WNL Yes M6 PT-IP Treatment Start: 12/10/19 12:09 Freq: NEEDED Status: Discharge Protocol: Document 12/10/19 14:17 AB ([email or web address] Treatment Education Education Provided Precautions,Safety M7 PT-IP Assessment and Plan Start: 12/10/19 12:09 Freq: NEEDED Status: Discharge Protocol: Document 12/10/19 14:17 AB (Rec: 12/10/19 [email or web address] PT Summary Assessment and Plan Potential Rehabilitation Potential Good Summary Impairments Pain,ROM,Strength,Balance, Coordination,Sensation,Tone, Cognition,Bed Mobility, Transfers,Gait,Activity Tolerance Assessment Summary pt refused to do caregiver training with spouse this after. pt only needed SBA and cues and educated spouse on how to assist pt and informed regarding pt's precautions. pt plans to go home after PT session. Goals Bed Mobility Goal Independent Transfer Goal Independent,Front Wheeled Walker Gait Goal Independent,Front Wheel Walker Gait Distance 250 Other Goals up/down 2 steps L rail & SPC SBA Days to Meet Goals 3 Frequency of Treatment Frequency Of Treatment Twice a Day Treatment Plan Physical Therapy Treatment Plan Bed Mobility Training,Transfer Training,Gait Training, Therapeutic Exercise,Balance Retraining,Post Op Education, Discharge Planning,Hot or Cold Pack,Neuromuscular Re-ed, Coordination Retraining,Manual Therapy Recommendations To Nursing Amount of Assist Needed 1 Person Assist Discharge Recommendations PT Discharge Recommendations Home with Assistance, Outpatient PT Transportation Needs at Discharge Private Vehicle
[2019-12-10] MEDS: OXYCODONE IR 5 MG TABLET PO (14:30)
== END 2019-12-10 14:43 | disposition home or self-care (01) ==
LOC: OR 09:01 → AC 12:12
PROVIDERS: PCP Family Medicine; Referring Provider Family Medicine; Visit Provider Orthopaedic Surgery
PROC: 0SR90JZ Replacement of Right Hip Joint with Synthetic Substitute, Open Approach (ICD-10-PCS; CPT 27130; principal; 2019-12-09 10:45)
DX: M16.11 Unilateral primary osteoarthritis, right hip (principal)
CPT/HCPCS: 27130; 36415; 72170; 85014; 85018; 97161; 97530; C1776; A9270; J0690; J1100; J1885; J2250; J2270; J2274; J2310; J2405; J2704; J3010

== ENCOUNTER → 2020-02-08 08:22 | Outpatient (CLI) | payer OTHER, SELFPAY ==
[2019-12-09 14:41] VITALS: BMI 24.5
[2020-02-08 09:38] LABS: Add Manual Diff / Slide Review NO; Basophils Absolute Auto 100 /uL (0-100); Eosinophils Absolute Auto 600 /uL (0-450); Eosinophils Percent Auto 11.9 % (2-4); Hematocrit 42.9 % (36-46); Hemoglobin 14.5 g/dL (12.0-16.0); Lymphocytes Absolute Auto 900 /uL (1100-4500); Lymphocytes Percent Auto 17.6 % (25-40); Mean Corpuscular HGB Conc 33.7 % (30-36); Mean Corpuscular Hemoglobin 30.5 PG (26-34); Mean Corpuscular Volume 90.6 fL (80-100); Monocytes Absolute Auto 400 /uL (0-900); Neutrophils Absolute Auto 3000 /uL (1500-7000); Neutrophils Percent Auto 60.5 % (50-75); Platelet Count 193 X10^3/uL (150-400); Red Blood Cell Count 4.74 X10^6/uL (4.0-5.2); Red Cell Distribution Width 13.4 % (11.6-14.8); White Blood Cell Count 4.9 X10^3/uL (4.5-11.0)
[2020-02-08 09:48] LABS: Hemoglobin A1C% w Est Avg Glu 5.1 % (4.0-6.0)
[2020-02-08 10:09] LABS: Cholesterol 278 mg/dL (140-199); Estimated Glomerular Filt Rate > 60.0 mL/min (>60); Glucose 96 mg/dL (80-110)
== END ==
PROVIDERS: PCP Family Medicine; Referring Provider Family Medicine; Visit Provider Family Medicine
DX: R73.01 Impaired fasting glucose (principal); E78.5 Hyperlipidemia, unspecified; Z79.1 Long term (current) use of non-steroidal anti-inflammatories (NSAID)
CPT/HCPCS: 36415; 82465; 82565; 82947; 83036; 85025

== ENCOUNTER 2020-04-12 09:00 | Outpatient (RCR) | payer OTHER, SELFPAY ==
--- NOTE | 2019-12-07 10:35 | PT.OIE ---
Current Diagnoses Unilateral primary osteoarthritis, unspecified hip (12/07/19) Past Medical History (Last Updated 12/02/19 @ 10:15 by Ching Ruiz RN) Elevated cholesterol (Acute) No significant medical problems (Chronic) STEPHANE (obstructive sleep apnea) (Acute) Osteoarthritis (Acute) Seasonal allergies (Acute) Stomach ulcer (Acute) Uterine fibroid (Acute) Past Surgical History (Last Updated 12/02/19 @ 10:15 by Ching Ruiz RN) History of colonoscopy (Acute) Hx of arthroscopy of right knee (Acute 2017) Hx of LASIK (Acute) Hx of lithotripsy (Acute 2011) Hx of oral surgery (Acute) Visit Care Team Role Provider Type Brent Blackwell MD Primary Care Provider Non-Staff Specialty: Family Practice Address: [address] [place] [address], [id number] Email: Koffi Ellis MD Attending Provider Physician Referring Provider Specialty: Orthopedic Surgery Address: [address] [place] [address], [id number] Email: [email or web address] Physical Therapy Initial Evaluation PT-OP-A Visit Information Start: 12/07/19 08:10 Freq: Status: Active Protocol: Document 12/07/19 10:05 (Rec: 12/07/19 10:34 [email or web address]) Out-Patient Physical Therapy Visit Information Visit Information Visit Type Initial Evaluation Visit Start Time 08:16 Visit Stop Time 09:00 Total Visit Minutes 44 Visit Number 03/18 Number of AUTOMOTIVE ENGINEERING TEACHER Visits 0 Evaluation Information Evaluation Date 12/07/19 PT-OP-B Current Condition Start: 12/07/19 08:10 Freq: Status: Active Protocol: Document 12/07/19 10:05 HH (Rec: 12/07/19 10:34 [email or web address]) Current Condition History of Current Condition Onset Date a year ago Current Complaints R hip pain, upcoming R SHANELL ( posterior approach) History of Current Condition Pt presents to clinic today for pre operative workshop for her upcoming R SHANELL (posterior approach) with Dr. Ellis on 12/09/19. Pt fell approx a year ago and twisted her R hip awkwardly. She has been experiencing pain with hip ER and flexion related movements, bending down and sit <>stand activities. Pt had a course of PT and it did help but not permanently since MRI did show Small anterosuperior right acetabular labral tear and Moderate to severe degenerative changes of the right hip. Prior Treatments and Tests Jan, 2019- MRI did show Small anterosuperior right acetabular labral tear and Moderate to severe degenerative changes of the right hip Treatment Goals Patient/Caregiver Goals 1. To regain her R hip ROM and strength for functional activities 2. Able to bend down to coal picker objects; fawn socks and car transfer without pain. Prior Functional Status Baseline Function- ADL's Independent Baseline Function- Mobility Independent Current Functional Impairments (Reported) Functional Limitations- ADL's unable to fawn/doff socks in seated position on R LE Functional Limitations- Other pain while lifting her RLE into her car during car transfer difficulty bending down to reach for the floor. PT-OP-C Subjective Start: 12/07/19 08:10 Freq: Status: Active Protocol: Document 12/07/19 10:05 (Rec: 12/07/19 10:34 [email or web address]) Patient Questionnaires Lower Extremity Functional Scale LEFS Score 42 LEFS Impairment 40 to 59% Impaired (Score 32- 47) OP-PT Pain Assessment Location R hip Pain Location Details R hip joint Intensity 3 Scale Used Numeric (0 - 10) Description Aching Pain Aggravating Factors Changing Position,Activity, Sitting,Stair Climbing,Bending Pain Alleviating Factors Standing,Exercise PT-OP-E Functional Tests Start: 12/07/19 08:10 Freq: Status: Active Protocol: Document 12/07/19 10:05 (Rec: 12/07/19 10:34 [email or web address]) Functional Tests 30 Second Sit to Stand Test Score 14 Comments pain noted at R hip towards the last 5 reps PT-OP-G Mobility & Gait Start: 12/07/19 08:10 Freq: Status: Active Protocol: Document 12/07/19 10:05 (Rec: 12/07/19 10:34 [email or web address]) OP Gait Assessment Assistive Devices Assistive Device None Gait Deviations General Gait Pattern Antalgic,Decreased Stride Length,Decreased Feet Clearance Comments Gait Comments with knee valgus noted on R, limited hip extension and excessive R pelvic rotation during push off to compensate limited R hip external rotation. PT-OP-J Posture/Palpation/Skin Start: 12/07/19 08:10 Freq: Status: Active Protocol: Document 12/07/19 10:05 (Rec: 12/07/19 10:34 [email or web address]) Posture Evaluation Position Standing Pelvis Posture Anteriorly Tilted,(R) Rotated Posterior Weight Distribution Weight Shifted Left Hip Posture (R) Internally Rotated Knee Posture (R) Genu Valgus,(R) Ext. Tibial Torsion,(R) Excess Flexion PT-OP-M Strength Start: 12/07/19 08:10 Freq: Status: Active Protocol: Document 12/07/19 10:05 (Rec: 12/07/19 10:34 [email or web address]) Hip Strength Hip Manual Muscle Testing Left Flexion (L2) 4+ Good+ Extension (S1) 4+ Good+ Abduction 4+ Good+ Adduction 4+ Good+ External Rotation 4+ Good+ Internal Rotation 4+ Good+ Right Flexion (L2) 4- Good- Extension (S1) 3+ Fair+ Abduction 3+ Fair+ Adduction 4- Good- External Rotation 2+ Poor+ Internal Rotation 3+ Fair+ Knee Strength Knee Manual Muscle Testing Left Flexion (S2) 4+ Good+ Extension (L3) 4+ Good+ Right Flexion (S2) 4- Good- Extension (L3) 4+ Good+ PT-OP-Q Treatments Start: 12/07/19 08:10 Freq: Status: Active Protocol: Document 12/07/19 10:05 (Rec: 12/07/19 10:34 [email or web address]) Self-Care/Home Management Treatment Education Patient Education Body Mechanics,Home Exercise Program,Joint Protection,Pain Management,Posture,Safety Other Education adjusted pt's personal walker to proper height for ambulation use; review post op precautions including no cross legs, no hip IR and no hip flexion >90 degrees; review post op exercises including ankle pumps, heel slides, quad set. Activities Self-Care/Home Management Activities education pt to lead with L to ascend and to lead with R to descend for stair climbing; use of chair bilateral chair armrests / one UE on walker and one UE on chair armrest to push off for sit<>stand. PT-OP-T Assessment and Plan Start: 12/07/19 08:10 Freq: Status: Active Protocol: Document 12/07/19 10:05 (Rec: 12/07/19 10:34 [email or web address]) Physical Therapy Assessment Rehab Potential Rehabilitation Potential Excellent Evaluation Complexity Number of Personal Factors/Comorbidities 0 Number of Body Systems Impaired 1-2 Clinical Presentation at Evaluation Stable Impairments Impairments Activity Tolerance,Balance, Functional Activities, Functional Mobility,Gait,Pain, Posture,ROM,Soft Tissue Mobility,Strength,Transfers Goals strength Impairment pt's RLE is mostly 3+/4- for MMT grossly Prison Goal (LTG) Pt will reach 4+/5 for overall RLE strength so she will not compensate through LLE for STS and walking activities. LTG Duration 8 weeks gait Impairment pt amb with R knee valgus and hip IR Short Term Goal (STG) pt will be able to amb without a FWW for household distance STG Duration 4 weeks Cream Cheese Maker Goal (LTG) pt will be able to amb without any AD for community distance , along with neutral hip and knee postion to optimaze gait mechanics LTG Duration 8 weeks LEFS 2 Impairment pt scores 42 on LEFs Short Term Goal (STG) pt will score >48 on LEFS to improve her functional mobility and strength STG Duration 4 weeks Cream Cheese Maker Goal (LTG) pt will score >63 on LEFS to improve her functional mobility and strength so she can put on her shoes and socks without difficulty. LTG Duration 8 weeks Assessment Summary Assessment Pt is a 69yo female here for pre-op workshop for her upcoming R SHANELL with posterior approach on 12/09/19. Pt torn her labrum along with mod- severe hip OA from last year and has been having difficulty with hip ER and flexion related movements, bending down and sit <>stand activities. Spent time educating her regarding expectations for her surgery, post op precautions, transfer techniques with AD, and post op therex. Pt will benefit from skilled therapy to improve her functional mobility and strength close to / exceed preinjury functional level. Physical Therapy Plan Frequency and Duration Frequency of Treatment 2x/Week Duration of Treatment 8 weeks Plan of Care Start Date 12/07/19 Plan of Care End Date 02/05/20 Therapeutic Interventions Therapeutic Interventions Balance Training,Gait Training ,Home Exercise Program,Joint Mobilizations,Manual Therapy, Neuromuscular Re-education, Orthotic/Prosthetic Management ,Patient/Caregiver Education, Self-Care/Home Management,Soft Tissue Mobilization,Taping, Therapeutic Activities, Therapeutic Exercises Next Visit Focus/Plan Next Note Type Re-Evaluation Next Visit Plan ROM strength 30 STS gravity eliminated positiotn standing hip ex gait training
--- NOTE | 2019-12-07 10:35 | PT.OPPOC ---
Physical, Occupational & Speech Therapy At [facility] Current Diagnoses Unilateral primary osteoarthritis, unspecified hip (12/07/19) Visit Care Team Role Provider Type Brent Blackwell MD Primary Care Provider Non-Staff Specialty: Family Practice Address: [address], [address] Email: Koffi Ellis MD Attending Provider Physician Referring Provider Specialty: Orthopedic Surgery Address: [address] [place] [address], [id number] Email: Plan Of Care PT-OP-T Assessment and Plan Start: 12/07/19 08:10 Freq: Status: Active Protocol: Document 12/07/19 10:05 (Rec: 12/07/19 10:34 [id number]) Physical Therapy Assessment Rehab Potential Rehabilitation Potential Excellent Evaluation Complexity Number of Personal Factors/Comorbidities 0 Number of Body Systems Impaired 1-2 Clinical Presentation at Evaluation Stable Impairments Impairments Activity Tolerance,Balance, Functional Activities, Functional Mobility,Gait,Pain, Posture,ROM,Soft Tissue Mobility,Strength,Transfers Goals strength Impairment pt's RLE is mostly 3+/4- for MMT grossly Prison Goal (LTG) Pt will reach 4+/5 for overall RLE strength so she will not compensate through LLE for STS and walking activities. LTG Duration 8 weeks gait Impairment pt amb with R knee valgus and hip IR Short Term Goal (STG) pt will be able to amb without a FWW for household distance STG Duration 4 weeks Hand Tier Goal (LTG) pt will be able to amb without any AD for community distance , along with neutral hip and knee postion to optimaze gait mechanics LTG Duration 8 weeks LEFS 2 Impairment pt scores 42 on LEFs Short Term Goal (STG) pt will score >48 on LEFS to improve her functional mobility and strength STG Duration 4 weeks Hand Tier Goal (LTG) pt will score >63 on LEFS to improve her functional mobility and strength so she can put on her shoes and socks without difficulty. LTG Duration 8 weeks Assessment Summary Assessment Pt is a 69yo female here for pre-op workshop for her upcoming R SHANELL with posterior approach on 12/09/19. Pt torn her labrum along with mod- severe hip OA from last year and has been having difficulty with hip ER and flexion related movements, bending down and sit <>stand activities. Spent time educating her regarding expectations for her surgery, post op precautions, transfer techniques with AD, and post op therex. Pt will benefit from skilled therapy to improve her functional mobility and strength close to / exceed preinjury functional level. Physical Therapy Plan Frequency and Duration Frequency of Treatment 2x/Week Duration of Treatment 8 weeks Plan of Care Start Date 12/07/19 Plan of Care End Date 02/05/20 Therapeutic Interventions Therapeutic Interventions Balance Training,Gait Training ,Home Exercise Program,Joint Mobilizations,Manual Therapy, Neuromuscular Re-education, Orthotic/Prosthetic Management ,Patient/Caregiver Education, Self-Care/Home Management,Soft Tissue Mobilization,Taping, Therapeutic Activities, Therapeutic Exercises Next Visit Focus/Plan Next Note Type Re-Evaluation Next Visit Plan ROM strength 30 STS gravity eliminated positiotn standing hip ex gait training Plan of Care Dates Plan of Care Start Date 12/07/19 Plan of Care End Date 02/05/20 Electronically Signed by: Erin Calle PT 12/07/19 [id number] Please Sign and Return: I have reviewed this Plan of Care and certify that the skilled therapy services above are required to meet the patient?s needs. Physician Signature Date Printed Name and Credentials Clinical Instructor Signature Printed Name and Credentials
--- NOTE | 2019-12-14 11:57 | PT.OTRE ---
Current Diagnoses Unilateral primary osteoarthritis, unspecified hip (12/14/19) Past Medical History (Last Updated 12/02/19 @ 10:15 by Ching Ruiz RN) Elevated cholesterol (Acute) No significant medical problems (Chronic) STEPHANE (obstructive sleep apnea) (Acute) Osteoarthritis (Acute) Seasonal allergies (Acute) Stomach ulcer (Acute) Uterine fibroid (Acute) Surgical History (Last Updated 12/02/19 @ 10:15 by Ching Ruiz RN) History of colonoscopy (Acute) Hx of arthroscopy of right knee (Acute 2017) Hx of LASIK (Acute) Hx of lithotripsy (Acute 2011) Hx of oral surgery (Acute) Visit Care Team Role Provider Type Brent Blackwell MD Primary Care Provider Non-Staff Specialty: Family Practice Address: [address] [place] [address], [id number] Email: Koffi Ellis MD Attending Provider Physician Referring Provider Specialty: Orthopedic Surgery Address: [address] [place] [address], [id number] Email: [email or web address] Physical Therapy Re-Evaluation PT-OP-A Visit Information Start: 12/07/19 08:10 Freq: Status: Active Protocol: Document 12/14/19 09:01 (Rec: 12/14/19 11:25 [id number]) Out-Patient Physical Therapy Visit Information Visit Information Visit Type Re-Evaluation Visit Start Time 09:02 Visit Stop Time 09:45 Total Visit Minutes 43 Visit Number 2/15 Number of OFFICE MACHINE TECHNICIAN Visits 0 PT-OP-B Current Condition Start: 12/07/19 08:10 Freq: Status: Active Protocol: Document 12/07/19 10:05 HH (Rec: 12/07/19 10:34 [email or web address]) Current Condition History of Current Condition Onset Date a year ago Current Complaints R hip pain, upcoming R SHANELL ( posterior approach) History of Current Condition Pt presents to clinic today for pre operative workshop for her upcoming R SHANELL (posterior approach) with Dr. Ellis on 12/09/19. Pt fell approx a year ago and twisted her R hip awkwardly. She has been experiencing pain with hip ER and flexion related movements, bending down and sit <>stand activities. Pt had a course of PT and it did help but not permanently since MRI did show Small anterosuperior right acetabular labral tear and Moderate to severe degenerative changes of the right hip. Prior Treatments and Tests Jan, 2019- MRI did show Small anterosuperior right acetabular labral tear and Moderate to severe degenerative changes of the right hip Treatment Goals Patient/Caregiver Goals 1. To regain her R hip ROM and strength for functional activities 2. Able to bend down to pickle cutter objects; fawn socks and car transfer without pain. Prior Functional Status Baseline Function- ADL's Independent Baseline Function- Mobility Independent Current Functional Impairments (Reported) Functional Limitations- ADL's unable to fawn/doff socks in seated position on R LE Functional Limitations- Other pain while lifting her RLE into her car during car transfer difficulty bending down to reach for the floor. PT-OP-C Subjective Start: 12/07/19 08:10 Freq: Status: Active Protocol: Document 12/14/19 09:01 (Rec: 12/14/19 11:25 [id number]) OP-PT Subjective Patient Comments Patient Comments I did take much meds this morning but milo been doing fine. OP-PT Pain Assessment Location R hip Pain Location Details R hip joint Intensity 2 Scale Used Numeric (0 - 10) Description Aching Pain Aggravating Factors Changing Position,Activity, Sitting,Stair Climbing,Bending Pain Alleviating Factors Standing,Exercise PT-OP-E Functional Tests Start: 12/07/19 08:10 Freq: Status: Active Protocol: Document 12/14/19 09:01 (Rec: 12/14/19 11:25 [id number]) Functional Tests 30 Second Sit to Stand Test Score 9 Comments staggered stance with FWW PT-OP-G Mobility & Gait Start: 12/07/19 08:10 Freq: Status: Active Protocol: Document 12/14/19 09:01 (Rec: 12/14/19 11:25 [id number]) OP Gait Assessment Assistive Devices Assistive Device Front Wheeled Walker Gait Deviations General Gait Pattern Antalgic,Decreased Stride Length,Decreased Feet Clearance Factors Limiting Gait Function Factors Limiting Gait Function Decreased Activity Tolerance, Decreased Strength,Limited Range of Motion,Pain,Poor Balance PT-OP-J Posture/Palpation/Skin Start: 12/07/19 08:10 Freq: Status: Active Protocol: Document 12/07/19 10:05 (Rec: 12/07/19 10:34 [email or web address]) Posture Evaluation Position Standing Pelvis Posture Anteriorly Tilted,(R) Rotated Posterior Weight Distribution Weight Shifted Left Hip Posture (R) Internally Rotated Knee Posture (R) Genu Valgus,(R) Ext. Tibial Torsion,(R) Excess Flexion PT-OP-K Range of Motion Start: 12/07/19 08:10 Freq: Status: Active Protocol: Document 12/14/19 09:01 (Rec: 12/14/19 11:25 [id number]) Hip Goniometric Range of Motion Hip Measured in Degrees Left Active Straight Leg Raise 90 Abduction 35 Comments supine ER= lateral knee is 9 inches from table supine abd and ER Right Active Straight Leg Raise 55 Abduction 24 Comments supine ER = lateral knee is 11 inches from table supine abd and ER PT-OP-M Strength Start: 12/07/19 08:10 Freq: Status: Active Protocol: Document 12/14/19 09:01 (Rec: 12/14/19 11:25 [id number]) Hip Strength Hip Manual Muscle Testing Left Flexion (L2) 4+ Good+ Extension (S1) 4+ Good+ Abduction 4+ Good+ Adduction 4+ Good+ External Rotation 4+ Good+ Internal Rotation 4+ Good+ Right Flexion (L2) 3- Fair- Extension (S1) 3- Fair- Abduction 3- Fair- Adduction 3- Fair- External Rotation 3 Fair Internal Rotation 3+ Fair+ PT-OP-Q Treatments Start: 12/07/19 08:10 Freq: Status: Active Protocol: Document 12/14/19 09:01 (Rec: 12/14/19 11:25 [id number]) Therapeutic Exercises Supine Exercises SLR Supine Exercise Name up to 20-30 degrees Side right Reps/Minutes 6x2 Comments soreness at R hip supine hip ER Supine Exercise Name hooklying position Side bilateral Comments cues to prevent trunk rotation , pt felt stretch at R adductors Sitting Exercises rolling pin Sitting Exercise Name for hip adductors and lateral quads Comments for HEP Standing Exercises standing hip ext Side right Equipment Used with slider Reps/Minutes 8x2 Comments HEP, cues on preventing tunrk compensation standing hip abd Side right Equipment Used with slider Reps/Minutes 8 x2 Comments HEP, cues on preventing tunrk compensation Manual Therapy Treatment Soft Tissue Mobilization R lateral quad Mobilization Type Rolling,Sustained Pressure, Trigger Point Release Intensity/Depth Superficial Body Position Hooklying Comments significant tenderness to pressure at distal lateral quad R hip adductors Mobilization Type Rolling,Sustained Pressure, Trigger Point Release Intensity/Depth Superficial Body Position Hooklying Comments significant tenderness to pressure PT-OP-T Assessment and Plan Start: 12/07/19 08:10 Freq: Status: Active Protocol: Document 12/14/19 09:01 (Rec: 12/14/19 11:25 [id number]) Physical Therapy Assessment Goals 30s STS Impairment baseline= 14 times in 30s Fdc Goal (LTG) Pt will improve her LE strength who will reach >12 times in 30s STS LTG Duration 8 weeks strength Impairment pt's RLE is mostly 3+/4- for MMT grossly Casting Room Operator Goal (LTG) Pt will reach 4+/5 for overall RLE strength so she will not compensate through LLE for STS and walking activities. LTG Duration 8 weeks gait Impairment pt amb with R knee valgus and hip IR Short Term Goal (STG) pt will be able to amb without a FWW for household distance STG Duration 4 weeks Casting Room Operator Goal (LTG) pt will be able to amb without any AD for community distance , along with neutral hip and knee postion to optimaze gait mechanics LTG Duration 8 weeks LEFS 2 Impairment pt scores 42 on LEFs Short Term Goal (STG) pt will score >48 on LEFS to improve her functional mobility and strength STG Duration 4 weeks Casting Room Operator Goal (LTG) pt will score >63 on LEFS to improve her functional mobility and strength so she can put on her shoes and socks without difficulty. LTG Duration 8 weeks Assessment Summary Assessment Pt is POD 5 after her R SHANELL. Pt came to clinic with FWW independently. Pt demonstrated steppage gait for RLE clearance since she felt RLE is longer post surgically. However, her discomfort is minimal but shows improved hip ER immediately. HEP includes standing hip ext/ abd, supine SLR and supine hip ER. Physical Therapy Plan Frequency and Duration Frequency of Treatment 2x/Week Duration of Treatment 8 weeks Plan of Care Start Date 12/07/19 Plan of Care End Date 02/05/20 Next Visit Focus/Plan Next Note Type Re-Evaluation Next Visit Plan ROM strength 30 STS gravity eliminated positiotn standing hip ex gait training
--- NOTE | 2019-12-17 10:05 | PT.OTN ---
Current Diagnoses Unilateral primary osteoarthritis, unspecified hip (12/17/19) Physical Therapy Treatment Note PT-OP-A Visit Information Start: 12/07/19 08:10 Freq: Status: Active Protocol: Document 12/17/19 09:01 (Rec: 12/17/19 10:05 [id number]) Out-Patient Physical Therapy Visit Information Visit Information Visit Type Treatment Note Visit Start Time 09:03 Visit Stop Time 09:48 Total Visit Minutes 45 Visit Number 05/16 PT-OP-B Current Condition Start: 12/07/19 08:10 Freq: Status: Active Protocol: Document 12/07/19 10:05 HH (Rec: 12/07/19 10:34 [email or web address]) Current Condition History of Current Condition Onset Date a year ago Current Complaints R hip pain, upcoming R SHANELL ( posterior approach) History of Current Condition Pt presents to clinic today for pre operative workshop for her upcoming R SHANELL (posterior approach) with Dr. Ellis on 12/09/19. Pt fell approx a year ago and twisted her R hip awkwardly. She has been experiencing pain with hip ER and flexion related movements, bending down and sit <>stand activities. Pt had a course of PT and it did help but not permanently since MRI did show Small anterosuperior right acetabular labral tear and Moderate to severe degenerative changes of the right hip. Prior Treatments and Tests Jan, 2019- MRI did show Small anterosuperior right acetabular labral tear and Moderate to severe degenerative changes of the right hip Treatment Goals Patient/Caregiver Goals 1. To regain her R hip ROM and strength for functional activities 2. Able to bend down to diamond picker objects; fawn socks and car transfer without pain. Prior Functional Status Baseline Function- ADL's Independent Baseline Function- Mobility Independent Current Functional Impairments (Reported) Functional Limitations- ADL's unable to fawn/doff socks in seated position on R LE Functional Limitations- Other pain while lifting her RLE into her car during car transfer difficulty bending down to reach for the floor. PT-OP-C Subjective Start: 12/07/19 08:10 Freq: Status: Active Protocol: Document 12/17/19 09:01 (Rec: 12/17/19 10:05 [id number]) OP-PT Subjective Patient Comments Patient Comments I got very sore yesterday and i dont know why but i was doing fine the whole time. Teresa been taking less medication. PT-OP-E Functional Tests Start: 12/07/19 08:10 Freq: Status: Active Protocol: Document 12/14/19 09:01 (Rec: 12/14/19 11:25 [id number]) Functional Tests 30 Second Sit to Stand Test Score 9 Comments staggered stance with FWW PT-OP-G Mobility & Gait Start: 12/07/19 08:10 Freq: Status: Active Protocol: Document 12/14/19 09:01 (Rec: 12/14/19 11:25 [id number]) OP Gait Assessment Assistive Devices Assistive Device Front Wheeled Walker Gait Deviations General Gait Pattern Antalgic,Decreased Stride Length,Decreased Feet Clearance Factors Limiting Gait Function Factors Limiting Gait Function Decreased Activity Tolerance, Decreased Strength,Limited Range of Motion,Pain,Poor Balance PT-OP-J Posture/Palpation/Skin Start: 12/07/19 08:10 Freq: Status: Active Protocol: Document 12/07/19 10:05 (Rec: 12/07/19 10:34 [email or web address]) Posture Evaluation Position Standing Pelvis Posture Anteriorly Tilted,(R) Rotated Posterior Weight Distribution Weight Shifted Left Hip Posture (R) Internally Rotated Knee Posture (R) Genu Valgus,(R) Ext. Tibial Torsion,(R) Excess Flexion PT-OP-K Range of Motion Start: 12/07/19 08:10 Freq: Status: Active Protocol: Document 12/14/19 09:01 (Rec: 12/14/19 11:25 [id number]) Hip Goniometric Range of Motion Hip Left Active Straight Leg Raise 90 Abduction 35 Comments supine ER= lateral knee is 9 inches from table supine abd and ER Right Active Straight Leg Raise 55 Abduction 24 Comments supine ER = lateral knee is 11 inches from table supine abd and ER PT-OP-M Strength Start: 12/07/19 08:10 Freq: Status: Active Protocol: Document 12/14/19 09:01 (Rec: 12/14/19 11:25 [id number]) Hip Strength Hip Manual Muscle Testing Left Flexion (L2) 4+ Good+ Extension (S1) 4+ Good+ Abduction 4+ Good+ Adduction 4+ Good+ External Rotation 4+ Good+ Internal Rotation 4+ Good+ Right Flexion (L2) 3- Fair- Extension (S1) 3- Fair- Abduction 3- Fair- Adduction 3- Fair- External Rotation 3 Fair Internal Rotation 3+ Fair+ PT-OP-Q Treatments Start: 12/07/19 08:10 Freq: Status: Active Protocol: Document 12/17/19 09:01 (Rec: 12/17/19 10:05 [id number]) Cardio Equipment Recumbent Stepper (Sci-Fit) Duration (Minutes) 6 Resistance 1 Seat Position 11 Other discomfort noted Therapeutic Exercises Supine Exercises supine quad set Side right Equipment Used disc under knee Reps/Minutes 6 x2 Comments for HEP, replace SLR iso hip ab Side bilateral Resistance manual resistance Reps/Minutes 10secs hold x6 x2 hip ER Side bilateral Reps/Minutes 6 x2 Comments tightness noted at adductors. Sidelying Exercises Glute stretch Sidelying Exercise Name with rolling pin massage Side right Equipment Used 2 pillows between knees Reps/Minutes 3 min clamshell Sidelying Exercise Name max A, unable to perform independently Side right Equipment Used 2 pillows between knees Reps/Minutes 6 x1 Manual Therapy Treatment Soft Tissue Mobilization glute Body Location R Mobilization Type Sustained Pressure,Trigger Point Release Intensity/Depth Moderate Body Position Sidelying Comments significant tenderness at distal glute R lateral quad Mobilization Type Rolling,Sustained Pressure, Trigger Point Release Intensity/Depth Superficial Body Position Hooklying Comments significant tenderness to pressure at distal lateral quad PT-OP-T Assessment and Plan Start: 12/07/19 08:10 Freq: Status: Active Protocol: Document 12/17/19 09:01 (Rec: 12/17/19 10:05 [id number]) Physical Therapy Assessment Goals 30s STS Impairment baseline= 14 times in 30s Channeling Machine Runner Goal (LTG) Pt will improve her LE strength who will reach >12 times in 30s STS LTG Duration 8 weeks strength Impairment pt's RLE is mostly 3+/4- for MMT grossly Channeling Machine Runner Goal (LTG) Pt will reach 4+/5 for overall RLE strength so she will not compensate through LLE for STS and walking activities. LTG Duration 8 weeks gait Impairment pt amb with R knee valgus and hip IR Short Term Goal (STG) pt will be able to amb without a FWW for household distance STG Duration 4 weeks Channeling Machine Runner Goal (LTG) pt will be able to amb without any AD for community distance , along with neutral hip and knee postion to optimaze gait mechanics LTG Duration 8 weeks LEFS 2 Impairment pt scores 42 on LEFs Short Term Goal (STG) pt will score >48 on LEFS to improve her functional mobility and strength STG Duration 4 weeks Channeling Machine Runner Goal (LTG) pt will score >63 on LEFS to improve her functional mobility and strength so she can put on her shoes and socks without difficulty. LTG Duration 8 weeks Assessment Summary Assessment Post op 1 week today. Pt has soreness at anterior thigh and hip since yesterday but her active ER is cont getting better. Replaced SLR with glute+quad set, and added isometric supine hip ER/abd. Pt was unable to perform clamshell d/t significant glute weakness. Physical Therapy Plan Frequency and Duration Frequency of Treatment 2x/Week Duration of Treatment 8 weeks Plan of Care Start Date 12/07/19 Plan of Care End Date 02/05/20 Next Visit Focus/Plan Next Note Type Treatment Note Next Visit Plan gravity eliminated positiotn standing hip ex supine ER/ abd glute set gait training
--- NOTE | 2019-12-21 11:49 | PT.OTN ---
Current Diagnoses Unilateral primary osteoarthritis, unspecified hip (12/21/19) Physical Therapy Treatment Note PT-OP-A Visit Information Start: 12/07/19 08:10 Freq: Status: Active Protocol: Document 12/21/19 09:02 (Rec: 12/21/19 11:49 [id number]) Out-Patient Physical Therapy Visit Information Visit Information Visit Type Treatment Note Visit Start Time 09:03 Visit Stop Time 09:46 Total Visit Minutes 43 Visit Number 06/16 PT-OP-B Current Condition Start: 12/07/19 08:10 Freq: Status: Active Protocol: Document 12/07/19 10:05 HH (Rec: 12/07/19 10:34 [email or web address]) Current Condition History of Current Condition Onset Date a year ago Current Complaints R hip pain, upcoming R SHANELL ( posterior approach) History of Current Condition Pt presents to clinic today for pre operative workshop for her upcoming R SHANELL (posterior approach) with Dr. Ellis on 12/09/19. Pt fell approx a year ago and twisted her R hip awkwardly. She has been experiencing pain with hip ER and flexion related movements, bending down and sit <>stand activities. Pt had a course of PT and it did help but not permanently since MRI did show Small anterosuperior right acetabular labral tear and Moderate to severe degenerative changes of the right hip. Prior Treatments and Tests Jan, 2019- MRI did show Small anterosuperior right acetabular labral tear and Moderate to severe degenerative changes of the right hip Treatment Goals Patient/Caregiver Goals 1. To regain her R hip ROM and strength for functional activities 2. Able to bend down to picker / packer objects; fawn socks and car transfer without pain. Prior Functional Status Baseline Function- ADL's Independent Baseline Function- Mobility Independent Current Functional Impairments (Reported) Functional Limitations- ADL's unable to fawn/doff socks in seated position on R LE Functional Limitations- Other pain while lifting her RLE into her car during car transfer difficulty bending down to reach for the floor. PT-OP-C Subjective Start: 12/07/19 08:10 Freq: Status: Active Protocol: Document 12/21/19 09:02 (Rec: 12/21/19 11:49 [id number]) OP-PT Subjective Patient Comments Patient Comments Walking is very frustrating. PT-OP-E Functional Tests Start: 12/07/19 08:10 Freq: Status: Active Protocol: Document 12/14/19 09:01 (Rec: 12/14/19 11:25 [id number]) Functional Tests 30 Second Sit to Stand Test Score 9 Comments staggered stance with FWW PT-OP-G Mobility & Gait Start: 12/07/19 08:10 Freq: Status: Active Protocol: Document 12/14/19 09:01 (Rec: 12/14/19 11:25 [id number]) OP Gait Assessment Assistive Devices Assistive Device Front Wheeled Walker Gait Deviations General Gait Pattern Antalgic,Decreased Stride Length,Decreased Feet Clearance Factors Limiting Gait Function Factors Limiting Gait Function Decreased Activity Tolerance, Decreased Strength,Limited Range of Motion,Pain,Poor Balance PT-OP-J Posture/Palpation/Skin Start: 12/07/19 08:10 Freq: Status: Active Protocol: Document 12/07/19 10:05 (Rec: 12/07/19 10:34 [email or web address]) Posture Evaluation Position Standing Pelvis Posture Anteriorly Tilted,(R) Rotated Posterior Weight Distribution Weight Shifted Left Hip Posture (R) Internally Rotated Knee Posture (R) Genu Valgus,(R) Ext. Tibial Torsion,(R) Excess Flexion PT-OP-K Range of Motion Start: 12/07/19 08:10 Freq: Status: Active Protocol: Document 12/14/19 09:01 (Rec: 12/14/19 11:25 [id number]) Hip Goniometric Range of Motion Hip Left Active Straight Leg Raise 90 Abduction 35 Comments supine ER= lateral knee is 9 inches from table supine abd and ER Right Active Straight Leg Raise 55 Abduction 24 Comments supine ER = lateral knee is 11 inches from table supine abd and ER PT-OP-M Strength Start: 12/07/19 08:10 Freq: Status: Active Protocol: Document 12/14/19 09:01 (Rec: 12/14/19 11:25 [id number]) Hip Strength Hip Manual Muscle Testing Left Flexion (L2) 4+ Good+ Extension (S1) 4+ Good+ Abduction 4+ Good+ Adduction 4+ Good+ External Rotation 4+ Good+ Internal Rotation 4+ Good+ Right Flexion (L2) 3- Fair- Extension (S1) 3- Fair- Abduction 3- Fair- Adduction 3- Fair- External Rotation 3 Fair Internal Rotation 3+ Fair+ PT-OP-Q Treatments Start: 12/07/19 08:10 Freq: Status: Active Protocol: Document 12/21/19 09:02 (Rec: 12/21/19 11:49 [id number]) Cardio Equipment Recumbent Elliptical (Biodex) Duration (Minutes) 5 Resistance 5 Other without use of arms. Medial knee tracking. Gym Equipment Shuttle Recovery U squats Details Both sides Resistance #37 (L), #25 (R) Shuttle Recovery Platform Stable Reps/Time 10 x3, need cues to facilitate neutral alignment (knee and foot) Therapeutic Exercises Supine Exercises supine quad set Side right Equipment Used disc under knee Reps/Minutes 6 x2 Comments increased anterior hip pain. supine hip ER Supine Exercise Name hooklying position Side bilateral Equipment Used yellow theraband Reps/Minutes 10 x1, 10 x3 Comments first set without theraband. Cues to keep feet flat on the table. Gait Training Gait Activity level ground Device Used walker Level of Assistance CGA Surface level ground Distance/Duration 20ft x 4 Treatment Focus weight acceptance on R Comments pt was able to WBAT on RLE with minimal support on FWW. Less discomfort at the end of session. Manual Therapy Treatment Soft Tissue Mobilization R lateral quad Mobilization Type Rolling,Sustained Pressure, Trigger Point Release Intensity/Depth Superficial Body Position Hooklying Comments significant tenderness to pressure at distal lateral quad R hip adductors Mobilization Type Rolling,Sustained Pressure, Trigger Point Release Intensity/Depth Superficial Body Position Hooklying Comments significant tenderness to pressure R hip flexor Mobilization Type Cross-Friction,Rolling, Sustained Pressure Intensity/Depth Moderate Body Position Supine PT-OP-T Assessment and Plan Start: 12/07/19 08:10 Freq: Status: Active Protocol: Document 12/21/19 09:02 (Rec: 12/21/19 11:49 [id number]) Physical Therapy Assessment Goals 30s STS Impairment baseline= 14 times in 30s Senior Care Goal (LTG) Pt will improve her LE strength who will reach >12 times in 30s STS LTG Duration 8 weeks strength Impairment pt's RLE is mostly 3+/4- for MMT grossly Senior Care Goal (LTG) Pt will reach 4+/5 for overall RLE strength so she will not compensate through LLE for STS and walking activities. LTG Duration 8 weeks gait Impairment pt amb with R knee valgus and hip IR Short Term Goal (STG) pt will be able to amb without a FWW for household distance STG Duration 4 weeks Senior Care Goal (LTG) pt will be able to amb without any AD for community distance , along with neutral hip and knee postion to optimaze gait mechanics LTG Duration 8 weeks LEFS 2 Impairment pt scores 42 on LEFs Short Term Goal (STG) pt will score >48 on LEFS to improve her functional mobility and strength STG Duration 4 weeks Law Reporter Goal (LTG) pt will score >63 on LEFS to improve her functional mobility and strength so she can put on her shoes and socks without difficulty. LTG Duration 8 weeks Assessment Summary Assessment Pt came in with continued c/o R hip pain expecially during walking/ WB activities, but no discomfort during HEP. Pt reported feeling better after doing recumbent bike. Her R anterior hip was tender to stretch and pressure. Pt tolerated exercises well. During hooklying hip external rotation and shuttle recovery, pt had R medial knee tracking and R lateral foot rocking. Instructions to keep the R knee straight and R foot flat on the ground were provided. Pt's gait improved with decreased pain after doing unilateral squats on Shuttle. Tx should cont focus on SL, hip stability with neuro manju for gait training. Physical Therapy Plan Frequency and Duration Frequency of Treatment 2x/Week Duration of Treatment 8 weeks Plan of Care Start Date 12/07/19 Plan of Care End Date 02/05/20 Next Visit Focus/Plan Next Note Type Treatment Note Next Visit Plan gravity eliminated positiotn standing hip ex supine ER/ abd glute set leg press for SL control gait training
--- NOTE | 2019-12-24 09:51 | PT.OTN ---
Current Diagnoses Unilateral primary osteoarthritis, unspecified hip (12/24/19) Physical Therapy Treatment Note PT-OP-A Visit Information Start: 12/07/19 08:10 Freq: Status: Active Protocol: Document 12/24/19 09:07 (Rec: 12/24/19 09:50 [id number]) Out-Patient Physical Therapy Visit Information Visit Information Visit Type Treatment Note Visit Note Pt came in with tripod cane. Visit Start Time 09:02 Visit Stop Time 09:47 Total Visit Minutes 45 Visit Number 5/15 Number of THERMODYNAMICS ENGINEER Visits 0 PT-OP-B Current Condition Start: 12/07/19 08:10 Freq: Status: Active Protocol: Document 12/07/19 10:05 HH (Rec: 12/07/19 10:34 [email or web address]) Current Condition History of Current Condition Onset Date a year ago Current Complaints R hip pain, upcoming R SHANELL ( posterior approach) History of Current Condition Pt presents to clinic today for pre operative workshop for her upcoming R SHANELL (posterior approach) with Dr. Ellis on 12/09/19. Pt fell approx a year ago and twisted her R hip awkwardly. She has been experiencing pain with hip ER and flexion related movements, bending down and sit <>stand activities. Pt had a course of PT and it did help but not permanently since MRI did show Small anterosuperior right acetabular labral tear and Moderate to severe degenerative changes of the right hip. Prior Treatments and Tests Jan, 2019- MRI did show Small anterosuperior right acetabular labral tear and Moderate to severe degenerative changes of the right hip Treatment Goals Patient/Caregiver Goals 1. To regain her R hip ROM and strength for functional activities 2. Able to bend down to lemon picker objects; fawn socks and car transfer without pain. Prior Functional Status Baseline Function- ADL's Independent Baseline Function- Mobility Independent Current Functional Impairments (Reported) Functional Limitations- ADL's unable to fawn/doff socks in seated position on R LE Functional Limitations- Other pain while lifting her RLE into her car during car transfer difficulty bending down to reach for the floor. PT-OP-C Subjective Start: 12/07/19 08:10 Freq: Status: Active Protocol: Document 12/24/19 09:07 (Rec: 12/24/19 09:50 [id number]) OP-PT Subjective Patient Comments Patient Comments I got better after last session and able to bear weight on my R hip. Patient Reported Progress Improving PT-OP-E Functional Tests Start: 12/07/19 08:10 Freq: Status: Active Protocol: Document 12/14/19 09:01 (Rec: 12/14/19 11:25 [id number]) Functional Tests 30 Second Sit to Stand Test Score 9 Comments staggered stance with FWW PT-OP-G Mobility & Gait Start: 12/07/19 08:10 Freq: Status: Active Protocol: Document 12/14/19 09:01 (Rec: 12/14/19 11:25 [id number]) OP Gait Assessment Assistive Devices Assistive Device Front Wheeled Walker Gait Deviations General Gait Pattern Antalgic,Decreased Stride Length,Decreased Feet Clearance Factors Limiting Gait Function Factors Limiting Gait Function Decreased Activity Tolerance, Decreased Strength,Limited Range of Motion,Pain,Poor Balance PT-OP-J Posture/Palpation/Skin Start: 12/07/19 08:10 Freq: Status: Active Protocol: Document 12/07/19 10:05 (Rec: 12/07/19 10:34 [email or web address]) Posture Evaluation Position Standing Pelvis Posture Anteriorly Tilted,(R) Rotated Posterior Weight Distribution Weight Shifted Left Hip Posture (R) Internally Rotated Knee Posture (R) Genu Valgus,(R) Ext. Tibial Torsion,(R) Excess Flexion PT-OP-K Range of Motion Start: 12/07/19 08:10 Freq: Status: Active Protocol: Document 12/14/19 09:01 (Rec: 12/14/19 11:25 [id number]) Hip Goniometric Range of Motion Hip Left Active Straight Leg Raise 90 Abduction 35 Comments supine ER= lateral knee is 9 inches from table supine abd and ER Right Active Straight Leg Raise 55 Abduction 24 Comments supine ER = lateral knee is 11 inches from table supine abd and ER PT-OP-M Strength Start: 12/07/19 08:10 Freq: Status: Active Protocol: Document 12/14/19 09:01 (Rec: 12/14/19 11:25 [id number]) Hip Strength Hip Manual Muscle Testing Left Flexion (L2) 4+ Good+ Extension (S1) 4+ Good+ Abduction 4+ Good+ Adduction 4+ Good+ External Rotation 4+ Good+ Internal Rotation 4+ Good+ Right Flexion (L2) 3- Fair- Extension (S1) 3- Fair- Abduction 3- Fair- Adduction 3- Fair- External Rotation 3 Fair Internal Rotation 3+ Fair+ PT-OP-Q Treatments Start: 12/07/19 08:10 Freq: Status: Active Protocol: Document 12/24/19 09:07 (Rec: 12/24/19 09:50 [id number]) Gym Equipment Shuttle Recovery U squats Details Both sides Resistance #37 (L), #25 (R) Shuttle Recovery Platform Stable Reps/Time 10 x3, cues to keep the knees out Therapeutic Exercises Supine Exercises quad sets Side right Reps/Minutes 8 x1 bridging Side bilateral Equipment Used yellow theraband around knee Reps/Minutes 6 x2 Comments cues to keep knees out Hooklying hip adductor stretch Side right Equipment Used manual assist Reps/Minutes 3 sec hold x8 Jason stretch, modification pelvic tilt Side right Reps/Minutes 5 sec hold x8 Comments R leg does not tough the table supine hip ER Supine Exercise Name hooklying position Side bilateral Equipment Used yellow theraband Reps/Minutes 10 x3 Comments one side at a time Manual Therapy Treatment Soft Tissue Mobilization R lateral quad Mobilization Type Rolling,Sustained Pressure, Trigger Point Release Intensity/Depth Superficial Body Position Hooklying Comments significant tenderness to pressure at distal lateral quad R hip adductors Mobilization Type Rolling,Sustained Pressure, Trigger Point Release Intensity/Depth Superficial Body Position Hooklying Comments significant tenderness to pressure R hip flexor Mobilization Type Cross-Friction,Rolling, Sustained Pressure Intensity/Depth Moderate Body Position Supine Comments In imani position. PT-OP-T Assessment and Plan Start: 12/07/19 08:10 Freq: Status: Active Protocol: Document 12/24/19 09:07 (Rec: 12/24/19 09:50 [id number]) Physical Therapy Assessment Goals 30s STS Impairment baseline= 14 times in 30s Half-Way Goal (LTG) Pt will improve her LE strength who will reach >12 times in 30s STS LTG Duration 8 weeks strength Impairment pt's RLE is mostly 3+/4- for MMT grossly Half-Way Goal (LTG) Pt will reach 4+/5 for overall RLE strength so she will not compensate through LLE for STS and walking activities. LTG Duration 8 weeks gait Impairment pt amb with R knee valgus and hip IR Short Term Goal (STG) pt will be able to amb without a FWW for household distance STG Duration 4 weeks Half-Way Goal (LTG) pt will be able to amb without any AD for community distance , along with neutral hip and knee postion to optimaze gait mechanics LTG Duration 8 weeks LEFS 2 Impairment pt scores 42 on LEFs Short Term Goal (STG) pt will score >48 on LEFS to improve her functional mobility and strength STG Duration 4 weeks Half-Way Goal (LTG) pt will score >63 on LEFS to improve her functional mobility and strength so she can put on her shoes and socks without difficulty. LTG Duration 8 weeks Assessment Summary Assessment Pt came in with improved activity tolerance and WB ability on R hip. She has improved hip ER and stabilizers strength. Will cont POC. Physical Therapy Plan Frequency and Duration Frequency of Treatment 2x/Week Duration of Treatment 8 weeks Plan of Care Start Date 12/07/19 Plan of Care End Date 02/05/20 Next Visit Focus/Plan Next Note Type Treatment Note Next Visit Plan gravity eliminated positiotn standing hip ex supine ER/ abd glute set leg press for SL control gait training
--- NOTE | 2019-12-28 09:51 | PT.OTN ---
Current Diagnoses Unilateral primary osteoarthritis, unspecified hip (12/28/19) Physical Therapy Treatment Note PT-OP-A Visit Information Start: 12/07/19 08:10 Freq: Status: Active Protocol: Document 12/28/19 09:05 (Rec: 12/28/19 09:50 [id number]) Out-Patient Physical Therapy Visit Information Visit Information Visit Type Treatment Note Visit Note Pt came in with tripod cane. Visit Start Time 09:03 Visit Stop Time 09:47 Total Visit Minutes 43 Visit Number 6/15 Number of HOME CARE COORDINATOR Visits 0 PT-OP-B Current Condition Start: 12/07/19 08:10 Freq: Status: Active Protocol: Document 12/07/19 10:05 HH (Rec: 12/07/19 10:34 [email or web address]) Current Condition History of Current Condition Onset Date a year ago Current Complaints R hip pain, upcoming R SHANELL ( posterior approach) History of Current Condition Pt presents to clinic today for pre operative workshop for her upcoming R SHANELL (posterior approach) with Dr. Ellis on 12/09/19. Pt fell approx a year ago and twisted her R hip awkwardly. She has been experiencing pain with hip ER and flexion related movements, bending down and sit <>stand activities. Pt had a course of PT and it did help but not permanently since MRI did show Small anterosuperior right acetabular labral tear and Moderate to severe degenerative changes of the right hip. Prior Treatments and Tests Jan, 2019- MRI did show Small anterosuperior right acetabular labral tear and Moderate to severe degenerative changes of the right hip Treatment Goals Patient/Caregiver Goals 1. To regain her R hip ROM and strength for functional activities 2. Able to bend down to continuous pickling line pickler objects; fawn socks and car transfer without pain. Prior Functional Status Baseline Function- ADL's Independent Baseline Function- Mobility Independent Current Functional Impairments (Reported) Functional Limitations- ADL's unable to fawn/doff socks in seated position on R LE Functional Limitations- Other pain while lifting her RLE into her car during car transfer difficulty bending down to reach for the floor. PT-OP-C Subjective Start: 12/07/19 08:10 Freq: Status: Active Protocol: Document 12/28/19 09:05 (Rec: 12/28/19 09:50 [id number]) OP-PT Subjective Patient Comments Patient Comments Im pretty good putting weight on R side now and able to walk around in the house without the cane sometimes. But i got pretty sore after the weekend. Patient Reported Progress Improving PT-OP-E Functional Tests Start: 12/07/19 08:10 Freq: Status: Active Protocol: Document 12/14/19 09:01 (Rec: 12/14/19 11:25 [id number]) Functional Tests 30 Second Sit to Stand Test Score 9 Comments staggered stance with FWW PT-OP-G Mobility & Gait Start: 12/07/19 08:10 Freq: Status: Active Protocol: Document 12/14/19 09:01 (Rec: 12/14/19 11:25 [id number]) OP Gait Assessment Assistive Devices Assistive Device Front Wheeled Walker Gait Deviations General Gait Pattern Antalgic,Decreased Stride Length,Decreased Feet Clearance Factors Limiting Gait Function Factors Limiting Gait Function Decreased Activity Tolerance, Decreased Strength,Limited Range of Motion,Pain,Poor Balance PT-OP-J Posture/Palpation/Skin Start: 12/07/19 08:10 Freq: Status: Active Protocol: Document 12/07/19 10:05 (Rec: 12/07/19 10:34 [email or web address]) Posture Evaluation Position Standing Pelvis Posture Anteriorly Tilted,(R) Rotated Posterior Weight Distribution Weight Shifted Left Hip Posture (R) Internally Rotated Knee Posture (R) Genu Valgus,(R) Ext. Tibial Torsion,(R) Excess Flexion PT-OP-K Range of Motion Start: 12/07/19 08:10 Freq: Status: Active Protocol: Document 12/14/19 09:01 (Rec: 12/14/19 11:25 [id number]) Hip Goniometric Range of Motion Hip Left Active Straight Leg Raise 90 Abduction 35 Comments supine ER= lateral knee is 9 inches from table supine abd and ER Right Active Straight Leg Raise 55 Abduction 24 Comments supine ER = lateral knee is 11 inches from table supine abd and ER PT-OP-M Strength Start: 12/07/19 08:10 Freq: Status: Active Protocol: Document 12/14/19 09:01 (Rec: 12/14/19 11:25 [id number]) Hip Strength Hip Manual Muscle Testing Left Flexion (L2) 4+ Good+ Extension (S1) 4+ Good+ Abduction 4+ Good+ Adduction 4+ Good+ External Rotation 4+ Good+ Internal Rotation 4+ Good+ Right Flexion (L2) 3- Fair- Extension (S1) 3- Fair- Abduction 3- Fair- Adduction 3- Fair- External Rotation 3 Fair Internal Rotation 3+ Fair+ PT-OP-Q Treatments Start: 12/07/19 08:10 Freq: Status: Active Protocol: Document 12/28/19 09:05 (Rec: 12/28/19 09:50 [id number]) Cardio Equipment Recumbent Stepper (Sci-Fit) Duration (Minutes) 3 Resistance 2.5 Gym Equipment Shuttle Recovery U squats Details Both sides Resistance #37 (L), #37 (R) Shuttle Recovery Platform Stable Reps/Time 10 x3, cues to keep the knees out Therapeutic Exercises Supine Exercises bridging Side bilateral Equipment Used yellow theraband around knee Reps/Minutes 8 x2 Comments cues to keep knees out Jason stretch, modification pelvic tilt Side right Reps/Minutes 5 sec hold x8 Comments R leg reached table supine hip ER Supine Exercise Name unilateral , hooklying position Side bilateral Equipment Used yellow theraband Reps/Minutes 12 x2 Comments one side at a time Sidelying Exercises clamshell Reps/Minutes 3 reps Comments able to reach 1/2 range Manual Therapy Treatment Soft Tissue Mobilization R lateral quad Mobilization Type Rolling,Sustained Pressure, Trigger Point Release Intensity/Depth Superficial Body Position Hooklying Comments minimal to pressure at distal lateral quad PT-OP-T Assessment and Plan Start: 12/07/19 08:10 Freq: Status: Active Protocol: Document 12/28/19 09:05 (Rec: 12/28/19 09:50 [id number]) Physical Therapy Assessment Goals 30s STS Impairment baseline= 14 times in 30s Fuel Oil Truck Driver Goal (LTG) Pt will improve her LE strength who will reach >12 times in 30s STS LTG Duration 8 weeks strength Impairment pt's RLE is mostly 3+/4- for MMT grossly Fuel Oil Truck Driver Goal (LTG) Pt will reach 4+/5 for overall RLE strength so she will not compensate through LLE for STS and walking activities. LTG Duration 8 weeks gait Impairment pt amb with R knee valgus and hip IR Short Term Goal (STG) pt will be able to amb without a FWW for household distance STG Duration 4 weeks Fuel Oil Truck Driver Goal (LTG) pt will be able to amb without any AD for community distance , along with neutral hip and knee postion to optimaze gait mechanics LTG Duration 8 weeks LEFS 2 Impairment pt scores 42 on LEFs Short Term Goal (STG) 12/13 pt scores 5 on LEFS post surgically pt will score >48 on LEFS to improve her functional mobility and strength STG Duration 4 weeks Fuel Oil Truck Driver Goal (LTG) pt will score >63 on LEFS to improve her functional mobility and strength so she can put on her shoes and socks without difficulty. LTG Duration 8 weeks Assessment Summary Assessment Pt shows improved SL stability and strength on uni leg press today. LLD seems to improve compared to last week. Pt also has good weight acceptance on RLe during gait. Physical Therapy Plan Frequency and Duration Frequency of Treatment 2x/Week Duration of Treatment 8 weeks Plan of Care Start Date 12/07/19 Plan of Care End Date 02/05/20 Next Visit Focus/Plan Next Note Type Treatment Note Next Visit Plan gravity eliminated positiotn standing hip ex supine ER/ abd glute set leg press for SL control gait training
--- NOTE | 2019-12-31 12:37 | PT.OTN ---
Current Diagnoses Unilateral primary osteoarthritis, unspecified hip (12/31/19) Physical Therapy Treatment Note PT-OP-A Visit Information Start: 12/07/19 08:10 Freq: Status: Active Protocol: Document 12/31/19 09:04 (Rec: 12/31/19 12:37 [id number]) Out-Patient Physical Therapy Visit Information Visit Information Visit Type Treatment Note Visit Note Pt came in with tripod cane. Visit Start Time 09:05 Visit Stop Time 09:47 Total Visit Minutes 42 Visit Number 09/15 Number of SENIOR CORPORATE RECRUITER Visits 0 PT-OP-B Current Condition Start: 12/07/19 08:10 Freq: Status: Active Protocol: Document 12/07/19 10:05 HH (Rec: 12/07/19 10:34 [id number]) Current Condition History of Current Condition Onset Date a year ago Current Complaints R hip pain, upcoming R SHANELL ( posterior approach) History of Current Condition Pt presents to clinic today for pre operative workshop for her upcoming R SHANELL (posterior approach) with Dr. Ellis on 12/09/19. Pt fell approx a year ago and twisted her R hip awkwardly. She has been experiencing pain with hip ER and flexion related movements, bending down and sit <>stand activities. Pt had a course of PT and it did help but not permanently since MRI did show Small anterosuperior right acetabular labral tear and Moderate to severe degenerative changes of the right hip. Prior Treatments and Tests Jan, 2019- MRI did show Small anterosuperior right acetabular labral tear and Moderate to severe degenerative changes of the right hip Treatment Goals Patient/Caregiver Goals 1. To regain her R hip ROM and strength for functional activities 2. Able to bend down to continuous pickling line pickler helper objects; fawn socks and car transfer without pain. Prior Functional Status Baseline Function- ADL's Independent Baseline Function- Mobility Independent Current Functional Impairments (Reported) Functional Limitations- ADL's unable to fawn/doff socks in seated position on R LE Functional Limitations- Other pain while lifting her RLE into her car during car transfer difficulty bending down to reach for the floor. PT-OP-C Subjective Start: 12/07/19 08:10 Freq: Status: Active Protocol: Document 12/31/19 09:04 HH (Rec: 12/31/19 12:37 [id number]) OP-PT Subjective Patient Comments Patient Comments I am doing okay. I walked outside on uneven surface yesterday. My leg did get sore after last session Patient Reported Progress Improving PT-OP-E Functional Tests Start: 12/07/19 08:10 Freq: Status: Active Protocol: Document 12/14/19 09:01 (Rec: 12/14/19 11:25 [id number]) Functional Tests 30 Second Sit to Stand Test Score 9 Comments staggered stance with FWW PT-OP-G Mobility & Gait Start: 12/07/19 08:10 Freq: Status: Active Protocol: Document 12/14/19 09:01 (Rec: 12/14/19 11:25 [id number]) OP Gait Assessment Assistive Devices Assistive Device Front Wheeled Walker Gait Deviations General Gait Pattern Antalgic,Decreased Stride Length,Decreased Feet Clearance Factors Limiting Gait Function Factors Limiting Gait Function Decreased Activity Tolerance, Decreased Strength,Limited Range of Motion,Pain,Poor Balance PT-OP-J Posture/Palpation/Skin Start: 12/07/19 08:10 Freq: Status: Active Protocol: Document 12/07/19 10:05 (Rec: 12/07/19 10:34 [email or web address]) Posture Evaluation Position Standing Pelvis Posture Anteriorly Tilted,(R) Rotated Posterior Weight Distribution Weight Shifted Left Hip Posture (R) Internally Rotated Knee Posture (R) Genu Valgus,(R) Ext. Tibial Torsion,(R) Excess Flexion PT-OP-K Range of Motion Start: 12/07/19 08:10 Freq: Status: Active Protocol: Document 12/14/19 09:01 (Rec: 12/14/19 11:25 [id number]) Hip Goniometric Range of Motion Hip Left Active Straight Leg Raise 90 Abduction 35 Comments supine ER= lateral knee is 9 inches from table supine abd and ER Right Active Straight Leg Raise 55 Abduction 24 Comments supine ER = lateral knee is 11 inches from table supine abd and ER PT-OP-M Strength Start: 12/07/19 08:10 Freq: Status: Active Protocol: Document 12/14/19 09:01 (Rec: 12/14/19 11:25 [id number]) Hip Strength Hip Manual Muscle Testing Left Flexion (L2) 4+ Good+ Extension (S1) 4+ Good+ Abduction 4+ Good+ Adduction 4+ Good+ External Rotation 4+ Good+ Internal Rotation 4+ Good+ Right Flexion (L2) 3- Fair- Extension (S1) 3- Fair- Abduction 3- Fair- Adduction 3- Fair- External Rotation 3 Fair Internal Rotation 3+ Fair+ PT-OP-Q Treatments Start: 12/07/19 08:10 Freq: Status: Active Protocol: Document 12/31/19 09:04 (Rec: 12/31/19 12:37 [id number]) Cardio Equipment Recumbent Elliptical (Biodex) Duration (Minutes) 4 Resistance 1 Gym Equipment Shuttle Recovery U squats Details Both sides Resistance #37 (L), #37 (R) Shuttle Recovery Platform Stable Reps/Time 10 x3, cues to keep the knees out Therapeutic Exercises Supine Exercises bridging Supine Exercise Name R foot closer to buttock, L foot further out Side bilateral Equipment Used yellow theraband around knee Reps/Minutes 8 x2 Comments improved hip level supine hip ER Supine Exercise Name unilateral , hooklying position Side bilateral Equipment Used yellow theraband Reps/Minutes 12 x2 Comments one side at a time Therapeutic Activity Therapeutic Activity STS Reps/Minutes 6 x2 Comments with cusion on the chair, yellow band around the knees, and grab bar in front. Manual Therapy Treatment Soft Tissue Mobilization glute Body Location L hip Mobilization Type Sustained Pressure Intensity/Depth Moderate Body Position Sidelying R hip flexor Mobilization Type Cross-Friction,Rolling, Sustained Pressure Intensity/Depth Moderate Body Position Supine Comments In imani position. no tenderness noted. PT-OP-T Assessment and Plan Start: 12/07/19 08:10 Freq: Status: Active Protocol: Document 12/31/19 09:04 (Rec: 12/31/19 12:37 [id number]) Physical Therapy Assessment Goals strength Impairment pt's RLE is mostly 3+/4- for MMT grossly Color Developer Goal (LTG) Pt will reach 4+/5 for overall RLE strength so she will not compensate through LLE for STS and walking activities. LTG Duration 8 weeks gait Impairment pt amb with R knee valgus and hip IR Short Term Goal (STG) pt will be able to amb without a FWW for household distance STG Duration 4 weeks Color Developer Goal (LTG) pt will be able to amb without any AD for community distance , along with neutral hip and knee postion to optimaze gait mechanics LTG Duration 8 weeks LEFS 2 Impairment pt scores 42 on LEFs Short Term Goal (STG) 12/13 pt scores 5 on LEFS post surgically pt will score >48 on LEFS to improve her functional mobility and strength STG Duration 4 weeks Color Developer Goal (LTG) pt will score >63 on LEFS to improve her functional mobility and strength so she can put on her shoes and socks without difficulty. LTG Duration 8 weeks Assessment Summary Assessment Pt did fairly well this session. Noticed improved hip extension for bridging. Physical Therapy Plan Frequency and Duration Frequency of Treatment 2x/Week Duration of Treatment 8 weeks Plan of Care Start Date 12/07/19 Plan of Care End Date 02/05/20 Next Visit Focus/Plan Next Note Type Treatment Note Next Visit Plan gravity eliminated positiotn standing hip ex supine ER/ abd glute set leg press for SL control gait training
--- NOTE | 2020-01-04 09:57 | PT.OTN ---
Current Diagnoses Unilateral primary osteoarthritis, unspecified hip (01/04/20) Physical Therapy Treatment Note PT-OP-A Visit Information Start: 12/07/19 08:10 Freq: Status: Active Protocol: Document 01/04/20 09:03 (Rec: 01/04/20 09:57 [id number]) Out-Patient Physical Therapy Visit Information Visit Information Visit Type Treatment Note Visit Note Pt came in with tripod cane. Visit Start Time 09:04 Visit Stop Time 09:49 Total Visit Minutes 45 Visit Number 8/15 Number of SYSTEMS ENG Visits 0 PT-OP-B Current Condition Start: 12/07/19 08:10 Freq: Status: Active Protocol: Document 12/07/19 10:05 HH (Rec: 12/07/19 10:34 [email or web address]) Current Condition History of Current Condition Onset Date a year ago Current Complaints R hip pain, upcoming R SHANELL ( posterior approach) History of Current Condition Pt presents to clinic today for pre operative workshop for her upcoming R SHANELL (posterior approach) with Dr. Ellis on 12/09/19. Pt fell approx a year ago and twisted her R hip awkwardly. She has been experiencing pain with hip ER and flexion related movements, bending down and sit <>stand activities. Pt had a course of PT and it did help but not permanently since MRI did show Small anterosuperior right acetabular labral tear and Moderate to severe degenerative changes of the right hip. Prior Treatments and Tests Jan, 2019- MRI did show Small anterosuperior right acetabular labral tear and Moderate to severe degenerative changes of the right hip Treatment Goals Patient/Caregiver Goals 1. To regain her R hip ROM and strength for functional activities 2. Able to bend down to machine pecan picker objects; fawn socks and car transfer without pain. Prior Functional Status Baseline Function- ADL's Independent Baseline Function- Mobility Independent Current Functional Impairments (Reported) Functional Limitations- ADL's unable to fawn/doff socks in seated position on R LE Functional Limitations- Other pain while lifting her RLE into her car during car transfer difficulty bending down to reach for the floor. PT-OP-C Subjective Start: 12/07/19 08:10 Freq: Status: Active Protocol: Document 01/04/20 09:03 HH (Rec: 01/04/20 09:57 [id number]) OP-PT Subjective Patient Comments Patient Comments I walked quite a lot during the weekend and its been good. I havent used my cane inside of the house much Patient Reported Progress Improving PT-OP-E Functional Tests Start: 12/07/19 08:10 Freq: Status: Active Protocol: Document 12/14/19 09:01 (Rec: 12/14/19 11:25 [id number]) Functional Tests 30 Second Sit to Stand Test Score 9 Comments staggered stance with FWW PT-OP-G Mobility & Gait Start: 12/07/19 08:10 Freq: Status: Active Protocol: Document 12/14/19 09:01 (Rec: 12/14/19 11:25 [id number]) OP Gait Assessment Assistive Devices Assistive Device Front Wheeled Walker Gait Deviations General Gait Pattern Antalgic,Decreased Stride Length,Decreased Feet Clearance Factors Limiting Gait Function Factors Limiting Gait Function Decreased Activity Tolerance, Decreased Strength,Limited Range of Motion,Pain,Poor Balance PT-OP-J Posture/Palpation/Skin Start: 12/07/19 08:10 Freq: Status: Active Protocol: Document 12/07/19 10:05 (Rec: 12/07/19 10:34 [email or web address]) Posture Evaluation Position Standing Pelvis Posture Anteriorly Tilted,(R) Rotated Posterior Weight Distribution Weight Shifted Left Hip Posture (R) Internally Rotated Knee Posture (R) Genu Valgus,(R) Ext. Tibial Torsion,(R) Excess Flexion PT-OP-K Range of Motion Start: 12/07/19 08:10 Freq: Status: Active Protocol: Document 12/14/19 09:01 (Rec: 12/14/19 11:25 [id number]) Hip Goniometric Range of Motion Hip Left Active Straight Leg Raise 90 Abduction 35 Comments supine ER= lateral knee is 9 inches from table supine abd and ER Right Active Straight Leg Raise 55 Abduction 24 Comments supine ER = lateral knee is 11 inches from table supine abd and ER PT-OP-M Strength Start: 12/07/19 08:10 Freq: Status: Active Protocol: Document 12/14/19 09:01 (Rec: 12/14/19 11:25 [id number]) Hip Strength Hip Manual Muscle Testing Left Flexion (L2) 4+ Good+ Extension (S1) 4+ Good+ Abduction 4+ Good+ Adduction 4+ Good+ External Rotation 4+ Good+ Internal Rotation 4+ Good+ Right Flexion (L2) 3- Fair- Extension (S1) 3- Fair- Abduction 3- Fair- Adduction 3- Fair- External Rotation 3 Fair Internal Rotation 3+ Fair+ PT-OP-Q Treatments Start: 12/07/19 08:10 Freq: Status: Active Protocol: Document 01/04/20 09:03 (Rec: 01/04/20 09:57 [id number]) Gym Equipment Shuttle Recovery U squats Details Both sides Resistance #37 (L), #37 (R) Shuttle Recovery Platform Stable Reps/Time 10 x3, cues to keep the knees out Therapeutic Exercises Supine Exercises bridging Supine Exercise Name R foot closer to buttock, L foot further out Side bilateral Equipment Used yellow theraband around knee Reps/Minutes 8 x2 Comments improved hip level Jason stretch, modification pelvic tilt Side right Reps/Minutes 5 sec hold x8 Comments R leg reached table supine hip ER Supine Exercise Name unilateral , hooklying position Side bilateral Equipment Used yellow theraband Reps/Minutes 12 x2 Comments improved active hip ER noted. Sidelying Exercises clamshell Reps/Minutes 3 reps Comments able to reach 1/2 range with minimal trunk rotatoin Standing Exercises standing hip ext Standing Exercise Name with slider Side bilateral Reps/Minutes 8 x 2 Comments cues on isolated hip ext without lumbar ext standing hip abd Standing Exercise Name with slider Side bilateral Reps/Minutes 8x2 Comments cues on isolated hip abd Manual Therapy Treatment Soft Tissue Mobilization glute Body Location L hip Mobilization Type Sustained Pressure Intensity/Depth Moderate Body Position Sidelying R lateral quad Mobilization Type Rolling,Sustained Pressure, Trigger Point Release Intensity/Depth Superficial Body Position Hooklying Comments minimal to pressure at distal lateral quad R hip adductors Mobilization Type Rolling,Sustained Pressure, Trigger Point Release Intensity/Depth Moderate Body Position Supine PT-OP-T Assessment and Plan Start: 12/07/19 08:10 Freq: Status: Active Protocol: Document 01/04/20 09:03 (Rec: 01/04/20 09:57 [id number]) Physical Therapy Assessment Goals 30s STS Impairment baseline= 14 times in 30s Metal Cutter Goal (LTG) Pt will improve her LE strength who will reach >12 times in 30s STS LTG Duration 8 weeks strength Impairment pt's RLE is mostly 3+/4- for MMT grossly Metal Cutter Goal (LTG) Pt will reach 4+/5 for overall RLE strength so she will not compensate through LLE for STS and walking activities. LTG Duration 8 weeks gait Impairment pt amb with R knee valgus and hip IR Short Term Goal (STG) pt will be able to amb without a FWW for household distance STG Duration 4 weeks Metal Cutter Goal (LTG) pt will be able to amb without any AD for community distance , along with neutral hip and knee postion to optimaze gait mechanics LTG Duration 8 weeks LEFS 2 Impairment pt scores 42 on LEFs Short Term Goal (STG) 12/13 pt scores 5 on LEFS post surgically pt will score >48 on LEFS to improve her functional mobility and strength STG Duration 4 weeks Nursing Home Goal (LTG) pt will score >63 on LEFS to improve her functional mobility and strength so she can put on her shoes and socks without difficulty. LTG Duration 8 weeks Assessment Summary Assessment Pt has some soreness after her weekend with lots of walking but she stated she felt improved mobility. Her active R hip ER cont to improve. Focused on isolated hip ext and ER strengtehning today. Physical Therapy Plan Frequency and Duration Frequency of Treatment 2x/Week Duration of Treatment 8 weeks Plan of Care Start Date 12/07/19 Plan of Care End Date 02/05/20 Next Visit Focus/Plan Next Note Type Treatment Note Next Visit Plan gravity eliminated position standing hip ex supine ER/ abd glute set leg press for SL control gait training
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
--- NOTE | 2020-01-14 10:31 | PT.OTN ---
Current Diagnoses Unilateral primary osteoarthritis, unspecified hip (01/14/20) Physical Therapy Treatment Note PT-OP-A Visit Information Start: 12/07/19 08:10 Freq: Status: Active Protocol: Document 01/14/20 09:02 (Rec: 01/14/20 10:31 [id number]) Out-Patient Physical Therapy Visit Information Visit Information Visit Type Progress Note Visit Note Pt arrived without AD Visit Start Time 09:02 Visit Stop Time 09:46 Total Visit Minutes 44 Visit Number 01/16 Number of MANAGER FINE DINING Visits 0 PT-OP-B Current Condition Start: 12/07/19 08:10 Freq: Status: Active Protocol: Document 12/07/19 10:05 HH (Rec: 12/07/19 10:34 [id number]) Current Condition History of Current Condition Onset Date a year ago Current Complaints R hip pain, upcoming R SHANELL ( posterior approach) History of Current Condition Pt presents to clinic today for pre operative workshop for her upcoming R SHANELL (posterior approach) with Dr. Ellis on 12/09/19. Pt fell approx a year ago and twisted her R hip awkwardly. She has been experiencing pain with hip ER and flexion related movements, bending down and sit <>stand activities. Pt had a course of PT and it did help but not permanently since MRI did show Small anterosuperior right acetabular labral tear and Moderate to severe degenerative changes of the right hip. Prior Treatments and Tests Jan, 2019- MRI did show Small anterosuperior right acetabular labral tear and Moderate to severe degenerative changes of the right hip Treatment Goals Patient/Caregiver Goals 1. To regain her R hip ROM and strength for functional activities 2. Able to bend down to cone picker objects; fawn socks and car transfer without pain. Prior Functional Status Baseline Function- ADL's Independent Baseline Function- Mobility Independent Current Functional Impairments (Reported) Functional Limitations- ADL's unable to fawn/doff socks in seated position on R LE Functional Limitations- Other pain while lifting her RLE into her car during car transfer difficulty bending down to reach for the floor. PT-OP-C Subjective Start: 12/07/19 08:10 Freq: Status: Active Protocol: Document 01/14/20 09:02 (Rec: 01/14/20 10:31 [id number]) OP-PT Subjective Patient Comments Patient Comments im doing pretty good and i havent been using the cane for the past 2 days. Patient Reported Progress Improving PT-OP-E Functional Tests Start: 12/07/19 08:10 Freq: Status: Active Protocol: Document 12/14/19 09:01 (Rec: 12/14/19 11:25 [id number]) Functional Tests 30 Second Sit to Stand Test Score 9 Comments staggered stance with FWW PT-OP-G Mobility & Gait Start: 12/07/19 08:10 Freq: Status: Active Protocol: Document 12/14/19 09:01 (Rec: 12/14/19 11:25 [id number]) OP Gait Assessment Assistive Devices Assistive Device Front Wheeled Walker Gait Deviations General Gait Pattern Antalgic,Decreased Stride Length,Decreased Feet Clearance Factors Limiting Gait Function Factors Limiting Gait Function Decreased Activity Tolerance, Decreased Strength,Limited Range of Motion,Pain,Poor Balance PT-OP-J Posture/Palpation/Skin Start: 12/07/19 08:10 Freq: Status: Active Protocol: Document 01/14/20 09:02 (Rec: 01/14/20 10:31 [id number]) Skin Assessment Other Assessments Skin Assessment Comments L leg length : ASIS to top of patella= 17.5 bottom of patella to medial malleoli = 15 same for RLE PT-OP-K Range of Motion Start: 12/07/19 08:10 Freq: Status: Active Protocol: Document 12/14/19 09:01 (Rec: 12/14/19 11:25 [id number]) Hip Goniometric Range of Motion Hip Left Active Straight Leg Raise 90 Abduction 35 Comments supine ER= lateral knee is 9 inches from table supine abd and ER Right Active Straight Leg Raise 55 Abduction 24 Comments supine ER = lateral knee is 11 inches from table supine abd and ER PT-OP-M Strength Start: 12/07/19 08:10 Freq: Status: Active Protocol: Document 12/14/19 09:01 (Rec: 12/14/19 11:25 [id number]) Hip Strength Hip Manual Muscle Testing Left Flexion (L2) 4+ Good+ Extension (S1) 4+ Good+ Abduction 4+ Good+ Adduction 4+ Good+ External Rotation 4+ Good+ Internal Rotation 4+ Good+ Right Flexion (L2) 3- Fair- Extension (S1) 3- Fair- Abduction 3- Fair- Adduction 3- Fair- External Rotation 3 Fair Internal Rotation 3+ Fair+ PT-OP-Q Treatments Start: 12/07/19 08:10 Freq: Status: Active Protocol: Document 01/14/20 09:02 (Rec: 01/14/20 10:31 [id number]) Gym Equipment Shuttle Recovery U squats Details Both sides Resistance #50 (L), #0 (R) Shuttle Recovery Platform Stable Reps/Time 10 x3, occasional cues to keep the knees out Therapeutic Exercises Supine Exercises bridging Supine Exercise Name R foot closer to buttock, L foot further out Side bilateral Equipment Used yellow theraband around knee Reps/Minutes 10 x2 Comments improved hip level with PPT core faciliation cuing Jason stretch, modification pelvic tilt Side right Reps/Minutes 15 sec x 5 Comments R leg reached table Sidelying Exercises clamshell Reps/Minutes 6 reps then 8 reps Comments close to full range Standing Exercises toe tap Side bilateral Reps/Minutes 8 x 2 Comments min lateral weight shift noted on L standing hip ext Standing Exercise Name with slider Side bilateral Reps/Minutes 10 x 3 Comments improved isolated hip extension standing hip abd Standing Exercise Name with slider Side bilateral Reps/Minutes 10x3 Comments improved isolated hip abd Gait Training Gait Activity stance phase Device Used next to grab bar Surface ground level Distance/Duration in place Treatment Focus 8 mins Comments SLS on RLE with ligth touch support on grab bar. PT-OP-T Assessment and Plan Start: 12/07/19 08:10 Freq: Status: Active Protocol: Document 01/14/20 09:02 (Rec: 01/14/20 10:31 [id number]) Physical Therapy Assessment Goals SLS Impairment SLS = 3s Residential Goal (LTG) pt will be able complete SLS > 10 s so she can climb stairs without using handrails. LTG Duration 6 weeks 30s STS Impairment baseline= 14 times in 30s Inventory Associate And Driver Goal (LTG) 11/12 goal met. Pt completed 16 times in 30STS Pt will improve her LE strength who will reach >12 times in 30s STS LTG Duration 8 weeks strength Impairment pt's RLE is mostly 3+/4- for MMT grossly Short Term Goal (STG) 11/12 cont in progress Pt is able to complete full clam shell on R x 6-8 times Residential Goal (LTG) Pt will reach 4+/5 for overall RLE strength so she will not compensate through LLE for STS and walking activities. LTG Duration 8 weeks gait Impairment pt amb with R knee valgus and hip IR Short Term Goal (STG) pt will be able to amb without a FWW for household distance STG Duration 4 weeks Residential Goal (LTG) 01/13 cont in progress pt is able to walk at home and community without any AD for 2 days pt will be able to amb without any AD for community distance , along with neutral hip and knee postion to optimaze gait mechanics LTG Duration 8 weeks LEFS 2 Impairment pt scores 42 on LEFs Short Term Goal (STG) 12/13 pt scores 5 on LEFS post surgically 01/13 cont in progress pt scores 45 on LEFS pt will score >48 on LEFS to improve her functional mobility and strength STG Duration 4 weeks Residential Goal (LTG) pt will score >63 on LEFS to improve her functional mobility and strength so she can put on her shoes and socks without difficulty. LTG Duration 8 weeks Progress Towards Goals Progress Towards Goals Progressing Toward Goals Assessment Summary Assessment Pt cecille session very well. Her weight acceptance on RLE during stance phase cont to improve. This PT noticed pt does not have a true LLD but upslip L pelvis.
--- NOTE | 2020-01-18 09:54 | PT.OTN ---
Current Diagnoses Unilateral primary osteoarthritis, unspecified hip (01/18/20) Physical Therapy Treatment Note PT-OP-A Visit Information Start: 12/07/19 08:10 Freq: Status: Active Protocol: Document 01/18/20 08:59 HH (Rec: 01/18/20 09:54 [id number]) Out-Patient Physical Therapy Visit Information Visit Information Visit Type Treatment Note Visit Start Time 09:00 Visit Stop Time 09:45 Total Visit Minutes 45 Visit Number 12/15 Number of ANALYSIS LEAD Visits 0 PT-OP-B Current Condition Start: 12/07/19 08:10 Freq: Status: Active Protocol: Document 12/07/19 10:05 HH (Rec: 12/07/19 10:34 HH [email or web address]) Current Condition History of Current Condition Onset Date a year ago Current Complaints R hip pain, upcoming R SHANELL ( posterior approach) History of Current Condition Pt presents to clinic today for pre operative workshop for her upcoming R SHANELL (posterior approach) with Dr. Ellis on 12/09/19. Pt fell approx a year ago and twisted her R hip awkwardly. She has been experiencing pain with hip ER and flexion related movements, bending down and sit <>stand activities. Pt had a course of PT and it did help but not permanently since MRI did show Small anterosuperior right acetabular labral tear and Moderate to severe degenerative changes of the right hip. Prior Treatments and Tests Jan, 2019- MRI did show Small anterosuperior right acetabular labral tear and Moderate to severe degenerative changes of the right hip Treatment Goals Patient/Caregiver Goals 1. To regain her R hip ROM and strength for functional activities 2. Able to bend down to picker/puller objects; fawn socks and car transfer without pain. Prior Functional Status Baseline Function- ADL's Independent Baseline Function- Mobility Independent Current Functional Impairments (Reported) Functional Limitations- ADL's unable to fawn/doff socks in seated position on R LE Functional Limitations- Other pain while lifting her RLE into her car during car transfer difficulty bending down to reach for the floor. PT-OP-C Subjective Start: 12/07/19 08:10 Freq: Status: Active Protocol: Document 01/18/20 08:59 (Rec: 01/18/20 09:54 [id number]) OP-PT Subjective Patient Comments Patient Comments I think i overdid on Saturday cause i walked on the beach for awhile. But i got sore yesterday. I think i walked around 1 mile. It still somewhat uncomfortable to sleep on R side at this point. Patient Reported Progress Improving PT-OP-E Functional Tests Start: 12/07/19 08:10 Freq: Status: Active Protocol: Document 12/14/19 09:01 (Rec: 12/14/19 11:25 [id number]) Functional Tests 30 Second Sit to Stand Test Score 9 Comments staggered stance with FWW PT-OP-G Mobility & Gait Start: 12/07/19 08:10 Freq: Status: Active Protocol: Document 12/14/19 09:01 (Rec: 12/14/19 11:25 [id number]) OP Gait Assessment Assistive Devices Assistive Device Front Wheeled Walker Gait Deviations General Gait Pattern Antalgic,Decreased Stride Length,Decreased Feet Clearance Factors Limiting Gait Function Factors Limiting Gait Function Decreased Activity Tolerance, Decreased Strength,Limited Range of Motion,Pain,Poor Balance PT-OP-J Posture/Palpation/Skin Start: 12/07/19 08:10 Freq: Status: Active Protocol: Document 01/14/20 09:02 (Rec: 01/14/20 10:31 [id number]) Skin Assessment Other Assessments Skin Assessment Comments L leg length : ASIS to top of patella= 17.5 bottom of patella to medial malleoli = 15 same for RLE PT-OP-K Range of Motion Start: 12/07/19 08:10 Freq: Status: Active Protocol: Document 12/14/19 09:01 (Rec: 12/14/19 11:25 [id number]) Hip Goniometric Range of Motion Hip Left Active Straight Leg Raise 90 Abduction 35 Comments supine ER= lateral knee is 9 inches from table supine abd and ER Right Active Straight Leg Raise 55 Abduction 24 Comments supine ER = lateral knee is 11 inches from table supine abd and ER PT-OP-M Strength Start: 12/07/19 08:10 Freq: Status: Active Protocol: Document 12/14/19 09:01 (Rec: 12/14/19 11:25 [id number]) Hip Strength Hip Manual Muscle Testing Left Flexion (L2) 4+ Good+ Extension (S1) 4+ Good+ Abduction 4+ Good+ Adduction 4+ Good+ External Rotation 4+ Good+ Internal Rotation 4+ Good+ Right Flexion (L2) 3- Fair- Extension (S1) 3- Fair- Abduction 3- Fair- Adduction 3- Fair- External Rotation 3 Fair Internal Rotation 3+ Fair+ PT-OP-Q Treatments Start: 12/07/19 08:10 Freq: Status: Active Protocol: Document 01/18/20 08:59 HH (Rec: 01/18/20 09:54 [id number]) Gym Equipment Shuttle Recovery U squats Details Both sides Resistance #50 (L), #50 (R) Shuttle Recovery Platform Stable Reps/Time 10 x3, occasional cues to keep the knees out Therapeutic Exercises Supine Exercises bridging Supine Exercise Name R foot closer to buttock, L foot further out Side bilateral Reps/Minutes 10 x2 Comments improved hip level with PPT core faciliation cuing Sidelying Exercises clamshell Reps/Minutes 6 reps then 8 reps Comments close to full range Sitting Exercises seated clamshell Side bilateral Reps/Minutes 8 x2 Comments cues to prevent movement from ankle Standing Exercises SLS Side bilateral Comments R 30 s and 60 s, toe tap Side bilateral Reps/Minutes 15 x 2 Comments good midline control Step ups Equipment Used 4 then 6 Reps/Minutes 8 x3 Comments min dsicomfort at R hip PT-OP-T Assessment and Plan Start: 12/07/19 08:10 Freq: Status: Active Protocol: Document 01/18/20 08:59 (Rec: 01/18/20 09:54 [id number]) Physical Therapy Assessment Goals SLS Impairment SLS = 3s Tree Wrapper Goal (LTG) 01/17 goal met pt complete SLS 60s on R side. LTG Duration 6 weeks 30s STS Impairment baseline= 14 times in 30s Tree Wrapper Goal (LTG) 01/13 goal met. Pt completed 16 times in 30STS Pt will improve her LE strength who will reach >12 times in 30s STS LTG Duration 8 weeks strength Impairment pt's RLE is mostly 3+/4- for MMT grossly Short Term Goal (STG) 01/13 cont in progress Pt is able to complete full clam shell on R x 6-8 times Tree Wrapper Goal (LTG) Pt will reach 4+/5 for overall RLE strength so she will not compensate through LLE for STS and walking activities. LTG Duration 8 weeks gait Impairment pt amb with R knee valgus and hip IR Short Term Goal (STG) pt will be able to amb without a FWW for household distance STG Duration 4 weeks Senior Care Goal (LTG) 01/13 cont in progress pt is able to walk at home and community without any AD for 2 days pt will be able to amb without any AD for community distance , along with neutral hip and knee postion to optimaze gait mechanics LTG Duration 8 weeks LEFS 2 Impairment pt scores 42 on LEFs Short Term Goal (STG) 12/13 pt scores 5 on LEFS post surgically 01/13 cont in progress pt scores 45 on LEFS pt will score >48 on LEFS to improve her functional mobility and strength STG Duration 4 weeks Tree Wrapper Goal (LTG) pt will score >63 on LEFS to improve her functional mobility and strength so she can put on her shoes and socks without difficulty. LTG Duration 8 weeks Assessment Summary Assessment Pt came in with soreness at R hip after her 1 mile walk on the beach without AD on sat. increased tightness at R hip flexor today. However, pt cont to show good hip and LE strength. She now can complete SLS ~60s on RLE. Physical Therapy Plan Frequency and Duration Frequency of Treatment 1x/Week Duration of Treatment 8 weeks Plan of Care Start Date 12/07/19 Plan of Care End Date 02/05/20 Next Visit Focus/Plan Next Note Type Treatment Note Next Visit Plan Continue per PT POC: cont hip extension, SLS, SL strengthening
--- NOTE | 2020-01-21 10:17 | PT.OTN ---
Current Diagnoses Unilateral primary osteoarthritis, unspecified hip (01/21/20) Physical Therapy Treatment Note PT-OP-A Visit Information Start: 12/07/19 08:10 Freq: Status: Active Protocol: Document 01/21/20 09:04 (Rec: 01/21/20 10:16 [id number]) Out-Patient Physical Therapy Visit Information Visit Information Visit Type Treatment Note Visit Start Time 09:02 Visit Stop Time 09:45 Total Visit Minutes 43 Visit Number 13/15 Number of SILK WORKER Visits 0 PT-OP-B Current Condition Start: 12/07/19 08:10 Freq: Status: Active Protocol: Document 12/07/19 10:05 HH (Rec: 12/07/19 10:34 [id number]) Current Condition History of Current Condition Onset Date a year ago Current Complaints R hip pain, upcoming R SHANELL ( posterior approach) History of Current Condition Pt presents to clinic today for pre operative workshop for her upcoming R SHANELL (posterior approach) with Dr. Ellis on 12/09/19. Pt fell approx a year ago and twisted her R hip awkwardly. She has been experiencing pain with hip ER and flexion related movements, bending down and sit <>stand activities. Pt had a course of PT and it did help but not permanently since MRI did show Small anterosuperior right acetabular labral tear and Moderate to severe degenerative changes of the right hip. Prior Treatments and Tests Jan, 2019- MRI did show Small anterosuperior right acetabular labral tear and Moderate to severe degenerative changes of the right hip Treatment Goals Patient/Caregiver Goals 1. To regain her R hip ROM and strength for functional activities 2. Able to bend down to apple picking supervisor objects; fawn socks and car transfer without pain. Prior Functional Status Baseline Function- ADL's Independent Baseline Function- Mobility Independent Current Functional Impairments (Reported) Functional Limitations- ADL's unable to fawn/doff socks in seated position on R LE Functional Limitations- Other pain while lifting her RLE into her car during car transfer difficulty bending down to reach for the floor. PT-OP-C Subjective Start: 12/07/19 08:10 Freq: Status: Active Protocol: Document 01/21/20 09:04 (Rec: 01/21/20 10:16 [id number]) OP-PT Subjective Patient Comments Patient Comments I did my seated clamshell before i get up from the car and it helped taking my first step. Patient Reported Progress Improving PT-OP-E Functional Tests Start: 12/07/19 08:10 Freq: Status: Active Protocol: Document 12/14/19 09:01 (Rec: 12/14/19 11:25 [id number]) Functional Tests 30 Second Sit to Stand Test Score 9 Comments staggered stance with FWW PT-OP-G Mobility & Gait Start: 12/07/19 08:10 Freq: Status: Active Protocol: Document 12/14/19 09:01 (Rec: 12/14/19 11:25 [id number]) OP Gait Assessment Assistive Devices Assistive Device Front Wheeled Walker Gait Deviations General Gait Pattern Antalgic,Decreased Stride Length,Decreased Feet Clearance Factors Limiting Gait Function Factors Limiting Gait Function Decreased Activity Tolerance, Decreased Strength,Limited Range of Motion,Pain,Poor Balance PT-OP-J Posture/Palpation/Skin Start: 12/07/19 08:10 Freq: Status: Active Protocol: Document 01/14/20 09:02 (Rec: 01/14/20 10:31 [id number]) Skin Assessment Other Assessments Skin Assessment Comments L leg length : ASIS to top of patella= 17.5 bottom of patella to medial malleoli = 15 same for RLE PT-OP-K Range of Motion Start: 12/07/19 08:10 Freq: Status: Active Protocol: Document 12/14/19 09:01 (Rec: 12/14/19 11:25 [id number]) Hip Goniometric Range of Motion Hip Left Active Straight Leg Raise 90 Abduction 35 Comments supine ER= lateral knee is 9 inches from table supine abd and ER Right Active Straight Leg Raise 55 Abduction 24 Comments supine ER = lateral knee is 11 inches from table supine abd and ER PT-OP-M Strength Start: 12/07/19 08:10 Freq: Status: Active Protocol: Document 12/14/19 09:01 (Rec: 12/14/19 11:25 [id number]) Hip Strength Hip Manual Muscle Testing Left Flexion (L2) 4+ Good+ Extension (S1) 4+ Good+ Abduction 4+ Good+ Adduction 4+ Good+ External Rotation 4+ Good+ Internal Rotation 4+ Good+ Right Flexion (L2) 3- Fair- Extension (S1) 3- Fair- Abduction 3- Fair- Adduction 3- Fair- External Rotation 3 Fair Internal Rotation 3+ Fair+ PT-OP-Q Treatments Start: 12/07/19 08:10 Freq: Status: Active Protocol: Document 01/21/20 09:04 (Rec: 01/21/20 10:16 [id number]) Gym Equipment Shuttle Recovery U squats Details Both sides Resistance #50 (L), #50 (R) Shuttle Recovery Platform Stable Reps/Time c/o R anterior knee pain. Cues to move foot higher. Therapeutic Exercises Supine Exercises bridging Supine Exercise Name R foot closer to buttock, L foot further out Side bilateral Reps/Minutes 10 x2 Jason stretch, modification pelvic tilt Side right Reps/Minutes 15 sec x 5 Comments R leg reached table hip ER Supine Exercise Name Passive Side right Resistance none Reps/Minutes 10x Sidelying Exercises clamshell Side bilateral Reps/Minutes 6 reps then 8 reps Comments close to full range Sitting Exercises seated clamshell Side bilateral Equipment Used yellow theraband Reps/Minutes 8 x2 Comments cues to keep feet in place Standing Exercises Crab walk Resistance yellow theraband at knees Reps/Minutes 10 ft x3 Step ups Equipment Used 6 Reps/Minutes 8 x3 Manual Therapy Treatment Soft Tissue Mobilization R piriformis Mobilization Type Cross-Friction,Strumming Intensity/Depth Moderate Body Position Sidelying PT-OP-T Assessment and Plan Start: 12/07/19 08:10 Freq: Status: Active Protocol: Document 01/21/20 09:04 (Rec: 01/21/20 10:16 [id number]) Physical Therapy Assessment Goals SLS Impairment SLS = 3s Alterations Sewer Goal (LTG) 01/17 goal met pt complete SLS 60s on R side. LTG Duration 6 weeks 30s STS Impairment baseline= 14 times in 30s Alterations Sewer Goal (LTG) 1112 goal met. Pt completed 16 times in 30STS Pt will improve her LE strength who will reach >12 times in 30s STS LTG Duration 8 weeks strength Impairment pt's RLE is mostly 3+/4- for MMT grossly Short Term Goal (STG) 11/12 cont in progress Pt is able to complete full clam shell on R x 6-8 times Alterations Sewer Goal (LTG) Pt will reach 4+/5 for overall RLE strength so she will not compensate through LLE for STS and walking activities. LTG Duration 8 weeks gait Impairment pt amb with R knee valgus and hip IR Short Term Goal (STG) pt will be able to amb without a FWW for household distance STG Duration 4 weeks Alterations Sewer Goal (LTG) 01/13 cont in progress pt is able to walk at home and community without any AD for 2 days pt will be able to amb without any AD for community distance , along with neutral hip and knee postion to optimaze gait mechanics LTG Duration 8 weeks LEFS 2 Impairment pt scores 42 on LEFs Short Term Goal (STG) 12/13 pt scores 5 on LEFS post surgically 01/13 cont in progress pt scores 45 on LEFS pt will score >48 on LEFS to improve her functional mobility and strength STG Duration 4 weeks Jail Goal (LTG) pt will score >63 on LEFS to improve her functional mobility and strength so she can put on her shoes and socks without difficulty. LTG Duration 8 weeks Assessment Summary Assessment Pt reports her R hip discomfort is less for walking initiation since last visit. She also did well today. Pt cont to have difficulty with putting socks on RLE. She will have follow up with surgeon Dr. Ellis tomorrow. Recommended her to ask questions regarding of her significant LLD from L hip upslip. Physical Therapy Plan Frequency and Duration Frequency of Treatment 1x/Week Duration of Treatment 8 weeks Plan of Care Start Date 12/07/19 Plan of Care End Date 02/05/20 Next Visit Focus/Plan Next Note Type Treatment Note Next Visit Plan Continue per PT POC: cont hip extension, SLS, SL strengthening
--- NOTE | 2020-02-01 10:39 | PT.OTN ---
Current Diagnoses Unilateral primary osteoarthritis, unspecified hip (02/01/20) Physical Therapy Treatment Note PT-OP-A Visit Information Start: 12/07/19 08:10 Freq: Status: Active Protocol: Document 02/01/20 10:12 MA (Rec: 02/01/20 10:39 MA [email or web address]) Out-Patient Physical Therapy Visit Information Visit Information Visit Type Treatment Note Visit Start Time 09:15 Visit Stop Time 10:05 Total Visit Minutes 50 Visit Number 14/15 Number of NEWSPAPER PRESS OPERATOR APPRENTICE Visits 1 PT-OP-B Current Condition Start: 12/07/19 08:10 Freq: Status: Active Protocol: Document 12/07/19 10:05 HH (Rec: 12/07/19 10:34 HH [email or web address]) Current Condition History of Current Condition Onset Date a year ago Current Complaints R hip pain, upcoming R SHANELL ( posterior approach) History of Current Condition Pt presents to clinic today for pre operative workshop for her upcoming R SHANELL (posterior approach) with Dr. Ellis on 12/09/19. Pt fell approx a year ago and twisted her R hip awkwardly. She has been experiencing pain with hip ER and flexion related movements, bending down and sit <>stand activities. Pt had a course of PT and it did help but not permanently since MRI did show Small anterosuperior right acetabular labral tear and Moderate to severe degenerative changes of the right hip. Prior Treatments and Tests Jan, 2019- MRI did show Small anterosuperior right acetabular labral tear and Moderate to severe degenerative changes of the right hip Treatment Goals Patient/Caregiver Goals 1. To regain her R hip ROM and strength for functional activities 2. Able to bend down to pecan picker objects; fawn socks and car transfer without pain. Prior Functional Status Baseline Function- ADL's Independent Baseline Function- Mobility Independent Current Functional Impairments (Reported) Functional Limitations- ADL's unable to fawn/doff socks in seated position on R LE Functional Limitations- Other pain while lifting her RLE into her car during car transfer difficulty bending down to reach for the floor. PT-OP-C Subjective Start: 12/07/19 08:10 Freq: Status: Active Protocol: Document 02/01/20 10:12 MA (Rec: 02/01/20 10:39 MA [email or web address]) OP-PT Subjective Patient Comments Patient Comments Pt admits she has not been doing her HEP like she should. She requests printouts so she has a plan for exactly what to do at home. Dr jaime last week reviewed leg length and x -rays. Said same thing as PT about not needing to correct it, just work with physical therapy. Told pt she needs to continue sleeping with pillow between knees for one more week but did not tell her exactly how much longer she needs to follow the rest of her precautions PT-OP-E Functional Tests Start: 12/07/19 08:10 Freq: Status: Active Protocol: Document 12/14/19 09:01 (Rec: 12/14/19 11:25 [id number]) Functional Tests 30 Second Sit to Stand Test Score 9 Comments staggered stance with FWW PT-OP-G Mobility & Gait Start: 12/07/19 08:10 Freq: Status: Active Protocol: Document 12/14/19 09:01 (Rec: 12/14/19 11:25 [id number]) OP Gait Assessment Assistive Devices Assistive Device Front Wheeled Walker Gait Deviations General Gait Pattern Antalgic,Decreased Stride Length,Decreased Feet Clearance Factors Limiting Gait Function Factors Limiting Gait Function Decreased Activity Tolerance, Decreased Strength,Limited Range of Motion,Pain,Poor Balance PT-OP-J Posture/Palpation/Skin Start: 12/07/19 08:10 Freq: Status: Active Protocol: Document 01/14/20 09:02 (Rec: 01/14/20 10:31 [id number]) Skin Assessment Other Assessments Skin Assessment Comments L leg length : ASIS to top of patella= 17.5 bottom of patella to medial malleoli = 15 same for RLE PT-OP-K Range of Motion Start: 12/07/19 08:10 Freq: Status: Active Protocol: Document 12/14/19 09:01 (Rec: 12/14/19 11:25 [id number]) Hip Goniometric Range of Motion Hip Left Active Straight Leg Raise 90 Abduction 35 Comments supine ER= lateral knee is 9 inches from table supine abd and ER Right Active Straight Leg Raise 55 Abduction 24 Comments supine ER = lateral knee is 11 inches from table supine abd and ER PT-OP-M Strength Start: 12/07/19 08:10 Freq: Status: Active Protocol: Document 12/14/19 09:01 (Rec: 12/14/19 11:25 [id number]) Hip Strength Hip Manual Muscle Testing Left Flexion (L2) 4+ Good+ Extension (S1) 4+ Good+ Abduction 4+ Good+ Adduction 4+ Good+ External Rotation 4+ Good+ Internal Rotation 4+ Good+ Right Flexion (L2) 3- Fair- Extension (S1) 3- Fair- Abduction 3- Fair- Adduction 3- Fair- External Rotation 3 Fair Internal Rotation 3+ Fair+ PT-OP-Q Treatments Start: 12/07/19 08:10 Freq: Status: Active Protocol: Document 02/01/20 10:12 MA (Rec: 02/01/20 10:39 MA [email or web address]) Cardio Equipment Elliptical Duration (Minutes) 2 Other pt has one at home, wanted to see if she could use it-pt adducts R knee-d/c Gym Equipment Shuttle Recovery U squats Details Both sides Resistance #50 (L), #50 (R), #75 marcial Shuttle Recovery Platform Stable Reps/Time 2x10 R/L, 1x10 marcial Therapeutic Exercises Supine Exercises bridging Supine Exercise Name R foot closer to buttock, L foot further out Side bilateral Reps/Minutes 10 x2 Hooklying hip adductor stretch Supine Exercise Name Butterfly stretch Side bilateral Reps/Minutes 2 min Comments NEWSPAPER PRESS OPERATOR APPRENTICE then pt massaging into R adductors Jason stretch, modification pelvic tilt Side right Reps/Minutes 2 min Comments R leg did not reach table today supine hip ER Side bilateral Equipment Used yellow band Reps/Minutes 2x10 Sidelying Exercises ABD Side right Reps/Minutes x10 Comments cues to avoid hip flexion clamshell Side right Reps/Minutes 2x10 Comments close to full range Standing Exercises Crab walk Resistance yellow theraband at ankles Reps/Minutes 10 ft x6 Manual Therapy Treatment Soft Tissue Mobilization HS Body Location Hamstrings Mobilization Type Myofascial Release,Rolling, Trigger Point Release Intensity/Depth Moderate Body Position Supine glute Body Location R glute med Mobilization Type Sustained Pressure,Trigger Point Release Intensity/Depth Moderate Body Position Sidelying R hip adductors Mobilization Type Rolling,Sustained Pressure, Trigger Point Release Intensity/Depth Moderate Body Position Supine Comments significant tenderness to pressure near mm origin R piriformis Mobilization Type Cross-Friction,Strumming Intensity/Depth Moderate Body Position Sidelying R hip flexor Mobilization Type Cross-Friction,Rolling, Sustained Pressure Intensity/Depth Moderate Body Position Supine Comments In brandon position due to increased tightness today-pt was unable to get leg to table top initially Self-Care/Home Management Treatment Education Patient Education Home Exercise Program Other Education Provided HEP printout with brandon stretch, clamshells, and butterfly stretch with manual to adductors proximally . Reminded pt of importance of strengthening abductors to avoid that adduction she tends to do while exercising PT-OP-T Assessment and Plan Start: 12/07/19 08:10 Freq: Status: Active Protocol: Document 02/01/20 10:12 MA (Rec: 02/01/20 10:39 MA [email or web address]) Physical Therapy Assessment Goals SLS Impairment SLS = 3s Tank Washer Goal (LTG) 01/17 goal met pt complete SLS 60s on R side. LTG Duration 6 weeks 30s STS Impairment baseline= 14 times in 30s Prison Goal (LTG) 01/13 goal met. Pt completed 16 times in 30STS Pt will improve her LE strength who will reach >12 times in 30s STS LTG Duration 8 weeks strength Impairment pt's RLE is mostly 3+/4- for MMT grossly Short Term Goal (STG) 01/13 cont in progress Pt is able to complete full clam shell on R x 6-8 times Tank Washer Goal (LTG) Pt will reach 4+/5 for overall RLE strength so she will not compensate through LLE for STS and walking activities. LTG Duration 8 weeks gait Impairment pt amb with R knee valgus and hip IR Short Term Goal (STG) pt will be able to amb without a FWW for household distance STG Duration 4 weeks Tank Washer Goal (LTG) 01/13 cont in progress pt is able to walk at home and community without any AD for 2 days pt will be able to amb without any AD for community distance , along with neutral hip and knee postion to optimaze gait mechanics LTG Duration 8 weeks LEFS 2 Impairment pt scores 42 on LEFs Short Term Goal (STG) 12/13 pt scores 5 on LEFS post surgically 01/13 cont in progress pt scores 45 on LEFS pt will score >48 on LEFS to improve her functional mobility and strength STG Duration 4 weeks Prison Goal (LTG) pt will score >63 on LEFS to improve her functional mobility and strength so she can put on her shoes and socks without difficulty. LTG Duration 8 weeks Assessment Summary Assessment Pt was tighter today during Brandon stretch but was able to get to tabletop after STM to quads during stretch. Pt has an elliptical at home she wants to use-after 2 minutes, NEWSPAPER PRESS OPERATOR APPRENTICE discontinued elliptical due to adduction of RLE with pt unable to self correct. Educated pt on importance of strengthening abductors before we progress to ellipitcal again. Provided printed HEP with clamshells, brandon stretch, and butterfly stretch with manual to adductors. Physical Therapy Plan Frequency and Duration Frequency of Treatment 1x/Week Duration of Treatment 8 weeks Plan of Care Start Date 12/07/19 Plan of Care End Date 02/05/20 Next Visit Focus/Plan Next Note Type Treatment Note Next Visit Plan Review how HEP exercises went at home. See if manual to adductors while in butterfly stretch was helpful in decreasing tenderness to palpation. Add HS stretch with belt for RLE if appropriate. Continue hip extension (add to HEP next session), SLS, SL strengthening.
--- NOTE | 2020-02-08 13:00 | PT.OPPOC ---
Physical, Occupational & Speech Therapy At [facility] Current Diagnoses Unilateral primary osteoarthritis, unspecified hip (02/08/20) Visit Care Team Role Provider Type Brent Blackwell MD Primary Care Provider Non-Staff Specialty: Family Practice Address: [address], [address] Email: Koffi Ellis MD Attending Provider Physician Referring Provider Specialty: Orthopedic Surgery Address: [address] [place] [address], [id number] Email: [email or web address] Plan Of Care PT-OP-T Assessment and Plan Start: 12/07/19 08:10 Freq: Status: Active Protocol: Document 02/08/20 09:48 HH (Rec: 02/08/20 13:00 HH [id number]) Physical Therapy Assessment Goals pain 2 Impairment pain for the first step after change of position. Hearing Specialist Goal (LTG) pt will not have hip discomfort for the first step after sitting > 10 mins. LTG Duration 6 weeks SLS Impairment SLS = 3s [facility] Goal (LTG) 01/17 goal met pt complete SLS 60s on R side. LTG Duration 6 weeks 30s STS Impairment baseline= 14 times in 30s [facility] Goal (LTG) 01/13 goal met. Pt completed 16 times in 30STS Pt will improve her LE strength who will reach >12 times in 30s STS LTG Duration 8 weeks strength Impairment pt's RLE is mostly 3+/4- for MMT grossly Short Term Goal (STG) 01/13 cont in progress Pt is able to complete full clam shell on R x 6-8 times Hearing Specialist Goal (LTG) 02/07 pt reaches 4+/5 for overall RLE strength so she will not compensate through LLE for STS and walking activities. extension = 4-/5 LTG Duration 8 weeks gait Impairment pt amb with R knee valgus and hip IR Short Term Goal (STG) pt will be able to amb without a FWW for household distance STG Duration 4 weeks [facility] Goal (LTG) 02/07 goal pt is able to walk at home and community without any AD at all days. Pt has been walking miles sometimes at beach. pt will be able to amb without any AD for community distance , along with neutral hip and knee postion to optimaze gait mechanics LTG Duration 8 weeks LEFS 2 Impairment pt scores 42 on LEFs Short Term Goal (STG) 12/13 pt scores 5 on LEFS post surgically / cont in progress pt scores 45 on LEFS pt will score >48 on LEFS to improve her functional mobility and strength STG Duration 4 weeks [facility] Goal (LTG) 02/07 goal closely met. pt scores 61/80 on LEFS LTG Duration 8 weeks stair climbing Impairment needed UE support for to climb steps [facility] Goal (LTG) pt will climb stairs without need of UE support for step over pattern LTG Duration 6 weeks Progress Towards Goals Progress Towards Goals Progressing Toward Goals Assessment Summary Assessment Pt overall met 90% of her rehab goals but still lack of full hip extension strength. Pt has shown improved activity tolerance and activity level. Pt would like to cont strengthen her leg so she can cont walk on the beach safely and climb stairs without use of railings. pt also still has minimal discomfort at R hip for the first step after prolonged sitting. Pt will cont benefit from skilled therapy to improve her SL stability, strength so she can fully return to her daily long walk activities which involves stair climbing and beach walking. Physical Therapy Plan Frequency and Duration Frequency of Treatment Every Other Week Duration of Treatment 8 weeks Plan of Care Start Date 02/08/20 Plan of Care End Date 04/08/20 Next Visit Focus/Plan Next Note Type Treatment Note Next Visit Plan Review how HEP exercises went at home. See if manual to adductors while in butterfly stretch was helpful in decreasing tenderness to palpation. Add HS stretch with belt for RLE if appropriate. Continue hip extension (add to HEP next session), SLS, SL strengthening. Plan of Care Dates Plan of Care Start Date 02/08/20 Plan of Care End Date 04/08/20 Electronically Signed by: Erin Calle, PT 02/08/20 1300 Please Sign and Return: I have reviewed this Plan of Care and certify that the skilled therapy services above are required to meet the patient?s needs. Physician Signature Date Printed Name and Credentials Clinical Instructor Signature Printed Name and Credentials
--- NOTE | 2020-02-08 13:01 | PT.OTN ---
Current Diagnoses Unilateral primary osteoarthritis, unspecified hip (02/08/20) Physical Therapy Treatment Note PT-OP-A Visit Information Start: 12/07/19 08:10 Freq: Status: Active Protocol: Document 02/08/20 09:48 HH (Rec: 02/08/20 13:00 [id number]) Out-Patient Physical Therapy Visit Information Visit Information Visit Type Treatment Note Visit Start Time 09:48 Visit Stop Time 10:30 Total Visit Minutes 42 Visit Number 15/15 Number of GEOGRAPHY PROFESSOR Visits 0 PT-OP-B Current Condition Start: 12/07/19 08:10 Freq: Status: Active Protocol: Document 12/07/19 10:05 HH (Rec: 12/07/19 10:34 HH [email or web address]) Current Condition History of Current Condition Onset Date a year ago Current Complaints R hip pain, upcoming R SHANELL ( posterior approach) History of Current Condition Pt presents to clinic today for pre operative workshop for her upcoming R SHANELL (posterior approach) with Dr. Ellis on 12/09/19. Pt fell approx a year ago and twisted her R hip awkwardly. She has been experiencing pain with hip ER and flexion related movements, bending down and sit <>stand activities. Pt had a course of PT and it did help but not permanently since MRI did show Small anterosuperior right acetabular labral tear and Moderate to severe degenerative changes of the right hip. Prior Treatments and Tests Jan, 2019- MRI did show Small anterosuperior right acetabular labral tear and Moderate to severe degenerative changes of the right hip Treatment Goals Patient/Caregiver Goals 1. To regain her R hip ROM and strength for functional activities 2. Able to bend down to coal picker objects; fawn socks and car transfer without pain. Prior Functional Status Baseline Function- ADL's Independent Baseline Function- Mobility Independent Current Functional Impairments (Reported) Functional Limitations- ADL's unable to fawn/doff socks in seated position on R LE Functional Limitations- Other pain while lifting her RLE into her car during car transfer difficulty bending down to reach for the floor. PT-OP-C Subjective Start: 12/07/19 08:10 Freq: Status: Active Protocol: Document 02/08/20 09:48 HH (Rec: 02/08/20 13:00 [id number]) OP-PT Subjective Patient Comments Patient Comments Im doing pretty good. I walked a few miles on the beach and it did pretty but going down is a little hard. I feel like im 80% recovered. Patient Reported Progress Improving Patient Questionnaires Lower Extremity Functional Scale LEFS Score 61 LEFS Impairment 20 to 39% Impaired (Score 48- 62) PT-OP-E Functional Tests Start: 12/07/19 08:10 Freq: Status: Active Protocol: Document 12/14/19 09:01 (Rec: 12/14/19 11:25 [id number]) Functional Tests 30 Second Sit to Stand Test Score 9 Comments staggered stance with FWW PT-OP-G Mobility & Gait Start: 12/07/19 08:10 Freq: Status: Active Protocol: Document 12/14/19 09:01 (Rec: 12/14/19 11:25 [id number]) OP Gait Assessment Assistive Devices Assistive Device Front Wheeled Walker Gait Deviations General Gait Pattern Antalgic,Decreased Stride Length,Decreased Feet Clearance Factors Limiting Gait Function Factors Limiting Gait Function Decreased Activity Tolerance, Decreased Strength,Limited Range of Motion,Pain,Poor Balance PT-OP-J Posture/Palpation/Skin Start: 12/07/19 08:10 Freq: Status: Active Protocol: Document 01/14/20 09:02 (Rec: 01/14/20 10:31 [id number]) Skin Assessment Other Assessments Skin Assessment Comments L leg length : ASIS to top of patella= 17.5 bottom of patella to medial malleoli = 15 same for RLE PT-OP-K Range of Motion Start: 12/07/19 08:10 Freq: Status: Active Protocol: Document 02/08/20 09:48 (Rec: 02/08/20 13:00 [id number]) Hip Goniometric Range of Motion Hip Left Active Straight Leg Raise 92 Internal Rotation 48 External Rotation 32 Right Active Straight Leg Raise 82 Internal Rotation 45 External Rotation 26 PT-OP-M Strength Start: 12/07/19 08:10 Freq: Status: Active Protocol: Document 02/08/20 09:48 (Rec: 02/08/20 13:00 [id number]) Hip Strength Hip Manual Muscle Testing Left Flexion (L2) 5 Normal Extension (S1) 5 Normal Abduction 5 Normal Adduction 5 Normal Right Flexion (L2) 4+ Good+ Extension (S1) 4- Good- Abduction 4+ Good+ Adduction 4+ Good+ PT-OP-Q Treatments Start: 12/07/19 08:10 Freq: Status: Active Protocol: Document 02/08/20 09:48 (Rec: 02/08/20 13:00 [id number]) Cardio Equipment Recumbent Stepper (Sci-Fit) Duration (Minutes) 6 Resistance 2.5 Therapeutic Exercises Supine Exercises Jason stretch, modification pelvic tilt Side right Reps/Minutes 2 min Comments R leg reached table today. supine hip ER Side bilateral Equipment Used yellow band Reps/Minutes 2x10 Standing Exercises prone hip ext Standing Exercise Name standing, elbow on table Side right Reps/Minutes 8x2 Comments cues for isolated hip extension Step ups Equipment Used 6 Reps/Minutes 8 x3 Comments cues on full hip extension PT-OP-T Assessment and Plan Start: 12/07/19 08:10 Freq: Status: Active Protocol: Document 02/08/20 09:48 (Rec: 02/08/20 13:00 [id number]) Physical Therapy Assessment Goals pain 2 Impairment pain for the first step after change of position. Mailroom Supervisor Goal (LTG) pt will not have hip discomfort for the first step after sitting > 10 mins. LTG Duration 6 weeks SLS Impairment SLS = 3s Mailroom Supervisor Goal (LTG) 01/17 goal met pt complete SLS 60s on R side. LTG Duration 6 weeks 30s STS Impairment baseline= 14 times in 30s Mailroom Supervisor Goal (LTG) 01/13 goal met. Pt completed 16 times in 30STS Pt will improve her LE strength who will reach >12 times in 30s STS LTG Duration 8 weeks strength Impairment pt's RLE is mostly 3+/4- for MMT grossly Short Term Goal (STG) 01/13 cont in progress Pt is able to complete full clam shell on R x 6-8 times Intermediate Goal (LTG) 02/07 pt reaches 4+/5 for overall RLE strength so she will not compensate through LLE for STS and walking activities. extension = 4-/5 LTG Duration 8 weeks gait Impairment pt amb with R knee valgus and hip IR Short Term Goal (STG) pt will be able to amb without a FWW for household distance STG Duration 4 weeks Mailroom Supervisor Goal (LTG) 02/07 goal pt is able to walk at home and community without any AD at all days. Pt has been walking miles sometimes at beach. pt will be able to amb without any AD for community distance , along with neutral hip and knee postion to optimaze gait mechanics LTG Duration 8 weeks LEFS 2 Impairment pt scores 42 on LEFs Short Term Goal (STG) 12/13 pt scores 5 on LEFS post surgically 01/13 cont in progress pt scores 45 on LEFS pt will score >48 on LEFS to improve her functional mobility and strength STG Duration 4 weeks Mailroom Supervisor Goal (LTG) 02/07 goal closely met. pt scores 61/80 on LEFS LTG Duration 8 weeks stair climbing Impairment needed UE support for to climb steps Mailroom Supervisor Goal (LTG) pt will climb stairs without need of UE support for step over pattern LTG Duration 6 weeks Progress Towards Goals Progress Towards Goals Progressing Toward Goals Assessment Summary Assessment Pt overall met 90% of her rehab goals but still lack of full hip extension strength. Pt has shown improved activity tolerance and activity level. Pt would like to cont strengthen her leg so she can cont walk on the beach safely and climb stairs without use of railings. pt also still has minimal discomfort at R hip for the first step after prolonged sitting. Pt will cont benefit from skilled therapy to improve her SL stability, strength so she can fully return to her daily long walk activities which involves stair climbing and beach walking. Physical Therapy Plan Frequency and Duration Frequency of Treatment Every Other Week Duration of Treatment 8 weeks Plan of Care Start Date 02/08/20 Plan of Care End Date 04/08/20 Next Visit Focus/Plan Next Note Type Treatment Note Next Visit Plan Review how HEP exercises went at home. See if manual to adductors while in butterfly stretch was helpful in decreasing tenderness to palpation. Add HS stretch with belt for RLE if appropriate. Continue hip extension (add to HEP next session), SLS, SL strengthening.
--- NOTE | 2020-02-15 12:19 | PT.OTN ---
Current Diagnoses Unilateral primary osteoarthritis, unspecified hip (02/15/20) Physical Therapy Treatment Note PT-OP-A Visit Information Start: 12/07/19 08:10 Freq: Status: Active Protocol: Document 02/08/20 09:48 HH (Rec: 02/08/20 13:00 [id number]) Out-Patient Physical Therapy Visit Information Visit Information Visit Type Treatment Note Visit Start Time 09:48 Visit Stop Time 10:30 Total Visit Minutes 42 Visit Number 15/15 Number of THEATRICAL VARIETY AGENT Visits 0 PT-OP-B Current Condition Start: 12/07/19 08:10 Freq: Status: Active Protocol: Document 12/07/19 10:05 HH (Rec: 12/07/19 10:34 HH [id number]) Current Condition History of Current Condition Onset Date a year ago Current Complaints R hip pain, upcoming R SHANELL ( posterior approach) History of Current Condition Pt presents to clinic today for pre operative workshop for her upcoming R SHANELL (posterior approach) with Dr. Ellis on 12/09/19. Pt fell approx a year ago and twisted her R hip awkwardly. She has been experiencing pain with hip ER and flexion related movements, bending down and sit <>stand activities. Pt had a course of PT and it did help but not permanently since MRI did show Small anterosuperior right acetabular labral tear and Moderate to severe degenerative changes of the right hip. Prior Treatments and Tests Jan, 2019- MRI did show Small anterosuperior right acetabular labral tear and Moderate to severe degenerative changes of the right hip Treatment Goals Patient/Caregiver Goals 1. To regain her R hip ROM and strength for functional activities 2. Able to bend down to picker tender objects; fawn socks and car transfer without pain. Prior Functional Status Baseline Function- ADL's Independent Baseline Function- Mobility Independent Current Functional Impairments (Reported) Functional Limitations- ADL's unable to fawn/doff socks in seated position on R LE Functional Limitations- Other pain while lifting her RLE into her car during car transfer difficulty bending down to reach for the floor. PT-OP-C Subjective Start: 12/07/19 08:10 Freq: Status: Active Protocol: Document 02/08/20 09:48 HH (Rec: 02/08/20 13:00 [id number]) OP-PT Subjective Patient Comments Patient Comments Im doing pretty good. I walked a few miles on the beach and it did pretty but going down is a little hard. I feel like im 80% recovered. Patient Reported Progress Improving Patient Questionnaires Lower Extremity Functional Scale LEFS Score 61 LEFS Impairment 20 to 39% Impaired (Score 48- 62) PT-OP-E Functional Tests Start: 12/07/19 08:10 Freq: Status: Active Protocol: Document 12/14/19 09:01 (Rec: 12/14/19 11:25 [id number]) Functional Tests 30 Second Sit to Stand Test Score 9 Comments staggered stance with FWW PT-OP-G Mobility & Gait Start: 12/07/19 08:10 Freq: Status: Active Protocol: Document 12/14/19 09:01 (Rec: 12/14/19 11:25 [id number]) OP Gait Assessment Assistive Devices Assistive Device Front Wheeled Walker Gait Deviations General Gait Pattern Antalgic,Decreased Stride Length,Decreased Feet Clearance Factors Limiting Gait Function Factors Limiting Gait Function Decreased Activity Tolerance, Decreased Strength,Limited Range of Motion,Pain,Poor Balance PT-OP-J Posture/Palpation/Skin Start: 12/07/19 08:10 Freq: Status: Active Protocol: Document 01/14/20 09:02 (Rec: 01/14/20 10:31 [id number]) Skin Assessment Other Assessments Skin Assessment Comments L leg length : ASIS to top of patella= 17.5 bottom of patella to medial malleoli = 15 same for RLE PT-OP-K Range of Motion Start: 12/07/19 08:10 Freq: Status: Active Protocol: Document 02/08/20 09:48 (Rec: 02/08/20 13:00 [id number]) Hip Goniometric Range of Motion Hip Left Active Straight Leg Raise 92 Internal Rotation 48 External Rotation 32 Right Active Straight Leg Raise 82 Internal Rotation 45 External Rotation 26 PT-OP-M Strength Start: 12/07/19 08:10 Freq: Status: Active Protocol: Document 02/08/20 09:48 (Rec: 02/08/20 13:00 [id number]) Hip Strength Hip Manual Muscle Testing Left Flexion (L2) 5 Normal Extension (S1) 5 Normal Abduction 5 Normal Adduction 5 Normal Right Flexion (L2) 4+ Good+ Extension (S1) 4- Good- Abduction 4+ Good+ Adduction 4+ Good+ PT-OP-Q Treatments Start: 12/07/19 08:10 Freq: Status: Active Protocol: Document 02/08/20 09:48 (Rec: 02/08/20 13:00 [id number]) Cardio Equipment Recumbent Stepper (Sci-Fit) Duration (Minutes) 6 Resistance 2.5 Therapeutic Exercises Supine Exercises Jason stretch, modification pelvic tilt Side right Reps/Minutes 2 min Comments R leg reached table today. supine hip ER Side bilateral Equipment Used yellow band Reps/Minutes 2x10 Standing Exercises prone hip ext Standing Exercise Name standing, elbow on table Side right Reps/Minutes 8x2 Comments cues for isolated hip extension Step ups Equipment Used 6 Reps/Minutes 8 x3 Comments cues on full hip extension PT-OP-T Assessment and Plan Start: 12/07/19 08:10 Freq: Status: Active Protocol: Document 02/08/20 09:48 (Rec: 02/08/20 13:00 [id number]) Physical Therapy Assessment Goals pain 2 Impairment pain for the first step after change of position. Dispatcher [employer] Goal (LTG) pt will not have hip discomfort for the first step after sitting > 10 mins. LTG Duration 6 weeks SLS Impairment SLS = 3s Dispatcher [employer] Goal (LTG) 01/17 goal met pt complete SLS 60s on R side. LTG Duration 6 weeks 30s STS Impairment baseline= 14 times in 30s Dispatcher [employer] Goal (LTG) 01/13 goal met. Pt completed 16 times in 30STS Pt will improve her LE strength who will reach >12 times in 30s STS LTG Duration 8 weeks strength Impairment pt's RLE is mostly 3+/4- for MMT grossly Short Term Goal (STG) 01/13 cont in progress Pt is able to complete full clam shell on R x 6-8 times Long-Term Goal (LTG) 02/07 pt reaches 4+/5 for overall RLE strength so she will not compensate through LLE for STS and walking activities. extension = 4-/5 LTG Duration 8 weeks gait Impairment pt amb with R knee valgus and hip IR Short Term Goal (STG) pt will be able to amb without a FWW for household distance STG Duration 4 weeks Dispatcher [employer] Goal (LTG) 02/07 goal pt is able to walk at home and community without any AD at all days. Pt has been walking miles sometimes at beach. pt will be able to amb without any AD for community distance , along with neutral hip and knee postion to optimaze gait mechanics LTG Duration 8 weeks LEFS 2 Impairment pt scores 42 on LEFs Short Term Goal (STG) 12/13 pt scores 5 on LEFS post surgically 01/13 cont in progress pt scores 45 on LEFS pt will score >48 on LEFS to improve her functional mobility and strength STG Duration 4 weeks Dispatcher [employer] Goal (LTG) 02/07 goal closely met. pt scores 61/80 on LEFS LTG Duration 8 weeks stair climbing Impairment needed UE support for to climb steps Dispatcher [employer] Goal (LTG) pt will climb stairs without need of UE support for step over pattern LTG Duration 6 weeks Progress Towards Goals Progress Towards Goals Progressing Toward Goals Assessment Summary Assessment Pt overall met 90% of her rehab goals but still lack of full hip extension strength. Pt has shown improved activity tolerance and activity level. Pt would like to cont strengthen her leg so she can cont walk on the beach safely and climb stairs without use of railings. pt also still has minimal discomfort at R hip for the first step after prolonged sitting. Pt will cont benefit from skilled therapy to improve her SL stability, strength so she can fully return to her daily long walk activities which involves stair climbing and beach walking. Physical Therapy Plan Frequency and Duration Frequency of Treatment Every Other Week Duration of Treatment 8 weeks Plan of Care Start Date 02/08/20 Plan of Care End Date 04/08/20 Next Visit Focus/Plan Next Note Type Treatment Note Next Visit Plan Review how HEP exercises went at home. See if manual to adductors while in butterfly stretch was helpful in decreasing tenderness to palpation. Add HS stretch with belt for RLE if appropriate. Continue hip extension (add to HEP next session), SLS, SL strengthening.
--- NOTE | 2020-02-15 12:21 | PT.OTN ---
Current Diagnoses Unilateral primary osteoarthritis, unspecified hip (02/15/20) Physical Therapy Treatment Note PT-OP-A Visit Information Start: 12/07/19 08:10 Freq: Status: Active Protocol: Document 02/15/20 09:05 (Rec: 02/15/20 12:21 [id number]) Out-Patient Physical Therapy Visit Information Visit Information Visit Type Treatment Note Visit Start Time 09:02 Visit Stop Time 09:45 Total Visit Minutes 43 Visit Number 03/18 Number of FUEL CELL DESIGNER Visits 0 PT-OP-B Current Condition Start: 12/07/19 08:10 Freq: Status: Active Protocol: Document 12/07/19 10:05 (Rec: 12/07/19 10:34 [id number]) Current Condition History of Current Condition Onset Date a year ago Current Complaints R hip pain, upcoming R SHANELL ( posterior approach) History of Current Condition Pt presents to clinic today for pre operative workshop for her upcoming R SHANELL (posterior approach) with Dr. Ellis on 12/09/19. Pt fell approx a year ago and twisted her R hip awkwardly. She has been experiencing pain with hip ER and flexion related movements, bending down and sit <>stand activities. Pt had a course of PT and it did help but not permanently since MRI did show Small anterosuperior right acetabular labral tear and Moderate to severe degenerative changes of the right hip. Prior Treatments and Tests Jan, 2019- MRI did show Small anterosuperior right acetabular labral tear and Moderate to severe degenerative changes of the right hip Treatment Goals Patient/Caregiver Goals 1. To regain her R hip ROM and strength for functional activities 2. 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 Prior Functional Status Baseline Function- ADL's Independent Baseline Function- Mobility Independent Current Functional Impairments (Reported) Functional Limitations- ADL's unable to fawn/doff socks in seated position on R LE Functional Limitations- Other pain while lifting her RLE into her car during car transfer difficulty bending down to reach for the floor. PT-OP-C Subjective Start: 12/07/19 08:10 Freq: Status: Active Protocol: Document 02/15/20 09:05 (Rec: 02/15/20 12:21 [id number]) OP-PT Subjective Patient Comments Patient Comments My first step from changing position is half as bad as before. walking is fine to me and going up and down stairs while carrying groceries are fine to me. Patient Reported Progress Improving PT-OP-E Functional Tests Start: 12/07/19 08:10 Freq: Status: Active Protocol: Document 12/14/19 09:01 (Rec: 12/14/19 11:25 [id number]) Functional Tests 30 Second Sit to Stand Test Score 9 Comments staggered stance with FWW PT-OP-G Mobility & Gait Start: 12/07/19 08:10 Freq: Status: Active Protocol: Document 12/14/19 09:01 (Rec: 12/14/19 11:25 [id number]) OP Gait Assessment Assistive Devices Assistive Device Front Wheeled Walker Gait Deviations General Gait Pattern Antalgic,Decreased Stride Length,Decreased Feet Clearance Factors Limiting Gait Function Factors Limiting Gait Function Decreased Activity Tolerance, Decreased Strength,Limited Range of Motion,Pain,Poor Balance PT-OP-J Posture/Palpation/Skin Start: 12/07/19 08:10 Freq: Status: Active Protocol: Document 01/14/20 09:02 (Rec: 01/14/20 10:31 [id number]) Skin Assessment Other Assessments Skin Assessment Comments L leg length : ASIS to top of patella= 17.5 bottom of patella to medial malleoli = 15 same for RLE PT-OP-K Range of Motion Start: 12/07/19 08:10 Freq: Status: Active Protocol: Document 02/08/20 09:48 (Rec: 02/08/20 13:00 [id number]) Hip Goniometric Range of Motion Hip Left Active Straight Leg Raise 92 Internal Rotation 48 External Rotation 32 Right Active Straight Leg Raise 82 Internal Rotation 45 External Rotation 26 PT-OP-M Strength Start: 12/07/19 08:10 Freq: Status: Active Protocol: Document 02/08/20 09:48 (Rec: 02/08/20 13:00 [id number]) Hip Strength Hip Manual Muscle Testing Left Flexion (L2) 5 Normal Extension (S1) 5 Normal Abduction 5 Normal Adduction 5 Normal Right Flexion (L2) 4+ Good+ Extension (S1) 4- Good- Abduction 4+ Good+ Adduction 4+ Good+ PT-OP-Q Treatments Start: 12/07/19 08:10 Freq: Status: Active Protocol: Document 02/15/20 09:05 (Rec: 02/15/20 12:21 [id number]) Cardio Equipment Recumbent Stepper (Sci-Fit) Duration (Minutes) 7 Resistance 2.5 Gym Equipment Shuttle Recovery U squats Details Both sides Resistance #50 (L), #50 (R), #75 marcial Shuttle Recovery Platform Stable Reps/Time 2x10 R/L, 1x10 marcial Therapeutic Exercises Supine Exercises figure 4 Supine Exercise Name R LE over top of L knee Side right Reps/Minutes 8 sec hold Comments c/o tightness at R posterior hip Jason stretch, modification pelvic tilt Side right Reps/Minutes 2 min Comments R leg reached table today. Prone Exercises prone hip extension Prone Exercise Name elbow Side bilateral Comments excessive ankle strategy on R Standing Exercises stepping (reactive balance) Standing Exercise Name SL stability on blue foam Side bilateral Reps/Minutes 8 mins Comments forward stepping, side stepping Crab walk Resistance yellow theraband at ankles Reps/Minutes 10 ft x6 Step ups Equipment Used 6 Reps/Minutes 8 x3 Comments cues on full hip extension PT-OP-T Assessment and Plan Start: 12/07/19 08:10 Freq: Status: Active Protocol: Document 02/15/20 09:05 (Rec: 02/15/20 12:21 [id number]) Physical Therapy Assessment Goals pain 2 Impairment pain for the first step after change of position. Retirement Goal (LTG) pt will not have hip discomfort for the first step after sitting > 10 mins. LTG Duration 6 weeks SLS Impairment SLS = 3s Retirement Goal (LTG) 01/17 goal met pt complete SLS 60s on R side. LTG Duration 6 weeks 30s STS Impairment baseline= 14 times in 30s Animal Care Taker Goal (LTG) 1112 goal met. Pt completed 16 times in 30STS Pt will improve her LE strength who will reach >12 times in 30s STS LTG Duration 8 weeks strength Impairment pt's RLE is mostly 3+/4- for MMT grossly Short Term Goal (STG) 1112 cont in progress Pt is able to complete full clam shell on R x 6-8 times Retirement Goal (LTG) 02/07 pt reaches 4+/5 for overall RLE strength so she will not compensate through LLE for STS and walking activities. extension = 4-/5 LTG Duration 8 weeks gait Impairment pt amb with R knee valgus and hip IR Short Term Goal (STG) pt will be able to amb without a FWW for household distance STG Duration 4 weeks Animal Care Taker Goal (LTG) 02/07 goal pt is able to walk at home and community without any AD at all days. Pt has been walking miles sometimes at beach. pt will be able to amb without any AD for community distance , along with neutral hip and knee postion to optimaze gait mechanics LTG Duration 8 weeks LEFS 2 Impairment pt scores 42 on LEFs Short Term Goal (STG) 12/13 pt scores 5 on LEFS post surgically 01/13 cont in progress pt scores 45 on LEFS pt will score >48 on LEFS to improve her functional mobility and strength STG Duration 4 weeks Animal Care Taker Goal (LTG) 02/07 goal closely met. pt scores 61/80 on LEFS LTG Duration 8 weeks Assessment Summary Assessment Added figure 4 stretch today for R hip ER. She does feel tightness at posterior R hip. Tx focused on SL stability and strengthening today. Pt has excessive ankle strategy on SL stance. Physical Therapy Plan Frequency and Duration Frequency of Treatment Every Other Week Duration of Treatment 8 weeks Plan of Care Start Date 02/08/20 Plan of Care End Date 04/08/20 Next Visit Focus/Plan Next Note Type Treatment Note Next Visit Plan Review how HEP exercises went at home. See if manual to adductors while in butterfly stretch was helpful in decreasing tenderness to palpation. Add HS stretch with belt for RLE if appropriate. Continue hip extension (add to HEP next session), SLS, SL strengthening.
--- NOTE | 2020-02-22 11:23 | PT.OTN ---
Current Diagnoses Unilateral primary osteoarthritis, unspecified hip (02/22/20) Physical Therapy Treatment Note PT-OP-A Visit Information Start: 12/07/19 08:10 Freq: Status: Active Protocol: Document 02/22/20 09:03 (Rec: 02/22/20 11:22 [id number]) Out-Patient Physical Therapy Visit Information Visit Information Visit Type Treatment Note Visit Start Time 09:03 Visit Stop Time 09:45 Total Visit Minutes 43 Visit Number 2/15 Number of GRIT BLASTER Visits 0 PT-OP-B Current Condition Start: 12/07/19 08:10 Freq: Status: Active Protocol: Document 12/07/19 10:05 HH (Rec: 12/07/19 10:34 [id number]) Current Condition History of Current Condition Onset Date a year ago Current Complaints R hip pain, upcoming R SHANELL ( posterior approach) History of Current Condition Pt presents to clinic today for pre operative workshop for her upcoming R SHANELL (posterior approach) with Dr. Ellis on 12/09/19. Pt fell approx a year ago and twisted her R hip awkwardly. She has been experiencing pain with hip ER and flexion related movements, bending down and sit <>stand activities. Pt had a course of PT and it did help but not permanently since MRI did show Small anterosuperior right acetabular labral tear and Moderate to severe degenerative changes of the right hip. Prior Treatments and Tests Jan, 2019- MRI did show Small anterosuperior right acetabular labral tear and Moderate to severe degenerative changes of the right hip Treatment Goals Patient/Caregiver Goals 1. To regain her R hip ROM and strength for functional activities 2. Able to bend down to brass pickler objects; fawn socks and car transfer without pain. Prior Functional Status Baseline Function- ADL's Independent Baseline Function- Mobility Independent Current Functional Impairments (Reported) Functional Limitations- ADL's unable to fawn/doff socks in seated position on R LE Functional Limitations- Other pain while lifting her RLE into her car during car transfer difficulty bending down to reach for the floor. PT-OP-C Subjective Start: 12/07/19 08:10 Freq: Status: Active Protocol: Document 02/22/20 09:03 (Rec: 02/22/20 11:22 [id number]) OP-PT Subjective Patient Comments Patient Comments I was able to carrying santana and walk on uneven surface yesterday and it feels good. My first step getting out from sitting position is getting better as well. Patient Reported Progress Improving PT-OP-E Functional Tests Start: 12/07/19 08:10 Freq: Status: Active Protocol: Document 12/14/19 09:01 (Rec: 12/14/19 11:25 [id number]) Functional Tests 30 Second Sit to Stand Test Score 9 Comments staggered stance with FWW PT-OP-G Mobility & Gait Start: 12/07/19 08:10 Freq: Status: Active Protocol: Document 12/14/19 09:01 (Rec: 12/14/19 11:25 [id number]) OP Gait Assessment Assistive Devices Assistive Device Front Wheeled Walker Gait Deviations General Gait Pattern Antalgic,Decreased Stride Length,Decreased Feet Clearance Factors Limiting Gait Function Factors Limiting Gait Function Decreased Activity Tolerance, Decreased Strength,Limited Range of Motion,Pain,Poor Balance PT-OP-J Posture/Palpation/Skin Start: 12/07/19 08:10 Freq: Status: Active Protocol: Document 01/14/20 09:02 (Rec: 01/14/20 10:31 [id number]) Skin Assessment Other Assessments Skin Assessment Comments L leg length : ASIS to top of patella= 17.5 bottom of patella to medial malleoli = 15 same for RLE PT-OP-K Range of Motion Start: 12/07/19 08:10 Freq: Status: Active Protocol: Document 02/08/20 09:48 (Rec: 02/08/20 13:00 [id number]) Hip Goniometric Range of Motion Hip Left Active Straight Leg Raise 92 Internal Rotation 48 External Rotation 32 Right Active Straight Leg Raise 82 Internal Rotation 45 External Rotation 26 PT-OP-M Strength Start: 12/07/19 08:10 Freq: Status: Active Protocol: Document 02/08/20 09:48 (Rec: 02/08/20 13:00 [id number]) Hip Strength Hip Manual Muscle Testing Left Flexion (L2) 5 Normal Extension (S1) 5 Normal Abduction 5 Normal Adduction 5 Normal Right Flexion (L2) 4+ Good+ Extension (S1) 4- Good- Abduction 4+ Good+ Adduction 4+ Good+ PT-OP-Q Treatments Start: 12/07/19 08:10 Freq: Status: Active Protocol: Document 02/22/20 09:03 (Rec: 02/22/20 11:22 [id number]) Cardio Equipment Recumbent Stepper (Sci-Fit) Duration (Minutes) 7 Resistance 2.5 Gym Equipment Shuttle Recovery U squats Details Both sides Resistance #62 (L), #62 (R), #75 marcial Shuttle Recovery Platform Stable Reps/Time 2x10 R/L, 1x10 marcial Therapeutic Exercises Supine Exercises figure 4 Supine Exercise Name R LE over top of L knee Side right Reps/Minutes 8 sec hold Comments c/o tightness at R posterior hip Jason stretch, modification pelvic tilt Side right Reps/Minutes 2 min Comments R leg reached table today. Sidelying Exercises clamshell Side bilateral Reps/Minutes 10 x 2 Standing Exercises stepping (reactive balance) Standing Exercise Name SL stability on blue foam Side bilateral Reps/Minutes 8 mins Comments forward stepping, side stepping Step ups Equipment Used 6 Reps/Minutes 8 x3 Comments cues on full hip extension PT-OP-T Assessment and Plan Start: 12/07/19 08:10 Freq: Status: Active Protocol: Document 02/22/20 09:03 (Rec: 02/22/20 11:22 [id number]) Physical Therapy Assessment Goals pain 2 Impairment pain for the first step after change of position. Chemical Engineering Professor Goal (LTG) pt will not have hip discomfort for the first step after sitting > 10 mins. LTG Duration 6 weeks SLS Impairment SLS = 3s Chemical Engineering Professor Goal (LTG) 16 goal met pt complete SLS 60s on R side. LTG Duration 6 weeks 30s STS Impairment baseline= 14 times in 30s Chemical Engineering Professor Goal (LTG) 1112 goal met. Pt completed 16 times in 30STS Pt will improve her LE strength who will reach >12 times in 30s STS LTG Duration 8 weeks strength Impairment pt's RLE is mostly 3+/4- for MMT grossly Short Term Goal (STG) 1112 cont in progress Pt is able to complete full clam shell on R x 6-8 times Senior Living Goal (LTG) 12/7 pt reaches 4+/5 for overall RLE strength so she will not compensate through LLE for STS and walking activities. extension = 4-/5 LTG Duration 8 weeks gait Impairment pt amb with R knee valgus and hip IR Short Term Goal (STG) pt will be able to amb without a FWW for household distance STG Duration 4 weeks Senior Living Goal (LTG) 02/07 goal pt is able to walk at home and community without any AD at all days. Pt has been walking miles sometimes at beach. pt will be able to amb without any AD for community distance , along with neutral hip and knee postion to optimaze gait mechanics LTG Duration 8 weeks Assessment Summary Assessment Pt stated good progress being able to walk on uneven surface and carrying santana without discomfort. Her first step after getting out of chair has been getting better as well. Physical Therapy Plan Frequency and Duration Frequency of Treatment Every Other Week Duration of Treatment 8 weeks Plan of Care Start Date 02/08/20 Plan of Care End Date 04/08/20 Next Visit Focus/Plan Next Note Type Treatment Note Next Visit Plan Review how HEP exercises went at home. See if manual to adductors while in butterfly stretch was helpful in decreasing tenderness to palpation. Add HS stretch with belt for RLE if appropriate. Continue hip extension (add to HEP next session), SLS, SL strengthening.
--- NOTE | 2020-03-10 14:32 | PT.OTN ---
Current Diagnoses Unilateral primary osteoarthritis, unspecified hip (03/10/20) Physical Therapy Treatment Note PT-OP-A Visit Information Start: 12/07/19 08:10 Freq: Status: Active Protocol: Document 03/10/20 13:44 HH (Rec: 03/10/20 14:32 [id number]) Out-Patient Physical Therapy Visit Information Visit Information Visit Type Treatment Note Visit Start Time 13:47 Visit Stop Time 14:30 Total Visit Minutes 43 Visit Number 3/15 Number of RAIL TRANSIT OPERATOR Visits 0 PT-OP-B Current Condition Start: 12/07/19 08:10 Freq: Status: Active Protocol: Document 12/07/19 10:05 HH (Rec: 12/07/19 10:34 [id number]) Current Condition History of Current Condition Onset Date a year ago Current Complaints R hip pain, upcoming R SHANELL ( posterior approach) History of Current Condition Pt presents to clinic today for pre operative workshop for her upcoming R SHANELL (posterior approach) with Dr. Ellis on 12/09/19. Pt fell approx a year ago and twisted her R hip awkwardly. She has been experiencing pain with hip ER and flexion related movements, bending down and sit <>stand activities. Pt had a course of PT and it did help but not permanently since MRI did show Small anterosuperior right acetabular labral tear and Moderate to severe degenerative changes of the right hip. Prior Treatments and Tests Jan, 2019- MRI did show Small anterosuperior right acetabular labral tear and Moderate to severe degenerative changes of the right hip Treatment Goals Patient/Caregiver Goals 1. To regain her R hip ROM and strength for functional activities 2. Able to bend down to pickle cutter objects; fawn socks and car transfer without pain. Prior Functional Status Baseline Function- ADL's Independent Baseline Function- Mobility Independent Current Functional Impairments (Reported) Functional Limitations- ADL's unable to fawn/doff socks in seated position on R LE Functional Limitations- Other pain while lifting her RLE into her car during car transfer difficulty bending down to reach for the floor. PT-OP-C Subjective Start: 12/07/19 08:10 Freq: Status: Active Protocol: Document 03/10/20 13:44 HH (Rec: 03/10/20 14:32 [id number]) OP-PT Subjective Patient Comments Patient Comments My hip is doing better. The first step after sitting > 30 mins seems to bother me the more. Teresa been walking on the beach and walking >10k steps. Patient Reported Progress Improving PT-OP-E Functional Tests Start: 12/07/19 08:10 Freq: Status: Active Protocol: Document 12/14/19 09:01 (Rec: 12/14/19 11:25 [id number]) Functional Tests 30 Second Sit to Stand Test Score 9 Comments staggered stance with FWW PT-OP-G Mobility & Gait Start: 12/07/19 08:10 Freq: Status: Active Protocol: Document 12/14/19 09:01 (Rec: 12/14/19 11:25 [id number]) OP Gait Assessment Assistive Devices Assistive Device Front Wheeled Walker Gait Deviations General Gait Pattern Antalgic,Decreased Stride Length,Decreased Feet Clearance Factors Limiting Gait Function Factors Limiting Gait Function Decreased Activity Tolerance, Decreased Strength,Limited Range of Motion,Pain,Poor Balance PT-OP-J Posture/Palpation/Skin Start: 12/07/19 08:10 Freq: Status: Active Protocol: Document 01/14/20 09:02 (Rec: 01/14/20 10:31 [id number]) Skin Assessment Other Assessments Skin Assessment Comments L leg length : ASIS to top of patella= 17.5 bottom of patella to medial malleoli = 15 same for RLE PT-OP-K Range of Motion Start: 12/07/19 08:10 Freq: Status: Active Protocol: Document 02/08/20 09:48 (Rec: 02/08/20 13:00 [id number]) Hip Goniometric Range of Motion Hip Left Active Straight Leg Raise 92 Internal Rotation 48 External Rotation 32 Right Active Straight Leg Raise 82 Internal Rotation 45 External Rotation 26 PT-OP-M Strength Start: 12/07/19 08:10 Freq: Status: Active Protocol: Document 02/08/20 09:48 (Rec: 02/08/20 13:00 [id number]) Hip Strength Hip Manual Muscle Testing Left Flexion (L2) 5 Normal Extension (S1) 5 Normal Abduction 5 Normal Adduction 5 Normal Right Flexion (L2) 4+ Good+ Extension (S1) 4- Good- Abduction 4+ Good+ Adduction 4+ Good+ PT-OP-Q Treatments Start: 12/07/19 08:10 Freq: Status: Active Protocol: Document 03/10/20 13:44 (Rec: 03/10/20 14:32 [id number]) Cardio Equipment Recumbent Stepper (Sci-Fit) Duration (Minutes) 7 Resistance 2.5 Gym Equipment Shuttle Recovery U squats Details Both sides Resistance #62 (L), #62 (R), #75 marcial Shuttle Recovery Platform Stable Reps/Time 2x10 R/L, 1x10 marcial Therapeutic Exercises Supine Exercises figure 4 Supine Exercise Name R LE over top of L knee Side right Reps/Minutes 8 sec hold Comments c/o tightness at R posterior hip bridging Side bilateral Reps/Minutes 10 x2 Sidelying Exercises hip abd Side bilateral Reps/Minutes 8 x2 clamshell Side bilateral Reps/Minutes 10 x 2 Standing Exercises SLS Standing Exercise Name blue foam Side bilateral Comments cues to prevent knee valgus Step ups Equipment Used 6 Reps/Minutes 8 x3 Comments cues on full hip extension PT-OP-T Assessment and Plan Start: 12/07/19 08:10 Freq: Status: Active Protocol: Document 03/10/20 13:44 (Rec: 03/10/20 14:32 [id number]) Physical Therapy Assessment Goals pain 2 Impairment pain for the first step after change of position. Retirement Goal (LTG) pt will not have hip discomfort for the first step after sitting > 10 mins. LTG Duration 6 weeks SLS Impairment SLS = 3s Camp Program Director Goal (LTG) 16 goal met pt complete SLS 60s on R side. LTG Duration 6 weeks 30s STS Impairment baseline= 14 times in 30s Camp Program Director Goal (LTG) 1112 goal met. Pt completed 16 times in 30STS Pt will improve her LE strength who will reach >12 times in 30s STS LTG Duration 8 weeks strength Impairment pt's RLE is mostly 3+/4- for MMT grossly Short Term Goal (STG) 11/12 cont in progress Pt is able to complete full clam shell on R x 6-8 times Camp Program Director Goal (LTG) 12/ pt reaches 4+/5 for overall RLE strength so she will not compensate through LLE for STS and walking activities. extension = 4-/5 LTG Duration 8 weeks gait Impairment pt amb with R knee valgus and hip IR Short Term Goal (STG) pt will be able to amb without a FWW for household distance STG Duration 4 weeks Camp Program Director Goal (LTG) 02/07 goal pt is able to walk at home and community without any AD at all days. Pt has been walking miles sometimes at beach. pt will be able to amb without any AD for community distance , along with neutral hip and knee postion to optimaze gait mechanics LTG Duration 8 weeks LEFS 2 Impairment pt scores 42 on LEFs Short Term Goal (STG) 12/13 pt scores 5 on LEFS post surgically 01/13 cont in progress pt scores 45 on LEFS pt will score >48 on LEFS to improve her functional mobility and strength STG Duration 4 weeks Camp Program Director Goal (LTG) 02/07 goal closely met. pt scores 61/80 on LEFS LTG Duration 8 weeks Assessment Summary Assessment Pt stated improved activity tolerance with longer walking distance and ability to walk on the beach. Still has slight discomfort getting up after prolonged sitting. Will cont SL stability and strengthening ex. Physical Therapy Plan Frequency and Duration Frequency of Treatment Every Other Week Duration of Treatment 8 weeks Plan of Care Start Date 02/08/20 Plan of Care End Date 04/08/20 Next Visit Focus/Plan Next Note Type Treatment Note Next Visit Plan Review how HEP exercises went at home. See if manual to adductors while in butterfly stretch was helpful in decreasing tenderness to palpation. Add HS stretch with belt for RLE if appropriate. Continue hip extension (add to HEP next session), SLS, SL strengthening.
--- NOTE | 2020-04-12 09:27 | PT.OPPOC ---
Physical, Occupational & Speech Therapy At [facility] Current Diagnoses Unilateral primary osteoarthritis, unspecified hip (04/12/20) Visit Care Team Role Provider Type Brent Blackwell MD Primary Care Provider Non-Staff Specialty: Family Practice Address: [address], [address] Email: Koffi Ellis MD Attending Provider Physician Referring Provider Specialty: Orthopedic Surgery Address: [address] [place] [address], [id number] Email: [email or web address] Plan Of Care PT-OP-T Assessment and Plan Start: 12/07/19 08:10 Freq: Status: Active Protocol: Document 04/12/20 08:53 HH (Rec: 04/12/20 09:27 HH [id number]) Physical Therapy Assessment Goals pain 2 Impairment pain for the first step after change of position. Potable Water Treatment Operator Goal (LTG) pt will not have hip discomfort for the first step after sitting > 10 mins. LTG Duration 6 weeks SLS Impairment SLS = 3s Penitentiary Goal (LTG) 01/17 goal met pt complete SLS 60s on R side. LTG Duration 6 weeks 30s STS Impairment baseline= 14 times in 30s Penitentiary Goal (LTG) 01/13 goal met. Pt completed 16 times in 30STS Pt will improve her LE strength who will reach >12 times in 30s STS LTG Duration 8 weeks strength Impairment pt's RLE is mostly 3+/4- for MMT grossly Short Term Goal (STG) 12 cont in progress Pt is able to complete full clam shell on R x 6-8 times Potable Water Treatment Operator Goal (LTG) 12 pt reaches 4+/5 for overall RLE strength so she will not compensate through LLE for STS and walking activities. extension = 4-/5 LTG Duration 8 weeks gait Impairment pt amb with R knee valgus and hip IR Short Term Goal (STG) pt will be able to amb without a FWW for household distance STG Duration 4 weeks Penitentiary Goal (LTG) 02/07 goal met pt is able to walk at home and community without any AD at all days. Pt has been walking miles sometimes at beach. pt will be able to amb without any AD for community distance , along with neutral hip and knee postion to optimaze gait mechanics LTG Duration 8 weeks LEFS 2 Impairment pt scores 42 on LEFs Short Term Goal (STG) 12/13 pt scores 5 on LEFS post surgically 01/13 cont in progress pt scores 45 on LEFS pt will score >48 on LEFS to improve her functional mobility and strength STG Duration 4 weeks Penitentiary Goal (LTG) 02/07 goal closely met. pt scores 61/80 on LEFS 2/9 goal met pt scores 75/80 LTG Duration 8 weeks Progress Towards Goals Progress Towards Goals Goals Met Assessment Summary Assessment Pt's POC 4 days ago and this session is for reassessment and review HEP. Pt has shown good progress since surgery. She is able to fully return her normal activities without much discomfort. She has better R hip ROM than prior to surgery and hip strength. Pt is satisfied with her progress and ready to be DC. Physical Therapy Plan Frequency and Duration Frequency of Treatment 1x/Week Plan of Care Start Date 04/12/20 Plan of Care End Date 04/12/20 Plan of Care Dates Plan of Care Start Date 04/12/20 Plan of Care End Date 04/12/20 Electronically Signed by: Erin Calle, PT 04/12/20 [id number] Please Sign and Return: I have reviewed this Plan of Care and certify that the skilled therapy services above are required to meet the patient?s needs. Physician Signature Date Printed Name and Credentials Clinical Instructor Signature Printed Name and Credentials
--- NOTE | 2020-04-12 09:28 | PT.OPDS ---
Current Diagnoses Unilateral primary osteoarthritis, unspecified hip (04/12/20) Visit Care Team Role Provider Type Brent Blackwell MD Primary Care Provider Non-Staff Specialty: Family Practice Address: [address] [place] [address], [id number] Email: Koffi Ellis MD Attending Provider Physician Referring Provider Specialty: Orthopedic Surgery Address: [address] [place] [address], [id number] Email: [email or web address] Visit Number Visit Number 06/16 Discharge Summary PT-OP-B Current Condition Start: 12/07/19 08:10 Freq: Status: Active Protocol: Document 12/07/19 10:05 (Rec: 12/07/19 10:34 [id number]) Current Condition History of Current Condition Onset Date a year ago Current Complaints R hip pain, upcoming R SHANELL ( posterior approach) History of Current Condition Pt presents to clinic today for pre operative workshop for her upcoming R SHANELL (posterior approach) with Dr. Ellis on 12/09/19. Pt fell approx a year ago and twisted her R hip awkwardly. She has been experiencing pain with hip ER and flexion related movements, bending down and sit <>stand activities. Pt had a course of PT and it did help but not permanently since MRI did show Small anterosuperior right acetabular labral tear and Moderate to severe degenerative changes of the right hip. Prior Treatments and Tests Jan, 2019- MRI did show Small anterosuperior right acetabular labral tear and Moderate to severe degenerative changes of the right hip Treatment Goals Patient/Caregiver Goals 1. To regain her R hip ROM and strength for functional activities 2. Able to bend down to pick pulling machine operator objects; fawn socks and car transfer without pain. Prior Functional Status Baseline Function- ADL's Independent Baseline Function- Mobility Independent Current Functional Impairments (Reported) Functional Limitations- ADL's unable to fawn/doff socks in seated position on R LE Functional Limitations- Other pain while lifting her RLE into her car during car transfer difficulty bending down to reach for the floor. PT-OP-C Subjective Start: 12/07/19 08:10 Freq: Status: Active Protocol: Document 04/12/20 08:53 HH (Rec: 04/12/20 09:27 [id number]) OP-PT Subjective Patient Comments Patient Comments milo been walking on the beach twice a week, i walked 10-15 miles a [place]eek so far with no problems. My discomfort from taking the first step is almost gone now. Patient Reported Progress Improving PT-OP-E Functional Tests Start: 12/07/19 08:10 Freq: Status: Active Protocol: Document 12/14/19 09:01 (Rec: 12/14/19 11:25 [id number]) Functional Tests 30 Second Sit to Stand Test Score 9 Comments staggered stance with FWW PT-OP-G Mobility & Gait Start: 12/07/19 08:10 Freq: Status: Active Protocol: Document 12/14/19 09:01 (Rec: 12/14/19 11:25 [id number]) OP Gait Assessment Assistive Devices Assistive Device Front Wheeled Walker Gait Deviations General Gait Pattern Antalgic,Decreased Stride Length,Decreased Feet Clearance Factors Limiting Gait Function Factors Limiting Gait Function Decreased Activity Tolerance, Decreased Strength,Limited Range of Motion,Pain,Poor Balance PT-OP-J Posture/Palpation/Skin Start: 12/07/19 08:10 Freq: Status: Active Protocol: Document 01/14/20 09:02 (Rec: 01/14/20 10:31 [id number]) Skin Assessment Other Assessments Skin Assessment Comments L leg length : ASIS to top of patella= 17.5 bottom of patella to medial malleoli = 15 same for RLE PT-OP-K Range of Motion Start: 12/07/19 08:10 Freq: Status: Active Protocol: Document 02/08/20 09:48 HH (Rec: 02/08/20 13:00 [id number]) Hip Goniometric Range of Motion Hip Left Active Straight Leg Raise 92 Internal Rotation 48 External Rotation 32 Right Active Straight Leg Raise 82 Internal Rotation 45 External Rotation 26 PT-OP-M Strength Start: 12/07/19 08:10 Freq: Status: Active Protocol: Document 02/08/20 09:48 HH (Rec: 02/08/20 13:00 [id number]) Hip Strength Hip Manual Muscle Testing Left Flexion (L2) 5 Normal Extension (S1) 5 Normal Abduction 5 Normal Adduction 5 Normal Right Flexion (L2) 4+ Good+ Extension (S1) 4- Good- Abduction 4+ Good+ Adduction 4+ Good+ PT-OP-T Assessment and Plan Start: 12/07/19 08:10 Freq: Status: Active Protocol: Document 04/12/20 08:53 HH (Rec: 04/12/20 09:27 [id number]) Physical Therapy Assessment Goals pain 2 Impairment pain for the first step after change of position. Barrel Rifler Hook Goal (LTG) pt will not have hip discomfort for the first step after sitting > 10 mins. LTG Duration 6 weeks SLS Impairment SLS = 3s Snf Goal (LTG) 01/17 goal met pt complete SLS 60s on R side. LTG Duration 6 weeks 30s STS Impairment baseline= 14 times in 30s Snf Goal (LTG) 01/13 goal met. Pt completed 16 times in 30STS Pt will improve her LE strength who will reach >12 times in 30s STS LTG Duration 8 weeks strength Impairment pt's RLE is mostly 3+/4- for MMT grossly Short Term Goal (STG) 01/13 cont in progress Pt is able to complete full clam shell on R x 6-8 times Barrel Rifler Hook Goal (LTG) 02/07 pt reaches 4+/5 for overall RLE strength so she will not compensate through LLE for STS and walking activities. extension = 4-/5 LTG Duration 8 weeks gait Impairment pt amb with R knee valgus and hip IR Short Term Goal (STG) pt will be able to amb without a FWW for household distance STG Duration 4 weeks Snf Goal (LTG) 02/07 goal met pt is able to walk at home and community without any AD at all days. Pt has been walking miles sometimes at beach. pt will be able to amb without any AD for community distance , along with neutral hip and knee postion to optimaze gait mechanics LTG Duration 8 weeks LEFS 2 Impairment pt scores 42 on LEFs Short Term Goal (STG) 12/13 pt scores 5 on LEFS post surgically 01/13 cont in progress pt scores 45 on LEFS pt will score >48 on LEFS to improve her functional mobility and strength STG Duration 4 weeks Barrel Rifler Hook Goal (LTG) 02/07 goal closely met. pt scores 61/80 on LEFS 2/9 goal met pt scores 75/80 LTG Duration 8 weeks Progress Towards Goals Progress Towards Goals Goals Met Assessment Summary Assessment Pt's POC 4 days ago and this session is for reassessment and review HEP. Pt has shown good progress since surgery. She is able to fully return her normal activities without much discomfort. She has better R hip ROM than prior to surgery and hip strength. Pt is satisfied with her progress and ready to be DC. Physical Therapy Plan Frequency and Duration Frequency of Treatment 1x/Week Plan of Care Start Date 04/12/20 Plan of Care End Date 04/12/20
== END 2020-04-27 14:43 ==
LOC: PHYS 09:00
PROVIDERS: PCP Family Medicine; Referring Provider Orthopaedic Surgery; Visit Provider Orthopaedic Surgery
DX: M16.10 Unilateral primary osteoarthritis, unspecified hip (principal)
CPT/HCPCS: 97110; 97116; 97140; 97161; 97535

== ENCOUNTER 2020-05-13 09:45 | Outpatient (RCR) | payer OTHER, SELFPAY ==
[2019-12-09 14:41] VITALS: BMI 24.5
--- NOTE | 2020-04-28 16:30 | PT.OIE ---
Current Diagnoses Stiffness of right hip, not elsewhere classified (04/28/20) Other specified disorders of muscle (04/28/20) Pelvic and perineal pain (04/28/20) Past Medical History (Last Reviewed 04/19/20 @ 09:39 by Chani Bernal MD) Elevated cholesterol No significant medical problems STEPHANE (obstructive sleep apnea) Osteoarthritis Seasonal allergies Stomach ulcer Uterine fibroid Past Surgical History (Last Reviewed 04/19/20 @ 09:39 by Chani Bernal MD) History of colonoscopy Hx of arthroscopy of right knee (2017) Hx of LASIK Hx of lithotripsy (2011) Hx of oral surgery Visit Care Team Role Provider Type Brent Blackwell MD Primary Care Provider Non-Staff Specialty: Family Practice Address: [address] [place] [address], [id number] Email: Chani Bernal MD Attending Provider Physician Referring Provider Specialty: CREATIVE WRITING ENGLISH PROFESSOR Address: [address] [place] [address], [id number] Email: Physical Therapy Initial Evaluation PT-OP-A Visit Information Start: 04/28/20 09:07 Freq: Status: Active Protocol: Document 04/28/20 11:25 LRN (Rec: 04/28/20 12:37 LRN [id number]) Out-Patient Physical Therapy Visit Information Visit Information Visit Type Initial Evaluation Visit Start Time 11:25 Visit Stop Time 12:17 Total Visit Minutes 52 Visit Number 1 Evaluation Information Evaluation Date 04/28/20 Precautions Precautions R SHANELL - 12/2019 PT-OP-B Current Condition Start: 04/28/20 09:07 Freq: Status: Active Protocol: Document 04/28/20 11:25 LRN (Rec: 04/28/20 12:37 LRN [id number]) Current Condition History of Current Condition Onset Date 3 years ago Current Complaints Pain with intercourse. History of Current Condition Pt reports she mainly had a problem with dryness of vagina and soreness. She had pain with insertion but once participating the pain went away. She continued having intercourse and the pain worsened. Has been on estrogen cream for 5 days, but had pain putting applicator in. She feels since starting the cream her pain is lessening. She denies tissue abrasion or vaginal bleeding. For awhile she has felt like there was a soreness on the outside (genitalia) but was told there wasn't. She has pain only with intercourse. She reports having urinary urge, that sometimes when urinating is just a dribble. The year she had R hip surgery she was inhibited with intercouse due to pain. Last time having intercourse was 1. 5 yrs ago. Pt states the plan is to do estrogen cream and PT. No discussion with Dr. Bernal with incontinence or sneezing. Prior Treatments and Tests R Hip posterior replacement - 12/09/19. Physical therapy post-op R SHANELL and is walking normal and continues to do exercises for strengthening. Developmental History Developmental History Since youth has always had trouble putting tampon in and has not born any children. Tipped forward uterus, on full penetration it is uncomfortable, but she changes position and is comfortable. Has fibroid (unknown location ). In menopause since 53 yrs old. Treatment Goals Patient/Caregiver Goals Pt goal is to be comfortable with intercourse, less frequency of urination, no leakage with sneezing. Prior Functional Status Baseline Function- ADL's Independent Baseline Function- Mobility Independent Baseline Function- Gait Normal Baseline Function- Other Every other day walks a mile. Current Functional Impairments (Reported) Functional Limitations- ADL's Unable to have intercourse due to pain on insertion. Urinary leakage with strong cough or sneeze. Increased frequency of urination. Functional Limitations- Other Continues to walk every other day walks a mile. Personal Factors Other Personal Factors That May Effect Spouse would like to continue Therapy/Recovery intercourse. Pt feels she doesn't have the sex drive like her spouse has, but is ready to return to prior level of normal. PT-OP-C Subjective Start: 04/28/20 09:07 Freq: Status: Active Protocol: Document 04/28/20 11:25 LRN (Rec: 04/28/20 12:37 LRN [id number]) OP-PT Subjective Patient Comments Patient Comments Pain related to intercourse. Patient Questionnaires Pelvic Pain and Urgency/Frequency Patient Symptom Scale Pelvic Pain Score 20 PT-OP-I Pelvic Floor Start: 04/28/20 09:07 Freq: Status: Active Protocol: Document 04/28/20 11:25 LRN (Rec: 04/28/20 12:37 LRN [id number]) Pelvic Floor Assessment Urine Pelvic Floor Surgery No Leakage Size Small Leakage Cause Cough,Sneeze Voiding Frequency 6x/day Nocturia 1 Bowel Bowel Surgery No Other Bowel Symptoms No constipation Bowel Movement Frequency 1x/day after coffee in AM, very consistent [place] Stool Chart Type 1-7 4 Pelvic Clock Pelvic Clock 12-3 Tenderness,Tightness Pelvic Clock 3-6 Tenderness,Tightness Pelvic Clock 6-9 Tenderness Pelvic Clock 9-12 Tenderness Pelvic Clock Other Tightness at Pelvic Clock 9. Perineal Descent Resting Absent Bearing Absent Comments Pelvic Floor Comments L>R PF tenderness/pain. PT-OP-J Posture/Palpation/Skin Start: 04/28/20 09:07 Freq: Status: Active Protocol: Document 04/28/20 11:25 LRN (Rec: 04/28/20 12:37 LRN [id number]) Posture Evaluation Position Standing Shoulder Posture (L) Elevated Pelvis Posture Anteriorly Tilted Weight Distribution Weight Shifted Left PT-OP-K Range of Motion Start: 04/28/20 09:07 Freq: Status: Active Protocol: Document 04/28/20 11:25 LRN (Rec: 04/28/20 12:37 LRN [id number]) Lumbar Spine Range of Motion Lumbar Spine Active Degrees Testing Position Standing Flexion 70 Extension 10 Rotation Left 30 Rotation Right 45 Lateral Flexion Left 15 Lateral Flexion Right 7 Hip Goniometric Range of Motion Hip R Prone active hip ext Hip ROM WFL No Testing Position Prone Extension 5 Left Prone Active hip ext Hip ROM WFL Yes Testing Position Prone Extension 9 Right Passive Hip ROM WFL No Testing Position Supine Flexion w/Knee Flexed 112 Abduction 22 Internal Rotation 50 External Rotation 20 Comments Resting position of legs is in 3 deg's hip AB Left Passive Hip ROM WFL Yes Testing Position Supine Flexion w/Knee Flexed 125 Abduction 22 Internal Rotation 55 External Rotation 60 Comments Resting position of legs is in 3 deg's hip AB PT-OP-M Strength Start: 04/28/20 09:07 Freq: Status: Active Protocol: Document 04/28/20 11:25 LRN (Rec: 04/28/20 12:37 LRN [id number]) Hip Strength Hip Manual Muscle Testing Left Flexion (L2) 5 Normal Extension (S1) 5 Normal Abduction 5 Normal Adduction 5 Normal External Rotation 5 Normal Internal Rotation 5 Normal Right Flexion (L2) 5 Normal Extension (S1) 5 Normal Abduction 4- Good- Adduction 5 Normal External Rotation 2+ Poor+ Internal Rotation 4+ Good+ Comments Lacks hip ext ROM PT-OP-Q Treatments Start: 04/28/20 09:07 Freq: Status: Active Protocol: Document 04/28/20 11:25 LRN (Rec: 04/28/20 12:37 LRN [id number]) Manual Therapy Treatment Soft Tissue Mobilization R lateral wall of PF Body Location R lateral wall of PF Mobilization Type Trigger Point Release Intensity/Depth Superficial Body Position Hooklying Comments 9 O'Clock L lateral wall of PF Body Location L lateral wall of PF Mobilization Type Sustained Pressure Intensity/Depth Superficial Body Position Hooklying Comments 2-7 O'Clock Self-Care/Home Management Treatment Education Other Education Discussed results of evaluation, POC, and goals. Activities Self-Care/Home Management Activities I/S pt in HEP: *Hip ER stretch Issued Medium Dilator with I/S in self trigger point treatment with focus on PF clock 2-6 and 9 O'Clock. PT-OP-T Assessment and Plan Start: 04/28/20 09:07 Freq: Status: Active Protocol: Document 04/28/20 11:25 LRN (Rec: 04/28/20 12:37 LRN [id number]) Physical Therapy Assessment Rehab Potential Rehabilitation Potential Excellent Evaluation Complexity Number of Personal Factors/Comorbidities 1-2 Number of Body Systems Impaired 4 or More Clinical Presentation at Evaluation Evolving Impairments Impairments Activity Tolerance,Pain,ROM, Soft Tissue Mobility,Strength, Tone Goals Three Impairment PF pain with intercourse ( insertion worst). Short Term Goal (STG) Pt will be educated in proper PF stretching with dilator STG Duration 06/10/20 Foam Charger Goal (LTG) Pt will be comfortable with intercourse. LTG Duration 07/27/20 Two Impairment Increased frequency of urination (6x/day). Short Term Goal (STG) Decrease frequency of urination to 5X/day, 1x/night. Half-Way Goal (LTG) No leakage with cough or sneeze. LTG Duration 07/27/20 One Impairment Pt lacks appropriate self care HEP Foam Charger Goal (LTG) Pt will be independent with a self care HEP to maintain comfortable intercourse and normalize her PF/hip/core muscle tone. LTG Duration 07/27/20 Assessment Summary Assessment Pt is a 70 yo female with PF pain, primarily due to L>R PF tightness and soft tissue tightness from a small vaginal opening, decreased R hip mobility (ER, ext) and weakness (ER, ext, AB), probably increased sympathetic tone due to chronic PF pain. Soft tissues of the PF appear healthy, but internal PF tissues appear dry and thin upon palpation. Since the pt has been started on estrogen cream it is expected that she will do quite well with therapy and will benefit from skilled physical therapy of manual therapy, therapeutic ex for hips (stretching and strengthening), PF relaxation education and exercises and deep breathing and modifications of transfer techniques to promote relaxation of PF. Physical Therapy Plan Frequency and Duration Frequency of Treatment 1x/Week Plan of Care Start Date 04/28/20 Plan of Care End Date 07/27/20 Therapeutic Interventions Therapeutic Interventions Home Exercise Program,Manual Therapy,Patient/Caregiver Education,Self-Care/Home Management,Soft Tissue Mobilization,Therapeutic Activities,Therapeutic Exercises Modalities Biofeedback,Cold Pack/Ice Massage,Electric Stimulation, Hot Packs Next Visit Focus/Plan Next Note Type Treatment Note Next Visit Plan Pt to schedule 1x/week for 8 weeks. Recheck pt use of dilator for PF stretching. Check core strength, deep breathing, teach relaxation techniques, check abdominal tightness, Ther ex: L hip stretching and R hip AD, ER strengthening. Use breath to relax PF with transfers. Manual stretch to Perineal node, perineum and L PF, Pt education in PF using model.
--- NOTE | 2020-04-28 16:30 | PT.OPPOC ---
Physical, Occupational & Speech Therapy At [facility] Current Diagnoses Stiffness of right hip, not elsewhere classified (04/28/20) Other specified disorders of muscle (04/28/20) Pelvic and perineal pain (04/28/20) Visit Care Team Role Provider Type Brent Blackwell MD Primary Care Provider Non-Staff Specialty: Family Practice Address: [address] [place] [address], [id number] Email: Chani Bernal MD Attending Provider Physician Referring Provider Specialty: METAL MOCKUP MAKER Address: [address] [place] [address], [id number] Email: Plan Of Care PT-OP-T Assessment and Plan Start: 04/28/20 09:07 Freq: Status: Active Protocol: Document 04/28/20 11:25 LRN (Rec: 04/28/20 12:37 LRN [id number]) Physical Therapy Assessment Rehab Potential Rehabilitation Potential Excellent Evaluation Complexity Number of Personal Factors/Comorbidities 1-2 Number of Body Systems Impaired 4 or More Clinical Presentation at Evaluation Evolving Impairments Impairments Activity Tolerance,Pain,ROM, Soft Tissue Mobility,Strength, Tone Goals Three Impairment PF pain with intercourse ( insertion worst). Short Term Goal (STG) Pt will be educated in proper PF stretching with dilator STG Duration 06/10/20 Dredgemaster Goal (LTG) Pt will be comfortable with intercourse. LTG Duration 07/27/20 Two Impairment Increased frequency of urination (6x/day). Short Term Goal (STG) Decrease frequency of urination to 5X/day, 1x/night. Dredgemaster Goal (LTG) No leakage with cough or sneeze. LTG Duration 07/27/20 One Impairment Pt lacks appropriate self care HEP Dredgemaster Goal (LTG) Pt will be independent with a self care HEP to maintain comfortable intercourse and normalize her PF/hip/core muscle tone. LTG Duration 07/27/20 Assessment Summary Assessment Pt is a 70 yo female with PF pain, primarily due to L>R PF tightness and soft tissue tightness from a small vaginal opening, decreased R hip mobility (ER, ext) and weakness (ER, ext, AB), probably increased sympathetic tone due to chronic PF pain. Soft tissues of the PF appear healthy, but internal PF tissues appear dry and thin upon palpation. Since the pt has been started on estrogen cream it is expected that she will do quite well with therapy and will benefit from skilled physical therapy of manual therapy, therapeutic ex for hips (stretching and strengthening), PF relaxation education and exercises and deep breathing and modifications of transfer techniques to promote relaxation of PF. Physical Therapy Plan Frequency and Duration Frequency of Treatment 1x/Week Plan of Care Start Date 04/28/20 Plan of Care End Date 07/27/20 Therapeutic Interventions Therapeutic Interventions Home Exercise Program,Manual Therapy,Patient/Caregiver Education,Self-Care/Home Management,Soft Tissue Mobilization,Therapeutic Activities,Therapeutic Exercises Modalities Biofeedback,Cold Pack/Ice Massage,Electric Stimulation, Hot Packs Next Visit Focus/Plan Next Note Type Treatment Note Next Visit Plan Pt to schedule 1x/week for 8 weeks. Recheck pt use of dilator for PF stretching. Check core strength, deep breathing, teach relaxation techniques, check abdominal tightness, Ther ex: L hip stretching and R hip AD, ER strengthening. Use breath to relax PF with transfers. Manual stretch to Perineal node, perineum and L PF, Pt education in PF using model. Plan of Care Dates Plan of Care Start Date 04/28/20 Plan of Care End Date 07/27/20 Electronically Signed by: Martha Masterson, PT 04/29/20 [id number] Please Sign and Return: I have reviewed this Plan of Care and certify that the skilled therapy services above are required to meet the patient?s needs. Physician Signature Date Printed Name and Credentials Clinical Instructor Signature Printed Name and Credentials
--- NOTE | 2020-05-06 16:49 | PT.OTN ---
Current Diagnoses Stiffness of right hip, not elsewhere classified (05/06/20) Other specified disorders of muscle (05/06/20) Pelvic and perineal pain (05/06/20) Physical Therapy Treatment Note PT-OP-A Visit Information Start: 04/28/20 09:07 Freq: Status: Active Protocol: Document 05/06/20 10:38 LRN (Rec: 05/06/20 11:23 LRN [id number]) Out-Patient Physical Therapy Visit Information Visit Information Visit Type Treatment Note Visit Start Time 10:38 Visit Stop Time 11:22 Total Visit Minutes 44 Visit Number 2 Evaluation Information Evaluation Date 04/28/20 Precautions Precautions R SHANELL - 12/2019 PT-OP-B Current Condition Start: 04/28/20 09:07 Freq: Status: Active Protocol: Document 04/28/20 11:25 LRN (Rec: 04/28/20 12:37 LRN [id number]) Current Condition History of Current Condition Onset Date 3 years ago Current Complaints Pain with intercourse. History of Current Condition Pt reports she mainly had a problem with dryness of vagina and soreness. She had pain with insertion but once participating the pain went away. She continued having intercourse and the pain worsened. Has been on estrogen cream for 5 days, but had pain putting applicator in. She feels since starting the cream her pain is lessening. She denies tissue abrasion or vaginal bleeding. For awhile she has felt like there was a soreness on the outside (genitalia) but was told there wasn't. She has pain only with intercourse. She reports having urinary urge, that sometimes when urinating is just a dribble. The year she had R hip surgery she was inhibited with intercouse due to pain. Last time having intercourse was 1. 5 yrs ago. Pt states the plan is to do estrogen cream and PT. No discussion with Dr. Bernal with incontinence or sneezing. Prior Treatments and Tests R Hip posterior replacement - 12/09/19. Physical therapy post-op R SHANELL and is walking normal and continues to do exercises for strengthening. Developmental History Developmental History Since youth has always had trouble putting tampon in and has not born any children. Tipped forward uterus, on full penetration it is uncomfortable, but she changes position and is comfortable. Has fibroid (unknown location ). In menopause since 53 yrs old. Treatment Goals Patient/Caregiver Goals Pt goal is to be comfortable with intercourse, less frequency of urination, no leakage with sneezing. Prior Functional Status Baseline Function- ADL's Independent Baseline Function- Mobility Independent Baseline Function- Gait Normal Baseline Function- Other Every other day walks a mile. Current Functional Impairments (Reported) Functional Limitations- ADL's Unable to have intercourse due to pain on insertion. Urinary leakage with strong cough or sneeze. Increased frequency of urination. Functional Limitations- Other Continues to walk every other day walks a mile. Personal Factors Other Personal Factors That May Effect Spouse would like to continue Therapy/Recovery intercourse. Pt feels she doesn't have the sex drive like her spouse has, but is ready to return to prior level of normal. PT-OP-C Subjective Start: 04/28/20 09:07 Freq: Status: Active Protocol: Document 05/06/20 10:38 LRN (Rec: 05/06/20 11:23 LRN [id number]) OP-PT Subjective Patient Comments Patient Comments Just finished 2 weeks of estrogen creme and using dilator and feels it is going in a little easier. Still has irritation but it is better. PT-OP-I Pelvic Floor Start: 04/28/20 09:07 Freq: Status: Active Protocol: Document 04/28/20 11:25 LRN (Rec: 04/28/20 12:37 LRN [id number]) Pelvic Floor Assessment Urine Pelvic Floor Surgery No Leakage Size Small Leakage Cause Cough,Sneeze Voiding Frequency 6x/day Nocturia 1 Bowel Bowel Surgery No Other Bowel Symptoms No constipation Bowel Movement Frequency 1x/day after coffee in AM, very consistent [place] Stool Chart Type 1-7 4 Pelvic Clock Pelvic Clock 12-3 Tenderness,Tightness Pelvic Clock 3-6 Tenderness,Tightness Pelvic Clock 6-9 Tenderness Pelvic Clock 9-12 Tenderness Pelvic Clock Other Tightness at Pelvic Clock 9. Perineal Descent Resting Absent Bearing Absent Comments Pelvic Floor Comments L>R PF tenderness/pain. PT-OP-J Posture/Palpation/Skin Start: 04/28/20 09:07 Freq: Status: Active Protocol: Document 04/28/20 11:25 LRN (Rec: 04/28/20 12:37 LRN [id number]) Posture Evaluation Position Standing Shoulder Posture (L) Elevated Pelvis Posture Anteriorly Tilted Weight Distribution Weight Shifted Left PT-OP-K Range of Motion Start: 04/28/20 09:07 Freq: Status: Active Protocol: Document 04/28/20 11:25 LRN (Rec: 04/28/20 12:37 LRN [id number]) Lumbar Spine Range of Motion Lumbar Spine Active Degrees Testing Position Standing Flexion 70 Extension 10 Rotation Left 30 Rotation Right 45 Lateral Flexion Left 15 Lateral Flexion Right 7 Hip Goniometric Range of Motion Hip R Prone active hip ext Hip ROM WFL No Testing Position Prone Extension 5 Left Prone Active hip ext Hip ROM WFL Yes Testing Position Prone Extension 9 Right Passive Hip ROM WFL No Testing Position Supine Flexion w/Knee Flexed 112 Abduction 22 Internal Rotation 50 External Rotation 20 Comments Resting position of legs is in 3 deg's hip AB Left Passive Hip ROM WFL Yes Testing Position Supine Flexion w/Knee Flexed 125 Abduction 22 Internal Rotation 55 External Rotation 60 Comments Resting position of legs is in 3 deg's hip AB PT-OP-M Strength Start: 04/28/20 09:07 Freq: Status: Active Protocol: Document 04/28/20 11:25 LRN (Rec: 04/28/20 12:37 LRN [id number]) Hip Strength Hip Manual Muscle Testing Left Flexion (L2) 5 Normal Extension (S1) 5 Normal Abduction 5 Normal Adduction 5 Normal External Rotation 5 Normal Internal Rotation 5 Normal Right Flexion (L2) 5 Normal Extension (S1) 5 Normal Abduction 4- Good- Adduction 5 Normal External Rotation 2+ Poor+ Internal Rotation 4+ Good+ Comments Lacks hip ext ROM PT-OP-Q Treatments Start: 04/28/20 09:07 Freq: Status: Active Protocol: Document 05/06/20 10:38 LRN (Rec: 05/06/20 11:23 LRN [id number]) Therapeutic Exercises Supine Exercises Deep Breathing Supine Exercise Name Deep Breathing Reps/Minutes 10' Manual Therapy Treatment Soft Tissue Mobilization PF Deep Body Location Deep PF stretching Mobilization Type Sustained Pressure Intensity/Depth Superficial Comments PF clock 2-10 PF Superficial Body Location Superficial PF stretching Mobilization Type Sustained Pressure Intensity/Depth Superficial Body Position Hooklying Comments PF clock 2-10 Bowel Massage Body Location Bowel massage Body Position Supine Comments Used palm of hand Self-Care/Home Management Treatment Education Patient Education Home Exercise Program Other Education Discussed positioning on floor and ROM precautions with exercise to avoid hip dislocation. Activities Self-Care/Home Management Activities HEP ISSUED: *Deep Breathing, *Bowel massage PT-OP-T Assessment and Plan Start: 04/28/20 09:07 Freq: Status: Active Protocol: Document 05/06/20 10:38 LRN (Rec: 05/06/20 11:23 LRN [id number]) Physical Therapy Assessment Goals Three Impairment PF pain with intercourse ( insertion worst). Short Term Goal (STG) Pt will be educated in proper PF stretching with dilator STG Duration 06/10/20 (05/06/20: MET GOAL) Fci Goal (LTG) Pt will be comfortable with intercourse. LTG Duration 07/27/20 Two Impairment Increased frequency of urination (6x/day). Short Term Goal (STG) Decrease frequency of urination to 5X/day, 1x/night. STG Duration 06/10/20 Surgical Endoscopist Goal (LTG) No leakage with cough or sneeze. LTG Duration 07/27/20 One Impairment Pt lacks appropriate self care HEP Surgical Endoscopist Goal (LTG) Pt will be independent with a self care HEP to maintain comfortable intercourse and normalize her PF/hip/core muscle tone. HEP ISSUED TO DATE: *Deep Breathing, *Bowel massage LTG Duration 07/27/20 Assessment Summary Assessment Good understanding of new issued home programs. No significant discomfort in abdomen, slight tightness L lower quadrant. Pt is tolerating stretch to PF much better and appears to now have a better understanding of how to use dilator to stretch superficial vs deep PF muscles . Manual stretching may be needed to Perineal node. Pt may need to order dilator set for larger dilators. Physical Therapy Plan Frequency and Duration Frequency of Treatment 1x/Week Plan of Care Start Date 04/28/20 Plan of Care End Date 07/27/20 Next Visit Focus/Plan Next Note Type Treatment Note Next Visit Plan Pt to schedule 1x/week for 8 weeks. Review Deep breathing and with PF stretching. Check core strength, teach relaxation techniques, Ther ex : Happy Baby Pose, L hip stretching and R hip AD, ER strengthening. Assess use of breath to relax PF with transfers. Manual stretch to Perineal node, perineum and L PF, Pt education in PF using model.
--- NOTE | 2020-05-13 16:50 | PT.OTN ---
Current Diagnoses Stiffness of right hip, not elsewhere classified (05/13/20) Other specified disorders of muscle (05/13/20) Pelvic and perineal pain (05/13/20) Physical Therapy Treatment Note PT-OP-A Visit Information Start: 04/28/20 09:07 Freq: Status: Active Protocol: Document 05/13/20 09:52 LRN (Rec: 05/13/20 10:35 LRN [id number]) Out-Patient Physical Therapy Visit Information Visit Information Visit Type Treatment Note Visit Start Time 09:52 Visit Stop Time 10:34 Total Visit Minutes 42 Visit Number 3 Evaluation Information Evaluation Date 04/28/20 Precautions Precautions R SHANELL - 12/2019 PT-OP-B Current Condition Start: 04/28/20 09:07 Freq: Status: Active Protocol: Document 04/28/20 11:25 LRN (Rec: 04/28/20 12:37 LRN [id number]) Current Condition History of Current Condition Onset Date 3 years ago Current Complaints Pain with intercourse. History of Current Condition Pt reports she mainly had a problem with dryness of vagina and soreness. She had pain with insertion but once participating the pain went away. She continued having intercourse and the pain worsened. Has been on estrogen cream for 5 days, but had pain putting applicator in. She feels since starting the cream her pain is lessening. She denies tissue abrasion or vaginal bleeding. For awhile she has felt like there was a soreness on the outside (genitalia) but was told there wasn't. She has pain only with intercourse. She reports having urinary urge, that sometimes when urinating is just a dribble. The year she had R hip surgery she was inhibited with intercouse due to pain. Last time having intercourse was 1. 5 yrs ago. Pt states the plan is to do estrogen cream and PT. No discussion with Dr. Bernal with incontinence or sneezing. Prior Treatments and Tests R Hip posterior replacement - 12/09/19. Physical therapy post-op R SHANELL and is walking normal and continues to do exercises for strengthening. Developmental History Developmental History Since youth has always had trouble putting tampon in and has not born any children. Tipped forward uterus, on full penetration it is uncomfortable, but she changes position and is comfortable. Has fibroid (unknown location ). In menopause since 53 yrs old. Treatment Goals Patient/Caregiver Goals Pt goal is to be comfortable with intercourse, less frequency of urination, no leakage with sneezing. Prior Functional Status Baseline Function- ADL's Independent Baseline Function- Mobility Independent Baseline Function- Gait Normal Baseline Function- Other Every other day walks a mile. Current Functional Impairments (Reported) Functional Limitations- ADL's Unable to have intercourse due to pain on insertion. Urinary leakage with strong cough or sneeze. Increased frequency of urination. Functional Limitations- Other Continues to walk every other day walks a mile. Personal Factors Other Personal Factors That May Effect Spouse would like to continue Therapy/Recovery intercourse. Pt feels she doesn't have the sex drive like her spouse has, but is ready to return to prior level of normal. PT-OP-C Subjective Start: 04/28/20 09:07 Freq: Status: Active Protocol: Document 05/13/20 09:52 LRN (Rec: 05/13/20 10:35 LRN [id number]) OP-PT Subjective Patient Comments Patient Comments Doing really well. Successful intercourse. States she knows what she needs to do with estrogen creme and stretching. Soreness with intercourse & used vibrator before hand and uses gel. Patient Questionnaires Pelvic Pain and Urgency/Frequency Patient Symptom Scale Pelvic Pain Score 11 PT-OP-I Pelvic Floor Start: 04/28/20 09:07 Freq: Status: Active Protocol: Document 04/28/20 11:25 LRN (Rec: 04/28/20 12:37 LRN [id number]) Pelvic Floor Assessment Urine Pelvic Floor Surgery No Leakage Size Small Leakage Cause Cough,Sneeze Voiding Frequency 6x/day Nocturia 1 Bowel Bowel Surgery No Other Bowel Symptoms No constipation Bowel Movement Frequency 1x/day after coffee in AM, very consistent Jewell Stool Chart Type 1-7 4 Pelvic Clock Pelvic Clock 12-3 Tenderness,Tightness Pelvic Clock 3-6 Tenderness,Tightness Pelvic Clock 6-9 Tenderness Pelvic Clock 9-12 Tenderness Pelvic Clock Other Tightness at Pelvic Clock 9. Perineal Descent Resting Absent Bearing Absent Comments Pelvic Floor Comments L>R PF tenderness/pain. PT-OP-J Posture/Palpation/Skin Start: 04/28/20 09:07 Freq: Status: Active Protocol: Document 04/28/20 11:25 LRN (Rec: 04/28/20 12:37 LRN [id number]) Posture Evaluation Position Standing Shoulder Posture (L) Elevated Pelvis Posture Anteriorly Tilted Weight Distribution Weight Shifted Left PT-OP-K Range of Motion Start: 04/28/20 09:07 Freq: Status: Active Protocol: Document 04/28/20 11:25 LRN (Rec: 04/28/20 12:37 LRN [id number]) Lumbar Spine Range of Motion Lumbar Spine Active Degrees Testing Position Standing Flexion 70 Extension 10 Rotation Left 30 Rotation Right 45 Lateral Flexion Left 15 Lateral Flexion Right 7 Hip Goniometric Range of Motion Hip R Prone active hip ext Hip ROM WFL No Testing Position Prone Extension 5 Left Prone Active hip ext Hip ROM WFL Yes Testing Position Prone Extension 9 Right Passive Hip ROM WFL No Testing Position Supine Flexion w/Knee Flexed 112 Abduction 22 Internal Rotation 50 External Rotation 20 Comments Resting position of legs is in 3 deg's hip AB Left Passive Hip ROM WFL Yes Testing Position Supine Flexion w/Knee Flexed 125 Abduction 22 Internal Rotation 55 External Rotation 60 Comments Resting position of legs is in 3 deg's hip AB PT-OP-M Strength Start: 04/28/20 09:07 Freq: Status: Active Protocol: Document 04/28/20 11:25 LRN (Rec: 04/28/20 12:37 LRN [id number]) Hip Strength Hip Manual Muscle Testing Left Flexion (L2) 5 Normal Extension (S1) 5 Normal Abduction 5 Normal Adduction 5 Normal External Rotation 5 Normal Internal Rotation 5 Normal Right Flexion (L2) 5 Normal Extension (S1) 5 Normal Abduction 4- Good- Adduction 5 Normal External Rotation 2+ Poor+ Internal Rotation 4+ Good+ Comments Lacks hip ext ROM PT-OP-Q Treatments Start: 04/28/20 09:07 Freq: Status: Active Protocol: Document 05/13/20 09:52 LRN (Rec: 05/13/20 10:35 LRN [id number]) Therapeutic Exercises Supine Exercises Happy Baby Pose Supine Exercise Name Happy Baby Pose Side bilateral Reps/Minutes 8' figure 4 Supine Exercise Name Fig 4 stretch, f/b active stretch Side bilateral Reps/Minutes 8' Standing Exercises Hi AD stretch w/chair Standing Exercise Name Hip AD stretch w/chair Side bilateral Equipment Used Table lowest setting Reps/Minutes 6' Comments Extra time for training Stretch Hip adductors Standing Exercise Name Hip ADD stretch Side bilateral Reps/Minutes 5' Comments Extra time for training Self-Care/Home Management Treatment Education Other Education Educated pt in self Trp treatment to hip AD's (R tighter and more tender than L ). Activities Self-Care/Home Management Activities HEP ISSUED & REVIEWED: * FIG 4 stretch, *Standing hip AD stretch, * Standing hip AD stretch w/chair. PT-OP-T Assessment and Plan Start: 04/28/20 09:07 Freq: Status: Active Protocol: Document 05/13/20 09:52 LRN (Rec: 05/13/20 10:35 LRN [id number]) Physical Therapy Assessment Goals Three Impairment PF pain with intercourse ( insertion worst). Short Term Goal (STG) Pt will be educated in proper PF stretching with dilator STG Duration 06/10/20 (05/06/20: MET GOAL) Care Home Goal (LTG) Pt will be comfortable with intercourse. LTG Duration 07/27/20 (05/13/20: 80-90% improved) Two Impairment Increased frequency of urination (6x/day). Short Term Goal (STG) Decrease frequency of urination to 5X/day, 1x/night. (05/13/20: 10X/day sometimes, 1x/night). STG Duration 06/10/20 (05/13/20: NOT MET GOAL) Planting Material Remover Goal (LTG) No leakage with cough or sneeze. LTG Duration 07/27/20 (05/13/20: MET GOAL) One Impairment Pt lacks appropriate self care HEP Care Home Goal (LTG) Pt will be independent with a self care HEP to maintain comfortable intercourse and normalize her PF/hip/core muscle tone. HEP ISSUED TO DATE: *Deep Breathing, *Bowel massage, * FIG 4 stretch, * Standing hip AD stretch, * Standing hip AD stretch w/ chair. LTG Duration 07/27/20 (05/13/20: MET GOAL) Assessment Summary Assessment Pt feels ready for discharge to her HEP. Pt feels she is 80-90% improved with painful intercourse. Pt is having frequent bladder movements that she thinks is associated to urinating as a just in case. She understands that this may not be the best method of daily practice and will try to decrease voids on her own. She will seek new referral if she can't improve on her own later. Pt has mobility tightness of her PF and hips that she will continue to work on to improve . Her L hip AD's are not as tight as the R side. Physical Therapy Plan Discharge Physical Therapy Discharge Comments Pt has met most of her goals and feels ready to continue on her independent HEP. She shows signs of PF dysfunction with a PUF score of 11 ( greater than 5 indicates possible interstitial cystitis , score 10-15 indicates 74% likilihood of poistitive Potassium Sensitivity). The pt may be a good candidate in the future for PF physical therapy if her number of voiding times during the day increase to unmanageable levels. Thank you for your referral.
== END 2020-05-27 11:45 | disposition home or self-care (01) ==
LOC: PHYS 09:45
PROVIDERS: PCP Family Medicine; Referring Provider Obstetrics & Gynecology; Visit Provider Obstetrics & Gynecology
DX: M62.89 Other specified disorders of muscle (principal); M25.651 Stiffness of right hip, not elsewhere classified; R10.2 Pelvic and perineal pain
CPT/HCPCS: 97110; 97140; 97162; 97535

== ENCOUNTER → 2021-01-09 15:27 | Outpatient (CLI) | payer OTHER, SELFPAY ==
[2019-12-09 14:41] VITALS: BMI 24.5
--- NOTE | 2021-01-09 | DI.MG.S_ITS ---
BILATERAL DIGITAL SCREENING MAMMOGRAM 3D/2D WITH CAD: 01/09/2021 CLINICAL: Routine screening. Family history of breast cancer. Comparison is made to exams dated: 01/07/2019 mammogram - [facility], 02/06/2017 mammogram, and 02/02/2016 mammogram - [facility]- Radiology Consultations. The tissue of both breasts is heterogeneously dense. This may lower the sensitivity of mammography. Current study was also evaluated with a Computer Aided Detection (CAD) system. No significant masses, calcifications, or other findings are seen in either breast. There has been no significant interval change. IMPRESSION: NEGATIVE There is no mammographic evidence of malignancy. A 1 year screening mammogram is recommended. This exam was interpreted at Station ID: [id number]. NOTE: For mammograms, a report in lay terms will be sent to the patient. Approximately 15% of breast malignancies will not be visualized mammographically. In the management of a palpable breast mass, a negative mammogram must not discourage biopsy of a clinically suspicious lesion. Electronically Signed By: Gilberto rodriguez/michael:01/09/2021 16:19:59 letter sent: Normal Exam ACR BI-RADS Category 1: Negative [id number]
== END ==
PROVIDERS: PCP Family Medicine; Referring Provider Family Medicine; Visit Provider Family Medicine
DX: Z12.31 Encounter for screening mammogram for malignant neoplasm of breast (principal); Z80.3 Family history of malignant neoplasm of breast
CPT/HCPCS: 77063; 77067

== ENCOUNTER → 2022-02-01 09:03 | Outpatient (CLI) | payer OTHER, SELFPAY ==
[2019-12-09 14:41] VITALS: BMI 24.5
--- NOTE | 2022-02-01 | DI.MG.S_ITS ---
BILATERAL DIGITAL SCREENING MAMMOGRAM 3D/2D WITH CAD: 02/01/2022 CLINICAL: Routine screening. Family history of breast cancer. Comparison is made to exams dated: 01/09/2021 mammogram, 01/07/2019 mammogram - [facility], and 02/06/2017 mammogram - [facility]- Radiology Consultations. Both breasts are heterogeneously dense, which may obscure small masses (category c / 51-75% glandular tissue). Current study was also evaluated with a Computer Aided Detection (CAD) system. No significant masses, calcifications, or other findings are seen in either breast. There has been no significant interval change. IMPRESSION: NEGATIVE There is no mammographic evidence of malignancy. A 1 year screening mammogram is recommended. Based on the Tyrer Cuzick model (a risk assessment model) the patient's lifetime risk is 12.0% and her 10 year risk is 9.8%. According to the ACR, ACS, and NCCN guidelines, an annual breast MRI exam along with mammogram is recommended if the patient's lifetime risk is 20% or greater. This exam was interpreted at Station ID: [id number]. NOTE: For mammograms, a report in lay terms will be sent to the patient. Approximately 15% of breast malignancies will not be visualized mammographically. In the management of a palpable breast mass, a negative mammogram must not discourage biopsy of a clinically suspicious lesion. Electronically Signed By: Jah sabillon/michael:02/01/2022 17:18:33 letter sent: Normal Exam ACR BI-RADS Category 1: Negative 3341F
== END ==
PROVIDERS: PCP Physician Assistant; Referring Provider Physician Assistant; Visit Provider Physician Assistant
DX: Z12.31 Encounter for screening mammogram for malignant neoplasm of breast (principal); Z80.3 Family history of malignant neoplasm of breast
CPT/HCPCS: 77063; 77067

== ENCOUNTER → 2023-02-27 08:50 | Outpatient (CLI) | payer OTHER, SELFPAY ==
[2019-12-09 14:41] VITALS: BMI 24.5
--- NOTE | 2023-02-27 | DI.MG.S_ITS ---
BILATERAL DIGITAL SCREENING MAMMOGRAM 3D/2D WITH CAD: 02/27/2023 CLINICAL: Routine screening. Family history of breast cancer. Comparison is made to exams dated: 02/01/2022 mammogram, 01/09/2021 mammogram, and 01/07/2019 mammogram - [facility]. Both breasts are heterogeneously dense, which may obscure small masses (category c / 51-75% glandular tissue). Current study was also evaluated with a Computer Aided Detection (CAD) system. No significant masses, calcifications, or other findings are seen in either breast. There has been no significant interval change. IMPRESSION: NEGATIVE There is no mammographic evidence of malignancy. A 1 year screening mammogram is recommended. Based on the Tyrer Cuzick model (a risk assessment model) the patient's lifetime risk is 13.1% and her 10 year risk is 13.1%. According to the ACR, ACS, and NCCN guidelines, an annual breast MRI exam along with mammogram is recommended if the patient's lifetime risk is 20% or greater. This exam was interpreted at Station ID: [id number]. NOTE: For mammograms, a report in lay terms will be sent to the patient. Approximately 15% of breast malignancies will not be visualized mammographically. In the management of a palpable breast mass, a negative mammogram must not discourage biopsy of a clinically suspicious lesion. Electronically Signed By: Gordy mazariegos/michael:02/27/2023 10:49:45 letter sent: Normal Exam ACR BI-RADS Category 1: Negative [id number]
== END ==
PROVIDERS: PCP Family Medicine; Referring Provider Family Medicine; Visit Provider Family Medicine
DX: Z12.31 Encounter for screening mammogram for malignant neoplasm of breast (principal); Z80.3 Family history of malignant neoplasm of breast
CPT/HCPCS: 77063; 77067

== ENCOUNTER → 2023-06-05 10:03 | Outpatient (CLI) | payer OTHER, SELFPAY ==
[2019-12-09 14:41] VITALS: BMI 24.5
--- NOTE | 2023-06-05 10:04 | DI.RAD.S_ITS ---
Bone Density Report Name: NICK JORDAN Age: 73 Sex: Female Ethnicity: White Date of : 1950 Indication: postmenopausal; screening for osteoporosis; prior fracture; Referring Provider: UNSPECIFIED Study: Bone densitometry was performed. Exam Date: June 05, 2023 Accession number: [id number] Bone Density: Region BMD T-score Z-score Classification AP Spine(L1-L4) 1.156 1.0 3.4 Normal Femoral Neck (Left) 0.759 -0.8 1.3 Normal Total Hip (Left) 0.990 0.4 2.2 Normal Total Forearm (Left) 0.623 0.8 3.3 Normal 1/3 Forearm (Left) 0.709 0.3 2.8 Normal UD Forearm (Left) 0.531 1.5 3.4 Normal World Health Organization criteria for BMD impression classify patients as: Normal (T-score at or above -1.0), Osteopenia (T-score between -1.0 and -2.5), or Osteoporosis (T-score at or below -2.5). 10-year Fracture Risk: FRAX not reported because: All T-scores for Spine Total, Hip Total, Femoral Neck at or above -1.0 Prior hip or vertebral fracture Impression: The patient has normal bone mass. The patient has risk factors, including: previous fracture. Discussion: INCREASED RISK OF FRACTURE DUE TO HISTORY OF FRACTURE. The patient's previous fracture puts the patient at high risk of a future fracture. In untreated patients, the risk of osteoporotic fracture increases approximately two-fold for each 1.0 SD decrease in T-score. Low bone density is not the only risk factor for fracture; also consider factors such as patient's age, frailty or poor health, risk of falling, risk of injury, previous osteoporotic fracture, family history of osteoporosis, cigarette smoking, low body weight, etc. Not everyone with a low trauma fracture has osteoporosis; osteomalacia and other metabolic bone disorders should also be considered. Patients who have osteoporosis should be evaluated for specific diseases and conditions (secondary causes) that may cause or contribute to bone loss and fracture risk. National Osteoporosis Foundation (NOF) recommends pharmacologic intervention for patients with a prior hip or vertebral fracture regardless of BMD T-score. The patient should follow a healthful lifestyle (good nutrition with adequate calcium and vitamin D, and appropriate weight-bearing exercise). Follow-Up: Consider a repeat BMD and Vertebral Fracture Assessment (VFA) exam in 2 years or sooner if medically necessary, to reassess this patient's status. Reported by: AUREA MCKEON M.D. on 06/05/2023 10:57:00 AM.
== END ==
LOC: RAD 10:03
PROVIDERS: PCP Family Medicine; Referring Provider Family Medicine; Visit Provider Family Medicine
DX: Z13.820 Encounter for screening for osteoporosis; Z78.0 Asymptomatic menopausal state
CPT/HCPCS: 77080; 77081

== ENCOUNTER → 2024-02-29 07:36 | Outpatient (CLI) | payer OTHER, SELFPAY ==
[2019-12-09 14:41] VITALS: BMI 24.5
--- NOTE | 2024-02-29 | DI.MG.S_ITS ---
BILATERAL DIGITAL SCREENING MAMMOGRAM 3D/2D WITH CAD: 02/29/2024 CLINICAL: Routine screening. Family history of breast cancer. Comparison is made to exams dated: 02/27/2023 mammogram, 02/01/2022 mammogram, and 01/09/2021 mammogram - [facility]. The breasts are heterogeneously dense, which may obscure small masses (category c / 51-75% glandular tissue). Current study was also evaluated with a Computer Aided Detection (CAD) system. No significant masses, calcifications, or other findings are seen in either breast. There has been no significant interval change. IMPRESSION: NEGATIVE There is no mammographic evidence of malignancy. A 1 year screening mammogram is recommended. Based on the Tyrer Cuzick model (a risk assessment model) the patient's lifetime risk is 12.1% and her 10 year risk is 0.0%. According to the ACR, ACS, and NCCN guidelines, an annual breast MRI exam along with mammogram is recommended if the patient's lifetime risk is 20% or greater. This exam was interpreted at Station ID: [id number]. NOTE: For mammograms, a report in lay terms will be sent to the patient. Approximately 15% of breast malignancies will not be visualized mammographically. In the management of a palpable breast mass, a negative mammogram must not discourage biopsy of a clinically suspicious lesion. Electronically Signed By: Jah sabillon/michael:03/02/2024 07:26:37 letter sent: Normal Exam ACR BI-RADS Category 1: Negative
== END ==
PROVIDERS: PCP Family Medicine; Referring Provider Family Medicine; Visit Provider Family Medicine
DX: Z12.31 Encounter for screening mammogram for malignant neoplasm of breast (principal); Z80.3 Family history of malignant neoplasm of breast; R92.333 Mammographic heterogeneous density, bilateral breasts
CPT/HCPCS: 77063; 77067

== ENCOUNTER → 2024-08-07 13:29 | Outpatient (CLI) | payer OTHER, SELFPAY ==
[2019-12-09 14:41] VITALS: BMI 24.5
== END ==
PROVIDERS: PCP Family Medicine; Referring Provider Family Medicine; Visit Provider Family Medicine
DX: R74.8 Abnormal levels of other serum enzymes (principal); R79.89 Other specified abnormal findings of blood chemistry
CPT/HCPCS: 36415

== ENCOUNTER → 2024-08-26 07:00 | Outpatient (CLI) | payer OTHER, SELFPAY ==
[2019-12-09 14:41] VITALS: BMI 24.5
--- NOTE | 2024-08-26 07:07 | DI.US.S_ITS ---
PROCEDURE: US ABDOMEN LIMITED INDICATIONS: HEMOCHROMATOSIS TECHNIQUE: Real-time scanning was performed of the abdominal and retroperitoneal organs, with image documentation. COMPARISON: None. FINDINGS: Liver: Liver is normal in size and homogeneous in echotexture. Hepatopetal flow seen in the main portal vein. Gallbladder: No gallstones. No wall thickening. No pericholecystic edema. Negative sonographic Wells's sign. Biliary ducts: Intrahepatic bile ducts are non-dilated. Extrahepatic bile duct caliber measures 6 mm. Normal is 6-7 mm or less in diameter, or 10 mm or less post-cholecystectomy. Pancreas: Visualized portions of the pancreas are sonographically normal. Miscellaneous: No free abdominal fluid. IMPRESSION: No significant sonographic abnormality in the right upper quadrant. No suspicious liver mass. Approved by: Gordy Hair M.D. on 08/26/2024 at 13:10
[2024-08-26 08:37] LABS: Iron 119 ug/dL (37-170)
[2024-08-26 08:46] LABS: Total Iron Binding Capacity 300 ug/dL (265-497)
== END ==
LOC: US 07:01
PROVIDERS: PCP Family Medicine; Referring Provider Family Medicine; Visit Provider Family Medicine
DX: R74.8 Abnormal levels of other serum enzymes (principal); R79.89 Other specified abnormal findings of blood chemistry; Z14.8 Genetic carrier of other disease
CPT/HCPCS: 36415; 76705; 83540; 83550

== ENCOUNTER → 2025-03-03 09:12 | Outpatient (CLI) | payer OTHER, SELFPAY ==
[2019-12-09 14:41] VITALS: BMI 24.5
--- NOTE | 2025-03-03 09:13 | DI.MG.S_ITS ---
MM screening mammo BI: 03/03/2025. BI-RADS: 1 CLINICAL: 75-year old female for bilateral screening mammogram. Tyrer-Cuzick lifetime risk of 9.1%. Current reported family history of breast cancer: mother. PRIOR EXAMS 02/29/2024, 02/27/2023, 02/01/2022, 01/09/2021. MAMMOGRAPHY TECHNIQUE: 2D and 3D (tomosynthesis) digital mammographic views obtained, with additional images as needed for full coverage. Current study was also evaluated with a Computer Aided Detection (CAD) system. DENSITY C. The breasts are heterogeneously dense, which may obscure small masses. MAMMOGRAPHY FINDINGS Bilateral: No suspicious mass, asymmetry, microcalcification, or other abnormality seen. IMPRESSION: * No evidence of malignancy. RECOMMENDATIONS Bilateral * Annual screening mammography. OVERALL ASSESSMENT CATEGORY BI-RADS-1: Negative. The [employer] recommends annual screening mammography beginning at age 40 for women with average risk of breast cancer. ELECTRONICALLY SIGNED: Haylie Castillo M.D. on 03/03/2025 at 05:16:16 PM PT Interpreting Station ID: [id number]
== END ==
LOC: MAMMO 09:13
PROVIDERS: PCP Family Medicine; Referring Provider Family Medicine; Visit Provider Family Medicine
DX: Z12.31 Encounter for screening mammogram for malignant neoplasm of breast (principal); R92.333 Mammographic heterogeneous density, bilateral breasts; Z80.3 Family history of malignant neoplasm of breast
CPT/HCPCS: 77063; 77067